=== PATIENT | female | born 1955 | race Caucasian/White ===

== ENCOUNTER → 2016-08-15 | Outpatient (CLI) | payer OTHER ==
[~2016-08-15] MED LIST: ACET-1138 PO; CALC1CHW PO; CYAN500T13 PO; CYCL10TA6 PO; DIPH1TAB PO; EPP3/2 IM; FLUC150T PO; FLUT0.15 NAE; FOLI800T PO; HYDR4TAB2 PO; HYQVIA INJ; IMT100 PO; LEVO125T72 PO; MAGN400T6 PO; METO1TAB54 PO; NXM/40 PO; OXYSR/20 PO; POLY335019 PO; PRED-301 PO; RANI1TAB75 PO; SENN-61 PO; TRAM-10 PO; TYL325X PO; ZFRODT/8 PO; potassium supplement PO
--- NOTE | 2016-08-15 12:14 | DIAGNOSTIC IMAGING REPORT ---
CHEST 2 VIEWS ROUTINE CLINICAL HISTORY: Preoperative evaluation. COMPARISON STUDY: Chest radiograph September 18, 2015 per FINDINGS: A left subclavian Ubayyv-[id number]-Ejiy, anterior cervical spine fusion and metallic densities within the right upper arm are incidentally noted. Lung volumes are normal. There is no pneumothorax or pleural effusion. Pulmonary vascularity is normal. No consolidation is present. Cardiomediastinal silhouette is normal. Mild biapical opacities are unchanged and likely reflect scarring. IMPRESSION: No acute cardiopulmonary findings. Electronically signed by: Padilla Wilder M.D. 08/15/2016 12:13 PM Dictated Date/Time: 08/15/2016 12:12 PM
[2016-08-15 12:25] LABS: BASO % 0.4 %; BASO ABS # 0.03 K/uL (0-0.2); COMPLETE YES; EOS % 1.5 %; HEMATOCRIT 33.6 % (37-47); IG% 0.1 %; LYMPH % 29.2 %; LYMPH ABS # 1.97 K/uL (1.2-3.4); MEAN CELL VOLUME 71.6 fL (80-100); MEAN CORPUSCULAR HEMOGLOBIN 22.4 pg (25-34); MEAN CORPUSCULAR HGB CONC 31.3 g/dl (32-36); MEAN PLATELET VOLUME 10.5 fL (7.4-10.4); MONO % 4.7 %; NEUT % 64.1 %; PLATELET COUNT 320 K/uL (130-400); RED BLOOD COUNT 4.69 M/uL (4.2-5.4); WHITE BLOOD COUNT 6.74 K/uL (4.8-10.8)
[2016-08-15 12:30] LABS: URINE APPEARANCE CLEAR (CLEAR); URINE BILIRUBIN NEG (NEG); URINE COLOR DK YELLOW; URINE NITRITE NEG (NEG); URINE PH 5.5 (4.5-7.5); URINE SPECIFIC GRAVITY 1.027 (1.000-1.030); UROBILINOGEN NEG (NEG); ZZUR CULT IF INDIC CLEAN CATCH NO
[2016-08-15 12:34] LABS: MANUAL MICROSCOPIC REQUIRED? NO; REVIEW REQ? NO
[2016-08-15 12:35] LABS: PROTHROMBIN TIME (PATIENT) 10.8 SECONDS (9.0-12.0)
== END | disposition home or self-care (01) ==
LOC: C.RAD 11:18
PROVIDERS: ATTEND Orthopaedic Surgery Sports Medicine
DX: Z01.818 Encounter for other preprocedural examination (principal)

== ENCOUNTER 2016-08-23 09:38 | Observation (INO) | payer OTHER ==
[2016-08-10 13:15] VITALS: BMI 27.0
--- NOTE | 2016-08-22 15:54 | HISTORY & PHYSICAL EXAMINATION ---
DATE OF ADMISSION: 08/23/2016 ADMISSION HISTORY AND PHYSICAL CHIEF COMPLAINT: Chronic left shoulder pain. HISTORY OF PRESENT ILLNESS: A 61-year-old female patient of Dr. Reyes'randy complaining of chronic left shoulder pain. The patient is status post multiple arthroscopic left rotator cuff repair, the last one being a partial repair. The patient continued to have chronic pain despite her improved use of overhead motions. She wishes to proceed now with a left shoulder arthroscopic superior capsular reconstruction with human dermal skin graft. PAST MEDICAL HISTORY: Hypercholesterolemia, pulmonary embolisms or blood clots, carpal tunnel syndrome, hypothyroidism, MRSA, osteoarthritis, spine problems, neck problems, sciatica, and acid reflux. SOCIAL HISTORY: Nonsmoker, nondrinker. PAST SURGICAL HISTORY: Will be provided on admission. FAMILY HISTORY: Noncontributory. REVIEW OF SYSTEMS: Chronic left shoulder pain and decreased motion and strength. Otherwise, denies any shortness of breath, chest pain, nausea, vomiting or any other joint complaints. MEDICATIONS: EpiPen 0.3 mg IM as needed for anaphylaxis, Synthroid 125 mcg daily, Nexium 40 mg daily, ranitidine 150 mg b.i.d., Amrix 15 mg daily, Reglan 10 mg q.i.d. daily, Celebrex 200 mg daily, OxyIR 20 mg 1 tablet q. 8 hours p.r.n., Dilaudid 4 mg 1 p.o. daily as needed. ALLERGIES AND SENSITIVITIES TO MEDICINE: INCLUDE PNEUMOVAX AND INFLUENZA VIRUS, nevanac NICKEL FORMALDEHYDE ADHESIVES, BETADINE, NEOMYCIN, DAYPRO, serzone SULFITES, PRIMAXIN, TROVAN, ZITHROMAX, DESYREL, FLOXIN, PAXIL, COMPAZINE, AMOXICILLIN, VOLTAREN, LODINE, SOMA, CLEOCIN, BELLERGAL-S, TERRAMYCIN, SEPTRA AND IVP DYE. PHYSICAL EXAMINATION: GENERAL: Well-developed, well-nourished 61-year-old female in no acute distress. She is alert and oriented x3 and pleasant. HEENT: Normocephalic, atraumatic. Extraocular motions are intact. Pupils are equal and reactive to light. HEART: Regular rate and rhythm with a 2/6 murmur appreciated. LUNGS: Clear. ABDOMEN: Soft, nontender, bowel sounds present. EXTREMITIES: Left shoulder reveals active range of motion of 120 degrees, passively to 140 degrees. She really only has 2/5 strength globally. NEUROLOGIC: Neurovascularly, she is intact in her left upper extremity. DIAGNOSES: Left shoulder chronic pain with chronic rotator cuff tear status post multiple arthroscopic repairs. She also has a history of hypercholesterolemia, pulmonary embolisms, carpal tunnel, hypothyroidism, methicillin-resistant staphylococcus aureus, osteoarthritis, spine problems, neck problems, sciatica, and acid reflux. PLAN: The patient was advised of her diagnosis. Indications, risks, benefits, and postop course have all been reviewed. The patient wishes to proceed with a left shoulder arthroscopic superior capsular reconstruction with a human dermal skin graft. Necessary consent forms, preoperative testing and clearances will be obtained. FRANCOIS
[~2016-08-23] VITALS: Ht 162.6 cm; Wt 72.3 kg
[~2016-08-23 09:38] MED LIST changes: -ACET-1138 PO; +BUPIVACAINE/EPINEPHRINE 0.25% 1:200,000 30 ML VIAL ONE; +CEFAZOLIN 1000MG/55 ML D5W IV SCH; +DEXAMETHASONE SOD INJ 4 MG/ML VIAL ONE; +LACTATED RINGER'S 1000ML 1,000 ML IV SCH; -POLY335019 PO
[2016-08-23] MEDS ORDERED: ONDANSETRON INJ 2 MG/ML 2 ML VIAL ONE ×3 (10:22→18:57)
[2016-08-23] MEDS ORDERED: DEXAMETHASONE SOD INJ 4 MG/ML VIAL ONE ×2 (10:22→17:07)
[2016-08-23] MEDS ORDERED: SUCCINYLCHOLINE CHLORIDE 20 MG/ML 10 ML VIAL IV ONE (10:22)
[2016-08-23] MEDS ORDERED: NEOSTIGMINE METHYLSULFATE 5 MG/5 ML SYR ONE (10:22)
[2016-08-23] MEDS ORDERED: PHENYLEPHRINE HCL INJ 10 MG/ML VIAL ONE ×2 (10:22→14:01)
[2016-08-23] MEDS ORDERED: EpHEDrine SULFATE INJ 50 MG/ML AMP ONE ×2 (10:22→15:29)
[2016-08-23] MEDS ORDERED: LIDOCAINE HCL 2% 2 ML VIAL (20MG/ML) ONE (10:22)
[2016-08-23] MEDS ORDERED: GLYCOPYRROLATE INJ 0.2 MG/ML VIAL ONE (10:22)
[2016-08-23] MEDS ORDERED: PROPOFOL IV EMULSION 10 MG/ML 20 ML VIAL IV ONE ×2 (10:22→13:34)
[2016-08-23] MEDS ORDERED: ROCURONIUM BROMIDE 10 MG/ML 5 ML VIAL ONE (10:22)
[2016-08-23] MEDS ORDERED: MIDAZOLAM HCL 1 MG/ML 2ML VIAL ONE ×2 (10:23→12:30)
[2016-08-23] MEDS ORDERED: FENTANYL CITRATE INJ 50 MCG/1 ML 2 ML VIAL ONE ×3 (10:23→12:53)
[2016-08-23 10:34] LABS: PARTIAL THROMBOPLASTIN RATIO 1.1
[2016-08-23] MEDS ORDERED: POLY335019 PO (10:38)
[2016-08-23 10:42] VITALS: BP 130/95; PULSE 98; TEMP 36.9; O2SAT 96; Ht 162.6 cm; Wt 72.3 kg
--- NOTE | 2016-08-23 12:34 | History & Physical Bridge Note ---
H&P Re-Evaluation Bridge Note: I have examined the patient, reviewed the History & Physical and in the interval since the performance of the History & Physical I have noted the following changes of clinical significance: No changes noted
[2016-08-23] MEDS ORDERED: HYDROmorphone INJ 1 MG/ML SYR IV PRN (13:00)
[2016-08-23] MEDS ORDERED: PROMETHAZINE HCL INJ 6.25 MG in SODIUM CHLORIDE 0.9% 50ML 50 ML IV PRN (13:00)
[2016-08-23] MEDS ORDERED: EpHEDrine SULFATE INJ 50 MG/ML AMP IV PRN (13:00)
[2016-08-23] MEDS ORDERED: ONDANSETRON INJ 2 MG/ML 2 ML VIAL IV PRN (13:00)
[2016-08-23] MEDS ORDERED: ATROPINE SULFATE 0.1 MG/ML 5ML SYR IV PRN (13:00)
[2016-08-23] MEDS ORDERED: FENTANYL CITRATE INJ 50 MCG/1 ML 2 ML VIAL IV PRN (13:00)
[2016-08-23] MEDS ORDERED: SODIUM CHLORIDE 0.9% INJ 10 ML VIAL ONE (15:29)
[2016-08-23] MEDS ORDERED: HYDROmorphone INJ 2 MG/ML SYR/VIAL ONE (16:06)
[2016-08-23] MEDS ORDERED: ZOLPIDEM TARTRATE 5 MG TAB PO PRN (18:30)
[2016-08-23] MEDS ORDERED: SENNA 8.6 MG TAB PO PRN (18:30)
[2016-08-23] MEDS ORDERED: EpINEphrine INJ 1MG/ML AMP 1 MG/ML AMP IM PRN (18:30)
[2016-08-23] MEDS ORDERED: MAGNESIUM HYDROXIDE SUSP 30 ML UDC PO PRN (18:30)
[2016-08-23] MEDS ORDERED: SOD PHOSPHATE/SOD BIPHOSPHATE ENEMA 132 ML BTL PR PRN (18:30)
[2016-08-23] MEDS ORDERED: HYALURONIDASE INJ SCH (18:30)
[2016-08-23] MEDS ORDERED: BISACODYL 10 MG SUPP PR PRN (18:30)
[2016-08-23] MEDS ORDERED: ONDANSETRON 4MG OD TAB PO PRN (18:30)
[2016-08-23] MEDS ORDERED: TRAMADOL HCL 50 MG TAB PO PRN (18:30)
[2016-08-23] MEDS ORDERED: HYDROmorphone HCL 2 MG TAB PO PRN (18:30)
[2016-08-23] MEDS ORDERED: SUMATRIPTAN SUCC TAB 100 MG TAB PO PRN (18:30)
[2016-08-23] MEDS ORDERED: IMMUNE GLOBULIN INJ SCH (18:30)
--- NOTE | 2016-08-23 18:39 | [facility] Operative Report ---
Operative Report Operative Date Aug 23, 2016. Pre-Operative Diagnosis Left shoulder chronic pain with chronic rotator cuff tear status post multiple arthroscopic repairs Post-Operative Diagnosis same ,mild to moderate oa GHJ, chronic bursal and capsular adhesions . Procedure(s) Performed left shoulder revision arthroscopic rotator cuff repair with human dermal skin graft allograft augmentation extensive debridement and biceps tenodesis. Surgeon Dr Jose Reyes Pedicurist Surgeon(s) Eris Mazariegos PA-C Estimated Blood Loss 10cc Findings chronic retracted recurrent tear supra and infraspinatus chronic scar and moderate djd oa Anesthesia general and regional Complication(s) None Disposition Recovery Room / PACU Indications failure all conservative care chronic pain I attest to the content of the Intraoperative Record and any orders documented therein. Any exceptions are noted below.
--- NOTE | 2016-08-23 19:12 | Anesthesiology Progress Note ---
Anesthesia Post Op Note Date & Time Aug 23, 2016 at 19:12 Vital Signs Pain Intensity: 0 Vital Signs Past 12 Hours Date Time Temp Pulse Resp B/P Pulse Ox O2 Delivery O2 Flow Rate FiO2 08/23/16 19:05 36.3 82 14 161/74 100 Nasal Cannula 2 08/23/16 18:55 83 13 157/76 100 Nasal Cannula 2 08/23/16 18:45 82 15 138/70 100 Mask 10 08/23/16 18:35 82 17 142/78 100 Mask 10 08/23/16 18:29 36.6 87 12 157/86 100 Mask 10 08/23/16 10:42 36.9 98 20 130/95 96 Room Air Notes Mental Status: alert / awake / arousable, participated in evaluation Pt Amnestic to Procedure: Yes Nausea / Vomiting: adequately controlled Pain: adequately controlled Airway Patency, RR, SpO2: stable & adequate BP & HR: stable & adequate Hydration State: stable & adequate Anesthetic Complications: no major complications apparent
[2016-08-23] MEDS ORDERED: IV FLUIDS COMPLETED PRN (20:15)
[2016-08-23 20:21] VITALS: BP 146/86; PULSE 85; TEMP 36.4; O2SAT 98
[2016-08-23] MEDS: FLUTICASONE PROPIONATE NA SPR 16 GM BTL NAE SCH (20:33)
[2016-08-23] MEDS: CALCIUM 600MG + VIT D 400 IU TAB PO SCH (20:33)
[2016-08-23] MEDS: MAGNESIUM OXIDE 400 MG TAB PO SCH (20:33)
[2016-08-23 20:56] VITALS: BP 150/94; PULSE 87; TEMP 36.8; O2SAT 97
[2016-08-23] MEDS ORDERED: PANTOprazole SOD 40 MG TAB PO SCH (21:00)
[2016-08-23] MEDS ORDERED: RANITIDINE HCL 150 MG TAB PO SCH (21:00)
[2016-08-23] MEDS ORDERED: METOCLOPRAMIDE HCL 5 MG TAB PO SCH (21:00)
[2016-08-23] MEDS: D5W AND 1/2NSS + 20MEQ KCL 1,000 ML IV SCH (21:04)
[2016-08-23] MEDS: CYCLOBENZAPRINE HCL 10 MG TAB PO SCH (21:52)
[2016-08-23] MEDS: ACETAMINOPHEN 500 MG TAB PO SCH (21:53)
[2016-08-23] MEDS: CEFAZOLIN IV 1,000 MG in DEXTROSE 5% 50ML 50 ML IV SCH (21:53)
[2016-08-23] MEDS: OXYCODONE HCL 20 MG TABCR (OXYCONTIN) PO SCH (21:55)
[2016-08-23 22:03] VITALS: BP 144/89; PULSE 85; TEMP 36.4; O2SAT 97
[2016-08-23 22:37] VITALS: BP 150/82; PULSE 86; TEMP 36.7; O2SAT 96
[2016-08-23] MEDS: METOCLOPRAMIDE HCL 5 MG TAB PO SCH (22:40)
[2016-08-23] MEDS: HYDROmorphone INJ 0.5 MG/0.5 ML SYR IV PRN (23:22)
--- NOTE | 2016-08-24 00:51 | OPERATIVE REPORT ---
DATE OF OPERATION: 08/23/2016 INDICATION FOR PROCEDURE: The patient is a 61-year-old female who presents with chronic left shoulder pain. She had several arthroscopic rotator cuff repairs prior to my revising her rotator cuff repair which improved her function but still had chronic pain and MRI followup exam demonstrated incomplete healing of the rotator cuff repair. She still had some healing of the supraspinatus, recurrent infraspinatus tear, atrophy of the infraspinatus and supraspinatus noted, but no proximal migration of the humerus. She had has previous decompression, distal clavicle excision surgery. She has had extensive conservative management, injections, chronic pain management. Continues to have pain. SHE HAS A METAL ALLERGY. She is a bit young for reverse replacement, and after extensive discussion, plan was to do superior capsular reconstruction, possibly revision repair if indicated. PREOPERATIVE DIAGNOSIS: Left shoulder chronic recurrent rotator cuff tear status post prior revision rotator cuff repair with incomplete healing and chronic pain. POSTOPERATIVE DIAGNOSIS: Same including subacromial bursitis, bursal scar tissue, capsular adhesions, partial failure rotator cuff revision repair, and moderate osteoarthritis. PROCEDURE: Left shoulder arthroscopic revision rotator cuff repair with human dermal skin allograft augmentation with biceps tenodesis and extensive debridement including debridement rotator cuff, subacromial bursal adhesions, release capsular adhesions, debridement of glenohumeral joint. SURGEON: Dr. Reyes. BOOKING MANAGER: Eris Mazariegos PA-C. ANESTHESIA: Regional block, general. OPERATIVE PROCEDURE: The patient was taken to the operating room, anesthetized with regional block and general anesthetic. She was positioned on a [facility] shoulder table in a 70-degree beachchair position. The patient did have an A-port with a catheter in place and did not have IV access in her right upper extremity, so anesthesia had to do jugular vein IV access on the right side of her neck, then removed the port catheter. This all took more than typical time for induction of anesthesia and positioning. After she was positioned in a 70-degree beachchair position on the [facility], did examine her shoulder which demonstrates she had good passive range of motion. She had multiple scars, all arthroscopic from previous multiple surgeries. Her left shoulder was then sterilely prepped and draped using ChloraPrep. She did have preop Ancef. She did have MULTIPLE ALLERGIES TO MULTIPLE MEDICATIONS INCLUDING OTHER ANTIBIOTICS. Her left shoulder after it was sterilely prepped was arthroscoped, starting with a posterior arthroscopy portal through one of the previous scars in the soft spot. We did a lateral portal through one of the previous scars in subacromial space and anterior portal through one of the previous scars in the rotator interval. We did a superolateral portal for suture anchor placement. We made a widened lateral portal for passport cannula. Did a small stab incision for docking a suture posterolateral area of the shoulder. In the glenohumeral joint, she had some moderate articular thinning on the glenoid and humeral head. There was some global grade 2 and 3 wear on humeral head and the glenoid. She did not have any exposed bone, but it was definitely thinning articular surface there. She had some generalized fraying of the labrum and had an intact subscapularis tendon. Supraspinatus tendon on the anterior aspect and rotator interval tissue was also attached with suture material still intact to the anterior supraspinatus, but some of the main portion supraspinatus had torn off the tuberosity and retracted. Infraspinatus was retracted posteriorly. The tissue came almost to a V-shape where the infraspinatus tissue met the supraspinatus tissue at the greater tuberosity and there was more of a gap as you went more medial toward the glenoid in the gap between the cuff tissue. I felt she did have enough tissue and thick enough tissue to go ahead and do a revision repair instead of going ahead to do a superior capsular reconstruction at this time. She did have a satisfactory decompression and there was no impingement from the AC joints at all. She did have chronic bursitis and subacromial and subdeltoid adhesions. She also had capsular adhesions of the cuff around the superior glenoid. Attention was first taken to the glenohumeral joint at which time I did debridement of glenoid and humeral articular surfaces, the labrum, and then I chose to do a biceps tenodesis to get better exposure with capsular releases anticipating possible SCR and also the biceps was partially uncovered from the tear and possible pain generator. So I put a #1 PDS suture through the biceps via a spinal needle and then did a tenotomy of the biceps off the superior labrum using a radiofrequency ablator. Then, we used radiofrequency ablator to release the superior capsule under the supraspinatus and infraspinatus posteriorly, releasing all the adhesions. We released medially about a centimeter until we saw the fat tissue and then stopped to protect any injury to the suprascapular nerve. The base of the coracoid was exposed, so all the rotator interval tissue was released at the base of the coracoid, and the tissue was released down to the upper subscapularis tendon, gaining full release of the supraspinatus and infraspinatus tissue. Then, the biceps was tenodesed using a NORIS technique, placing #1 PDS suture through the anterior rotator interval and supraspinatus tissue and passing a #2 Ultrabraid suture shuttling it through the rotator cuff and suturing the biceps to the rotator cuff in subacromial space. Then, attention was taken to the subacromial exposure, at which time the footprint of the supraspinatus which was more of a V-shaped area of wear was debrided down to bone. There were old anchors identified. We had to carefully place our anchor to avoid previous anchor placement. I medialized the articular surface slightly to get medial row fixation of the supraspinatus. Then, the edges of the rotator cuff were debrided and then the bursal adhesions were carefully debrided and released under the acromion, AC joint area, at the spine of the scapula posteriorly, and posteriorly in the posterior gutter and lateral subdeltoid region and subscapularis region anteriorly. After we did a systematic release of all these adhesions to mobilize the cuff, we took a soft tissue manipulator to see if we could cover the humeral head and we were able to fully cover the humeral head with a [id number] closure. So I felt we were not going to do an SCR at this time and then proceed with revision cuff repair including a graft augmentation. So at this point, just off the articular margin, I placed a Composite SwiveLock suture anchor from [employer] with a TigerTape and added a #2 FiberWire to it. It was a 4.75 x 19.[address] We did place this medial and slightly posterior to the other anchor that was placed on previous surgery. Then, I used a Scorpion suture passer to pass the TigerTape and #2 FiberWire sutures and the other suture from the anchor which was another #2 FiberWire through the supraspinatus tissue. The second limb of the FiberWire was placed through the infraspinatus tissue from each of the FiberWires so we could get both xixk-kw-zjuk closure and medial row fixation in the infraspinatus and supraspinatus to the SwiveLock. These were not tied at this point in time. Then, 2 more aqhj-xj-bhfk sutures were docked for later tying in the infraspinatus and anterior supraspinatus. Then, finally medially, I placed 2 more #2 FiberWire sutures in a horizontal mattress fashion through the most medial aspect of the infraspinatus and most medial aspect of the supraspinatus to repair the graft with a double italia technique. At this point, all our sutures were placed and then I proceeded with the repair, so first we tied down the FiberWire sutures from the SwiveLock anchor x2. One tail of each of those sutures was cut and 4 tails, 2 of the FiberWire and 2 tails of the tape were put into another SwiveLock anchor laterally for the dual row fixation. Then, the pdbh-vr-[id number] sutures were tied, leaving 1 knot far anterior for tying into the graft and 1 knot far posterior in the mid tear region to tie into the posterior graft. Then, we made graft measurements with the Arthrex measuring device. After making the measurements, we chose to make a 35 mm trapezoidal graft width medially, 30 mm laterally, and 30 mm length anteriorly and posteriorly. This graft was then cut. Then, we exchanged our working cannula for a passport cannula and then passed appropriate sutures out through the passport cannula. We used the BioMaxion suture passer to pass the sutures from the medial side in a horizontal mattress fashion to the medial aspect of the graft. Then, we did a double italia technique drawing the graft in through the passport using a rotator cuff grasper and pulling on the sutures of the double italia to pull the graft down onto the superior cuff. There was a complete previous nbdq-lr-hcdl closure with the previous ekjk-nn-dwjz sutures that we had closed, so the cuff was already completely repaired underneath the graft. Then, we completed the double italia technique with a surgeon's knot, fixating the medial side of the graft across the rotator cuff. Then, the lateral aspect of the graft was repaired with a 4.5 corkscrew double loaded suture anchor anteriorly, a 5.5 composite corkscrew double loaded suture anchor posteriorly, and we had the FiberWire suture that was in the SwiveLock anchor centrally for placement through the lateral graft. These were all tied down with Max sliding locking knots and surgeon's knots as needed. Then, the anterior and posterior sutures were passed with the BioMaxion suture passer through the anterior and posterior cuff and then distally down the anterior and posterior graft and then slay down the edges of the graft over the cuff, completing the graft fixation which was performed all arthroscopically. The repair was secured with rotation with the arm at the side. There was complete coverage of humeral head, complete stability of the repair. The portal sites were closed with nylon sutures. Sterile dressings were applied and the patient was placed into an abduction pillow sling immobilizer. Eris Mazariegos PA-C, was my rn first assistant. He functioned as rn first assistant for the entire procedure. He assisted in patient positioning, prepping, draping, arm positioning, instrument management and suture management during the procedure, and he performed the skin closure, dressings, abduction pillow sling application, and will participate in postoperative care of the patient. I attest to the content of the Intraoperative Record and any orders documented therein. Any exceptio ns are noted below.
[2016-08-24] MEDS: HYDROmorphone INJ 0.5 MG/0.5 ML SYR IV PRN ×3 (01:25→06:29)
[2016-08-24] MEDS ORDERED: NURSING VERBAL MED ORDER ONE (01:45)
[2016-08-24] MEDS ORDERED: PROMETHAZINE HCL INJ 12.5 MG in SODIUM CHLORIDE 0.9% 50ML 50 ML IV PRN (02:00)
[2016-08-24] MEDS ORDERED: ONDANSETRON INJ 2 MG/ML 2 ML VIAL IV PRN (02:00)
[2016-08-24 03:32] VITALS: BP 150/84; PULSE 96; TEMP 36.9; O2SAT 95
[2016-08-24] MEDS ORDERED: LEVOTHYROXINE 125 MCG TAB PO SCH ×2 (06:00)
[2016-08-24] MEDS: CEFAZOLIN IV 1,000 MG in DEXTROSE 5% 50ML 50 ML IV SCH (06:22)
[2016-08-24] MEDS: D5W AND 1/2NSS + 20MEQ KCL 1,000 ML IV SCH (06:22)
[2016-08-24] MEDS: ACETAMINOPHEN 500 MG TAB PO SCH (06:23)
[2016-08-24 07:20] VITALS: BP 158/106; PULSE 106; TEMP 36.9; O2SAT 97
[2016-08-24] MEDS: OXYCODONE HCL 20 MG TABCR (OXYCONTIN) PO SCH (08:10)
[2016-08-24] MEDS: METOCLOPRAMIDE HCL 5 MG TAB PO SCH (08:13)
[2016-08-24] MEDS: CYCLOBENZAPRINE HCL 10 MG TAB PO SCH (08:13)
[2016-08-24] MEDS: FLUTICASONE PROPIONATE NA SPR 16 GM BTL NAE SCH (08:14)
[2016-08-24] MEDS: CALCIUM 600MG + VIT D 400 IU TAB PO SCH (08:14)
[2016-08-24] MEDS: MAGNESIUM OXIDE 400 MG TAB PO SCH (08:15)
--- NOTE | 2016-08-24 08:15 | Orthopedic Progress Note ---
Orthopedic Progress Note Date of Service Aug 24, 2016. Subjective Post OP Day: 1 Reports: feeling well, pain controlled w PO medications, Denies: SOB, calf pain , chest pain, complaints, light headedness, nausea / vomiting Objective N/V intact, capillary refill less than 2 sec., dressing C/D/I, A&O x3 Sling in tact, fingers mobile. Date Time Temp Pulse Resp B/P Pulse Ox O2 Delivery O2 Flow Rate FiO2 08/24/16 03:32 36.9 96 16 150/84 95 Room Air 08/23/16 23:20 Room Air 08/23/16 22:37 36.7 86 18 150/82 96 Room Air 08/23/16 22:03 36.4 85 18 144/89 97 Nasal Cannula 2.0 08/23/16 20:56 36.8 87 18 150/94 97 Room Air 08/23/16 20:21 36.4 85 18 146/86 98 Nasal Cannula 2.0 08/23/16 19:53 Nasal Cannula 2.0 08/23/16 19:30 85 15 147/89 100 Nasal Cannula 2 08/23/16 19:15 80 12 161/80 98 Nasal Cannula 2 08/23/16 19:05 36.3 82 14 161/74 100 Nasal Cannula 2 08/23/16 18:55 83 13 157/76 100 Nasal Cannula 2 08/23/16 18:45 82 15 138/70 100 Mask 10 08/23/16 18:35 82 17 142/78 100 Mask 10 08/23/16 18:29 36.6 87 12 157/86 100 Mask 10 08/23/16 10:42 36.9 98 20 130/95 96 Room Air Laboratory Results 24 Hours: Test 08/24/16 04:44 Assessment & Plan Assessment: POD #1, Left shoulder revision RCR with graft augmentation, biceps tenodesis Plan: NO PT May loosen sling to move elbow only. D/C home today. Inhouse Planning Pain Management: Oxycontin, Dilaudid DVT Prophylaxis: SCDs Discharge Planning Discharge Planning: home Pain Management: Dilaudid
[2016-08-24] MEDS ORDERED: ACET-1138 PO (08:20)
[2016-08-24] MEDS ORDERED: HYDR4TAB2 PO (08:20)
--- NOTE | 2016-08-24 08:24 | Discharge Instructions ---
Discharge Instructions Admission Reason for Admission: Left Shoulder Recurrent Rotator Cuff Tear Discharge Discharge Diagnosis / Problem: LEft shoulder revision RCR w graft, biceps tenodesis. Discharge Goals Goal(s): Improve function Activity Recommendations Activity Limitations: as noted below . Instructions / Follow-Up Instructions / Follow-Up NO PT May loosen sling to move elbow only, no shoulder motion. NO driving. May change dressings and shower post op day #2, do not submerge incisions underwater. Follow up w Dr. Reyes 12-14 days post op, call [phone] to confirm appt. Current Hospital Diet Patient's current hospital diet: Regular Diet Discharge Diet Recommended Diet: Regular Diet Procedures Procedures Performed: left shoulder arthroscopic superior capsular reconstruction with a human dermal skin graft. Pending Studies Studies pending at discharge: no Medical Emergencies . Who to Call and When: Medical Emergencies: If at any time you feel your situation is an emergency, please call 911 immediately. . Non-Emergent Contact Non-Emergency issues call your: Primary Care Provider . "Provider Documentation" section prepared by Eris Mazariegos. VTE Core Measure Inpt VTE Proph given/why not?: SCD's [place] Drug Monitoring Program Search Results: patient reviewed within database, no issues identified
[2016-08-24] MEDS ORDERED: FoLIC ACID TAB 400 MCG TAB PO SCH (09:00)
[2016-08-24] MEDS ORDERED: ESOMEPRAZOLE MAGNESIUM 40 MG CAP PO SCH (09:00)
[2016-08-24] MEDS ORDERED: POLYETHYLENE (MIRALAX) 17 GM PACK PO SCH (09:00)
[2016-08-24] MEDS ORDERED: POTASSIUM SUPPLEMENT PO SCH (09:00)
[2016-08-24] MEDS ORDERED: PANTOprazole SOD 40 MG TAB PO SCH (09:00)
[2016-08-24] MEDS ORDERED: MULTIVITAMIN TAB PO SCH (09:00)
[2016-08-24] MEDS ORDERED: CYANOCOBALAMIN 500 MCG TAB (VIT B-12) PO SCH (09:00)
[2016-08-24 09:16] VITALS: BP 158/106; PULSE 106; TEMP 36.9; O2SAT 97
[2016-08-24] MEDS ORDERED: RANITIDINE HCL 150 MG TAB PO SCH (21:00)
--- NOTE | 2016-09-07 09:22 | DISCHARGE SUMMARY ---
HISTORY OF PRESENT ILLNESS: This is a 61-year-old female patient of Dr. Reyes'randy complaining of chronic left shoulder pain. The patient is status post multiple arthroscopic left rotator cuff repairs, last one being a partial repair. The patient continues to have chronic pain despite her improvement and use of overhead motion. She wishes to proceed now with left shoulder arthroscopic rotator cuff repair with a human dermal skin graft. PAST MEDICAL HISTORY: Hypercholesterolemia, pulmonary embolism or blood clots, carpal tunnel syndrome, hypothyroidism, MRSA, osteoarthritis, spine problems, neck problems, sciatica and acid reflux. POSTOPERATIVE COURSE: The patient underwent a left shoulder arthroscopic revision rotator cuff repair with reconstruction with human dermal skin graft, biceps tenodesis and extensive debridement. Postoperative course, she did well postoperatively. She was followed closely with pain control. No physical therapy at this point in time and did well. PHYSICAL EXAMINATION ON DISCHARGE: Left shoulder dressings are clean, dry and intact. There was no redness or drainage. Neurologically and neurovascularly she was intact in her left upper extremity. DIAGNOSIS: Status post left arthroscopic revision rotator cuff repair with human dermal skin graft, biceps tenodesis and extensive debridement. She also has a history of hypercholesterolemia, pulmonary embolism, carpal tunnel syndrome, hypothyroidism, MRSA, osteoarthritis, spine problems, neck problems, sciatica and acid reflux. PLAN: The patient was discharged home. She will do no formal physical therapy at this point in time. She can loosen her sling to do elbow range of motion only. She will continue pain medications as prescribed by her family physician and follow up in the office as scheduled.
== END 2016-08-24 10:10 | disposition home or self-care (01) ==
LOC: ENRESERVDT → ENRESERVTM → C.ACU 09:38 → C.3E 18:32 → UNDOADMOB 18:32 → EDBEDREQ 19:36
PROVIDERS: ADMIT Orthopaedic Surgery Sports Medicine; ATTEND Orthopaedic Surgery Sports Medicine
DX: M75.101 Unspecified rotator cuff tear or rupture of right shoulder, not specified as traumatic (principal); M75.52 Bursitis of left shoulder; M75.02 Adhesive capsulitis of left shoulder; M19.012 Primary osteoarthritis, left shoulder; E78.00 Pure hypercholesterolemia, unspecified; E03.9 Hypothyroidism, unspecified; K21.9 Gastro-esophageal reflux disease without esophagitis

== ENCOUNTER → 2016-08-29 | Outpatient (CLI) | payer OTHER ==
[~2016-08-29] MED LIST changes: +ACET-1138 PO; +ACET-1311 PO; +BCTCR/30 TOP; +BIOT10TA2 PO; -BUPIVACAINE/EPINEPHRINE 0.25% 1:200,000 30 ML VIAL ONE; +CALC-354 PO; -CEFAZOLIN 1000MG/55 ML D5W IV SCH; +CLB/200 PO; +CLOT1CRE80 TOP; -DEXAMETHASONE SOD INJ 4 MG/ML VIAL ONE; +HYDR4TAB78 PO; +IMMU1INJ INJ; +IPRA1AER2 INH; +IRON20IN IV; -LACTATED RINGER'S 1000ML 1,000 ML IV SCH; +LEVO100T PO; +MONT1TAB5 PO; +ONDA4TAB46 SL; +POLY335019 PO; +ZNTT/150 PO
[2016-08-29 15:48] LABS: URINE APPEARANCE CLEAR (CLEAR); URINE BILIRUBIN NEG (NEG); URINE COLOR YELLOW; URINE NITRITE NEG (NEG); URINE SPECIFIC GRAVITY 1.005 (1.000-1.030); UROBILINOGEN NEG (NEG)
[2016-08-29 16:00] LABS: MANUAL MICROSCOPIC REQUIRED? NO; REVIEW REQ? NO
== END | disposition home or self-care (01) ==
LOC: C.LABSPEC 10:08
PROVIDERS: ATTEND Family Medicine
DX: N39.0 Urinary tract infection, site not specified (principal)

== ENCOUNTER → 2017-03-16 | Outpatient (CLI) | payer OTHER ==
[~2017-03-16] MED LIST changes: +LXP10 PO
[2017-03-16 09:59] LABS: HEMATOCRIT 34.8 % (37-47); MEAN CELL VOLUME 70.9 fL (80-100); MEAN CORPUSCULAR HEMOGLOBIN 21.2 pg (25-34); MEAN CORPUSCULAR HGB CONC 29.9 g/dl (32-36); MEAN PLATELET VOLUME 10.9 fL (7.4-10.4); PLATELET COUNT 315 K/uL (130-400); RED BLOOD COUNT 4.91 M/uL (4.2-5.4); WHITE BLOOD COUNT 8.47 K/uL (4.8-10.8)
== END | disposition home or self-care (01) ==
LOC: C.LAB 07:35
PROVIDERS: ATTEND Family Medicine
DX: R53.83 Other fatigue (principal); E03.9 Hypothyroidism, unspecified

== ENCOUNTER 2017-03-29 18:39 | Inpatient (IN) | payer OTHER ==
[~2017-03-29] VITALS: Ht 165.1 cm; Wt 67.5 kg
[~2017-03-29 18:39] MED LIST changes: -ACET-1311 PO; -BCTCR/30 TOP; -BIOT10TA2 PO; -CALC-354 PO; -CLB/200 PO; -CLOT1CRE80 TOP; -HYDR4TAB78 PO; -IMMU1INJ INJ; -IPRA1AER2 INH; -IRON20IN IV; -LEVO100T PO; -LXP10 PO; -MONT1TAB5 PO; -ONDA4TAB46 SL; -ZNTT/150 PO
[2017-03-29] MEDS ORDERED: SODIUM CHLORIDE 0.9% 1000ML 1,000 ML IV STA ×2 (19:21→23:35)
[2017-03-29] MEDS ORDERED: ONDANSETRON 8 MG/54 ML D5W IV STA ×2 (19:21→23:40)
[2017-03-29] MEDS ORDERED: HYDROmorphone INJ 1 MG/ML SYR IV STA ×2 (19:21→23:40)
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
[2017-03-29] MEDS ORDERED: BIOT10TA2 PO (20:13)
[2017-03-29] MEDS ORDERED: HYDR4TAB78 PO (20:13)
[2017-03-29] MEDS ORDERED: CALC-354 PO (20:13)
[2017-03-29] MEDS ORDERED: BCTCR/30 TOP (20:13)
[2017-03-29] MEDS ORDERED: MONT1TAB5 PO (20:13)
[2017-03-29] MEDS ORDERED: ONDA4TAB46 SL (20:13)
[2017-03-29] MEDS ORDERED: ZNTT/150 PO (20:13)
[2017-03-29] MEDS ORDERED: IRON20IN IV (20:13)
[2017-03-29] MEDS ORDERED: LEVO100T PO (20:13)
[2017-03-29] MEDS ORDERED: CLOT1CRE80 TOP (20:13)
[2017-03-29] MEDS ORDERED: IPRA1AER2 INH (20:13)
[2017-03-29] MEDS ORDERED: CLB/200 PO (20:13)
[2017-03-29] MEDS ORDERED: IMMU1INJ INJ (20:13)
[2017-03-29] MEDS ORDERED: ACET-1311 PO (20:14)
[2017-03-29 21:14] LABS: BASO % 0.2 %; BASO ABS # 0.02 K/uL (0-0.2); HEMATOCRIT 38.2 % (37-47); IG% 0.3 %; LYMPH ABS # 1.17 K/uL (1.2-3.4); MEAN CELL VOLUME 68.1 fL (80-100); MEAN CORPUSCULAR HEMOGLOBIN 20.5 pg (25-34); MEAN CORPUSCULAR HGB CONC 30.1 g/dl (32-36); MEAN PLATELET VOLUME 9.7 fL (7.4-10.4); MONO % 8.2 %; NEUT % 82.3 %; PLATELET COUNT 426 K/uL (130-400); RED BLOOD COUNT 5.61 M/uL (4.2-5.4); WHITE BLOOD COUNT 12.97 K/uL (4.8-10.8)
[2017-03-29 21:25] LABS: PROTHROMBIN TIME (PATIENT) 10.8 SECONDS (9.0-12.0)
[2017-03-29 21:33] LABS: ALT/SGPT 22 U/L (12-78); BLOOD UREA NITROGEN 27 mg/dl (7-18); BUN/CREATININE RATIO 24.6 (10-20); CALCIUM 10.2 mg/dl (8.5-10.1); CARBON DIOXIDE 25 mmol/L (21-32); CHLORIDE 107 mmol/L (98-107); GLUCOSE 127 mg/dl (70-99); SODIUM 140 mmol/L (136-145)
[2017-03-29] MEDS ORDERED: METOCLOPRAMIDE HCL INJ 5 MG/ML 2 ML VIAL IV STA (21:34)
[2017-03-29 21:38] LABS: ALKALINE PHOSPHATASE 133 U/L (45-117); AST/SGOT 23 U/L (15-37)
[2017-03-29 22:48] LABS: COMPLETE YES; MICROCYTOSIS PRESENT
[2017-03-29 22:53] LABS: URINE APPEARANCE CLOUDY (CLEAR); URINE COLOR DK YELLOW; URINE NITRITE NEG (NEG); URINE PH 5.5 (4.5-7.5); URINE SPECIFIC GRAVITY 1.035 (1.000-1.030); UROBILINOGEN NEG (NEG); ZZUR CULT IF INDIC CLEAN CATCH YES
[2017-03-29 23:01] LABS: MANUAL MICROSCOPIC REQUIRED? NO; REVIEW REQ? NO
[2017-03-29 23:02] LABS: URINE BILIRUBIN NEG (NEG)
[2017-03-30] MEDS ORDERED: ONDANSETRON INJ 2 MG/ML 2 ML VIAL IV STA (01:00)
[2017-03-30] MEDS: METOCLOPRAMIDE HCL INJ 5 MG/ML 2 ML VIAL IV STA ×2 (01:00→01:21)
[2017-03-30] MEDS ORDERED: HYDROmorphone INJ 1 MG/ML SYR IV STA (01:00)
[2017-03-30] MEDS ORDERED: ALTEPLASE, RECOMBINANT 1 MG/ML 2 ML VIAL IV STA (01:47)
[2017-03-30] MEDS ORDERED: DiphenhydrAMINE HCL 50 MG/ML VIAL IV PRN (02:00)
[2017-03-30] MEDS ORDERED: KETOROLAC TROMETHAMINE 30 MG/ML VIAL IV PRN (02:00)
[2017-03-30] MEDS ORDERED: LORAZEPAM 2 MG/ML 1 ML VIAL IV PRN ×2 (02:00)
[2017-03-30] MEDS ORDERED: ONDANSETRON INJ 2 MG/ML 2 ML VIAL IV PRN (02:00)
[2017-03-30 02:55] VITALS: BP 175/80; PULSE 94; TEMP 37.2; O2SAT 95; Ht 165.1 cm; Wt 67.5 kg
[2017-03-30] MEDS ORDERED: PIPERACILL/TAZOBAC IV 3.375 GM in DEXTROSE 5% 100ML 100 ML IV SCH (03:30)
[2017-03-30] MEDS: NSS + 20MEQ KCL 1000ML 1,000 ML IV SCH ×4 (03:48→23:54)
[2017-03-30] MEDS: MoRPHine SULFATE 4 MG/ML 1 ML CARP\\VIAL IV PRN ×2 (03:54→09:16)
[2017-03-30] MEDS: FAMOTIDINE IV INJ 20 MG in DEXTROSE 5% 100ML 100 ML IV SCH ×2 (04:34→17:08)
[2017-03-30] MEDS: ACETAMINOPHEN IV 100 ML IV PRN ×2 (04:52→17:02)
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
[2017-03-30] MEDS: METRONIDAZOLE / NSS 500 MG in PREMIXED NSS 100 ML IV SCH ×3 (06:13→22:43)
[2017-03-30 07:10] VITALS: BP 136/66; PULSE 77; TEMP 37.2; O2SAT 97
--- NOTE | 2017-03-30 07:14 | DIAGNOSTIC IMAGING REPORT ---
CT OF THE ABDOMEN AND PELVIS WITH ORAL CONTRAST CLINICAL HISTORY: Abdominal pain, nausea and vomiting. COMPARISON STUDY: CT of the abdomen and pelvis July 13, 2014 and right upper quadrant ultrasound May 11, 2015. FINDINGS: No pneumatosis, free air or portal venous gas is present. A 3.1 cm hypodense anterior splenic lesion is similar to prior exam. This lesion is benign. Unenhanced images of the adrenal glands, kidneys and pancreas are unremarkable. There is no biliary or pancreatic ductal dilatation. There is no hydronephrosis. A small amount of ascites is noted within the left lower quadrant. The proximal to mid small bowel is moderately dilated and fluid-filled. Contrast reaches the distal jejunum. There is relative decompression of the distal small bowel. A clear transition point is not identified but the findings suggest a partial small bowel obstruction. Postoperative findings within the spine are noted. There are several old compression fractures within the thoracic and lumbar spines. There are no suspicious osseous lesions. No lymphadenopathy is identified. IMPRESSION: Findings consistent with a moderate grade partial small bowel obstruction with moderately dilated proximal to mid small bowel and relatively decompressed distal small bowel. Transition point not definitively identified. Small amount of associated ascites. No pneumatosis, free air or portal venous gas. Electronically signed by: Padilla Wilder M.D. 03/30/2017 7:13 AM Dictated Date/Time: 03/30/2017 7:03 AM
[2017-03-30 07:30] VITALS: O2SAT 97
[2017-03-30] MEDS: CLOTRIMAZOLE 1% CR 15 GM TUBE EXT SCH ×4 (08:58→22:39)
[2017-03-30] MEDS: FLUTICASONE PROPIONATE NA SPR 16 GM BTL NAE SCH ×2 (08:59→22:39)
[2017-03-30] MEDS ORDERED: LEVOTHYROXINE SODIUM INJ 50 MCG in SYRINGE 0 ML IV SCH (09:00)
[2017-03-30] MEDS: FLUCONAZOLE / NSS 200 MG in PREMIXED NSS 100 ML IV SCH (09:02)
[2017-03-30] MEDS: IPRATROPIUM BROMIDE/ALBUTEROL respimat INH INH SCH ×4 (09:02→22:39)
[2017-03-30] MEDS ORDERED: HYDROmorphone INJ 0.5 MG/0.5 ML SYR IV PRN (11:30)
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
[2017-03-30] MEDS ORDERED: WATER, STERILE FOR INJ 10 ML VIAL IV ONE (12:15)
[2017-03-30] MEDS ORDERED: ALTEPLASE, RECOMBINANT 1 MG/ML 2 ML VIAL IV ONE (12:15)
[2017-03-30] MEDS ORDERED: PROMETHAZINE HCL INJ 25 MG in SODIUM CHLORIDE 0.9% 50ML 50 ML IV ONE (12:30)
[2017-03-30] MEDS: HYDROmorphone INJ 1 MG/ML SYR IV PRN ×3 (12:47→22:43)
--- NOTE | 2017-03-30 12:50 | Progress Note ---
Subjective Date of Service: Mar 30, 2017. Subjective Pt evaluation today including: conversation w/ patient, physical exam, lab review, review of studies, conversation w/ admissions consultant, review of inpatient medication list Pain: moderate pain PO Intake: NPO, NGT in place Voiding: no voiding problems patient still with pain, Morphine made her nauseated will try Dilaudid IV PRN requesting more than just Zofran for nausea as it is severe NGT with little output today ambulating in halls + flatus, no BM reviewed labs appreciate recommendations from Dr. Mtz Problem List Medical Problems: (1) Abdominal pain Status: Acute (2) Elevated liver enzymes Status: Acute (3) Epigastric abdominal pain Status: Acute (4) H. pylori infection Status: Acute (5) Small bowel obstruction Status: Acute (6) Vomiting Status: Acute Review of Systems Abdomen: + pain, + nausea, + constipation All Other Systems: Reviewed and Negative Medications Current Inpatient Medications Medications (Trade) Dose Ordered Sig/Adolph Route Start Time Stop Time Status Last Admin Dose Admin Clotrimazole (Lotrimin 1% Crm) 1 appln QID EXT 03/30/17 09:00 04/29/17 08:59 03/30/17 08:58 1 APPLN Fluticasone Propionate (Flonase Nasal [place]) 2 sprays BID ROSANA 03/30/17 09:00 04/29/17 08:59 03/30/17 08:59 2 SPRAYS Albuterol/ Ipratropium (Combivent Respimat Inh) 1 puffs QID INH 03/30/17 09:00 04/29/17 08:59 03/30/17 09:02 1 PUFFS Lorazepam (Ativan Inj) 0.5 mg Q4H PRN IV 03/30/17 02:00 04/29/17 01:59 Lorazepam (Ativan Inj) 1 mg Q4H PRN IV 03/30/17 02:00 04/29/17 01:59 Famotidine 20 mg/ Dextrose 102 ml @ 200 mls/hr Q12H IV 03/30/17 04:00 04/29/17 03:59 03/30/17 04:34 200 MLS/HR Diphenhydramine HCl (Benadryl Inj) 50 mg Q4H PRN IV 03/30/17 02:00 04/29/17 01:59 Acetaminophen 100 ml @ 400 mls/hr Q8H PRN IV 03/30/17 02:00 04/29/17 01:59 03/30/17 04:52 400 MLS/HR Potassium Chloride/Sodium Chloride 1,000 ml @ 150 mls/hr Q6H40M IV 03/30/17 03:15 04/29/17 03:14 03/30/17 09:03 150 MLS/HR Fluconazole/ Sodium Chloride 200 mg/Prmx 100 ml @ 100 mls/hr DAILY IV 03/30/17 09:00 04/09/17 08:59 03/30/17 09:02 100 MLS/HR Metronidazole 500 mg/Prmx 100 ml @ 100 mls/hr Q8H IV 03/30/17 06:00 04/09/17 05:59 03/30/17 06:13 100 MLS/HR Hydromorphone HCl (Dilaudid Inj) 1 mg Q3H PRN IV 03/30/17 12:00 04/13/17 11:29 UNV Objective Vital Signs Date Time Temp Pulse Resp B/P (MAP) Pulse Ox O2 Delivery O2 Flow Rate FiO2 03/30/17 07:30 97 Room Air 03/30/17 07:10 37.2 77 16 136/66 (89) 97 Room Air 03/30/17 02:55 37.2 94 16 175/80 95 Room Air 03/30/17 02:52 37.3 85 20 183/83 96 03/30/17 02:27 85 20 183/83 96 Room Air 03/30/17 00:31 87 20 137/113 96 Room Air 03/29/17 21:24 37.3 100 18 147/98 96 Room Air 03/29/17 18:45 36.8 104 20 126/67 98 Room Air Physical Exam General Appearance: WD/WN, no apparent distress Eyes: normal inspection, EOMI, sclerae normal ENT: normal ENT inspection, hearing grossly normal, pharynx normal Neck: supple, no adenopathy, no JVD, trachea midline Respiratory/Chest: chest non-tender, lungs clear, normal breath sounds, no respiratory distress, no accessory muscle use Cardiovascular: regular rate, rhythm, no edema, no gallop, no JVD, no murmur Abdomen: + abnormal bowel sounds (hypoactive), + distended, + tenderness Extremities: normal range of motion, non-tender, normal inspection, no pedal edema, no calf tenderness, pelvis stable Neurologic/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: 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 tested, no motor/sensory deficits, alert, normal mood/affect, oriented x 3 Skin: normal color, warm/dry, no rash Lymphatic: no adenopathy Laboratory Results Last 24 Hours Test 03/29/17 21:00 03/29/17 22:30 03/30/17 02:20 03/30/17 11:20 White Blood Count 12.97 K/uL Red Blood Count 5.61 M/uL Hemoglobin 11.5 g/dL Hematocrit 38.2 % Mean Corpuscular Volume 68.1 fL Mean Corpuscular Hemoglobin 20.5 pg Mean Corpuscular Hemoglobin Concent 30.1 g/dl Platelet Count 426 K/uL Mean Platelet Volume 9.7 fL Neutrophils (%) (Auto) 82.3 % Lymphocytes (%) (Auto) 9.0 % Monocytes (%) (Auto) 8.2 % Eosinophils (%) (Auto) 0.0 % Basophils (%) (Auto) 0.2 % Neutrophils # (Auto) 10.68 K/uL Lymphocytes # (Auto) 1.17 K/uL Monocytes # (Auto) 1.06 K/uL Eosinophils # (Auto) 0.00 K/uL Basophils # (Auto) 0.02 K/uL RDW Standard Deviation 43.8 fL RDW Coefficient of Variation 17.8 % Immature Granulocyte % (Auto) 0.3 % Immature Granulocyte # (Auto) 0.04 K/uL Microcytosis PRESENT Prothrombin Time 10.8 SECONDS Prothromb Time International Ratio 1.0 Sodium Level 140 mmol/L Potassium Level 4.0 mmol/L Chloride Level 107 mmol/L Carbon Dioxide Level 25 mmol/L Anion Gap 8.0 mmol/L Blood Urea Nitrogen 27 mg/dl Creatinine 1.10 mg/dl Est Creatinine Clear Calc Drug Dose 48.3 ml/min Estimated GFR () 62.8 Estimated GFR (Non- 54.1 BUN/Creatinine Ratio 24.6 Random Glucose 127 mg/dl Calcium Level 10.2 mg/dl Total Bilirubin 0.4 mg/dl Aspartate Amino Transf (AST/SGOT) 23 U/L Alanine Aminotransferase (ALT/SGPT) 22 U/L Alkaline Phosphatase 133 U/L Troponin I < 0.015 ng/ml Total Protein 8.1 gm/dl Albumin 4.0 gm/dl Globulin 4.1 gm/dl Albumin/Globulin Ratio 1.0 Lipase 168 U/L Urine Color DK YELLOW Urine Appearance CLOUDY Urine pH 5.5 Urine Specific [place] 1.035 Urine Protein TRACE Urine Glucose (UA) NEG Urine Ketones TRACE Urine Occult Blood NEG Urine Nitrite NEG Urine Bilirubin NEG Urine Urobilinogen NEG Urine Leukocyte Esterase TRACE Urine WBC (Auto) 1-5 /hpf Urine RBC (Auto) 0-4 /hpf Urine Hyaline Casts (Auto) 5-10 /lpf Urine Epithelial Cells (Auto) 10-20 /lpf Urine Bacteria (Auto) 4+ Lactic Acid Level 1.8 mmol/L Assessment and Plan 62 yo female with h/o SBO and colon perforation, h/o ileostomy with subsequent reversal, presented with constipation, distension, pain CT showed evidence of SBO - SBO: continue with NGT, bowel rest, IV fluids, pain and nausea control surgery following, plan for conservative care Tinea corporis-- better today, continue care below Fluconazole 200 mg IV daily. Benadryl 50 mg IV every 4 hours when necessary Clotrimazole topically 4 times a day. COPD-- continue Combivent breathing stable, no wheezing Hypothyroidism-- can hold PO Synthroid, no need for IV unless NPO for 7 days
--- NOTE | 2017-03-30 13:17 | Medical Student: [facility] ---
Med Student Progress Note Date of Service Mar 30, 2017. Subjective Pt evaluation today including: conversation w/ patient, physical exam, chart review, lab review, review of studies Pt is a 62 yo F with a PMH significant for multiple prior abdominal surgeries and a previous SBO that was medically managed. She reported to the ED yesterday (03/29/2017) following two days of worsening abdominal pain, bloating, nausea and vomitting. She was admitted for pain control, NPO bowel rest and NG tube insertion. She was HTNsive overnight but all other vitals were stable. She currently has IV NSS + KCl 20 meq running at 125 mls per hour. She notes that the abdominal pain and nausea, while improved, is still present. SHe had an episode of wrteching following the administration of morphine this morning and requested another pain medication . She notes that she has also been having BMs since admission. She, however, just started passing gas today. The NG tube canister has billious fluid. Her WBC count is elevated at 12.97 with majority neutrophils. H&H 11.5 and 38.2 Calcium is high at 10.2 which could be contributing to abdominal pain Alk phos is also elevated at 133. Urine Cx is pending. Abdominal CT shows bowel obstruction, however a transition point was not identified. Minimal ascites was present. No abdominal free air or pneumatosis was present. Review of Systems Constitutional: + fever (subjective), + chills (subjective), + sweats Respiratory: No cough, No sputum, No wheezing, No shortness of breath Cardiac: No chest pain, No palpitations Abdomen: + pain, + nausea, + vomiting (wretchig after morphine), No diarrhea Female : No dysuria, No urinary frequency Skin: + rash, No itch Objective Vital Signs Date Time Temp Pulse Resp B/P (MAP) Pulse Ox O2 Delivery O2 Flow Rate FiO2 03/30/17 07:30 97 Room Air 03/30/17 07:10 37.2 77 16 136/66 (89) 97 Room Air 03/30/17 02:55 37.2 94 16 175/80 95 Room Air 03/30/17 02:52 37.3 85 20 183/83 96 03/30/17 02:27 85 20 183/83 96 Room Air 03/30/17 00:31 87 20 137/113 96 Room Air 03/29/17 21:24 37.3 100 18 147/98 96 Room Air 03/29/17 18:45 36.8 104 20 126/67 98 Room Air Physical Exam General Appearance: WD/WN, no apparent distress (resting on the edge of the bed. ) Neck: supple, no adenopathy, thyroid normal Respiratory/Chest: lungs clear, normal breath sounds, no respiratory distress Cardiovascular: regular rate, rhythm, no murmur Abdomen: + abnormal bowel sounds (hypoactive), + tenderness (to palpation and percussion diffusely) Extremities: normal range of motion, no pedal edema Neurologic/Psychiatric: alert, normal mood/affect, oriented x 3 Skin: normal color, warm/dry, + rash (present over abdomen. Small macules, no scale. ) Laboratory Results Last 24 Hours Test 03/29/17 21:00 03/29/17 22:30 03/30/17 02:20 03/30/17 11:20 White Blood Count 12.97 K/uL Red Blood Count 5.61 M/uL Hemoglobin 11.5 g/dL Hematocrit 38.2 % Mean Corpuscular Volume 68.1 fL Mean Corpuscular Hemoglobin 20.5 pg Mean Corpuscular Hemoglobin Concent 30.1 g/dl Platelet Count 426 K/uL Mean Platelet Volume 9.7 fL Neutrophils (%) (Auto) 82.3 % Lymphocytes (%) (Auto) 9.0 % Monocytes (%) (Auto) 8.2 % Eosinophils (%) (Auto) 0.0 % Basophils (%) (Auto) 0.2 % Neutrophils # (Auto) 10.68 K/uL Lymphocytes # (Auto) 1.17 K/uL Monocytes # (Auto) 1.06 K/uL Eosinophils # (Auto) 0.00 K/uL Basophils # (Auto) 0.02 K/uL RDW Standard Deviation 43.8 fL RDW Coefficient of Variation 17.8 % Immature Granulocyte % (Auto) 0.3 % Immature Granulocyte # (Auto) 0.04 K/uL Microcytosis PRESENT Prothrombin Time 10.8 SECONDS Prothromb Time International Ratio 1.0 Sodium Level 140 mmol/L Potassium Level 4.0 mmol/L Chloride Level 107 mmol/L Carbon Dioxide Level 25 mmol/L Anion Gap 8.0 mmol/L Blood Urea Nitrogen 27 mg/dl Creatinine 1.10 mg/dl Est Creatinine Clear Calc Drug Dose 48.3 ml/min Estimated GFR () 62.8 Estimated GFR (Non- 54.1 BUN/Creatinine Ratio 24.6 Random Glucose 127 mg/dl Calcium Level 10.2 mg/dl Total Bilirubin 0.4 mg/dl Aspartate Amino Transf (AST/SGOT) 23 U/L Alanine Aminotransferase (ALT/SGPT) 22 U/L Alkaline Phosphatase 133 U/L Troponin I < 0.015 ng/ml Total Protein 8.1 gm/dl Albumin 4.0 gm/dl Globulin 4.1 gm/dl Albumin/Globulin Ratio 1.0 Lipase 168 U/L Urine Color DK YELLOW Urine Appearance CLOUDY Urine pH 5.5 Urine Specific [place] 1.035 Urine Protein TRACE Urine Glucose (UA) NEG Urine Ketones TRACE Urine Occult Blood NEG Urine Nitrite NEG Urine Bilirubin NEG Urine Urobilinogen NEG Urine Leukocyte Esterase TRACE Urine WBC (Auto) 1-5 /hpf Urine RBC (Auto) 0-4 /hpf Urine Hyaline Casts (Auto) 5-10 /lpf Urine Epithelial Cells (Auto) 10-20 /lpf Urine Bacteria (Auto) 4+ Lactic Acid Level 1.8 mmol/L Assessment and Plan Assessment and Plan: Pt is a 62 yo female with suspected SBO based on s/s and CT scan. Small Bowel Obstruction -Continue Bowel rest - NPO, IVF at 125 mls/min -NG decompression - continue to observe bilious output. -Continue to walk the hallways -Pain Control - Morphine switched to Dilaudid 1.5 gm q 3hrs prn. -Phenergan and Zofran available PRN for nausea -Surgery Consult Leukocytosis -CBC -Continue to monitor for s/s infection Hypercalcemia -10.2 will repeat today. -Continue IVF. -will consider PTH testing. Tinea Corporis -Fluconazole IV and Topical Clotrimazole COPD -continue Combivent DVT ppx: Dispo:Remain Med Surg Resuscitation Status: Full Resuscitation Continued [facility] stay due to: multiple IV medications needed Discharge planning: home
[2017-03-30 15:09] VITALS: BP 133/70; PULSE 88; TEMP 37; O2SAT 99
[2017-03-30 17:23] LABS: BASO % 0.4 %; BASO ABS # 0.03 K/uL (0-0.2); EOS % 0.4 %; IG% 0.5 %; LYMPH % 26.8 %; LYMPH ABS # 2.25 K/uL (1.2-3.4); MEAN CELL VOLUME 69.1 fL (80-100); MEAN CORPUSCULAR HEMOGLOBIN 21.4 pg (25-34); MEAN CORPUSCULAR HGB CONC 30.9 g/dl (32-36); MONO % 8.8 %; NEUT % 63.1 %; PLATELET COUNT 312 K/uL (130-400); RED BLOOD COUNT 4.63 M/uL (4.2-5.4)
[2017-03-30 17:38] LABS: ALB/GLOB RATIO 1.1 (0.9-2); BUN/CREATININE RATIO 17.5 (10-20); CREATININE 0.75 mg/dl (0.60-1.20); POTASSIUM 3.8 mmol/L (3.5-5.1)
[2017-03-30 17:52] LABS: COMPLETE YES; MICROCYTOSIS PRESENT; OVALOCYTES 1+
[2017-03-30 18:02] LABS: CALCIUM 8.5 mg/dl (8.5-10.1)
[2017-03-30 22:54] VITALS: BP 148/72; PULSE 89; TEMP 37; O2SAT 95
[2017-03-31] MEDS: ACETAMINOPHEN IV 100 ML IV PRN ×2 (01:35→23:12)
[2017-03-31] MEDS: HYDROmorphone INJ 1 MG/ML SYR IV PRN ×3 (01:54→10:38)
[2017-03-31] MEDS: ONDANSETRON INJ 2 MG/ML 2 ML VIAL IV PRN (02:01)
[2017-03-31] MEDS: FAMOTIDINE IV INJ 20 MG in DEXTROSE 5% 100ML 100 ML IV SCH ×2 (04:37→16:08)
[2017-03-31] MEDS: METRONIDAZOLE / NSS 500 MG in PREMIXED NSS 100 ML IV SCH ×3 (05:57→21:25)
[2017-03-31] MEDS: NSS + 20MEQ KCL 1000ML 1,000 ML IV SCH ×3 (05:57→22:19)
[2017-03-31 07:16] VITALS: BP 152/78; PULSE 81; TEMP 37.1; O2SAT 97
[2017-03-31] MEDS: CLOTRIMAZOLE 1% CR 15 GM TUBE EXT SCH ×4 (08:11→21:17)
[2017-03-31] MEDS: IPRATROPIUM BROMIDE/ALBUTEROL respimat INH INH SCH ×4 (08:11→21:16)
[2017-03-31] MEDS: FLUTICASONE PROPIONATE NA SPR 16 GM BTL NAE SCH ×2 (08:12→21:16)
[2017-03-31] MEDS: FLUCONAZOLE / NSS 200 MG in PREMIXED NSS 100 ML IV SCH (08:34)
[2017-03-31 08:40] LABS: BASO % 0.4 %; BASO ABS # 0.03 K/uL (0-0.2); EOS % 0.9 %; HEMATOCRIT 34.5 % (37-47); IG% 0.4 %; LYMPH % 26.2 %; MEAN CELL VOLUME 69.7 fL (80-100); MEAN CORPUSCULAR HEMOGLOBIN 21.2 pg (25-34); MEAN CORPUSCULAR HGB CONC 30.4 g/dl (32-36); MEAN PLATELET VOLUME 9.8 fL (7.4-10.4); MONO % 6.5 %; NEUT % 65.6 %; PLATELET COUNT 352 K/uL (130-400); RED BLOOD COUNT 4.95 M/uL (4.2-5.4); WHITE BLOOD COUNT 6.88 K/uL (4.8-10.8)
[2017-03-31 08:51] LABS: PARTIAL THROMBOPLASTIN RATIO 1.2; PROTHROMBIN TIME (PATIENT) 11.2 SECONDS (9.0-12.0)
[2017-03-31 09:02] LABS: COMPLETE YES; MICROCYTOSIS PRESENT
[2017-03-31 09:21] LABS: ALKALINE PHOSPHATASE 106 U/L (45-117); ALT/SGPT 20 U/L (12-78); AST/SGOT 22 U/L (15-37); BLOOD UREA NITROGEN 7 mg/dl (7-18); BUN/CREATININE RATIO 10.4 (10-20); CALCIUM 9.2 mg/dl (8.5-10.1); CARBON DIOXIDE 23 mmol/L (21-32); CHLORIDE 110 mmol/L (98-107); CREATININE 0.69 mg/dl (0.60-1.20); GLUCOSE 91 mg/dl (70-99); MAGNESIUM 2.3 mg/dl (1.8-2.4); POTASSIUM 4.2 mmol/L (3.5-5.1); SODIUM 141 mmol/L (136-145)
--- NOTE | 2017-03-31 09:40 | Surgery Progress Note ---
Surgery Progress Note Date of Service Mar 31, 2017. Subjective Patient examined at bedside this morning. Afebrile, vitals stable on room air overnight, no acute events. Abdomen is slightly less distended today, patient states pain is improved. NGT remains in place with approx 100ml bilious fluid out since yesterday; denies N/V. Continues to pass flatus. Ambulating in hallways and voiding without difficulty. Objective Vital Signs: Date Time Temp Pulse Resp B/P (MAP) Pulse Ox O2 Delivery O2 Flow Rate FiO2 03/31/17 07:16 37.1 81 19 152/78 (102) 97 Room Air 03/30/17 23:45 Room Air 03/30/17 22:54 37.0 89 16 148/72 (97) 95 Room Air 03/30/17 16:30 Room Air 03/30/17 15:09 37.0 88 16 133/70 (91) 99 Room Air General Appearance: WD/WN, no apparent distress Head: normocephalic Neck: supple Respiratory/Chest: lungs clear, normal breath sounds Cardiovascular: regular rate, rhythm Abdomen: normal bowel sounds, non tender, soft (no rebound / guarding), + distended, + tenderness (mild diffuse tenderness to palpation) Laboratory Results: Results Past 24 Hours Test 03/30/17 16:53 03/31/17 08:22 Range/Units White Blood Count 8.40 6.88 4.8-10.8 K/uL Red Blood Count 4.63 4.95 4.2-5.4 M/uL Hemoglobin 9.9 10.5 12.0-16.0 g/dL Hematocrit 32.0 34.5 37-47 % Mean Corpuscular Volume 69.1 69.7 80-100 fL Mean Corpuscular Hemoglobin 21.4 21.2 25-34 pg Mean Corpuscular Hemoglobin Concent 30.9 30.4 32-36 g/dl Platelet Count 312 352 130-400 K/uL Mean Platelet Volume 10.0 9.8 7.4-10.4 fL Neutrophils (%) (Auto) 63.1 65.6 % Lymphocytes (%) (Auto) 26.8 26.2 % Monocytes (%) (Auto) 8.8 6.5 % Eosinophils (%) (Auto) 0.4 0.9 % Basophils (%) (Auto) 0.4 0.4 % Neutrophils # (Auto) 5.31 4.51 1.4-6.5 K/uL Lymphocytes # (Auto) 2.25 1.80 1.2-3.4 K/uL Monocytes # (Auto) 0.74 0.45 0.11-0.59 K/uL Eosinophils # (Auto) 0.03 0.06 0-0.5 K/uL Basophils # (Auto) 0.03 0.03 0-0.2 K/uL RDW Standard Deviation 45.2 45.8 36.4-46.3 fL RDW Coefficient of Variation 17.8 18.0 11.5-14.5 % Immature Granulocyte % (Auto) 0.5 0.4 % Immature Granulocyte # (Auto) 0.04 0.03 0.00-0.02 K/uL Microcytosis PRESENT PRESENT Ovalocytes 1+ Sodium Level 143 141 136-145 mmol/L Potassium Level 3.8 4.2 3.5-5.1 mmol/L Chloride Level 112 110 98-107 mmol/L Carbon Dioxide Level 23 23 21-32 mmol/L Anion Gap 8.0 8.0 3-11 mmol/L Blood Urea Nitrogen 13 7 7-18 mg/dl Creatinine 0.75 0.69 0.60-1.20 mg/dl Est Creatinine Clear Calc Drug Dose 70.9 77.0 ml/min Estimated GFR () 99.7 108.9 Estimated GFR (Non- 86.0 94.0 BUN/Creatinine Ratio 17.5 10.4 10-20 Random Glucose 94 91 70-99 mg/dl Calcium Level 8.5 9.2 8.5-10.1 mg/dl Total Bilirubin 0.3 0.4 0.2-1 mg/dl Aspartate Amino Transf (AST/SGOT) 22 22 15-37 U/L Alanine Aminotransferase (ALT/SGPT) 17 20 12-78 U/L Alkaline Phosphatase 96 106 45-117 U/L Total Protein 6.0 6.9 6.4-8.2 gm/dl Albumin 3.2 3.5 3.4-5.0 gm/dl Globulin 2.8 2.5-4.0 gm/dl Albumin/Globulin Ratio 1.1 0.9-2 Prothrombin Time 11.2 9.0-12.0 SECONDS Prothromb Time International Ratio 1.0 0.9-1.1 Activated Partial Thromboplast Time 31.8 21.0-31.0 SECONDS Partial Thromboplastin Ratio 1.2 Magnesium Level 2.3 1.8-2.4 mg/dl Direct Bilirubin < 0.1 0-0.2 mg/dl Assessment & Plan Nighta Quezada is a 62 year old woman with history of multiple abdominal operations including Nathaly's procedure for perforated diverticulitis (with subsequent washout, wound healing by secondary intention and later colostomy reversal) and previous bowel obstructions (managed non operatively) who presents with symptoms and CT scan findings concerning for a partial bowel obstruction. Vitals remain stable and normal, labs within normal limits. Pain and distention mildly improved compared to yesterday, denies nausea. Minimal output from NGT. -No acute surgical intervention indicated at this time -NPO, NGT decompression - try taking off suction for a few hours today, monitor for increased distention or nausea; if does well, could possibly remove NGT maybe tomorrow morning. -IVF hydration, replete electrolytes as needed -Pain and nausea control as needed -Encourage out of bed / ambulation -Rest of care per primary team -Will continue to follow. Radha Mtz MD 03/31/17
--- NOTE | 2017-03-31 10:19 | DIAGNOSTIC IMAGING REPORT ---
KUB HISTORY: Status post enteric tube placement NG tube placement COMPARISON: CT 03/30/2017. FINDINGS: Oral contrast is seen throughout the large bowel. Dilated loops of small bowel are again seen throughout the mid abdomen. Enteric tube is present with proximal side port within the region of the gastric cardia. Distal tip projects superiorly within the region of the gastric fundus. There is no organomegaly. No renal calculi. No ureteral calculi. No pneumoperitoneum or pneumatosis. No fracture. Posterior fusion changes of the lower lumbar spine. IMPRESSION: 1. Enteric tube projects superiorly within the region of the gastric fundus. 2. Oral contrast has reached the large bowel. Persistent dilated loops of small bowel suggest low-grade small bowel junction. Electronically signed by: Shlomo Valera M.D. 03/31/2017 10:18 AM Dictated Date/Time: 03/31/2017 10:16 AM
[2017-03-31] MEDS ORDERED: NURSING VERBAL MED ORDER ONE (13:45)
[2017-03-31] MEDS: HYDROmorphone INJ 2 MG/ML SYR/VIAL IV PRN ×3 (13:50→21:25)
[2017-03-31] MEDS ORDERED: COUGH DROP (SUGAR FREE) LOZ 24 LOZ/1 BOX PO PRN (14:00)
--- NOTE | 2017-03-31 15:03 | Progress Note ---
Subjective Date of Service: Mar 31, 2017. Subjective Pt evaluation today including: conversation w/ patient, physical exam, lab review, review of studies, conversation w/ neuropsychology medical consultant, review of inpatient medication list Pain: still with pain PO Intake: NPO Voiding: no voiding problems patient with less distension today but still with pain KUB shows oral contrast in the colon, less small bowel distension moving bowels ambulating in the halls appreciate note from surgery, continue conservative care, clamp NGT, likely pull NGT tomorrow AM Problem List Medical Problems: (1) Abdominal pain Status: Acute (2) Elevated liver enzymes Status: Acute (3) Epigastric abdominal pain Status: Acute (4) H. pylori infection Status: Acute (5) Small bowel obstruction Status: Acute (6) Vomiting Status: Acute Review of Systems Respiratory: + cough Abdomen: + pain (and distension) Skin: + rash All Other Systems: Reviewed and Negative Medications Current Inpatient Medications Medications (Trade) Dose Ordered Sig/Adolph Route Start Time Stop Time Status Last Admin Dose Admin Clotrimazole (Lotrimin 1% Crm) 1 appln QID EXT 03/30/17 09:00 04/29/17 08:59 03/31/17 13:19 1 APPLN Fluticasone Propionate (Flonase Nasal [place]) 2 sprays BID ROSANA 03/30/17 09:00 04/29/17 08:59 03/31/17 08:12 2 SPRAYS Albuterol/ Ipratropium (Combivent Respimat Inh) 1 puffs QID INH 03/30/17 09:00 04/29/17 08:59 03/31/17 13:20 1 PUFFS Lorazepam (Ativan Inj) 0.5 mg Q4H PRN IV 03/30/17 02:00 04/29/17 01:59 Lorazepam (Ativan Inj) 1 mg Q4H PRN IV 03/30/17 02:00 04/29/17 01:59 Famotidine 20 mg/ Dextrose 102 ml @ 200 mls/hr Q12H IV 03/30/17 04:00 04/29/17 03:59 03/31/17 04:37 200 MLS/HR Diphenhydramine HCl (Benadryl Inj) 50 mg Q4H PRN IV 03/30/17 02:00 04/29/17 01:59 Acetaminophen 100 ml @ 400 mls/hr Q8H PRN IV 03/30/17 02:00 04/29/17 01:59 03/31/17 01:35 400 MLS/HR Potassium Chloride/Sodium Chloride 1,000 ml @ 100 mls/hr Q10H IV 03/30/17 03:15 04/29/17 03:14 03/31/17 13:19 100 MLS/HR Fluconazole/ Sodium Chloride 200 mg/Prmx 100 ml @ 100 mls/hr DAILY IV 03/30/17 09:00 04/09/17 08:59 03/31/17 08:34 100 MLS/HR Metronidazole 500 mg/Prmx 100 ml @ 100 mls/hr Q8H IV 03/30/17 06:00 04/09/17 05:59 03/31/17 13:20 100 MLS/HR Ondansetron HCl (Zofran Inj) 4 mg Q4H PRN IV 03/30/17 12:15 04/29/17 01:59 03/31/17 02:01 4 MG Promethazine HCl 25 mg/Sodium Chloride 51 ml @ 204 mls/hr Q6H PRN IV 03/30/17 18:00 04/29/17 17:59 Heparin Sodium (Porcine) (Heparin 100 Unit/ml 5ml Flush) 5 ml PRN PRN IV 03/31/17 02:15 04/30/17 02:14 Hydromorphone HCl (Dilaudid Inj) 1.5 mg Q3H PRN IV 03/31/17 12:15 04/13/17 11:29 03/31/17 13:50 1.5 MG Menthol (Nice Kavin) 1 kavin PRN PRN PO 03/31/17 14:00 04/30/17 13:59 Objective Vital Signs Date Time Temp Pulse Resp B/P (MAP) Pulse Ox O2 Delivery O2 Flow Rate FiO2 03/31/17 08:00 Room Air 03/31/17 07:16 37.1 81 19 152/78 (102) 97 Room Air 03/30/17 23:45 Room Air 03/30/17 22:54 37.0 89 16 148/72 (97) 95 Room Air 03/30/17 16:30 Room Air 03/30/17 15:09 37.0 88 16 133/70 (91) 99 Room Air Physical Exam General Appearance: WD/WN, no apparent distress Eyes: normal inspection, EOMI, sclerae normal ENT: normal ENT inspection, hearing grossly normal, pharynx normal Neck: supple, no adenopathy, no JVD, trachea midline Respiratory/Chest: chest non-tender, lungs clear, normal breath sounds, no respiratory distress, no accessory muscle use Cardiovascular: regular rate, rhythm, no edema, no gallop, no JVD, no murmur Abdomen: normal bowel sounds, no organomegaly, + abnormal bowel sounds (more active today), + distended (less distended), + tenderness Extremities: normal range of motion, non-tender, normal inspection, no pedal edema, no calf tenderness, pelvis stable Neurologic/Psychiatric: rampman II-XII nml as tested, no motor/sensory deficits, alert, normal mood/affect, oriented x 3 Skin: normal color, warm/dry, no rash Lymphatic: no adenopathy Laboratory Results Last 24 Hours Test 03/30/17 16:53 03/31/17 08:22 White Blood Count 8.40 K/uL 6.88 K/uL Red Blood Count 4.63 M/uL 4.95 M/uL Hemoglobin 9.9 g/dL 10.5 g/dL Hematocrit 32.0 % 34.5 % Mean Corpuscular Volume 69.1 fL 69.7 fL Mean Corpuscular Hemoglobin 21.4 pg 21.2 pg Mean Corpuscular Hemoglobin Concent 30.9 g/dl 30.4 g/dl Platelet Count 312 K/uL 352 K/uL Mean Platelet Volume 10.0 fL 9.8 fL Neutrophils (%) (Auto) 63.1 % 65.6 % Lymphocytes (%) (Auto) 26.8 % 26.2 % Monocytes (%) (Auto) 8.8 % 6.5 % Eosinophils (%) (Auto) 0.4 % 0.9 % Basophils (%) (Auto) 0.4 % 0.4 % Neutrophils # (Auto) 5.31 K/uL 4.51 K/uL Lymphocytes # (Auto) 2.25 K/uL 1.80 K/uL Monocytes # (Auto) 0.74 K/uL 0.45 K/uL Eosinophils # (Auto) 0.03 K/uL 0.06 K/uL Basophils # (Auto) 0.03 K/uL 0.03 K/uL RDW Standard Deviation 45.2 fL 45.8 fL RDW Coefficient of Variation 17.8 % 18.0 % Immature Granulocyte % (Auto) 0.5 % 0.4 % Immature Granulocyte # (Auto) 0.04 K/uL 0.03 K/uL Microcytosis PRESENT PRESENT Ovalocytes 1+ Sodium Level 143 mmol/L 141 mmol/L Potassium Level 3.8 mmol/L 4.2 mmol/L Chloride Level 112 mmol/L 110 mmol/L Carbon Dioxide Level 23 mmol/L 23 mmol/L Anion Gap 8.0 mmol/L 8.0 mmol/L Blood Urea Nitrogen 13 mg/dl 7 mg/dl Creatinine 0.75 mg/dl 0.69 mg/dl Est Creatinine Clear Calc Drug Dose 70.9 ml/min 77.0 ml/min Estimated GFR () 99.7 108.9 Estimated GFR (Non- 86.0 94.0 BUN/Creatinine Ratio 17.5 10.4 Random Glucose 94 mg/dl 91 mg/dl Calcium Level 8.5 mg/dl 9.2 mg/dl Total Bilirubin 0.3 mg/dl 0.4 mg/dl Aspartate Amino Transf (AST/SGOT) 22 U/L 22 U/L Alanine Aminotransferase (ALT/SGPT) 17 U/L 20 U/L Alkaline Phosphatase 96 U/L 106 U/L Total Protein 6.0 gm/dl 6.9 gm/dl Albumin 3.2 gm/dl 3.5 gm/dl Globulin 2.8 gm/dl Albumin/Globulin Ratio 1.1 Prothrombin Time 11.2 SECONDS Prothromb Time International Ratio 1.0 Activated Partial Thromboplast Time 31.8 SECONDS Partial Thromboplastin Ratio 1.2 Magnesium Level 2.3 mg/dl Direct Bilirubin < 0.1 mg/dl Assessment and Plan 62 yo female with h/o SBO and colon perforation, h/o ileostomy with subsequent reversal, presented with constipation, distension, pain CT showed evidence of SBO - SBO: improving, less distension, moving bowels, less pain clamp NGT, bowel rest, IV fluids diet orders per surgery try to d/c NGT tomorrow Tinea corporis-- much improved Fluconazole 200 mg IV daily. Benadryl 50 mg IV every 4 hours when necessary Clotrimazole topically 4 times a day. Fullness in throat and cough: due to NGT, cough drops COPD-- continue Combivent breathing stable, no wheezing Hypothyroidism-- can hold PO Synthroid, no need for IV unless NPO for 7 days Continued [facility] stay due to: multiple IV medications needed Discharge planning: home
[2017-03-31 15:37] VITALS: BP 158/80; PULSE 86; TEMP 37.1; O2SAT 97
[2017-03-31 19:30] VITALS: BP 162/88; PULSE 101; TEMP 37.1; O2SAT 93
[2017-03-31 22:54] VITALS: BP 173/76; PULSE 82; TEMP 37; O2SAT 94
[2017-03-31 23:47] VITALS: BP 173/82
[2017-04-01] MEDS: ONDANSETRON INJ 2 MG/ML 2 ML VIAL IV PRN ×4 (02:14→22:17)
[2017-04-01] MEDS: PROMETHAZINE HCL INJ 25 MG in SODIUM CHLORIDE 0.9% 50ML 50 ML IV PRN ×2 (03:58→17:11)
[2017-04-01] MEDS: HYDROmorphone INJ 2 MG/ML SYR/VIAL IV PRN ×6 (03:58→23:10)
[2017-04-01] MEDS: FAMOTIDINE IV INJ 20 MG in DEXTROSE 5% 100ML 100 ML IV SCH ×2 (04:37→16:04)
[2017-04-01 04:39] VITALS: BP 179/81
[2017-04-01] MEDS: METRONIDAZOLE / NSS 500 MG in PREMIXED NSS 100 ML IV SCH ×3 (05:47→20:50)
[2017-04-01 07:05] LABS: BASO % 0.4 %; BASO ABS # 0.03 K/uL (0-0.2); EOS % 1.1 %; HEMATOCRIT 33.7 % (37-47); IG% 0.4 %; LYMPH % 21.8 %; LYMPH ABS # 1.62 K/uL (1.2-3.4); MEAN CELL VOLUME 69.5 fL (80-100); MEAN CORPUSCULAR HGB CONC 30.3 g/dl (32-36); MEAN PLATELET VOLUME 9.7 fL (7.4-10.4); MONO % 5.9 %; NEUT % 70.4 %; PLATELET COUNT 327 K/uL (130-400); RED BLOOD COUNT 4.85 M/uL (4.2-5.4); WHITE BLOOD COUNT 7.43 K/uL (4.8-10.8)
[2017-04-01 07:09] LABS: INR 1.1 (0.9-1.1); PARTIAL THROMBOPLASTIN RATIO 1.3; PROTHROMBIN TIME (PATIENT) 11.5 SECONDS (9.0-12.0)
[2017-04-01 07:13] VITALS: BP 159/78; PULSE 81; TEMP 36.6; O2SAT 97
--- NOTE | 2017-04-01 07:27 | Progress Note ---
Progress Note Date of Service Apr 01, 2017. Progress Note Patient had increasing nausea on clamped NG tube overnight therefore low intermittent suctioning was restarted.
[2017-04-01 07:30] LABS: BUN/CREATININE RATIO 15.5 (10-20); CALCIUM 9.2 mg/dl (8.5-10.1); CREATININE 0.6 mg/dl (0.60-1.20); MAGNESIUM 2.3 mg/dl (1.8-2.4); POTASSIUM 4.1 mmol/L (3.5-5.1)
[2017-04-01 07:39] LABS: COMPLETE YES; HYPOCHROMIA PRESENT; MICROCYTOSIS PRESENT
[2017-04-01] MEDS: CLOTRIMAZOLE 1% CR 15 GM TUBE EXT SCH ×4 (07:39→20:50)
[2017-04-01] MEDS: IPRATROPIUM BROMIDE/ALBUTEROL respimat INH INH SCH ×4 (07:41→20:50)
[2017-04-01] MEDS: FLUTICASONE PROPIONATE NA SPR 16 GM BTL NAE SCH ×2 (07:41→20:50)
[2017-04-01] MEDS: NSS + 20MEQ KCL 1000ML 1,000 ML IV SCH ×2 (07:43→17:52)
[2017-04-01] MEDS: FLUCONAZOLE / NSS 200 MG in PREMIXED NSS 100 ML IV SCH (08:58)
[2017-04-01] MEDS ORDERED: CHLORASEPTIC 1.4% SOLN 180 ML BTL MT PRN (09:30)
--- NOTE | 2017-04-01 09:32 | Surgery Progress Note ---
Surgery Progress Note Date of Service Apr 01, 2017. Subjective Patient examined at bedside this morning. Afebrile, vitals stable overnight on room air, no acute events. NGT was clamped yesterday evening and overnight, was placed back to suction this morning at 4am because patient felt like there was "a lot of drainage" from her throat. States she had a sore throat before admission, and it is more irritated now with the NGT. Denies abdominal pain, nausea or vomiting. Minimal output from the NGT when placed on suction. Abdomen still slightly distended, but soft and only very mildly tender to palpation on left side, no rebound / guarding. Had a BM this morning. Objective Vital Signs: Date Time Temp Pulse Resp B/P (MAP) Pulse Ox O2 Delivery O2 Flow Rate FiO2 04/01/17 07:52 Room Air 04/01/17 07:13 36.6 81 19 159/78 (105) 97 Room Air 04/01/17 04:39 179/81 (113) 04/01/17 00:00 Room Air 03/31/17 23:47 173/82 (112) 03/31/17 22:54 37.0 82 16 173/76 (108) 94 Room Air 03/31/17 19:30 37.1 101 16 162/88 (112) 93 Room Air 03/31/17 16:00 Room Air 03/31/17 15:37 37.1 86 17 158/80 (106) 97 Room Air Physical Exam: nasogastric drainage (minimal, bilious) General Appearance: WD/WN, no apparent distress Head: normocephalic Neck: supple Respiratory/Chest: lungs clear, normal breath sounds, no respiratory distress Cardiovascular: regular rate, rhythm, no edema Abdomen: normal bowel sounds, soft (no rebound / guarding), + distended, + tenderness (mild tenderness to palpation of left abdomen) Laboratory Results: Results Past 24 Hours Test 04/01/17 06:33 Range/Units White Blood Count 7.43 4.8-10.8 K/uL Red Blood Count 4.85 4.2-5.4 M/uL Hemoglobin 10.2 12.0-16.0 g/dL Hematocrit 33.7 37-47 % Mean Corpuscular Volume 69.5 80-100 fL Mean Corpuscular Hemoglobin 21.0 25-34 pg Mean Corpuscular Hemoglobin Concent 30.3 32-36 g/dl Platelet Count 327 130-400 K/uL Mean Platelet Volume 9.7 7.4-10.4 fL Neutrophils (%) (Auto) 70.4 % Lymphocytes (%) (Auto) 21.8 % Monocytes (%) (Auto) 5.9 % Eosinophils (%) (Auto) 1.1 % Basophils (%) (Auto) 0.4 % Neutrophils # (Auto) 5.23 1.4-6.5 K/uL Lymphocytes # (Auto) 1.62 1.2-3.4 K/uL Monocytes # (Auto) 0.44 0.11-0.59 K/uL Eosinophils # (Auto) 0.08 0-0.5 K/uL Basophils # (Auto) 0.03 0-0.2 K/uL RDW Standard Deviation 44.4 36.4-46.3 fL RDW Coefficient of Variation 17.6 11.5-14.5 % Immature Granulocyte % (Auto) 0.4 % Immature Granulocyte # (Auto) 0.03 0.00-0.02 K/uL Hypochromasia PRESENT Microcytosis PRESENT Prothrombin Time 11.5 9.0-12.0 SECONDS Prothromb Time International Ratio 1.1 0.9-1.1 Activated Partial Thromboplast Time 33.4 21.0-31.0 SECONDS Partial Thromboplastin Ratio 1.3 Sodium Level 138 136-145 mmol/L Potassium Level 4.1 3.5-5.1 mmol/L Chloride Level 106 98-107 mmol/L Carbon Dioxide Level 22 21-32 mmol/L Anion Gap 10.0 3-11 mmol/L Blood Urea Nitrogen 9 7-18 mg/dl Creatinine 0.60 0.60-1.20 mg/dl Est Creatinine Clear Calc Drug Dose 88.6 ml/min Estimated GFR () 114.0 Estimated GFR (Non- 98.4 BUN/Creatinine Ratio 15.5 10-20 Random Glucose 82 70-99 mg/dl Calcium Level 9.2 8.5-10.1 mg/dl Magnesium Level 2.3 1.8-2.4 mg/dl Total Bilirubin 0.3 0.2-1 mg/dl Direct Bilirubin 0.1 0-0.2 mg/dl Aspartate Amino Transf (AST/SGOT) 24 15-37 U/L Alanine Aminotransferase (ALT/SGPT) 20 12-78 U/L Alkaline Phosphatase 108 45-117 U/L Total Protein 7.0 6.4-8.2 gm/dl Albumin 3.6 3.4-5.0 gm/dl Assessment & Plan Nighat Quezada is a 62 year old woman with history of multiple abdominal operations including Nathaly's procedure for perforated diverticulitis (with subsequent washout, wound healing by secondary intention and later colostomy reversal) and previous bowel obstructions (managed non operatively) who presents with symptoms and CT scan findings concerning for a partial bowel obstruction. Vitals remain stable and normal, labs within normal limits. Pain and distention mildly improved compared to yesterday, denies nausea. Minimal output from NGT, tolerated clamping overnight. -No acute surgical intervention indicated at this time -NPO, NGT currently clamped - if patient does well over next few hours, will remove. -Chloraseptic spray ordered for throat irritation -IVF hydration, replete electrolytes as needed -Pain and nausea control as needed -Encourage out of bed / ambulation -Rest of care per primary team -Will continue to follow. Radha Mtz MD 04/01/17 Addendum 2:30pm Patient examined at bedside this afternoon. NGT has been clamped since this morning. Feeling a bit nauseated right now, just received dose of zofran. Abdomen remains distended (same as exam this morning), but soft, only mildly tender to palpation in left side. Continues passing flatus. Ambulating without difficulty. -Will leave NGT in place for now - place back to suction if nausea worsens -Re-evaluate tomorrow for possible removal -Encouraged ambulation Radha Mtz MD 04/01/17
[2017-04-01 15:09] VITALS: BP 178/81; PULSE 82; TEMP 37.1; O2SAT 99
[2017-04-01] MEDS ORDERED: LORAZEPAM INJ 0.5 MG in SYRINGE 0.75 ML IV PRN (17:15)
[2017-04-01 23:00] VITALS: BP 168/74; PULSE 91; TEMP 37.1; O2SAT 94
[2017-04-02] MEDS: PROMETHAZINE HCL INJ 25 MG in SODIUM CHLORIDE 0.9% 50ML 50 ML IV PRN ×4 (00:30→23:59)
[2017-04-02] MEDS: FAMOTIDINE IV INJ 20 MG in DEXTROSE 5% 100ML 100 ML IV SCH ×2 (03:51→17:31)
[2017-04-02] MEDS: NSS + 20MEQ KCL 1000ML 1,000 ML IV SCH ×2 (03:52→14:13)
[2017-04-02] MEDS: HYDROmorphone INJ 2 MG/ML SYR/VIAL IV PRN ×6 (05:05→21:52)
[2017-04-02] MEDS: METRONIDAZOLE / NSS 500 MG in PREMIXED NSS 100 ML IV SCH ×3 (05:45→21:58)
--- NOTE | 2017-04-02 06:22 | Progress Note ---
Subjective Date of Service: Apr 01, 2017. Subjective Pt evaluation today including: conversation w/ patient, conversation w/ family , physical exam Patient reports that her NGT overnight was clamped, but she then had more distention and was placed again on intermittent suction. They was a trial agin during the day which she states that failed. Patient though continues to report passing gas and liquid stools. Continues to complain of sore throat. Problem List Medical Problems: (1) Abdominal pain Status: Acute (2) Elevated liver enzymes Status: Acute (3) Epigastric abdominal pain Status: Acute (4) H. pylori infection Status: Acute (5) Small bowel obstruction Status: Acute (6) Vomiting Status: Acute Review of Systems Constitutional: No fever, No chills Respiratory: No cough, No sputum Cardiac: No chest pain, No orthopnea Abdomen: No pain, No nausea Musculoskeletal: No joint pain Psychiatric: No depression symptoms, No anhedonism Heme: No abnormal bleeding/bruising All Other Systems: Reviewed and Negative Medications Current Inpatient Medications Medications (Trade) Dose Ordered Sig/Adolph Route Start Time Stop Time Status Last Admin Dose Admin Clotrimazole (Lotrimin 1% Crm) 1 appln QID EXT 03/30/17 09:00 04/29/17 08:59 04/01/17 20:50 1 APPLN Fluticasone Propionate (Flonase Nasal [place]) 2 sprays BID ROSANA 03/30/17 09:00 04/29/17 08:59 04/01/17 20:50 2 SPRAYS Albuterol/ Ipratropium (Combivent Respimat Inh) 1 puffs QID INH 03/30/17 09:00 04/29/17 08:59 04/01/17 20:50 1 PUFFS Lorazepam (Ativan Inj) 0.5 mg Q4H PRN IV 03/30/17 02:00 04/29/17 01:59 Lorazepam (Ativan Inj) 1 mg Q4H PRN IV 03/30/17 02:00 04/29/17 01:59 Famotidine 20 mg/ Dextrose 102 ml @ 200 mls/hr Q12H IV 03/30/17 04:00 04/29/17 03:59 04/02/17 03:51 200 MLS/HR Diphenhydramine HCl (Benadryl Inj) 50 mg Q4H PRN IV 03/30/17 02:00 04/29/17 01:59 03/31/17 19:30 50 MG Acetaminophen 100 ml @ 400 mls/hr Q8H PRN IV 03/30/17 02:00 04/29/17 01:59 03/31/17 23:12 400 MLS/HR Potassium Chloride/Sodium Chloride 1,000 ml @ 100 mls/hr Q10H IV 03/30/17 03:15 04/29/17 03:14 04/02/17 03:52 100 MLS/HR Fluconazole/ Sodium Chloride 200 mg/Prmx 100 ml @ 100 mls/hr DAILY IV 03/30/17 09:00 04/09/17 08:59 04/01/17 08:58 100 MLS/HR Metronidazole 500 mg/Prmx 100 ml @ 100 mls/hr Q8H IV 03/30/17 06:00 04/09/17 05:59 04/02/17 05:45 100 MLS/HR Ondansetron HCl (Zofran Inj) 4 mg Q4H PRN IV 03/30/17 12:15 04/29/17 01:59 04/01/17 22:17 4 MG Promethazine HCl 25 mg/Sodium Chloride 51 ml @ 204 mls/hr Q6H PRN IV 03/30/17 18:00 04/29/17 17:59 04/02/17 00:30 204 MLS/HR Heparin Sodium (Porcine) (Heparin 100 Unit/ml 5ml Flush) 5 ml PRN PRN IV 03/31/17 02:15 04/30/17 02:14 Hydromorphone HCl (Dilaudid Inj) 1.5 mg Q3H PRN IV 03/31/17 12:15 04/13/17 11:29 04/02/17 05:05 1.5 MG Menthol (Nice Freddie) 1 freddie PRN PRN PO 03/31/17 14:00 04/30/17 13:59 03/31/17 15:06 1 FREDDIE Phenol (Chloraseptic 1.4% [place]) 1 sprays Q1HWA PRN MT 04/01/17 09:30 05/01/17 09:29 Lorazepam 1 mg/ Syringe 1 ml @ 1 mls/min Q4H PRN IV 04/01/17 17:30 05/01/17 17:29 Objective Vital Signs Date Time Temp Pulse Resp B/P (MAP) Pulse Ox O2 Delivery O2 Flow Rate FiO2 04/02/17 00:10 Room Air 04/01/17 23:00 37.1 91 16 168/74 (105) 94 Room Air 04/01/17 16:00 Room Air 04/01/17 15:09 37.1 82 17 178/81 (113) 99 Room Air 04/01/17 07:52 Room Air 04/01/17 07:13 36.6 81 19 159/78 (105) 97 Room Air Physical Exam Comments: General Appearance: WD/WN, no apparent distress Eyes: normal inspection, EOMI, sclerae normal ENT: NG tube placed on intermittent suction Neck: supple, no adenopathy, no JVD, trachea midline Respiratory/Chest: chest non-tender, lungs clear, normal breath sounds, no respiratory distress, no accessory muscle use Cardiovascular: regular rate, rhythm, no edema, no gallop, no JVD, no murmur Abdomen: large midline surgical scars, no organomegaly, + abnormal bowel sounds (more active today), + distended (less distended), + tenderness Extremities: normal range of motion, non-tender, normal inspection, no pedal edema, no calf tenderness, pelvis stable 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, no motor/sensory deficits, alert, normal mood/affect, oriented x 3 Skin: normal color, warm/dry, no rash Lymphatic: no adenopathy Laboratory Results Last 24 Hours Test 04/01/17 06:33 White Blood Count 7.43 K/uL Red Blood Count 4.85 M/uL Hemoglobin 10.2 g/dL Hematocrit 33.7 % Mean Corpuscular Volume 69.5 fL Mean Corpuscular Hemoglobin 21.0 pg Mean Corpuscular Hemoglobin Concent 30.3 g/dl Platelet Count 327 K/uL Mean Platelet Volume 9.7 fL Neutrophils (%) (Auto) 70.4 % Lymphocytes (%) (Auto) 21.8 % Monocytes (%) (Auto) 5.9 % Eosinophils (%) (Auto) 1.1 % Basophils (%) (Auto) 0.4 % Neutrophils # (Auto) 5.23 K/uL Lymphocytes # (Auto) 1.62 K/uL Monocytes # (Auto) 0.44 K/uL Eosinophils # (Auto) 0.08 K/uL Basophils # (Auto) 0.03 K/uL RDW Standard Deviation 44.4 fL RDW Coefficient of Variation 17.6 % Immature Granulocyte % (Auto) 0.4 % Immature Granulocyte # (Auto) 0.03 K/uL Hypochromasia PRESENT Microcytosis PRESENT Prothrombin Time 11.5 SECONDS Prothromb Time International Ratio 1.1 Activated Partial Thromboplast Time 33.4 SECONDS Partial Thromboplastin Ratio 1.3 Sodium Level 138 mmol/L Potassium Level 4.1 mmol/L Chloride Level 106 mmol/L Carbon Dioxide Level 22 mmol/L Anion Gap 10.0 mmol/L Blood Urea Nitrogen 9 mg/dl Creatinine 0.60 mg/dl Est Creatinine Clear Calc Drug Dose 88.6 ml/min Estimated GFR () 114.0 Estimated GFR (Non- 98.4 BUN/Creatinine Ratio 15.5 Random Glucose 82 mg/dl Calcium Level 9.2 mg/dl Magnesium Level 2.3 mg/dl Total Bilirubin 0.3 mg/dl Direct Bilirubin 0.1 mg/dl Aspartate Amino Transf (AST/SGOT) 24 U/L Alanine Aminotransferase (ALT/SGPT) 20 U/L Alkaline Phosphatase 108 U/L Total Protein 7.0 gm/dl Albumin 3.6 gm/dl Assessment and Plan 62 yo female with h/o SBO and colon perforation, h/o ileostomy with subsequent reversal, presented with constipation, distension, pain CT showed evidence of SBO - SBO: improving, less distension, moving bowels, less pain back on intermittent suction, bowel rest, IV fluids will continue management as per gen surgery. Tinea corporis-- much improved Fluconazole 200 mg IV daily. Benadryl 50 mg IV every 4 hours when necessary Clotrimazole topically 4 times a day. Fullness in throat and cough: due to NGT, cough drops COPD-- continue Combivent breathing stable, no wheezing Hypothyroidism-- will start IV synthroid tomorrow Continued [facility] stay due to: multiple IV medications needed Discharge planning: home
[2017-04-02 07:24] VITALS: BP 160/84; PULSE 96; TEMP 36.9; O2SAT 95
[2017-04-02] MEDS: ONDANSETRON INJ 2 MG/ML 2 ML VIAL IV PRN ×2 (08:06→20:24)
[2017-04-02] MEDS: IPRATROPIUM BROMIDE/ALBUTEROL respimat INH INH SCH ×4 (08:18→21:35)
[2017-04-02] MEDS: CLOTRIMAZOLE 1% CR 15 GM TUBE EXT SCH ×4 (08:19→21:35)
[2017-04-02] MEDS: FLUTICASONE PROPIONATE NA SPR 16 GM BTL NAE SCH ×2 (08:19→21:35)
[2017-04-02] MEDS: LEVOTHYROXINE SODIUM INJ 50 MCG in SYRINGE 0 ML IV SCH (09:09)
[2017-04-02] MEDS: FLUCONAZOLE / NSS 200 MG in PREMIXED NSS 100 ML IV SCH (09:10)
--- NOTE | 2017-04-02 10:18 | Clinical Documentation Query ---
CLINICAL DOCUMENTATION QUERY Dr. BENNETT, In your clinical opinion is this patient being managed for: ( ) Acute kidney failure ( ) Not Agree ( ) Other explanation of clinical findings (Please Explain) ( ) Unable to determine (Please Define) ( ) Need to Discuss The medical record reflects the following clinical findings, treatment, and risk factors. Clinical Indicators: 62 yo female presenting with vomiting, fevers, diagnosed with SBO. Initial BUN 27, Cr 1.10 which had trended down to 9/0.60. Treatment:2L NSS bolus then continuous, monitor PRP's Risk Factors:dehydration, vomiting, SBO, NGT drainage Please clarify and document your clinical opinion in the progress notes and discharge summary. Terms such as "probable", "suspected", "likely", "questionable", "possible", or "still to be ruled out" are acceptable. IF IN AGREEMENT, YOU MUST DOCUMENT ABOVE DIAGNOSTIC STATEMENT IN DAILY PROGRESS NOTES AND DISCHARGE SUMMARY. This document is not part of the patient's record. Thank You, Natalia Patiño RN [phone]
[2017-04-02 15:05] VITALS: BP 164/63; PULSE 94; TEMP 36.9; O2SAT 100
[2017-04-02] MEDS: PANTOprazole INJ 40 MG in SYRINGE 0 ML IV SCH ×2 (16:24→21:35)
[2017-04-02 16:30] VITALS: O2SAT 100
--- NOTE | 2017-04-02 16:41 | Surgery Progress Note ---
Surgery Progress Note Date of Service Apr 02, 2017. Subjective Post OP Day: HD # 4 not feeling well today midline upper abdominal pain, burning in nature, chronic + nausea no vomiting + flatus and diarrhea Objective Vital Signs: Date Time Temp Pulse Resp B/P (MAP) Pulse Ox O2 Delivery O2 Flow Rate FiO2 04/02/17 15:05 36.9 94 18 164/63 (96) 100 Room Air 04/02/17 08:00 Room Air 04/02/17 07:24 36.9 96 17 160/84 (109) 95 Room Air 04/02/17 00:10 Room Air 04/01/17 23:00 37.1 91 16 168/74 (105) 94 Room Air General Appearance: WD/WN, no apparent distress Head: normocephalic, atraumatic Neck: trachea midline Respiratory/Chest: no respiratory distress, no accessory muscle use Abdomen: soft, no organomegaly, + distended (moderate distention), + tenderness (tenderness to palpation in the right lower quadrant on deep palpation, no rigidity, rebound, or peritonitis), + pertinent finding (midline laparotomy scar present) Assessment & Plan 62 year-old female with partial small bowel obstruction, seems to be resolving however patient having persistent nausea and now upper midline abdominal burning pain. History of GERD takes Nexium and Zantac at home. NGT clamped last evening until 2 pm this afternoon. Patient developed nausea therefore resumed NGT to LIS. Dark Brown output but minimal. Pain controlled only for an hour with IV Dilaudid. Plan: No acute surgical intervention Will keep NGT clamped, resume if nausea Will switch to IV Protonix BID Gastric Occult NGT output Increase Dilaudid to q2h instead of q3h as needed for pain encourage ambulation Discussed patient with Dr. Velazquez who agrees with above. I interviewed and examined this patient and I agree with the above note. She is now having bowel movements and passing flatus. Her nausea seems to occur after receiving the Dilaudid. Would consider clamping the NG tube overnight and possibly removing it in the morning and beginning by mouth. She tolerates that consider upper GI small bowel follow-through to evaluate for the presence of an obstruction and if that is absent and other etiologies for the nausea will need to be sought.
[2017-04-02 16:59] LABS: GASTRIC OCCULT BLOOD POS (NEG); GASTRIC OCCULT BLOOD PH 3
[2017-04-02] MEDS: LORAZEPAM INJ 1 MG in SYRINGE 0.5 ML IV PRN (17:49)
[2017-04-02] MEDS ORDERED: LORAZEPAM INJ 1 MG in SYRINGE 0.5 ML IV ONE (19:40)
[2017-04-02 22:52] VITALS: BP 167/79; PULSE 103; TEMP 36.6; O2SAT 97
[2017-04-03] MEDS: HYDROmorphone INJ 2 MG/ML SYR/VIAL IV PRN ×6 (00:08→21:13)
[2017-04-03] MEDS: ONDANSETRON INJ 2 MG/ML 2 ML VIAL IV PRN ×3 (03:50→20:46)
[2017-04-03] MEDS: FAMOTIDINE IV INJ 20 MG in DEXTROSE 5% 100ML 100 ML IV SCH ×2 (03:52→17:45)
[2017-04-03] MEDS: METRONIDAZOLE / NSS 500 MG in PREMIXED NSS 100 ML IV SCH ×3 (05:45→21:35)
--- NOTE | 2017-04-03 06:02 | Progress Note ---
Subjective Date of Service: Apr 02, 2017. Subjective Pt evaluation today including: conversation w/ patient, physical exam, chart review, lab review, review of studies 62 yo female states that her nausea has returned, each time her NG tube is clamped. Again, she is on intermittent suction. Patient is concerned that her fluid may have blood on it, as it is dark in color. Patient states now having back pain on her left side. Patient reports that she needs stronger anti anxiety medication. Patient reports that at home she takes about 4 mg PO of dilaudid daily due to her musculoskeletal complaints. Problem List Medical Problems: (1) Abdominal pain Status: Acute (2) Elevated liver enzymes Status: Acute (3) Epigastric abdominal pain Status: Acute (4) H. pylori infection Status: Acute (5) Small bowel obstruction Status: Acute (6) Vomiting Status: Acute Review of Systems Constitutional: No fever Respiratory: No cough, No sputum Cardiac: No chest pain Abdomen: + pain, + nausea Neurologic: No memory loss, No paralysis Psychiatric: No depression symptoms, No anhedonism Heme: No abnormal bleeding/bruising Endo: No fatigue Skin: No rash, No itch All Other Systems: Reviewed and Negative Medications Current Inpatient Medications Medications (Trade) Dose Ordered Sig/Adolph Route Start Time Stop Time Status Last Admin Dose Admin Clotrimazole (Lotrimin 1% Crm) 1 appln QID EXT 03/30/17 09:00 04/29/17 08:59 04/02/17 21:35 1 APPLN Fluticasone Propionate (Flonase Nasal [place]) 2 sprays BID ROSANA 03/30/17 09:00 04/29/17 08:59 04/02/17 21:35 2 SPRAYS Albuterol/ Ipratropium (Combivent Respimat Inh) 1 puffs QID INH 03/30/17 09:00 04/29/17 08:59 04/02/17 21:35 1 PUFFS Lorazepam (Ativan Inj) 0.5 mg Q4H PRN IV 03/30/17 02:00 04/29/17 01:59 Lorazepam (Ativan Inj) 1 mg Q4H PRN IV 03/30/17 02:00 04/29/17 01:59 Famotidine 20 mg/ Dextrose 102 ml @ 200 mls/hr Q12H IV 03/30/17 04:00 04/29/17 03:59 04/03/17 03:52 200 MLS/HR Diphenhydramine HCl (Benadryl Inj) 50 mg Q4H PRN IV 03/30/17 02:00 04/29/17 01:59 03/31/17 19:30 50 MG Acetaminophen 100 ml @ 400 mls/hr Q8H PRN IV 03/30/17 02:00 04/29/17 01:59 03/31/17 23:12 400 MLS/HR Potassium Chloride/Sodium Chloride 1,000 ml @ 100 mls/hr Q10H IV 03/30/17 03:15 04/29/17 03:14 04/03/17 00:00 100 MLS/HR Fluconazole/ Sodium Chloride 200 mg/Prmx 100 ml @ 100 mls/hr DAILY IV 03/30/17 09:00 04/09/17 08:59 04/02/17 09:10 100 MLS/HR Metronidazole 500 mg/Prmx 100 ml @ 100 mls/hr Q8H IV 03/30/17 06:00 04/09/17 05:59 04/03/17 05:45 100 MLS/HR Ondansetron HCl (Zofran Inj) 4 mg Q4H PRN IV 03/30/17 12:15 04/29/17 01:59 04/03/17 03:50 4 MG Promethazine HCl 25 mg/Sodium Chloride 51 ml @ 204 mls/hr Q6H PRN IV 03/30/17 18:00 04/29/17 17:59 04/02/17 23:59 204 MLS/HR Heparin Sodium (Porcine) (Heparin 100 Unit/ml 5ml Flush) 5 ml PRN PRN IV 03/31/17 02:15 04/30/17 02:14 04/02/17 08:11 5 ML Menthol (Nice Freddie) 1 freddie PRN PRN PO 03/31/17 14:00 04/30/17 13:59 03/31/17 15:06 1 FREDDIE Phenol (Chloraseptic 1.4% [place]) 1 sprays Q1HWA PRN MT 04/01/17 09:30 05/01/17 09:29 Lorazepam 1 mg/ Syringe 1 ml @ 1 mls/min Q4H PRN IV 04/01/17 17:30 05/01/17 17:29 04/02/17 17:49 1 MLS/MIN Levothyroxine Sodium 50 mcg/ Syringe 2.5 ml @ 2 mls/min DAILY@09 IV 04/02/17 09:00 05/02/17 08:59 04/02/17 09:09 2 MLS/MIN Pantoprazole Sodium 40 mg/ Syringe 10 ml @ 5 mls/min DAILY@,21 IV 04/02/17 15:45 05/02/17 15:44 04/02/17 21:35 5 MLS/MIN Hydromorphone HCl (Dilaudid Inj) 1.5 mg Q2H PRN IV 04/02/17 15:45 04/13/17 11:29 04/03/17 03:52 1.5 MG Objective Vital Signs Date Time Temp Pulse Resp B/P (MAP) Pulse Ox O2 Delivery O2 Flow Rate FiO2 04/03/17 00:00 Room Air 04/02/17 22:52 36.6 103 18 167/79 (108) 97 Room Air 04/02/17 16:30 100 Room Air 04/02/17 15:05 36.9 94 18 164/63 (96) 100 Room Air 04/02/17 08:00 Room Air 04/02/17 07:24 36.9 96 17 160/84 (109) 95 Room Air Physical Exam Comments: General Appearance: WD/WN, no apparent distress Eyes: normal inspection, EOMI, sclerae normal ENT: NG tube placed on intermittent suction Neck: supple, no adenopathy, no JVD, trachea midline Respiratory/Chest: chest non-tender, lungs clear, normal breath sounds, no respiratory distress, no accessory muscle use Cardiovascular: regular rate, rhythm, no edema, no gallop, no JVD, no murmur Abdomen: large midline surgical scars, no organomegaly, + abnormal bowel sounds (more active today), + distended (less distended), + tenderness Extremities: normal range of motion, non-tender, normal inspection, no pedal edema, no calf tenderness, pelvis stable 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 Lymphatic: no adenopathy Laboratory Results Last 24 Hours Test 04/02/17 16:40 Gastric Fluid pH 3 Gastric Fluid Occult Blood POS Assessment and Plan 62 yo female with h/o SBO and colon perforation, h/o ileostomy with subsequent reversal, presented with constipation, distension, pain CT showed evidence of SBO - SBO: improving, less distension, moving bowels, less pain back on intermittent suction, bowel rest, IV fluids will continue management as per gen surgery. Patient is requiring more narcotics, concerned that this is playing a role in her nausea, distention. Patient chronically takes narcotics however. I explained to patient this, but she states that she stills wants her narcotics increased. I will check her PDMP. Tinea corporis-- much improved Fluconazole 200 mg IV daily. Benadryl 50 mg IV every 4 hours when necessary Clotrimazole topically 4 times a day. Fullness in throat and cough: due to NGT, cough drops COPD-- continue Combivent breathing stable, no wheezing Hypothyroidism--Iv synthroid started Continued [facility] stay due to: multiple IV medications needed Discharge planning: home
[2017-04-03 07:06] VITALS: BP 163/77; PULSE 99; TEMP 36.5; O2SAT 98
[2017-04-03] MEDS: FLUTICASONE PROPIONATE NA SPR 16 GM BTL NAE SCH ×2 (09:17→20:45)
[2017-04-03] MEDS: FLUCONAZOLE / NSS 200 MG in PREMIXED NSS 100 ML IV SCH (09:17)
[2017-04-03] MEDS: IPRATROPIUM BROMIDE/ALBUTEROL respimat INH INH SCH ×4 (09:18→20:45)
[2017-04-03] MEDS: CLOTRIMAZOLE 1% CR 15 GM TUBE EXT SCH ×4 (09:18→21:13)
[2017-04-03] MEDS: LEVOTHYROXINE SODIUM INJ 50 MCG in SYRINGE 0 ML IV SCH (09:19)
[2017-04-03] MEDS: PANTOprazole INJ 40 MG in SYRINGE 0 ML IV SCH ×2 (09:19→20:46)
--- NOTE | 2017-04-03 10:19 | Surgery Progress Note ---
Surgery Progress Note Date of Service Apr 03, 2017. Subjective Post OP Day: HD # 4 + feeling well, + complaints (slight upper abdominal pain but better than yesterday, no further burning pain in epigastrium), + bowel movement, + flatus, + pain controlled, No chest pain, No SOB, No nausea, No vomiting No nausea or vomiting since NGT has been clamped at 5 pm yesterday Continues to have loose bowel movements every time urinating and passing flatus Belly feels less bloated today Objective Vital Signs: Date Time Temp Pulse Resp B/P (MAP) Pulse Ox O2 Delivery O2 Flow Rate FiO2 04/03/17 07:06 36.5 99 17 163/77 (105) 98 Room Air 04/03/17 00:00 Room Air 04/02/17 22:52 36.6 103 18 167/79 (108) 97 Room Air 04/02/17 16:30 100 Room Air 04/02/17 15:05 36.9 94 18 164/63 (96) 100 Room Air Physical Exam: nasogastric drainage (NGT clamped) General Appearance: WD/WN, no apparent distress Head: normocephalic, atraumatic Neck: trachea midline Respiratory/Chest: no respiratory distress, no accessory muscle use Abdomen: normal bowel sounds, non distended, soft, no organomegaly, no pulsatile mass, + tenderness (In the LUQ and the epigastrium on deep palpation, no peritonitis), + pertinent finding (midline abdominal scar present) Laboratory Results: Results Past 24 Hours Test 04/02/17 16:40 Range/Units Gastric Fluid pH 3 Gastric Fluid Occult Blood POS NEG Assessment & Plan 62 year-old female with partial small bowel obstruction, seems to be resolving. Feeling better today, abdominal burning pain in epigastrium has resolved. NGT clamped since 5 pm last evening without any nausea or vomiting. Gastric occult was positive and started on IV Protonix. Still having loose bowel movements with flatus. Abdominal examination soft today, less distention, and less tender to palpation. Plan: No acute surgical intervention Advance diet to clear liquids. Keep NGT clamped while attempting clears. Patient is very reluctant to remove NGT as she WILL REFUSE it being replaced if she starts having nausea again if it is removed. If tolerates clears then may remove NGT and advance diet as tolerated. Her nausea may be secondary to narcotics, some gastritis, or the NGT itself. Continue IV Protonix BID Continue pain management as needed Continue current medical management encourage ambulation Re-evaluated at 2:[address] Velazquez Tolerated clears fine so far no nausea or vomiting still having some pain and anxiety, was just given Pain medication and Ativan Plan: Keep NGT until tomorrow, if does well with clears throughout today may remove continue current medical management Dr. Velazquez has seen and examined patient, agrees with above.
[2017-04-03] MEDS: LORAZEPAM INJ 1 MG in SYRINGE 0.5 ML IV PRN ×3 (10:52→21:35)
[2017-04-03] MEDS: NSS + 20MEQ KCL 1000ML 1,000 ML IV SCH ×3 (10:59→20:45)
[2017-04-03] MEDS ORDERED: METHYLNALTREXONE BROMIDE INJ 12 MG/0.6 ML SYR SQ ONE (13:00)
[2017-04-03 15:45] VITALS: O2SAT 98
[2017-04-03 15:46] VITALS: BP 145/82; PULSE 92; TEMP 37.4; O2SAT 95
[2017-04-03] MEDS: PROMETHAZINE HCL INJ 25 MG in SODIUM CHLORIDE 0.9% 50ML 50 ML IV PRN (16:56)
--- NOTE | 2017-04-03 23:01 | Progress Note ---
Subjective Date of Service: Apr 03, 2017. Subjective Pt evaluation today including: conversation w/ patient, physical exam, chart review, review of studies 62 year old female with history of opiate use and abd. surgeries in the past is in the hospital for an Small Bowel Obstruction. Patitn reports that her pain has improved and she states that her distention has decreased. Patient also states that though she is taking dilaudid, she is trying to space it out. I also explained to patient that I checked her PDMP which showed oxycodone po bid 20 mg and dilaudid 4mg po daily for severe pain. She states that she does not take these medications daily. Patient reports that she was on anxiety meds in the past and tried effexor but did not like side effects Problem List Medical Problems: (1) Abdominal pain Status: Acute (2) Elevated liver enzymes Status: Acute (3) Epigastric abdominal pain Status: Acute (4) H. pylori infection Status: Acute (5) Small bowel obstruction Status: Acute (6) Vomiting Status: Acute Review of Systems Constitutional: No fever, No chills Eyes: No worsening of vision, No eye pain ENT: + sore throat, No hearing loss, No unusual epistaxis Respiratory: No cough, No sputum Cardiac: No chest pain, No orthopnea Abdomen: + pain, + nausea, No diarrhea, No constipation Musculoskeletal: + muscle pain Psychiatric: No depression symptoms, No anhedonism Heme: No abnormal bleeding/bruising Endo: No fatigue Skin: No rash, No itch All Other Systems: Reviewed and Negative Medications Current Inpatient Medications Medications (Trade) Dose Ordered Sig/Adolph Route Start Time Stop Time Status Last Admin Dose Admin Clotrimazole (Lotrimin 1% Crm) 1 appln QID EXT 03/30/17 09:00 04/29/17 08:59 04/03/17 21:13 1 APPLN Fluticasone Propionate (Flonase Nasal [place]) 2 sprays BID ROSANA 03/30/17 09:00 04/29/17 08:59 04/03/17 20:45 2 SPRAYS Albuterol/ Ipratropium (Combivent Respimat Inh) 1 puffs QID INH 03/30/17 09:00 04/29/17 08:59 04/03/17 20:45 1 PUFFS Lorazepam (Ativan Inj) 0.5 mg Q4H PRN IV 10/6/17 02:00 04/29/17 01:59 Lorazepam (Ativan Inj) 1 mg Q4H PRN IV 03/30/17 02:00 04/29/17 01:59 Famotidine 20 mg/ Dextrose 102 ml @ 200 mls/hr Q12H IV 03/30/17 04:00 04/29/17 03:59 04/04/17 04:13 200 MLS/HR Diphenhydramine HCl (Benadryl Inj) 50 mg Q4H PRN IV 03/30/17 02:00 04/29/17 01:59 03/31/17 19:30 50 MG Acetaminophen 100 ml @ 400 mls/hr Q8H PRN IV 03/30/17 02:00 04/29/17 01:59 03/31/17 23:12 400 MLS/HR Potassium Chloride/Sodium Chloride 1,000 ml @ 100 mls/hr Q10H IV 03/30/17 03:15 04/29/17 03:14 04/03/17 20:45 100 MLS/HR Fluconazole/ Sodium Chloride 200 mg/Prmx 100 ml @ 100 mls/hr DAILY IV 03/30/17 09:00 04/09/17 08:59 04/03/17 09:17 100 MLS/HR Metronidazole 500 mg/Prmx 100 ml @ 100 mls/hr Q8H IV 03/30/17 06:00 04/09/17 05:59 04/04/17 05:43 100 MLS/HR Ondansetron HCl (Zofran Inj) 4 mg Q4H PRN IV 03/30/17 12:15 04/29/17 01:59 04/03/17 20:46 4 MG Promethazine HCl 25 mg/Sodium Chloride 51 ml @ 204 mls/hr Q6H PRN IV 03/30/17 18:00 04/29/17 17:59 04/04/17 00:05 204 MLS/HR Heparin Sodium (Porcine) (Heparin 100 Unit/ml 5ml Flush) 5 ml PRN PRN IV 03/31/17 02:15 04/30/17 02:14 04/02/17 08:11 5 ML Menthol (Nice Freddie) 1 freddie PRN PRN PO 03/31/17 14:00 04/30/17 13:59 03/31/17 15:06 1 FREDDIE Phenol (Chloraseptic 1.4% [place]) 1 sprays Q1HWA PRN MT 04/01/17 09:30 05/01/17 09:29 Lorazepam 1 mg/ Syringe 1 ml @ 1 mls/min Q4H PRN IV 04/01/17 17:30 05/01/17 17:29 04/03/17 21:35 1 MLS/MIN Levothyroxine Sodium 50 mcg/ Syringe 2.5 ml @ 2 mls/min DAILY@09 IV 04/02/17 09:00 05/02/17 08:59 04/03/17 09:19 2 MLS/MIN Pantoprazole Sodium 40 mg/ Syringe 10 ml @ 5 mls/min DAILY@, IV 04/02/17 15:45 05/02/17 15:44 04/03/17 20:46 5 MLS/MIN Hydromorphone HCl (Dilaudid Inj) 1.5 mg Q2H PRN IV 04/02/17 15:45 04/13/17 11:29 04/03/17 21:13 1.5 MG Iron Sucrose 200 mg/Sodium Chloride 110 ml @ 150 mls/hr We@1030 ONCE IV 04/04/17 10:30 04/04/17 11:13 Objective Vital Signs Date Time Temp Pulse Resp B/P (MAP) Pulse Ox O2 Delivery O2 Flow Rate FiO2 04/03/17 15:46 37.4 92 17 145/82 (103) 95 Room Air 04/03/17 15:45 98 Room Air 04/03/17 07:55 Room Air 04/03/17 07:06 36.5 99 17 163/77 (105) 98 Room Air 04/03/17 00:00 Room Air Physical Exam Comments: General Appearance: WD/WN, no apparent distress Eyes: normal inspection, EOMI, sclerae normal ENT: NG tube placed on intermittent suction Neck: supple, no adenopathy, no JVD, trachea midline Respiratory/Chest: chest non-tender, lungs clear, normal breath sounds, no respiratory distress, no accessory muscle use Cardiovascular: regular rate, rhythm, no edema, no gallop, no JVD, no murmur Abdomen: large midline surgical scars, no organomegaly, + abnormal bowel sounds (more active today), + distended (less distended), + tenderness Extremities: normal range of motion, non-tender, normal inspection, no pedal edema, no calf tenderness, pelvis stable 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 Lymphatic: no adenopathy Assessment and Plan 62 yo female with h/o SBO and colon perforation, h/o ileostomy with subsequent reversal, presented with constipation, distension, pain CT showed evidence of SBO - SBO: improving, less distension, moving bowels, less pain NGT clamped today, patient is tolerated diet will continue management as per gen surgery. Patient was requiring more narcotics, concerned that this is playing a role in her nausea, distention. Patient though is cutting back Patient chronically takes narcotics however. I explained to patient this, but she states that she stills wants her narcotics increased. I will check her PDMP. Tinea corporis-- much improved Fluconazole 200 mg IV daily. Benadryl 50 mg IV every 4 hours when necessary Clotrimazole topically 4 times a day. Fullness in throat and cough: due to NGT, cough drops Iron def. Aneia: Gets iron transfusion weekly. Order for tomorrow Anxiety will start SSRI with goal of titrating off benzo. Patient does not want to see psychiatrist. COPD-- continue Combivent breathing stable, no wheezing Hypothyroidism--Iv synthroid started Continued [facility] stay due to: multiple IV medications needed Discharge planning: home
[2017-04-03 23:05] VITALS: BP 109/55; PULSE 93; TEMP 37; O2SAT 98
[2017-04-04] MEDS: PROMETHAZINE HCL INJ 25 MG in SODIUM CHLORIDE 0.9% 50ML 50 ML IV PRN ×2 (00:05→12:55)
[2017-04-04] MEDS: FAMOTIDINE IV INJ 20 MG in DEXTROSE 5% 100ML 100 ML IV SCH ×2 (04:13→16:10)
[2017-04-04] MEDS: METRONIDAZOLE / NSS 500 MG in PREMIXED NSS 100 ML IV SCH ×3 (05:43→21:28)
[2017-04-04 07:02] VITALS: BP 134/79; PULSE 80; TEMP 37; O2SAT 98
[2017-04-04] MEDS: NSS + 20MEQ KCL 1000ML 1,000 ML IV SCH ×2 (08:00→17:09)
[2017-04-04 08:37] LABS: HEMATOCRIT 33.5 % (37-47); MEAN CELL VOLUME 69.6 fL (80-100); MEAN CORPUSCULAR HEMOGLOBIN 22.5 pg (25-34); MEAN CORPUSCULAR HGB CONC 32.2 g/dl (32-36); MEAN PLATELET VOLUME 9.8 fL (7.4-10.4); PLATELET COUNT 319 K/uL (130-400); RED BLOOD COUNT 4.81 M/uL (4.2-5.4); WHITE BLOOD COUNT 7.26 K/uL (4.8-10.8)
[2017-04-04] MEDS: FLUCONAZOLE / NSS 200 MG in PREMIXED NSS 100 ML IV SCH (08:45)
[2017-04-04] MEDS: ONDANSETRON INJ 2 MG/ML 2 ML VIAL IV PRN ×3 (08:46→20:19)
[2017-04-04] MEDS: HYDROmorphone INJ 2 MG/ML SYR/VIAL IV PRN ×3 (08:48→20:19)
[2017-04-04] MEDS: ESCITALOPRAM OXALATE 10 MG TAB PO SCH (08:48)
[2017-04-04] MEDS: FLUTICASONE PROPIONATE NA SPR 16 GM BTL NAE SCH ×2 (08:49→20:28)
[2017-04-04] MEDS: PANTOprazole INJ 40 MG in SYRINGE 0 ML IV SCH ×2 (08:49→20:36)
[2017-04-04] MEDS: LEVOTHYROXINE SODIUM INJ 50 MCG in SYRINGE 0 ML IV SCH (08:49)
[2017-04-04] MEDS: IPRATROPIUM BROMIDE/ALBUTEROL respimat INH INH SCH ×4 (08:50→20:28)
[2017-04-04] MEDS: CLOTRIMAZOLE 1% CR 15 GM TUBE EXT SCH ×4 (08:50→20:28)
[2017-04-04 08:55] LABS: BUN/CREATININE RATIO 5.1 (10-20); CALCIUM 8.9 mg/dl (8.5-10.1); CREATININE 0.69 mg/dl (0.60-1.20); POTASSIUM 4.2 mmol/L (3.5-5.1)
[2017-04-04] MEDS ORDERED: IRON SUCROSE INJ 200 MG in SODIUM CHLORIDE 0.9% 100ML IV ONE (10:30)
[2017-04-04 11:10] VITALS: BP 164/75; PULSE 88; TEMP 37.2; O2SAT 99
[2017-04-04 11:30] VITALS: BP 149/81; PULSE 81; TEMP 36.8; O2SAT 97
[2017-04-04] MEDS ORDERED: NURSING VERBAL MED ORDER ONE (11:30)
[2017-04-04] MEDS ORDERED: SUMATRIPTAN SUCC TAB 100 MG TAB PO ONE (11:45)
[2017-04-04 12:25] VITALS: BP 153/89; PULSE 82; TEMP 37.1; O2SAT 94
[2017-04-04 14:57] VITALS: BP 155/77; PULSE 81; TEMP 36.9; O2SAT 96
--- NOTE | 2017-04-04 16:25 | Surgery Progress Note ---
Surgery Progress Note Date of Service Apr 04, 2017. Subjective Post OP Day: HD # 5 + feeling well, + bowel movement, + flatus, + pain controlled, + diet ( tolerated clear liquids yesterday and this am), No complaints, No nausea, No vomiting NGT fell out after sneezing last night Objective Vital Signs: Date Time Temp Pulse Resp B/P (MAP) Pulse Ox O2 Delivery O2 Flow Rate FiO2 04/04/17 14:57 36.9 81 17 155/77 (103) 96 Room Air 04/04/17 12:25 37.1 82 153/89 (110) 94 Room Air 04/04/17 11:30 36.8 81 149/81 (103) 97 Room Air 04/04/17 11:10 37.2 88 164/75 (104) 99 Room Air 04/04/17 07:50 Room Air 04/04/17 07:02 37.0 80 18 134/79 (97) 98 Room Air 04/04/17 00:15 Room Air 04/03/17 23:05 37.0 93 19 109/55 (73) 98 Room Air General Appearance: WD/WN, no apparent distress Head: normocephalic, atraumatic Neck: trachea midline Respiratory/Chest: no respiratory distress, no accessory muscle use Abdomen: soft, no organomegaly, no pulsatile mass, + distended (mild distention ), + tenderness (tenderness in LLQ and epigastric, no rigidity, guarding, rebound, or peritonitis) Laboratory Results: Results Past 24 Hours Test 04/04/17 08:15 Range/Units White Blood Count 7.26 4.8-10.8 K/uL Red Blood Count 4.81 4.2-5.4 M/uL Hemoglobin 10.8 12.0-16.0 g/dL Hematocrit 33.5 37-47 % Mean Corpuscular Volume 69.6 80-100 fL Mean Corpuscular Hemoglobin 22.5 25-34 pg Mean Corpuscular Hemoglobin Concent 32.2 32-36 g/dl RDW Standard Deviation 44.2 36.4-46.3 fL RDW Coefficient of Variation 18.8 11.5-14.5 % Platelet Count 319 130-400 K/uL Mean Platelet Volume 9.8 7.4-10.4 fL Sodium Level 140 136-145 mmol/L Potassium Level 4.2 3.5-5.1 mmol/L Chloride Level 109 98-107 mmol/L Carbon Dioxide Level 23 21-32 mmol/L Anion Gap 7.0 3-11 mmol/L Blood Urea Nitrogen 4 7-18 mg/dl Creatinine 0.69 0.60-1.20 mg/dl Est Creatinine Clear Calc Drug Dose 77.0 ml/min Estimated GFR () 108.9 Estimated GFR (Non- 94.0 BUN/Creatinine Ratio 5.1 10-20 Random Glucose 110 70-99 mg/dl Calcium Level 8.9 8.5-10.1 mg/dl Assessment & Plan 62 year-old female with partial small bowel obstruction, seems to be resolving. Feeling better today, abdominal burning pain in epigastrium has resolved. Gastric occult was positive and started on IV Protonix. Still having loose bowel movements with flatus. Abdominal examination soft today, less distention , and less tender to palpation. Tolerated clear liquids Plan: No acute surgical intervention. Bowel obstruction has resolved. She continues to pass flatus and have liquid bowel movements. Her chronic nausea and abdominal pain are probably secondary to her delayed gastric emptying and adhesions (from multiple abdominal surgeries) respectively. Advance diet to Full liquids for lunch and then as tolerated. Continue IV Protonix BID, may switch back to home medications once tolerating diet well Continue pain management as needed Continue current medical management encourage ambulation Discussed with Dr. Velazquez who agrees with above
[2017-04-04 22:58] VITALS: BP 144/78; PULSE 84; TEMP 36.9; O2SAT 97
[2017-04-05] MEDS: FAMOTIDINE IV INJ 20 MG in DEXTROSE 5% 100ML 100 ML IV SCH (03:52)
[2017-04-05] MEDS: NSS + 20MEQ KCL 1000ML 1,000 ML IV SCH ×2 (03:52→16:25)
[2017-04-05] MEDS: METRONIDAZOLE / NSS 500 MG in PREMIXED NSS 100 ML IV SCH (06:10)
--- NOTE | 2017-04-05 06:20 | Progress Note ---
Subjective Date of Service: Apr 04, 2017. Subjective Patient seens and examined on 04/04/17 at 18:00 Patient reports that her NG tube fell out. Patient states that she feels mildly distended despite being able to go to the bathroom. She continues to have bowel movements. She reports that her sore throat has improved as well. Patient reports that she received her iron IV transfusion today. Problem List Medical Problems: (1) Abdominal pain Status: Acute (2) Elevated liver enzymes Status: Acute (3) Epigastric abdominal pain Status: Acute (4) H. pylori infection Status: Acute (5) Small bowel obstruction Status: Acute (6) Vomiting Status: Acute Review of Systems Constitutional: No fever, No chills Respiratory: No cough, No sputum Cardiac: No chest pain, No orthopnea Abdomen: + pain, + nausea, No vomiting, No diarrhea, No constipation Musculoskeletal: No joint pain Psychiatric: No depression symptoms, No anhedonism Skin: No rash, No itch All Other Systems: Reviewed and Negative Medications Current Inpatient Medications Medications (Trade) Dose Ordered Sig/Adolph Route Start Time Stop Time Status Last Admin Dose Admin Clotrimazole (Lotrimin 1% Crm) 1 appln QID EXT 03/30/17 09:00 04/29/17 08:59 04/04/17 20:28 1 APPLN Fluticasone Propionate (Flonase Nasal [place]) 2 sprays BID ROSANA 03/30/17 09:00 04/29/17 08:59 04/04/17 20:28 2 SPRAYS Albuterol/ Ipratropium (Combivent Respimat Inh) 1 puffs QID INH 03/30/17 09:00 04/29/17 08:59 04/04/17 20:28 1 PUFFS Lorazepam (Ativan Inj) 0.5 mg Q4H PRN IV 03/30/17 02:00 04/29/17 01:59 Lorazepam (Ativan Inj) 1 mg Q4H PRN IV 03/30/17 02:00 04/29/17 01:59 Famotidine 20 mg/ Dextrose 102 ml @ 200 mls/hr Q12H IV 03/30/17 04:00 04/29/17 03:59 04/05/17 03:52 200 MLS/HR Diphenhydramine HCl (Benadryl Inj) 50 mg Q4H PRN IV 03/30/17 02:00 04/29/17 01:59 03/31/17 19:30 50 MG Acetaminophen 100 ml @ 400 mls/hr Q8H PRN IV 03/30/17 02:00 04/29/17 01:59 03/31/17 23:12 400 MLS/HR Potassium Chloride/Sodium Chloride 1,000 ml @ 100 mls/hr Q10H IV 03/30/17 03:15 04/29/17 03:14 04/05/17 03:52 100 MLS/HR Fluconazole/ Sodium Chloride 200 mg/Prmx 100 ml @ 100 mls/hr DAILY IV 03/30/17 09:00 04/09/17 08:59 04/04/17 08:45 100 MLS/HR Metronidazole 500 mg/Prmx 100 ml @ 100 mls/hr Q8H IV 03/30/17 06:00 04/09/17 05:59 04/05/17 06:10 100 MLS/HR Ondansetron HCl (Zofran Inj) 4 mg Q4H PRN IV 03/30/17 12:15 04/29/17 01:59 04/04/17 20:19 4 MG Promethazine HCl 25 mg/Sodium Chloride 51 ml @ 204 mls/hr Q6H PRN IV 03/30/17 18:00 04/29/17 17:59 04/04/17 12:55 204 MLS/HR Heparin Sodium (Porcine) (Heparin 100 Unit/ml 5ml Flush) 5 ml PRN PRN IV 03/31/17 02:15 04/30/17 02:14 04/02/17 08:11 5 ML Menthol (Nice Freddie) 1 freddie PRN PRN PO 03/31/17 14:00 04/30/17 13:59 03/31/17 15:06 1 FREDDIE Phenol (Chloraseptic 1.4% [place]) 1 sprays Q1HWA PRN MT 04/01/17 09:30 05/01/17 09:29 Lorazepam 1 mg/ Syringe 1 ml @ 1 mls/min Q4H PRN IV 04/01/17 17:30 05/01/17 17:29 04/03/17 21:35 1 MLS/MIN Levothyroxine Sodium 50 mcg/ Syringe 2.5 ml @ 2 mls/min DAILY@09 IV 04/02/17 09:00 05/02/17 08:59 04/04/17 08:49 2 MLS/MIN Pantoprazole Sodium 40 mg/ Syringe 10 ml @ 5 mls/min DAILY@, IV 04/02/17 15:45 05/02/17 15:44 04/04/17 20:36 5 MLS/MIN Escitalopram Oxalate (Lexapro Tab) 10 mg QAM PO 04/04/17 09:00 05/04/17 08:59 04/04/17 08:48 10 MG Hydromorphone HCl (Dilaudid Inj) 1 mg Q2H PRN IV 04/05/17 06:30 04/13/17 11:29 Objective Vital Signs Date Time Temp Pulse Resp B/P (MAP) Pulse Ox O2 Delivery O2 Flow Rate FiO2 04/04/17 23:55 Room Air 04/04/17 22:58 36.9 84 17 144/78 (100) 97 Room Air 04/04/17 17:00 Room Air 04/04/17 14:57 36.9 81 17 155/77 (103) 96 Room Air 04/04/17 12:25 37.1 82 153/89 (110) 94 Room Air 04/04/17 11:30 36.8 81 149/81 (103) 97 Room Air 04/04/17 11:10 37.2 88 164/75 (104) 99 Room Air 04/04/17 07:50 Room Air 04/04/17 07:02 37.0 80 18 134/79 (97) 98 Room Air Physical Exam Comments: General Appearance: WD/WN, no apparent distress Eyes: normal inspection, EOMI, sclerae normal ENT: NG tube placed on intermittent suction Neck: supple, no adenopathy, no JVD, trachea midline Respiratory/Chest: chest non-tender, lungs clear, normal breath sounds, no respiratory distress, no accessory muscle use Cardiovascular: regular rate, rhythm, no edema, no gallop, no JVD, no murmur Abdomen: large midline surgical scars, no organomegaly, + abnormal bowel sounds (more active today), + distended (less distended), + tenderness Extremities: normal range of motion, non-tender, normal inspection, no pedal edema, no calf tenderness, pelvis stable 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 Lymphatic: no adenopathy Laboratory Results Last 24 Hours Test 04/04/17 08:15 White Blood Count 7.26 K/uL Red Blood Count 4.81 M/uL Hemoglobin 10.8 g/dL Hematocrit 33.5 % Mean Corpuscular Volume 69.6 fL Mean Corpuscular Hemoglobin 22.5 pg Mean Corpuscular Hemoglobin Concent 32.2 g/dl RDW Standard Deviation 44.2 fL RDW Coefficient of Variation 18.8 % Platelet Count 319 K/uL Mean Platelet Volume 9.8 fL Sodium Level 140 mmol/L Potassium Level 4.2 mmol/L Chloride Level 109 mmol/L Carbon Dioxide Level 23 mmol/L Anion Gap 7.0 mmol/L Blood Urea Nitrogen 4 mg/dl Creatinine 0.69 mg/dl Est Creatinine Clear Calc Drug Dose 77.0 ml/min Estimated GFR () 108.9 Estimated GFR (Non- 94.0 BUN/Creatinine Ratio 5.1 Random Glucose 110 mg/dl Calcium Level 8.9 mg/dl Assessment and Plan 62 yo female with h/o SBO and colon perforation, h/o ileostomy with subsequent reversal, presented with constipation, distension, pain CT showed evidence of SBO - SBO: improving, less distension, moving bowels, less pain NGT was removed today after patient sneeezed and it fell out, patient is tolerated diet will continue management as per gen surgery. Patient was requiring more narcotics, concerned that this is playing a role in her nausea, distention. Patient though is cutting back on her own. Patient chronically takes narcotics however. I will decrease her dilaudid to 1mg from 1.5mg Tinea corporis-- much improved Fluconazole 200 mg IV daily. Benadryl 50 mg IV every 4 hours when necessary Clotrimazole topically 4 times a day. Fullness in throat and cough: due to NGT, cough drops Iron def. Aneia: Had iron transfusion today Anxiety will start SSRI with goal of titrating off benzo. Patient does not want to see psychiatrist. COPD-- continue Combivent breathing stable, no wheezing Hypothyroidism--Iv synthroid started Continued [facility] stay due to: multiple IV medications needed Discharge planning: home
[2017-04-05 07:38] VITALS: BP 150/86; PULSE 96; TEMP 36.5; O2SAT 95
[2017-04-05 08:20] VITALS: O2SAT 95
--- NOTE | 2017-04-05 08:47 | Surgery Progress Note ---
Surgery Progress Note Date of Service Apr 05, 2017. Subjective Post OP Day: HD # 6 + feeling well, + bowel movement, + flatus, + diet (tolerated full liquids), No complaints, No nausea, No vomiting Objective Vital Signs: Date Time Temp Pulse Resp B/P (MAP) Pulse Ox O2 Delivery O2 Flow Rate FiO2 04/05/17 07:38 36.5 96 18 150/86 (107) 95 Room Air 04/04/17 23:55 Room Air 04/04/17 22:58 36.9 84 17 144/78 (100) 97 Room Air 04/04/17 17:00 Room Air 04/04/17 14:57 36.9 81 17 155/77 (103) 96 Room Air 04/04/17 12:25 37.1 82 153/89 (110) 94 Room Air 04/04/17 11:30 36.8 81 149/81 (103) 97 Room Air 04/04/17 11:10 37.2 88 164/75 (104) 99 Room Air General Appearance: WD/WN, no apparent distress Head: normocephalic, atraumatic Neck: trachea midline Respiratory/Chest: no respiratory distress, no accessory muscle use Abdomen: non tender, non distended, soft, no organomegaly, no pulsatile mass Assessment & Plan SBO- resolved -vitals stable, slightly tachy in the 90's - tolerated Full liquids, hungry - +bowel function, multiple loose stools - abdomen soft, nondistended , nontender Plan: No acute surgical intervention. Bowel obstruction has resolved. She continues to pass flatus and have liquid bowel movements. Her chronic nausea and abdominal pain are probably secondary to her delayed gastric emptying and adhesions (from multiple abdominal surgeries) respectively. Advance diet to regular diet for breakfast Recommend transitioning to oral pain medications as well as home po medications Decrease IV fluids as tolerating oral intake well to 50 mls/hr D/C IV antibiotics Start Oral Cipro for UTI Continue current medical management Our services signing off, please call with questions or concerns Dr. Velazquez has seen and examined patient, agrees with above
[2017-04-05] MEDS: CLOTRIMAZOLE 1% CR 15 GM TUBE EXT SCH ×4 (08:52→20:56)
[2017-04-05] MEDS: IPRATROPIUM BROMIDE/ALBUTEROL respimat INH INH SCH ×4 (08:53→20:55)
[2017-04-05] MEDS: FLUCONAZOLE / NSS 200 MG in PREMIXED NSS 100 ML IV SCH (08:53)
[2017-04-05] MEDS: ESCITALOPRAM OXALATE 10 MG TAB PO SCH (08:55)
[2017-04-05] MEDS: FLUTICASONE PROPIONATE NA SPR 16 GM BTL NAE SCH ×2 (08:55→20:56)
[2017-04-05] MEDS: ONDANSETRON INJ 2 MG/ML 2 ML VIAL IV PRN ×3 (09:02→20:16)
[2017-04-05] MEDS: LEVOTHYROXINE SODIUM INJ 50 MCG in SYRINGE 0 ML IV SCH (09:03)
[2017-04-05] MEDS: HYDROmorphone INJ 1 MG/ML SYR IV PRN ×5 (09:26→23:35)
[2017-04-05 15:00] VITALS: BP 161/84; PULSE 80; TEMP 37.2; O2SAT 95
[2017-04-05] MEDS: PROMETHAZINE HCL INJ 25 MG in SODIUM CHLORIDE 0.9% 50ML 50 ML IV PRN ×2 (16:13→23:39)
[2017-04-05] MEDS: CIPROFLOXACIN 500 MG TAB PO SCH (20:56)
[2017-04-05] MEDS ORDERED: MONTELUKAST SOD 10 MG TAB PO SCH (21:00)
--- NOTE | 2017-04-05 22:40 | Progress Note ---
Subjective Date of Service: Apr 05, 2017. Subjective Pt evaluation today including: conversation w/ patient, physical exam Patient is a 62 year old female who has h/o IGA and IGG deficiency. Has been in the hospital with history of SBO. Patient reports feeling better now that the NG tube is out. Patient states that her " rash" in her body does not appear to be improving. Patient denies any fever, chills, nausea, vomiting. Problem List Medical Problems: (1) Abdominal pain Status: Acute (2) Elevated liver enzymes Status: Acute (3) Epigastric abdominal pain Status: Acute (4) H. pylori infection Status: Acute (5) Small bowel obstruction Status: Acute (6) Vomiting Status: Acute Review of Systems Constitutional: No fever Respiratory: No cough, No sputum Cardiac: No chest pain Abdomen: + nausea, No pain, No vomiting, No diarrhea, No constipation Musculoskeletal: No joint pain Neurologic: No memory loss, No paralysis Psychiatric: No depression symptoms, No anhedonism Heme: No abnormal bleeding/bruising Endo: No fatigue All Other Systems: Reviewed and Negative Medications Meds Administered (Past 24Hrs) Medications (Trade) Dose Ordered Sig/Adolph Route Start Time Stop Time Status Last Admin Dose Admin Pantoprazole Sodium (Protonix Tab) 40 mg QAM PO 04/06/17 09:00 04/06/17 13:16 DC 04/06/17 09:39 40 MG Ciprofloxacin (Cipro Tab) 500 mg BID PO 04/05/17 21:00 04/06/17 13:16 DC 04/06/17 09:40 500 MG Objective Vital Signs Date Time Temp Pulse Resp B/P (MAP) Pulse Ox O2 Delivery O2 Flow Rate FiO2 04/05/17 17:57 Room Air 04/05/17 15:00 37.2 80 20 161/84 (109) 95 Room Air 04/05/17 08:20 95 Room Air 04/05/17 07:38 36.5 96 18 150/86 (107) 95 Room Air 04/04/17 23:55 Room Air 04/04/17 22:58 36.9 84 17 144/78 (100) 97 Room Air Physical Exam General Appearance: WD/WN, no apparent distress Neck: supple, no adenopathy Respiratory/Chest: chest non-tender, lungs clear Cardiovascular: regular rate, rhythm, no edema, no gallop Abdomen: normal bowel sounds, non tender, soft Extremities: normal range of motion, non-tender Skin: + pertinent finding (dylon tree rash on thorax, no warmth or pain on palpation.) Assessment and Plan 62 yo female with h/o SBO and colon perforation, h/o ileostomy with subsequent reversal, presented with constipation, distension, pain CT showed evidence of SBO - SBO: improving, less distension, moving bowels, less pain NGT was yesterday. Patient tolerating diet. will continue management as per gen surgery. Patient continue to decrease narcotics Patient though is cutting back on her own. Patient chronically takes narcotics however. Tinea corporis-- no improvement will discontinue in AM. 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 Anemia: Had iron transfusion yesterday Anxiety will continue with lexapro. COPD-- continue Combivent breathing stable, no wheezing Hypothyroidism--will switch to po tomorrow. Continued [facility] stay due to: multiple IV medications needed Discharge planning: home
[2017-04-05 23:06] VITALS: BP 171/91; PULSE 78; TEMP 36.9; O2SAT 97
[2017-04-06 00:11] VITALS: BP 169/79
[2017-04-06] MEDS: HYDROmorphone INJ 1 MG/ML SYR IV PRN (05:58)
[2017-04-06] MEDS: ONDANSETRON INJ 2 MG/ML 2 ML VIAL IV PRN (05:58)
[2017-04-06] MEDS ORDERED: LEVOTHYROXINE 100 MCG TAB PO SCH (06:00)
[2017-04-06 07:43] VITALS: BP 117/85; PULSE 100; TEMP 36.8; O2SAT 96
[2017-04-06 08:45] VITALS: O2SAT 96
[2017-04-06] MEDS ORDERED: PANTOprazole SOD 40 MG TAB PO SCH (09:00)
[2017-04-06] MEDS: CLOTRIMAZOLE 1% CR 15 GM TUBE EXT SCH (09:37)
[2017-04-06] MEDS: IPRATROPIUM BROMIDE/ALBUTEROL respimat INH INH SCH (09:37)
[2017-04-06] MEDS: FLUCONAZOLE / NSS 200 MG in PREMIXED NSS 100 ML IV SCH (09:39)
[2017-04-06] MEDS: CIPROFLOXACIN 500 MG TAB PO SCH (09:40)
[2017-04-06] MEDS: ESCITALOPRAM OXALATE 10 MG TAB PO SCH (09:41)
[2017-04-06] MEDS: FLUTICASONE PROPIONATE NA SPR 16 GM BTL NAE SCH (09:42)
--- NOTE | 2017-04-06 10:59 | Discharge Instructions ---
Discharge Instructions Date of Service Apr 06, 2017. Admission Reason for Admission: Small Bowel Obstruction Discharge Discharge Diagnosis / Problem: Small Bowel Obstruction/ Discharge Goals Goal(s): Decrease discomfort, Improve function Activity Recommendations Activity Limitations: resume your previous activity . Instructions / Follow-Up Instructions / Follow-Up F/U with Dr. Soto within 1 week. F/U with dermatology in 1 week. Current Hospital Diet Patient's current hospital diet: Regular Diet Discharge Diet Recommended Diet: Regular Diet Pending Studies Studies pending at discharge: no Medical Emergencies . Who to Call and When: Medical Emergencies: If at any time you feel your situation is an emergency, please call 911 immediately. . Non-Emergent Contact Non-Emergency issues call your: Primary Care Provider Call Non-Emergent contact if: your pain is worsening . . "Provider Documentation" section prepared by Simone Graves. . Computer Engineer Recommendations Computer Engineer Recommendations: Decrease over time narcotics as this may be a culprit of her Small bowel obstruction VTE Core Measure Inpt VTE Proph given/why not?: SCD's
[2017-04-06] MEDS ORDERED: LXP10 PO (11:00)
[2017-04-06 11:07] VITALS: BP 117/85; PULSE 100; TEMP 36.8; O2SAT 96
--- NOTE | 2017-04-07 08:23 | Discharge Summary ---
Discharge Summary Date of Service Apr 06, 2017. seen at 11:00 Discharge Summary Admission Date: Mar 30, 2017 at 01:54 Discharge Date: Apr 06, 2017 Immunizations: Have You Had Influenza Vaccine: No Influenza Vaccine Date: Dec 22, 2005 History of Tetanus Vaccine?: UTD Tetanus Immunization Date: Dec 22, 1998 History of Pneumococcal: No Pneumococcal Date: Dec 23, 1999 History of Hepatitis B Vaccine: No Hospital Course 62 yo female with h/o SBO and colon perforation, h/o ileostomy with subsequent reversal, presented with constipation, distension, pain CT showed evidence of SBO - SBO: improving, less distension, moving bowels, less pain NGT was yesterday. Patient tolerating diet. will continue management as per gen surgery. Patient continue to decrease narcotics Patient though is cutting back on her own. Patient chronically takes narcotics however. Tinea corporis-- no improvement will discontinue in AM. 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 Anemia: Had iron transfusion yesterday Anxiety will continue with lexapro. COPD-- continue Combivent breathing stable, no wheezing Hypothyroidism--will switch to po tomorrow. This includes examination of the patient, discharge planning, medication reconciliation, and communication with other providers. Discharge Instructions Please refer to the electronic Patient Visit Report (Discharge Instructions) for additional information.
== END 2017-04-06 13:00 | disposition home or self-care (01) | DRG 389 ==
LOC: C.EDB 18:40 → C.MSN 03-30 01:54 → ENRESERV 03-30 02:03
PROVIDERS: ADMIT Hospitalist; ATTEND Hospitalist
DX: K56.51 Intestinal adhesions [bands], with partial obstruction (principal); D80.2 Selective deficiency of immunoglobulin A [IgA]; K21.9 Gastro-esophageal reflux disease without esophagitis; M79.7 Fibromyalgia; E78.5 Hyperlipidemia, unspecified; E03.9 Hypothyroidism, unspecified; D50.9 Iron deficiency anemia, unspecified; J44.9 Chronic obstructive pulmonary disease, unspecified; B35.4 Tinea corporis; I73.00 Raynaud's syndrome without gangrene; L71.8 Other rosacea; Z86.14 Personal history of Methicillin resistant Staphylococcus aureus infection

== ENCOUNTER 2017-09-05 08:04 | Inpatient (IN) | payer OTHER ==
[2017-08-14 11:08] VITALS: BMI 24.0
--- NOTE | 2017-08-14 11:54 | PAT Medication Instructions ---
Service Date Aug 14, 2017. Current Home Medication List Acetaminophen (Tylenol), 650 MG PO UD Acetaminophen (Tylenol), 2 TAB PO Q6 PRN for Pain or Fever Biotin (Biotin), 40 MG PO QAM Celecoxib (CeleBREX), 200 MG PO DAILY PRN for Pain Cyclobenzaprine Hcl (Flexeril), 10 MG PO TID PRN for SPASMS Diphenhydramine Hcl (Benadryl Allergy), 50 MG PO UD PRN for RN Epinephrine (Epipen), 0.3 MG IM UD PRN for ALLERGIC REACTION Escitalopram Oxalate (Lexapro), 20 MG PO QAM Esomeprazole Magnesium (Nexium), 40 MG PO QAM Fluticasone Propionate (Nasal) (Flonase Allergy Relief), 2 SPRAYS ROSANA BID Hydromorphone Hcl (Dilaudid), 4 MG PO Q4H PRN for Pain Immune Globulin (Human)-Hyalur (Hyqvia 30 gm/300Ml), 30 GM INJ Q4WK Levothyroxine Sodium (Synthroid), 1 TAB PO QAM Metoclopramide Hcl (Reglan), 5 MG PO ACHS Montelukast Sodium (Montelukast Sodium), 1 TAB PO QAM Ondansetron Hcl (Zofran), 4 MG SL TID PRN for Nausea Oxycodone HCl (Oxycontin), 20 MG PO Q6H PRN for Breakthrough Pain Polyethylene Glycol 3350 (Miralax), 17 GM PO QAM Senna (Senokot), 1 TAB PO QPM Sumatriptan Succinate (Imitrex), 100 MG PO UD PRN for Migraine Medication Instructions For Your Scheduled Surgery -Contact your surgeon for insructions for: Celecoxib (CeleBREX), 200 MG PO DAILY PRN for Pain -Continue as directed: Epinephrine (Epipen), 0.3 MG IM UD PRN for ALLERGIC REACTION -Follow your prescriber's instructions for: Immune Globulin (Human)-Hyalur (Hyqvia 30 gm/300Ml), 30 GM INJ Q4WK - Hold the following medications the morning of surgery: Biotin (Biotin), 40 MG PO QAM Cyclobenzaprine Hcl (Flexeril), 10 MG PO TID PRN for SPASMS Diphenhydramine Hcl (Benadryl Allergy), 50 MG PO UD PRN for RN Polyethylene Glycol 3350 (Miralax), 17 GM PO QAM - Take the following medications the morning of surgery with a sip of water: Acetaminophen (Tylenol), 650 MG PO UD (if needed, can be taken up to four hours before surgery) Acetaminophen (Tylenol), 2 TAB PO Q6 PRN for Pain or Fever (if needed, can be taken up to four hours before surgery) Escitalopram Oxalate (Lexapro), 20 MG PO QAM Esomeprazole Magnesium (Nexium), 40 MG PO QAM Fluticasone Propionate (Nasal) (Flonase Allergy Relief), 2 SPRAYS ROSANA BID Hydromorphone Hcl (Dilaudid), 4 MG PO Q4H PRN for Pain (if needed, can be taken up to four hours before surgery) Levothyroxine Sodium (Synthroid), 1 TAB PO QAM Metoclopramide Hcl (Reglan), 5 MG PO ACHS Montelukast Sodium (Montelukast Sodium), 1 TAB PO QAM Ondansetron Hcl (Zofran), 4 MG SL TID PRN for Nausea (if needed) Oxycodone HCl (Oxycontin), 20 MG PO Q6H PRN for Breakthrough Pain (if needed, can be taken up to four hours before surgery) Sumatriptan Succinate (Imitrex), 100 MG PO UD PRN for Migraine (if needed) - Take the following medications as scheduled the night before surgery: Acetaminophen (Tylenol), 650 MG PO UD (if needed) Acetaminophen (Tylenol), 2 TAB PO Q6 PRN for Pain or Fever (if needed) Cyclobenzaprine Hcl (Flexeril), 10 MG PO TID PRN for SPASMS (if needed) Diphenhydramine Hcl (Benadryl Allergy), 50 MG PO UD PRN for RN (if needed) Fluticasone Propionate (Nasal) (Flonase Allergy Relief), 2 SPRAYS ROSANA BID Hydromorphone Hcl (Dilaudid), 4 MG PO Q4H PRN for Pain (if needed) Metoclopramide Hcl (Reglan), 5 MG PO ACHS Ondansetron Hcl (Zofran), 4 MG SL TID PRN for Nausea (if needed) Oxycodone HCl (Oxycontin), 20 MG PO Q6H PRN for Breakthrough Pain (if needed) Senna (Senokot), 1 TAB PO QPM Sumatriptan Succinate (Imitrex), 100 MG PO UD PRN for Migraine (if needed) If you have any questions please call us at [phone] or [phone] or [phone]
--- NOTE | 2017-08-14 12:57 | DIAGNOSTIC IMAGING REPORT ---
CHEST 2 VIEWS ROUTINE CLINICAL HISTORY: Preoperative evaluation. COMPARISON STUDY: Chest radiograph August 15, 2016. FINDINGS: Metallic densities projecting over the right upper extremity are unchanged. Anterior cervical spine fusion and left subclavian [id number] are incidentally noted. Surgical clips projecting over the gastroesophageal junction are noted. There is no pneumothorax or pleural effusion. There is no consolidation or evidence for pulmonary edema. IMPRESSION: No acute cardiopulmonary findings. Electronically signed by: Padilla Wilder M.D. 08/14/2017 12:56 PM Dictated Date/Time: 08/14/2017 12:55 PM
[2017-08-15 12:40] LABS: ALBUMIN 3.9 gm/dl (3.4-5.0); CALCIUM 9.2 mg/dl (8.5-10.1); CREATININE 0.84 mg/dl (0.60-1.20); POTASSIUM 4.4 mmol/L (3.5-5.1)
[2017-08-15 13:20] LABS: BASO % 0.6 %; BASO ABS # 0.04 K/uL (0-0.2); EOS % 1.7 %; EOS ABS # 0.12 K/uL (0-0.5); HEMATOCRIT 39.5 % (37-47); HEMOGLOBIN 13.5 g/dL (12.0-16.0); IG# 0.02 K/uL (0.00-0.02); LYMPH % 21.9 %; LYMPH ABS # 1.57 K/uL (1.2-3.4); MEAN CELL VOLUME 87.6 fL (80-100); MEAN CORPUSCULAR HEMOGLOBIN 29.9 pg (25-34); MEAN CORPUSCULAR HGB CONC 34.2 g/dl (32-36); MEAN PLATELET VOLUME 10.1 fL (7.4-10.4); MONO % 7.7 %; MONO ABS # 0.55 K/uL (0.11-0.59); NEUT % 67.8 %; NEUT ABS # 4.87 K/uL (1.4-6.5); PLATELET COUNT 225 K/uL (130-400); RED CELL DISTRIBUTION WIDTH CV 13.6 % (11.5-14.5); RED CELL DISTRIBUTION WIDTH SD 43.7 fL (36.4-46.3); WHITE BLOOD COUNT 7.17 K/uL (4.8-10.8)
[2017-08-16 06:41] LABS: HEMOGLOBIN A1C 5.4 % (4.5-5.6)
--- NOTE | 2017-09-04 22:09 | HISTORY & PHYSICAL EXAMINATION ---
DATE OF ADMISSION: 09/05/2017 CHIEF COMPLAINT: Chronic left shoulder pain and weakness. HISTORY OF PRESENT ILLNESS: This is a 62-year-old female patient of Dr. Reyes'randy complaining of chronic left shoulder weakness and pain with a history of rotator cuff arthropathy. She has been diagnosed with a torn rotator cuff which is chronic per MRI. PAST MEDICAL HISTORY: Anxiety, carpal tunnel syndrome, hypothyroidism, anemia, osteoarthritis, TMJ, spine problems, neck problems, sciatica, acid reflux, dental issues. SOCIAL HISTORY: Nonsmoker, nondrinker. REVIEW OF SYSTEMS: The patient complains of chronic left shoulder pain and weakness. Otherwise, denies any shortness of breath, chest pain, nausea, vomiting or joint complaints. FAMILY HISTORY: Noncontributory. MEDICATIONS: 1. Dilaudid 4 mg q. 4 hours p.r.n. 2. Sumatriptan 100 mg daily as needed. 3. Cyclobenzaprine 10 mg as needed up to 3 times daily, 4. HYQVIA 10%/160 30 grams every 4 weeks. 5. Levothyroxine 100 mcg daily. 6. Reglan 5 mg 4 times daily as needed. 7. Montelukast 10 mg q.a.m. 8. Zofran 4 mg as needed. 9. Oxycodone 20 mg every 6 hours p.r.n. 10. Lexapro 20 mg every morning. ALLERGIES: HIZENTRA, BETADINE, PNEUMOCOCCAL VACCINE, DAYPRO, COMPAZINE, PAXIL, CLEOCIN, NICKEL, TERRAMYCIN. ZITHROMAX, LODINE, FOLACIN, PREPULSID, DESYREL, TROVAN, SOMA, POLYSPORIN AND AGAIN BACTRIM. PHYSICAL EXAMINATION: GENERAL: Well-developed, well-nourished 62-year-old female in no acute distress. She is alert and oriented x3 and pleasant. HEENT: Normocephalic, atraumatic. Extraocular motions are intact. Pupils are equal and reactive to light. HEART: Regular rate and rhythm, no murmurs. LUNGS: Clear. ABDOMEN: Soft, nontender, bowel sounds present. EXTREMITIES: Left shoulder reveals a forward elevation to 170 actively, passively to 180. She has crepitation and pain with passive range of motion. She has 3/5 strength globally. NEUROLOGIC: Neurovascularly, she is intact in the left upper extremity. DIAGNOSES: Left shoulder rotator cuff arthropathy with a history of anxiety, carpal tunnel syndrome, hypothyroidism, anemia, osteoarthritis, TMJ, spine problems, neck problems, sciatica, acid reflux, dental issues. PLAN: The patient was advised of her diagnosis. Indications, risks, benefits, postop course have all been reviewed. The patient wished to proceed with a left reversed total shoulder arthroplasty. Necessary consent forms, preoperative testing and clearances will be obtained.
[2017-09-05] VITALS (11 sets, daily range): BP systolic 126–167; BP diastolic 66–91; PULSE 82–105; TEMP 36.4–37.6; O2SAT 90–98; Ht 167.6 cm; Wt 69.3 kg
[~2017-09-05] VITALS: Ht 167.6 cm; Wt 69.3 kg
[~2017-09-05 08:04] MED LIST changes: -ACET-1138 PO; +ACET-1256 PO; +ACET-1311 PO; +ACETAMINOPHEN 500 MG TAB PO SCH; +BIOT10TA2 PO; -CALC1CHW PO; +CEFAZOLIN 1000MG IV PUSH 7.5 ML IV SCH; +CLB/200 PO; -CYAN500T13 PO; +CeleBREX 200 MG CAP PO SCH; +DEXAMETHASONE 4 MG TAB PO SCH; +DEXAMETHASONE SOD INJ 4 MG/ML VIAL ONE; -DIPH1TAB PO; +DIPH1TAB87 PO; +ESCI1TAB10 PO; +FAMOTIDINE 20 MG TAB PO SCH; +FENTANYL CITRATE INJ 50 MCG/1 ML 2 ML VIAL ONE; -FLUC150T PO; -FOLI800T PO; +GABAPENTIN 600 MG PO SCH; +GLYCOPYRROLATE INJ 0.2 MG/ML VIAL ONE; -HYDR4TAB2 PO; +HYDR4TAB78 PO; -HYQVIA INJ; +IMMU1INJ INJ; +LACTATED RINGER'S 1000ML 1,000 ML IV SCH; -LEVO125T72 PO; -MAGN400T6 PO; +METOCLOPRAMIDE HCL 10 MG TAB PO SCH; +MIDAZOLAM HCL 1 MG/ML 2ML VIAL ONE; +MONT1TAB5 PO; +NEOSTIGMINE METHYLSULFATE 5 MG/5 ML SYR ONE; +ONDA4TAB46 SL; +ONDANSETRON INJ 2 MG/ML 2 ML VIAL ONE; -PRED-301 PO; +PROPOFOL IV EMULSION 10 MG/ML 20 ML VIAL IV ONE; -RANI1TAB75 PO; +ROCURONIUM BROMIDE 10 MG/ML 5 ML VIAL IV ONE; +ROPIVACAINE 0.5% 5 MG/ML 30 ML VIAL ONE; +SYN100 PO; -TRAM-10 PO; -TYL325X PO; -ZFRODT/8 PO; -potassium supplement PO
[2017-09-05] MEDS ORDERED: oxybutynin PO (09:18)
[2017-09-05] MEDS ORDERED: EpINEphrine HCL INJ 1 MG/ML 1ML SYRINGE ONE (09:45)
[2017-09-05] MEDS ORDERED: MIDAZOLAM HCL 1 MG/ML 2ML VIAL ONE (10:42)
[2017-09-05] MEDS ORDERED: EpHEDrine SULFATE INJ 50 MG/ML AMP IV PRN (11:00)
[2017-09-05] MEDS ORDERED: ATROPINE SULFATE 0.1 MG/ML 5ML SYR IV PRN (11:00)
[2017-09-05] MEDS ORDERED: ONDANSETRON INJ 2 MG/ML 2 ML VIAL IV PRN ×2 (11:00→14:30)
[2017-09-05] MEDS ORDERED: PHENYLEPHRINE 100MCG/ML 5ML SYR ONE (12:43)
--- NOTE | 2017-09-05 14:04 | [facility] Post Operative Brief Note ---
Immediate Operative Summary Operative Date Sep 05, 2017. Pre-Operative Diagnosis Left Shoulder Rotator Cuff Arthropathy,failed revision rotator cuff repair Post-Operative Diagnosis glenohumeral djd ,rotator cuff tendinopathy,incomplete healing human dermal skin graft,retained hardware s/p multiple rotator cuff repairs,biceps tendinopathy Procedure(s) Performed Left Reverse Total Shoulder Arthroplasty,hardware removal , revision biceps tenodesis. Surgeon Dr. Reyes [employer] Administrator Surgeon(s) Eris Mazariegos PA-C Estimated Blood Loss 150 ML Findings Consistent with Post-Op Diagnosis Specimens A. Left Humeral Head B. Explanted Hardware Left Shoulder Drains 2 hemovac Anesthesia Type General Regional Complication(s) none Disposition Disposition: Recovery Room / PACU
[2017-09-05] MEDS ORDERED: BISACODYL 10 MG SUPP PR PRN (14:30)
[2017-09-05] MEDS ORDERED: CYCLOBENZAPRINE HCL 10 MG TAB PO PRN (14:30)
[2017-09-05] MEDS ORDERED: CEFAZOLIN IV 1,000 MG in DEXTROSE 5% 50ML 50 ML IV SCH (14:30)
[2017-09-05] MEDS ORDERED: SOD PHOSPHATE/SOD BIPHOSPHATE ENEMA 132 ML BTL PR PRN (14:30)
[2017-09-05] MEDS ORDERED: HYDROmorphone HCL 2 MG TAB PO PRN (14:30)
[2017-09-05] MEDS ORDERED: METOCLOPRAMIDE HCL INJ 5 MG/ML 2 ML VIAL IV PRN (14:30)
[2017-09-05] MEDS ORDERED: MAGNESIUM HYDROXIDE SUSP 30 ML UDC PO PRN (14:30)
[2017-09-05] MEDS ORDERED: ZOLPIDEM TARTRATE 5 MG TAB PO PRN (14:30)
[2017-09-05] MEDS ORDERED: EPINEPHRINE ADULT AUTO-INJECT 0.3 MG SYR IM PRN (14:30)
[2017-09-05] MEDS ORDERED: SUMATRIPTAN SUCC TAB 100 MG TAB PO PRN (14:30)
[2017-09-05] MEDS ORDERED: NALOXONE HCL 0.4 MG/1 ML VIAL/CARP IV PRN (14:30)
--- NOTE | 2017-09-05 15:01 | DIAGNOSTIC IMAGING REPORT ---
L SHOULDER MIN 2 VIEWS ROUTINE CLINICAL HISTORY: Post shoulder surgery COMPARISON: Left shoulder radiographs October 06, 2014. FINDINGS: Left subclavian [id number] is noted. Alignment of the reverse total left shoulder arthroplasty is anatomic. Surgical drain is in place. There are no unexpected radiopaque foreign bodies. There is no periprosthetic fracture. IMPRESSION: Expected findings following left shoulder arthroplasty. Electronically signed by: Padilla Wilder M.D. 09/05/2017 3:00 PM Dictated Date/Time: 09/05/2017 2:59 PM
[2017-09-05] MEDS: FENTANYL CITRATE INJ 50 MCG/1 ML 2 ML VIAL IV PRN ×2 (15:06→15:11)
--- NOTE | 2017-09-05 16:20 | Anesthesiology Progress Note ---
Anesthesia Post Op Note Date & Time Sep 05, 2017 at 16:19 Vital Signs Pain Intensity: 6.0 Vital Signs Past 12 Hours Date Time Temp Pulse Resp B/P (MAP) Pulse Ox O2 Delivery O2 Flow Rate FiO2 09/05/17 16:13 36.5 97 16 130/75 (93) 09/05/17 15:46 98 Nasal Cannula 3.0 09/05/17 15:45 96 Nasal Cannula 3.0 09/05/17 15:42 37.6 105 18 148/81 (103) 95 Nasal Cannula 3.0 09/05/17 15:33 91 23 09/05/17 15:33 91 23 96 09/05/17 15:31 154/80 09/05/17 15:28 103 19 09/05/17 15:28 104 19 96 09/05/17 15:26 113/86 09/05/17 15:23 105 23 97 09/05/17 15:23 107 23 09/05/17 15:21 143/82 09/05/17 15:18 104 22 09/05/17 15:18 101 22 97 09/05/17 15:16 147/83 09/05/17 15:13 102 21 96 09/05/17 15:13 102 21 09/05/17 15:11 157/80 09/05/17 15:08 96 12 09/05/17 15:08 96 12 97 09/05/17 15:07 36.4 94 15 09/05/17 15:07 Nasal Cannula 3 09/05/17 15:07 94 15 97 09/05/17 15:06 144/72 09/05/17 15:02 97 16 09/05/17 15:02 97 16 91 09/05/17 15:01 133/70 09/05/17 14:57 94 17 09/05/17 14:57 94 17 93 09/05/17 14:56 140/70 09/05/17 14:52 96 26 93 09/05/17 14:52 96 26 09/05/17 14:51 123/66 09/05/17 14:47 98 15 91 09/05/17 14:47 97 15 09/05/17 14:46 117/75 09/05/17 14:43 Room Air 09/05/17 14:42 98 25 09/05/17 14:42 96 25 93 09/05/17 14:41 129/65 09/05/17 14:37 99 19 09/05/17 14:37 98 19 95 09/05/17 14:36 111/59 09/05/17 14:32 99 21 09/05/17 14:32 98 21 143/100 98 09/05/17 14:27 87 16 97 09/05/17 14:27 87 16 09/05/17 14:26 146/74 09/05/17 14:17 36.5 84 12 147/65 96 Oxymask 7 09/05/17 09:20 36.7 82 20 167/91 96 Room Air Notes Mental Status: alert / awake / arousable, participated in evaluation Pt Amnestic to Procedure: Yes Nausea / Vomiting: adequately controlled Pain: adequately controlled Airway Patency, RR, SpO2: stable & adequate BP & HR: stable & adequate Hydration State: stable & adequate Anesthetic Complications: no major complications apparent
[2017-09-05] MEDS: D5W AND 1/2NSS + 20MEQ KCL 1,000 ML IV SCH (16:36)
[2017-09-05] MEDS: OXYCODONE HCL IR 5 MG TAB (IMMEDIATE RELEASE) PO PRN ×2 (16:37→23:48)
[2017-09-05] MEDS: METOCLOPRAMIDE HCL 5 MG TAB PO SCH ×2 (17:38→20:41)
[2017-09-05] MEDS: CEFAZOLIN IV 1,000 MG in SYRINGE 0 ML IV SCH (17:44)
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
[2017-09-05] MEDS ORDERED: VANCOMYCIN CONSULT ACTIVE PRN (18:45)
[2017-09-05] MEDS ORDERED: VANCOMYCIN IV 1,750 MG in SODIUM CHLORIDE 0.9% 500ML 500 ML IV SCH (19:30)
[2017-09-05] MEDS: SENNA 8.6 MG TAB PO SCH (20:39)
[2017-09-05] MEDS: DOCUSATE SODIUM 100 MG CAP PO SCH (20:39)
[2017-09-05] MEDS: ACETAMINOPHEN 500 MG TAB PO SCH (20:42)
[2017-09-05] MEDS ORDERED: FLUTICASONE PROPIONATE NA SPR 16 GM BTL NAE SCH (21:00)
[2017-09-05] MEDS ORDERED: VANCOMYCIN IV 1,000 MG in SODIUM CHLORIDE 0.9% 250ML 250 ML IV SCH (21:00)
--- NOTE | 2017-09-05 21:43 | OPERATIVE REPORT ---
DATE OF OPERATION: 09/05/2017 INDICATION FOR PROCEDURE: The patient is a 62-year-old female who has had multiple operations on her left shoulder. She has had multiple rotator cuff repair attempts followed by failure, last being a rotator cuff repair arthroscopically including placement of a human dermal skin graft augmentation of the repair. The patient initially did quite well and then over time developed more pain and thus she has had chronic pain requiring injections and chronic pain medication. Radiographs demonstrate proximal migration of the humerus. MRI suggest failure of the repair. I went over treatment options for at this time which would be living with her condition or performing a reverse shoulder replacement and she wanted to proceed with the reverse shoulder replacement at this time. PREOPERATIVE DIAGNOSES: Failed rotator cuff repair including placement of a human dermal skin graft augmentation, status post previous subacromial decompression, distal clavicle excision, biceps tenodesis and multiple rotator cuff repair attempts with chronic pain and failed conservative management. POSTOPERATIVE DIAGNOSES: Degenerative arthritis glenohumeral joint, synovitis glenohumeral joint, rotator cuff tendinopathy with intact human dermal skin graft, but thin tendinopathic tissue with subacromial impingement due to rotator cuff weakness and biceps tendinopathy, bicipital groove, retained suture and suture anchors from prior repairs. PROCEDURE: Left reverse total shoulder arthroplasty, removal of deep hardware multiple suture anchors and suture material and revision biceps tenodesis. SURGEON: Jose Reyes MD. PORK CUTLET MAKER: Eris Mazariegos PA-C. ANESTHESIA: Regional block and general. OPERATIVE PROCEDURE: The patient was taken to the operative room, anesthetized with regional block and general anesthetic. She was positioned on the operating room table on about a 30 degree beach chair position. THE PATIENT HAD MULTIPLE ALLERGIES and refused to wear TEDs and SCDs on her lower extremities. The patient's left upper extremity was sterilely prepped and draped in sterile fashion using ChloraPrep. We did not use any iodine-based coverings and used the Clear 3M skin covering. Shoulder exam demonstrated that she had passive forward elevation to about 150 degrees, abduction to 90 degrees. She had proximal migration of the humerus with multiple arthroscopic healed scars from previous surgery. She also has nearby A-port which had to be accessed to sedate her to allow placement of a foot IV. Her left shoulder was approached through an anterior longitudinal incision in the deltopectoral interval. Skin was incised sharply. The subcutaneous tissues were divided down to the fascia. Subcutaneous bleeders were cauterized. The deltopectoral interval was identified. The patient had a sclerosed small cephalic vein. This vein remnant was retracted laterally with the deltoid. The upper centimeter of the pectoralis was released for inferior exposure. The subscapularis bursa, rotator cuff, subacromial bursa was all resected and the repair site inspected. The patient had some chronic tendinopathy of the biceps tendon with tendinopathic thicker appearing biceps tendon proximal to the pectoralis tendon. Biceps was tenodesed in the upper biceps groove. The subscapularis was intact. The area of the supraspinatus was thin tissue, appearance of thin scar tissue where the graft had actually incorporated and there was no opening of the rotator cuff between the glenohumeral joint and subacromial space. It appeared that the graft did incorporate but there was very thin tissue and appeared that some of the underlying cuff tissue retracted posteriorly with the infraspinatus. There appeared to be a fluid collection underlying the skin graft at the greater tuberosity which would imply that there was some incomplete healing of the lateral graft to the greater tuberosity with joint fluid coming up underneath the graft. The edge of the graft was sealed however. The rotator interval was opened up and there was a significant joint effusion evacuated consistent with some chronic synovitis. At this time, the normal appearing biceps tendon tissue was tenodesed to the pectoralis tendon and then the proximal section above the tenodesis was resected. I used [id number] #2 Fiberwire sutures to perform the tenodesis to the pectoralis. The circumflex vessels were identified, tied off with silk ties and divided laterally. The subscapularis muscle fibers were split at the level of the circumflex vessels down to the capsule. The fibers reflected off the inferior capsule palpating the axillary nerve below that level and then a Kitner elevator was used to release these fibers off the inferior capsule and then a blunt Hohmann retractor was placed. Another blunt Hohmann retractor was placed superiorly and then the incision at the rotator interval was brought along the upper subscapularis tendon into the bicipital groove and down to the lateral humeral shaft and the subscapularis was taken down off the lesser tuberosity with a subperiosteal dissection and a #1 Vicryl suture was placed into the free end of the subscapularis to control the tendon. The capsule was gradual released of the inferior neck of the humerus, exposing the humeral head which had some grade 3 arthritic wear. The thin tissue near the supraspinatus was released for about 1 cm to gain exposure. The dissection was performed along the inferior neck of the humerus subperiosteally to release the capsule off the neck of the humerus for exposure. Then we retracted the humerus posterior to the glenoid with a Fukuda retractor. We released the anterior capsule down to the glenoid at the 5 o'clock position and then released the capsule off the anterior glenoid and rotator interval tissue was released down to the glenoid achieving a 360 degree release of the subscapularis. Bankart retractor was placed anteriorly and then the capsule was released anteriorly inferiorly, posterior inferiorly using electrocautery on bone and a Marquez elevator to expose the glenoid, which had a large posterior glenoid osteophyte extended posterior inferiorly. She also had superior osteophyte on the glenoid. 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 After releases were completed, the humeral head was re-exposed with extension, external rotation and the alignment guide for the humeral head cut was placed in position, set at 20 degrees of retroversion and the humeral head cut was made with the oscillating saw. Then, the humeral shaft was prepared for the implant. The starting awl was used followed by sequential broaches. A size 3 B long stem trial which had the best fit and fill. Then we placed cup protector in place and then went ahead and retracted the humerus posterior to the glenoid. The glenoid osteophyte was then removed with a curved osteotome. Then the humerus was retracted posterior to the glenoid with blunt Hohmann retractors and the Bankart retractor was placed anteriorly and then the glenoid preparation was performed by first using a curette to remove the remaining articular cartilage off of the glenoid to get the appropriate version for the implant. I used the 20A Aequalis Reversed II glenoid baseplate size 25 mm. The drill hole was made through the guide centrally in the glenoid by seeing the glenoid to the lower third to help prevent notching. The reamer was then used and the patient had a hard bone. The central drill hole was widened and then after irrigation with saline solution, the glenoid baseplate, 25 mm was impacted into position and anterior and posterior compression screws and superior and inferior locking screws were placed with excellent fixation. The fan reamer was used for the 36 mm glenosphere. All debris was irrigated out. We used the 36 mm glenosphere made out of titanium due to the patient's nickel allergy. This was screwed in position tightly. Then attention was taken back to the humerus. The cut protector was taken off and then we used the +0 high offset reversed tray to get the best coverage. Then we did a trial reduction with a +6 mm trial insert and the patient had excellent stability, no shock, satisfactory soft tissue tension, 150 degrees of forward elevation and 90 degrees of abduction and stability through full range of motion. The trials were removed and the canal was irrigated again with saline solution. Three drill holes were made transosseously around the lesser tuberosity. #5 FiberWire sutures were placed. The final implant was then assembled. The long PTC Ascend Flex humeral stem assembled to the +0 mm 3.5 mm high offset tray, which was assembled to the 36 mm, +6 reversed insert. Then the implant was impacted into the humerus with tight pressfit. This was reduced to the glenosphere and there was good stability. The subscapularis was repaired with the #5 FiberWire sutures previously placed using Sherif-Massimo suture technique. Lateral row soft tissue fixation performed with [id number] #2 FiberWire sutures. There was some undersurface delamination of the infraspinatus that I grafted some of these undersurface torn tendon tissue that was also retracted medially and placed #2 FiberWire sutures to it and sutured it to the thin intact uppers infraspinatus tendon tissue and to some of the still intact skin graft in the area of the infraspinatus so we had a pretty solid infraspinatus tendon tissue repair. After further irrigation, the pectoralis was then repaired with the [id number]-gj-mrrch #2 FiberWire sutures passing sutures back to the biceps tendon to reinforce the tenodesis. Two drains were brought out laterally and placed deep to deltopectoral interval. Deltopectoral interval was then repaired with [id number]-[id number] #1 Vicryl sutures and subcutaneous tissue closed inverted 2-0 Vicryl sutures. Skin was closed with 4-0 Monocryl subcuticular suture and glue on the skin due to multiple allergies including metal and nylon. The patient was placed into a sling immobilizer and the patient tolerated the procedure well. AMARJIT Feliz was my first front ventilator who functioned as first front ventilator for the entire procedure. He assisted in arm positioning, soft tissue retraction, assisted in prepping, draping, assisted in instrument management and performed the subcutaneous and skin closure and will participate in postoperative care of the patient. I attest to the content of the Intraoperative Record and any orders documented therein. Any exception s are noted below.
[2017-09-05] MEDS: HYDROmorphone INJ 0.5 MG/0.5 ML SYR IV PRN (22:11)
[2017-09-05] MEDS: FLUTICASONE PROPIONATE NA SPR 16 GM BTL NAE SCH (23:46)
[2017-09-06] MEDS: HYDROmorphone INJ 0.5 MG/0.5 ML SYR IV PRN ×3 (01:23→08:04)
[2017-09-06] MEDS: CEFAZOLIN IV 1,000 MG in SYRINGE 0 ML IV SCH ×2 (01:23→09:41)
[2017-09-06] MEDS: D5W AND 1/2NSS + 20MEQ KCL 1,000 ML IV SCH ×2 (01:23→11:19)
[2017-09-06 04:06] VITALS: BP 132/72; PULSE 93; TEMP 37.1; O2SAT 96
[2017-09-06] MEDS: LEVOTHYROXINE 100 MCG TAB PO SCH (05:24)
[2017-09-06] MEDS: ACETAMINOPHEN 500 MG TAB PO SCH ×3 (05:25→21:54)
[2017-09-06] MEDS: OXYCODONE HCL IR 5 MG TAB (IMMEDIATE RELEASE) PO PRN ×3 (05:29→18:24)
[2017-09-06] MEDS ORDERED: LEVOTHYROXINE 100 MCG TAB PO SCH (06:00)
[2017-09-06 07:03] VITALS: BP 152/82; PULSE 84; TEMP 37.1; O2SAT 95
[2017-09-06 08:01] LABS: BASO % 0.1 %; BASO ABS # 0.01 K/uL (0-0.2); HEMATOCRIT 32.8 % (37-47); HEMOGLOBIN 11.2 g/dL (12.0-16.0); IG# 0.03 K/uL (0.00-0.02); LYMPH % 13.2 %; LYMPH ABS # 1.55 K/uL (1.2-3.4); MEAN CELL VOLUME 88.4 fL (80-100); MEAN CORPUSCULAR HEMOGLOBIN 30.2 pg (25-34); MEAN CORPUSCULAR HGB CONC 34.1 g/dl (32-36); MEAN PLATELET VOLUME 9.5 fL (7.4-10.4); MONO % 6.7 %; MONO ABS # 0.78 K/uL (0.11-0.59); NEUT % 79.7 %; NEUT ABS # 9.33 K/uL (1.4-6.5); PLATELET COUNT 194 K/uL (130-400); RED CELL DISTRIBUTION WIDTH CV 13.6 % (11.5-14.5); RED CELL DISTRIBUTION WIDTH SD 43.9 fL (36.4-46.3)
[2017-09-06] MEDS: VANCOMYCIN IV 1,000 MG in SODIUM CHLORIDE 0.9% 250ML 250 ML IV SCH ×2 (08:04→19:34)
[2017-09-06] MEDS: METOCLOPRAMIDE HCL 5 MG TAB PO SCH ×4 (08:05→20:14)
--- NOTE | 2017-09-06 08:14 | Orthopedic Progress Note ---
Orthopedic Progress Note Date of Service Sep 06, 2017. Subjective Post OP Day: 1 Reports: feeling well, pain controlled w PO medications, Denies: complaints, chest pain, SOB, nausea / vomiting, light headedness, calf pain Objective N/V intact, capillary refill less than 2 sec., dressing C/D/I, A&O x3 Sling in tact, fingers mobile. Date Time Temp Pulse Resp B/P (MAP) Pulse Ox O2 Delivery O2 Flow Rate FiO2 09/06/17 07:03 37.1 84 16 152/82 (105) 95 Room Air 09/06/17 04:06 37.1 93 16 132/72 (92) 96 Room Air 09/06/17 00:00 Room Air 09/05/17 23:40 128/66 (86) 09/05/17 23:30 36.8 93 17 159/82 (107) 97 Room Air 09/05/17 19:59 37.1 100 16 126/71 (89) 90 Room Air 09/05/17 17:42 36.6 100 16 137/79 (98) 93 Room Air 09/05/17 16:45 36.4 96 18 134/75 (94) 94 Nasal Cannula 2.0 09/05/17 16:15 98 Nasal Cannula 2.0 09/05/17 16:13 36.5 97 16 130/75 (93) 98 Nasal Cannula 2.0 09/05/17 15:46 98 Nasal Cannula 3.0 09/05/17 15:45 96 Nasal Cannula 3.0 09/05/17 15:42 37.6 105 18 148/81 (103) 95 Nasal Cannula 3.0 09/05/17 15:33 91 23 09/05/17 15:33 91 23 96 09/05/17 15:31 154/80 09/05/17 15:28 103 19 09/05/17 15:28 104 19 96 09/05/17 15:26 113/86 09/05/17 15:23 105 23 97 09/05/17 15:23 107 23 09/05/17 15:21 143/82 09/05/17 15:18 104 22 09/05/17 15:18 101 22 97 09/05/17 15:16 147/83 09/05/17 15:13 102 21 96 09/05/17 15:13 102 21 09/05/17 15:11 157/80 09/05/17 15:08 96 12 09/05/17 15:08 96 12 97 09/05/17 15:07 36.4 94 15 09/05/17 15:07 Nasal Cannula 3 09/05/17 15:07 94 15 97 09/05/17 15:06 144/72 09/05/17 15:02 97 16 09/05/17 15:02 97 16 91 09/05/17 15:01 133/70 09/05/17 14:57 94 17 09/05/17 14:57 94 17 93 09/05/17 14:56 140/70 09/05/17 14:52 96 26 93 09/05/17 14:52 96 26 09/05/17 14:51 123/66 09/05/17 14:47 98 15 91 09/05/17 14:47 97 15 09/05/17 14:46 117/75 09/05/17 14:43 Room Air 09/05/17 14:42 98 25 09/05/17 14:42 96 25 93 09/05/17 14:41 129/65 09/05/17 14:37 99 19 09/05/17 14:37 98 19 95 09/05/17 14:36 111/59 09/05/17 14:32 99 21 09/05/17 14:32 98 21 143/100 98 09/05/17 14:27 87 16 97 09/05/17 14:27 87 16 09/05/17 14:26 146/74 09/05/17 14:17 36.5 84 12 147/65 96 Oxymask 7 09/05/17 09:20 36.7 82 20 167/91 96 Room Air Laboratory Results 24 Hours: Test 09/06/17 07:41 White Blood Count 11.70 K/uL Red Blood Count 3.71 M/uL Hemoglobin 11.2 g/dL Hematocrit 32.8 % Mean Corpuscular Volume 88.4 fL Mean Corpuscular Hemoglobin 30.2 pg Mean Corpuscular Hemoglobin Concent 34.1 g/dl Platelet Count 194 K/uL Mean Platelet Volume 9.5 fL Neutrophils (%) (Auto) 79.7 % Lymphocytes (%) (Auto) 13.2 % Monocytes (%) (Auto) 6.7 % Eosinophils (%) (Auto) 0.0 % Basophils (%) (Auto) 0.1 % Neutrophils # (Auto) 9.33 K/uL Lymphocytes # (Auto) 1.55 K/uL Monocytes # (Auto) 0.78 K/uL Eosinophils # (Auto) 0.00 K/uL Basophils # (Auto) 0.01 K/uL Assessment & Plan Assessment: POD #1, Left Reversed TSA, biceps tenodesis Plan: Limited PT/ OT D/C planning- Home As per medicine. Inhouse Planning Pain Management: Dilaudid, PO Tylenol, Oxy IR DVT Prophylaxis: SCDs Discharge Planning Discharge Planning: home Pain Management: Dilaudid, PO Tylenol, Oxy IR
[2017-09-06 08:35] LABS: ALBUMIN 3.4 gm/dl (3.4-5.0); CREATININE 0.76 mg/dl (0.60-1.20); POTASSIUM 4.3 mmol/L (3.5-5.1)
[2017-09-06 08:38] LABS: TOTAL PROTEIN 7.3 gm/dl (6.4-8.2)
[2017-09-06] MEDS: DOCUSATE SODIUM 100 MG CAP PO SCH ×2 (09:00→20:16)
[2017-09-06] MEDS: MULTIVITAMIN TAB PO SCH (09:00)
[2017-09-06] MEDS: ESCITALOPRAM OXALATE 20 MG TAB PO SCH (09:38)
[2017-09-06] MEDS: FLUTICASONE PROPIONATE NA SPR 16 GM BTL NAE SCH ×2 (09:38→20:12)
[2017-09-06] MEDS: OXYBUTYNIN CHLORIDE 5 MG TAB PO SCH (09:39)
[2017-09-06] MEDS: PANTOprazole SOD 40 MG TAB PO SCH (09:39)
[2017-09-06] MEDS: MONTELUKAST SOD 10 MG TAB PO SCH (09:40)
[2017-09-06] MEDS: POLYETHYLENE (MIRALAX) 17 GM PACK PO SCH (09:40)
--- NOTE | 2017-09-06 09:55 | Anesthesiology Progress Note ---
Anesthesia Post Op Note Date & Time Sep 06, 2017 at 09:54 Vital Signs Vital Signs Past 12 Hours Date Time Temp Pulse Resp B/P (MAP) Pulse Ox O2 Delivery O2 Flow Rate FiO2 09/06/17 07:50 Room Air 09/06/17 07:03 37.1 84 16 152/82 (105) 95 Room Air 09/06/17 04:06 37.1 93 16 132/72 (92) 96 Room Air 09/06/17 00:00 Room Air 09/05/17 23:40 128/66 (86) 09/05/17 23:30 36.8 93 17 159/82 (107) 97 Room Air Notes Mental Status: alert / awake / arousable, participated in evaluation Pt Amnestic to Procedure: Yes Nausea / Vomiting: adequately controlled Pain: adequately controlled Airway Patency, RR, SpO2: stable & adequate BP & HR: stable & adequate Hydration State: stable & adequate Anesthetic Complications: no major complications apparent
[2017-09-06] MEDS ORDERED: NURSING VERBAL MED ORDER ONE (11:15)
[2017-09-06] MEDS: HYDROmorphone HCL 2 MG TAB PO SCH ×3 (11:19→20:12)
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
[2017-09-06 12:16] VITALS: BP 160/76; PULSE 92; TEMP 36.9; O2SAT 96
[2017-09-06] MEDS ORDERED: NYSTATIN SUSP 500,000 U/5 ML UDC PO ONE (14:45)
[2017-09-06 15:17] VITALS: BP 158/78; PULSE 94; TEMP 37.2; O2SAT 97
[2017-09-06] MEDS: NYSTATIN SUSP 500,000 U/5 ML UDC PO SCH ×2 (16:03→20:13)
--- NOTE | 2017-09-06 16:33 | Progress Note ---
Progress Note Date of Service Sep 06, 2017. Progress Note Patient requested to speak with the medical team related to difficulty swallowing. States she intermittently has difficulty at home due to poor dentition/recent dental work/partials. She states today she was trying to eat eggs, green beans, potatoes and felt like she was choking on them. States she was still able to eat her food. Has been taking pills without difficulty. Reporting no issues with liquids. Also stating hot and cold drinks seem to soothe her throat. Not having direct throat pain, SOB, wheezing, or stridor. Appears in no distress. Reporting some pain in the gums. Has a partial plate for upper teeth and some missing teeth. Mild erythema of upper gums on the R possible small white lesions. No significant erythema or edema. Posterior pharynx without edema or erythema; Mild (2-3) petechial spots in the back of the throat. Tongue is dry. Reporting hoarse voice. No lymphadenopathy. Likely this is mild irritation from recent intubation vs post-nasal drip as she is reporting nasal congestion and sinus pressure. Will use Nystatin QID for possible thrush. No indication for antibiotics. Can utilize nasal saline for the nasal congestion. Recommend just standard aspiration precautions such as eating with HOB elevated (preferably when up in the chair). Stay seated upright at least 30 minutes after eating. Recommend easy to chew and soft foods. More wet foods or frequent sips between bites. No appearance of an allergic reaction or airway compromise.
[2017-09-06] MEDS ORDERED: NYSS5 PO (21:53)
[2017-09-06] MEDS: SENNA 8.6 MG TAB PO SCH (21:54)
[2017-09-06 23:32] VITALS: BP 155/90; PULSE 92; TEMP 37.2; O2SAT 95
[2017-09-07] MEDS: HYDROmorphone HCL 2 MG TAB PO SCH ×3 (00:29→08:35)
[2017-09-07] MEDS: OXYCODONE HCL IR 5 MG TAB (IMMEDIATE RELEASE) PO PRN ×2 (02:59→10:23)
[2017-09-07 06:03] VITALS: BP 176/96; PULSE 97; TEMP 37.5; O2SAT 95
[2017-09-07] MEDS: LEVOTHYROXINE 100 MCG TAB PO SCH (06:19)
[2017-09-07] MEDS: ACETAMINOPHEN 500 MG TAB PO SCH (06:19)
[2017-09-07 06:38] VITALS: BP 157/85; PULSE 97
[2017-09-07] MEDS: MULTIVITAMIN TAB PO SCH (07:29)
[2017-09-07] MEDS: DOCUSATE SODIUM 100 MG CAP PO SCH (07:29)
[2017-09-07] MEDS: PANTOprazole SOD 40 MG TAB PO SCH (07:30)
[2017-09-07] MEDS: MONTELUKAST SOD 10 MG TAB PO SCH (07:30)
[2017-09-07] MEDS: NYSTATIN SUSP 500,000 U/5 ML UDC PO SCH (07:30)
[2017-09-07] MEDS: POLYETHYLENE (MIRALAX) 17 GM PACK PO SCH (07:31)
[2017-09-07] MEDS: ESCITALOPRAM OXALATE 20 MG TAB PO SCH (07:31)
[2017-09-07] MEDS: OXYBUTYNIN CHLORIDE 5 MG TAB PO SCH (07:31)
[2017-09-07] MEDS: FLUTICASONE PROPIONATE NA SPR 16 GM BTL NAE SCH (07:31)
[2017-09-07 07:57] LABS: HEMATOCRIT 36.7 % (37-47); HEMOGLOBIN 12.5 g/dL (12.0-16.0); MEAN CELL VOLUME 89.1 fL (80-100); MEAN CORPUSCULAR HEMOGLOBIN 30.3 pg (25-34); MEAN CORPUSCULAR HGB CONC 34.1 g/dl (32-36); MEAN PLATELET VOLUME 9.4 fL (7.4-10.4); PLATELET COUNT 211 K/uL (130-400); RED CELL DISTRIBUTION WIDTH CV 13.5 % (11.5-14.5); RED CELL DISTRIBUTION WIDTH SD 44.4 fL (36.4-46.3); WHITE BLOOD COUNT 10.42 K/uL (4.8-10.8)
--- NOTE | 2017-09-07 07:58 | Orthopedic Progress Note ---
Orthopedic Progress Note Date of Service Sep 07, 2017. Subjective Post OP Day: 2 Reports: feeling well, pain controlled w PO medications, Denies: complaints, chest pain, SOB, nausea / vomiting, light headedness, calf pain Objective N/V intact, capillary refill less than 2 sec., dressing C/D/I, A&O x3 SLING IN TACT, FINGERS MOBILE Date Time Temp Pulse Resp B/P (MAP) Pulse Ox O2 Delivery O2 Flow Rate FiO2 09/07/17 06:38 97 157/85 (109) 09/07/17 06:03 37.5 97 16 176/96 (122) 95 Room Air 09/07/17 00:30 Room Air 09/06/17 23:32 37.2 92 16 155/90 (111) 95 Room Air 09/06/17 16:05 Room Air 09/06/17 15:17 37.2 94 18 158/78 (104) 97 Room Air 09/06/17 12:16 36.9 92 16 160/76 (104) 96 Room Air Laboratory Results 24 Hours: Test 09/07/17 07:46 Assessment & Plan Assessment: POD #2, Left Reversed TSA, biceps tenodesis Plan: Limited PT/ OT D/C planning- Home TODAY As per medicine PATIENT SWALLOW EVAL NOTED, NO AIRWAY COMPROMISE OR ALLERGIC REACTIONS, LIKELY DUE TO INTUBATION- RECOMMENDED NYSTATIN HOWEVER PATIENT STATES SHE DIDNT AGREE WITH NYSTATIN AND WOULD LIKE TO USE HER OWN ANTI FUNGAL MEDS, SHE WILL CONTACT HER PCP TODAY AFTER D/C REGARDING THIS. Inhouse Planning Pain Management: Dilaudid, PO Tylenol, Oxy IR DVT Prophylaxis: SCDs Discharge Planning Discharge Planning: home Pain Management: Dilaudid, PO Tylenol, Oxy IR
--- NOTE | 2017-09-07 08:02 | Discharge Instructions ---
Discharge Instructions Date of Service Sep 07, 2017. Admission Reason for Admission: Left Shoulder Rotator Cuff Arthropathy Discharge Discharge Diagnosis / Problem: lEFT REVERSSED tsa, BICEPS TENODESIS Discharge Goals Goal(s): Improve function Activity Recommendations Activity Limitations: as noted below . Instructions / Follow-Up Instructions / Follow-Up ACTIVITY RECOMMENDATIONS: SELF CARE INSTRUCTIONS AFTER TOTAL SHOULDER ARTHROPLASTY REVERSE A. You may do daily exercises as taught in physical therapy while in hospital. No lifting with the operative arm. B. You are to wear your sling/immobilizer at all times EXCEPT when performing your daily exercises and for hygiene purposes. C. You may perform dry, daily dressing changes. Please keep your incision covered. You may shower 48 hours after surgery. Do not apply soap or any ointment/ lotions directly over incision. Do not soak incision in bath tub/swimming pool. D. You may use ice as needed to operative shoulder. SPECIAL CARE INSTRUCTIONS: VERY IMPORTANT TO READ AND REVIEW A. There are a few signs you need to watch for after you are home. Call [facility] at [phone] if you experience any of the followin. Increased severe shoulder pain. Some pain is expected especially when you exercise. 2. Increased swelling in you shoulder or arm; pain or swelling in either upper extremity. 3. Any fluid drainage from the incision. 4. Shortness of breath or chest pain. B. Please call [facility] at [phone] if you have any questions or concerns about your operation or recovery. C. Call your physician if: 1. Temperature is greater than 101 degrees (F). 2. Pain is not relieved by prescribed pain medications. 3. Increase drainage or redness from incision. 4. Unanswered questions or concerns. FOLLOW UP VISIT: Please call [facility] at [phone] to schedule a follow up appointment with Dr. Reyes or his PA in 12-14 days from your surgery date. Current Hospital Diet Patient's current hospital diet: Regular Diet Discharge Diet Recommended Diet: Regular Diet Procedures Procedures Performed: Left Reverse Total Shoulder Arthroplasty,hardware removal , revision biceps tenodesis. Pending Studies Studies pending at discharge: no Laboratory Results Hemoglobin A1c Test 08/15/17 11:05 Range/Units Estimated Average Glucose 108 mg/dl Hemoglobin A1c 5.4 4.5-5.6 % Medical Emergencies . Who to Call and When: Medical Emergencies: If at any time you feel your situation is an emergency, please call 911 immediately. . Non-Emergent Contact Non-Emergency issues call your: Primary Care Provider . "Provider Documentation" section prepared by Eris Mazariegos. . [place] Drug Monitoring Program Search Results: patient reviewed within database, no issues identified
[2017-09-07] MEDS ORDERED: HYDR4TAB78 PO (08:04)
[2017-09-07] MEDS ORDERED: OXYSR/20 PO (08:04)
[2017-09-07 08:18] VITALS: BP 139/73; PULSE 95; TEMP 37.1; O2SAT 98
[2017-09-07 08:29] LABS: CALCIUM 9.1 mg/dl (8.5-10.1); CREATININE 0.72 mg/dl (0.60-1.20); POTASSIUM 4.2 mmol/L (3.5-5.1)
[2017-09-07] MEDS: METOCLOPRAMIDE HCL 5 MG TAB PO SCH (08:35)
[2017-09-07 08:44] VITALS: O2SAT 98
[2017-09-07 10:03] VITALS: BP 139/73; PULSE 95; TEMP 37.1; O2SAT 98
--- NOTE | 2017-09-18 18:12 | DISCHARGE SUMMARY ---
HISTORY OF PRESENT ILLNESS: This is a 62-year-old female patient of Dr. Reyes, complaining of chronic left shoulder pain and weakness with a history of rotator cuff arthropathy. She has been diagnosed with a chronically torn rotator cuff per MRI and wishes to proceed with a left reversed total shoulder arthroplasty. PAST MEDICAL HISTORY: Anxiety, carpal tunnel syndrome, hypothyroidism, anemia, osteoarthritis, TMJ, spine problems, neck problems, sciatica, acid reflux and dental issues. POSTOPERATIVE COURSE: The patient underwent a left reversed total shoulder arthroplasty and biceps tenodesis on 09/05/2017. She was followed closely with pain control, physical therapy and medical consultation. She did well postoperatively and was discharged on postoperative day #2. PHYSICAL EXAMINATION: On discharge, left shoulder incision was clean, dry and intact. Skin edges were approximated well. Erick were intact. There was no redness or drainage. Neurologically and neurovascularly, she was intact in her left upper extremity. DIAGNOSES: Status post left reversed total shoulder arthroplasty, biceps tenodesis, anxiety, carpal tunnel syndrome, hypothyroidism, anemia, osteoarthritis, temporomandibular joint disorder, spine problems, neck problems, sciatica, acid reflux and dental issues. PLAN: The patient was discharged home with home health services. She will need no formal physical therapy for the first week. She will do home exercises as taught. She will continue her preadmission medications with the addition of pain medications. She will follow with her family physician with her pain medications as she had done preoperatively. She will follow up with Dr. Reyes as scheduled as an outpatient.
== END 2017-09-07 10:42 | disposition home health service (06) | DRG 483 ==
LOC: C.ACU 08:04 → C.3E 08:44 → ENRESERV 15:20
PROVIDERS: ADMIT Orthopaedic Surgery Sports Medicine; ATTEND Orthopaedic Surgery Sports Medicine
PROC: 0PP Upper Bones, Removal (ICD-10-PCS; principal; 2017-09-05 10:30)
PROC: 0RRK00Z Replacement of Left Shoulder Joint with Reverse Ball and Socket Synthetic Substitute, Open Approach (ICD-10-PCS; principal; 2017-09-05 10:30)
DX: M19.012 Primary osteoarthritis, left shoulder (principal); D83.9 Common variable immunodeficiency, unspecified; M75.102 Unspecified rotator cuff tear or rupture of left shoulder, not specified as traumatic; S41.002D Unspecified open wound of left shoulder, subsequent encounter; F41.9 Anxiety disorder, unspecified; G56.00 Carpal tunnel syndrome, unspecified upper limb; E03.9 Hypothyroidism, unspecified; D64.9 Anemia, unspecified; M26.629 Arthralgia of temporomandibular joint, unspecified side; K21.9 Gastro-esophageal reflux disease without esophagitis; Z88.7 Allergy status to serum and vaccine; Z88.8 Allergy status to other drugs, medicaments and biological substances; Z86.14 Personal history of Methicillin resistant Staphylococcus aureus infection; Z88.1 Allergy status to other antibiotic agents; X58.XXXD Exposure to other specified factors, subsequent encounter

== ENCOUNTER 2020-11-05 09:39 | Inpatient (IN) ==
[2020-11-05] MEDS ORDERED: ASPIRIN CHEW 324 MG ONE (09:41)
[2020-11-05] MEDS ORDERED: NITROGLYCERIN SL 0.4 MG/TAB TAB ONE (09:41)
[2020-11-05] MEDS ORDERED: LORazepam 1 MG TAB SL STA (09:42)
[2020-11-05] MEDS ORDERED: LORazepam 1 MG TAB ONE (09:43)
[2020-11-05] MEDS ORDERED: fentaNYL citrate 100 MCG/2 ML VIAL ONE (09:46)
[2020-11-05] MEDS ORDERED: MIDAZOLAM HCL 1 MG/ML 2ML VIAL ONE ×2 (09:46→10:31)
[2020-11-05] MEDS ORDERED: niCARdipine HCL INJ 2.5 MG/ML 10 ML AMP ONE (09:46)
[2020-11-05] MEDS ORDERED: HEPARIN (PORCINE) 1000 UNIT/ML 10 ML (CATH LAB USE ONLY) ONE (09:46)
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
[2020-11-05] MEDS ORDERED: NITROGLYCERIN/D5W 100MCG/ML 20ML SYR ONE (09:47)
[2020-11-05] MEDS ORDERED: FAMOTIDINE 20MG/5ML IV PUSH IV ONE (09:54)
[2020-11-05] MEDS ORDERED: methylPREDNISolone 125 MG/2 ML VIAL ONE (09:54)
[2020-11-05] MEDS ORDERED: diphenhydrAMINE 50 MG/ML VIAL ONE (09:54)
[2020-11-05 10:07] LABS: Hematocrit (blood only) 46.8 % (37-47); Lymphocytes % (auto) 9.3 %; Mean Corpuscular Hemoglobin 23.6 pg (25-34); Mean Corpuscular Hgb Conc 32.1 g/dL (32-36); Mean Corpuscular Volume 73.6 fL (80-100); Mean Platelet Volume 10.8 fL (7.4-10.4); Monocytes % (auto) 3.9 %; Neutrophils % (auto) 86.3 %; Platelet Count 355 K/uL (130-400); RDW Coefficient of Variation 18.1 % (11.5-14.5); RDW Standard Deviation 48.3 fL (36.4-46.3); Red Blood Count 6.36 M/uL (4.2-5.4)
[2020-11-05 10:08] LABS: Basophils # (auto) 0.02 K/uL (0-0.2); Basophils % (auto) 0.2 %; Immature Granulocytes # (auto) 0.04 K/uL (0.00-0.02); Immature Granulocytes % (auto) 0.3 %; Lymphocytes # (auto) 1.13 K/uL (1.2-3.4); Monocytes # (auto) 0.47 K/uL (0.11-0.59); Neutrophils # (auto) 10.44 K/uL (1.4-6.5)
--- NOTE | 2020-11-05 10:08 | Pre Anesthesia Assessment ---
Date of Service November 05, 2020 Pre Sedation Assessment Vital Signs Temp Pulse Pulse Resp BP BP Pulse Ox 11/05/20 10:04 108 H 18 130/94 97 11/05/20 09:58 108 H 16 130/94 97 11/05/20 09:53 98 11/05/20 09:46 97.7 F 108 H 20 187/135 H 97 Cardiovascular RRR, no murmur, no edema Respiratory normal respiratory effort, lungs clear to auscultation Pre-Sedation Airway Assessment Smoking Status: Never smoker Hx Sleep Apnea: No Hx Difficult Intubation: No Short, Thick Neck: No Thyromental Distance: > or= 3.5 Finger Breadths Procedure Planning Contraindications for Sedation: none Current Medications Reviewed: Yes Notes The planned sedation has been discussed with the patient. Informed Consent was obtained. I have identified the patient, determined the appropriateness of sedation and have assessed the patient immediately prior to the procedure. All medicine(s) and interventions are by my order.
[2020-11-05 10:23] LABS: Partial Thromboplastin Time 26.5 Seconds (21.0-31.0); Prothrombin Time 10.3 Seconds (9.0-12.0)
[2020-11-05 10:27] LABS: Albumin Level 4.6 gm/dl (3.4-5.0); BUN Creatinine Ratio 19.5 (10-20); Calcium 10.2 mg/dl (8.5-10.1); Creatinine Clr Calc Pharmacy 52.4 ml/min; Est GFR (African American) 60.8 ml/min; Est GFR (Non-African American) 52.4 ml/min; Magnesium 2.7 mg/dl (1.8-2.4); Potassium 3.7 mmol/L (3.5-5.1)
[2020-11-05 10:36] LABS: Albumin Globulin Ratio 0.8 (0.9-2); Bilirubin,Total 0.4 mg/dl (0.2-1); Creatine Kinase MB 104.8 ng/ml (0.5-3.6); Globulin 5.7 gm/dl (2.5-4.0); Thyroid Stimulating Hormone 0.394 uIu/ml (0.300-4.500); Total Protein 10.3 gm/dl (6.4-8.2); Troponin I 12.8 ng/ml (0-0.045)
[2020-11-05] MEDS ORDERED: TICAGRELOR 90 MG TAB PO ONE (11:01)
[2020-11-05] MEDS ORDERED: ONDANSETRON INJ 2 MG/ML 2 ML VIAL ONE (11:07)
[2020-11-05] MEDS ORDERED: ONDANSETRON INJ 2 MG/ML 2 ML VIAL IV PRN (11:22)
[2020-11-05] MEDS ORDERED: ICU PROTOCOL FOR HYPERGLYCEMIA PRN ×2 (11:33→13:01)
[2020-11-05] MEDS ORDERED: ACETAMINOPHEN 325 MG TAB PO PRN ×2 (11:35→13:05)
--- NOTE | 2020-11-05 11:40 | Post Anesthesia Assessment ---
Date of Service November 05, 2020 Post Sedation Assessment Vital Signs Temp Pulse Pulse Resp BP BP Pulse Ox 11/05/20 10:04 108 H 18 130/94 97 11/05/20 09:58 108 H 16 130/94 97 11/05/20 09:53 98 11/05/20 09:46 97.7 F 108 H 20 187/135 H 97 Recovery Score Activity: Moves 4 extremities Respiration: Deep Breath/Cough Circulation: +/-20% PreAnes Value Consciousness: Fully Awake Oxygen Saturation: O2 needed for >90% Discharge Sedation Level of Care: Fast Track Phase II Post Sedation Plan On clinical assessment, the patient appears to have tolerated the sedation without complications. Patient is recovering as anticipated. Patient will continue to be monitored by nursing and may be discharged when sedation discharge criteria are met per below protocol. Upon Completions of procedure up to 15 minutes continue every 5 minute vital signs and the P.A.R. score; then discharge to a Phase I or Fast Track to Phase II per the following guidelines: * Discharge Patient to appropriate Phase II area if PAR is 8 or greater or return to pre- procedure baseline. The post - procedure orders will be as directed. * If PAR score is less than 8 or not return to pre-procedure baseline then patient will follow Phase I monitoring till PAR is reached for Phase II. The Phase I may be done in procedure room or may call to secure a Phase I area. * If naloxone or flumazenil are used for reversal, hold in Phase I for continued monitoring from when last reversal dose was given for a minimum of 60 minutes or longer pending the nurse and/or physician discretion of patient condition before discharge to Phase II. Please call the Sedation Physician to re-evaluate and complete post-note for discharge to Phase II area. Do NOT discharge from procedure sedation or Phase 1 until post- sedation teja luation note is complete by procedure /sedation MD Sedation Discharge Instructions to be given to the patient at discharge to home.
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
--- NOTE | 2020-11-05 11:54 | Cardiac Catheterization ---
[facility] Data: Civil Engineering Intern Cardiac Status Clinical evaluation leading to the procedure CAD Presenation: STEMI Anginal Classification: CCS IV Cardiogenic Shock within 24 Hours: No Cardiac Arrest within 24 Hours: No Imaging Studies Past 6 Months: No Stress Studies Past 6 Months: No Diagnostic Physicians Name: Jurgen Patiño MD Status: Emergency Closure Device Percutaneous Entry Location: Radial Closure Device: Radial Band Recommendations: PCI without planned CABG PCI Indication: Immediate PCI for STEMI First Noted: First EKG Lesion Segment Name: Mid LAD Culprit Artery: Yes Stenosis Prior to Rx (%): 100 Chronic Total Occlusion: No IVUS: Yes FFR: No Pre-Procedure ORTIZ Flow: 0 Previously Treated Lesion: No Lesion Complexity: Non-High/Non-C Lesion Length (mm): 30 Thrombus Present: Yes Bifurcation Lesion: Yes Guidewire Across Lesion: Stenosis Post-Procedure (%): 0 Post-Procedure ORTIZ Flow: 3 Devices(s) Deployed: Yes Yes Intraprocedure Events Significant Disection: No Perforation: No Cardiac Cath Procedure Full Procedure Date November 05, 2020 Pre-Procedure Diagnosis Pre-Procedure Diagnosis: STEMI AUC Score AUC Score: 9 Post-Procedure Diagnosis Post-Procedure Diagnosis: Severe CAD, Successful PCI and Normal Intracardiac Pressures Procedure(s) Performed Procedure(s) Performed: Coronary Angiography, Left Heart Cath, LV Angiography, Drug Eluting Stent and IVUS Mail Room Jurgen Patiño MD Facility Security Officer(s) Wili Estimated Blood Loss Estimated Blood Loss: 15 Medication(s) Medication(s): Fentanyl, Heparin, Lidocaine 1%, Nicardipine, Nitroglycerin and Versed Medication(s): Ticagrelor Summary of Findings Indication: STEMI/Heart Alert Access: 6 Fr right radial artery Catheters: [place], EBU 3.5 guide, pigtail Findings: LM -normal caliber, short, no significant disease LAD -medium caliber, 100% acute on chronic earlymid LAD occlusion. After reestablished flow 70% latemid disease. Circumflex -medium caliber, 30% diffuse disease in bifurcating OM1. OM2 medium caliber with no disease. RCA -medium caliber, dominant, mid segment luminal regularities. Faint right to left collaterals to LAD. LVEDP -14 LVEF 40 to 45% with severe anterior hypokinesis -- PCI -- Antithrombotic therapy: Heparin, ticagrelor Procedure: Left main cannulated with EBU 3.5 guide Community Association Manager 50 wire passed across lesion into distal vessel Mid LAD lesion predilated with 2.5 compliant balloon Latemid LAD disease dilated with 2.5 balloon [place] IVUS catheter placed into distal LAD. Pullback revealed moderate latemid disease and severe diffuse mildly calcified disease extending from mid segment back to proximal LAD. Dilated latemid lesion stented with 2.25 x 28 mm Xience drug-eluting stent Stent postdilated with stent balloon Dilated earlymid LAD lesion stented with 2.75 x 33 mm Xience DIA from proximal LAD across takeoff of first diagonal Stent post-dilated with 3.5 noncompliant balloon IC vasodilators administered for spasm Repeat IVUS revealed well-expanded well apposed stents with no apparent edge complications. Post procedure ORTIZ 3 flow, stents well expanded with minimal residual stenosis. Jailed first diagonal with ostial stenosis and ORTIZ II flow Arterial Closure: TR band Summary: 1. Anterior STEMI 2. 100% acute on chronic earlymid LAD occlusion. 70% latemid LAD downstream disease. 3. Minimal non-culprit coronary artery disease -OM1 with 30% disease 4. Normal intracardiac filling pressure 5. Successful PCI of proximal to mid LAD and latemid LAD with 2 nonoverlapping Xience drug-eluting stents (2.75 x 33mm[postdilated with 3.5 NC], 2.25 x 28 mm). Recommendations: Admit to ICU for continued monitoring Loaded with ticagrelor 180 mg in Civil Engineering Intern Continue dual-antiplatelet therapy for at least 1 year. No interruption of DAPT for elective surgery for at least 6 months. Trend troponins until peak, Check Echo Uptitrate beta-austyn/ALEXIS as BP allows High-dose statin Consult cardiac Rehab Hemodynamics Rest Ao:: 151/95/120 Final Ao: 163/84/116 LV: 168/14 Recommendations Recommendations: PCI without planned CABG Specimens Specimens: None Radiation Exposure (mGy) 1397 Contrast (mls) 120 Fluids (cc crystalloids) Fluids (cc crystalloids): 157 Drains Drains: None Anesthesia Moderate Procedural Complication(s) None Disposition ICU I attest to the content of the Intraoperative Record and any orders documented therein. Any exceptions are noted below. [employer] Card Cath Procedure Codes Cardiac Catheterization Procedure 1: Cardiovascular Cath Procedures: 15177 Coronaries and LHC (+/-LV) Therapeutic Services & Ancillary Proc Procedure 1: Cardiovascular Tx and Anc Procedures: 96688 IV Ultrasound (Coronary or Graft) Moderate Sedation Procedure 1: Sedation/Anesthesia: 07559 Mod Sedation by the same physician;Init15 Min Child Age 5 & Up Procedure 2: Sedation/Anesthesia: 95920 Mod Sedation by the same physician; Ea [id number] Minutes Stenting Procedure 1: Cardiovascular Stent Procedures: 97751 Perc transluminal revascularization of acute sub/total occl, aMI PG Care Time/CCT Total # of Minutes Spent Total Time Spent with Patient: Total time spent is greater than 50% in coordination of care (as documented) at patient's floor/unit and/or counseling patient:
[2020-11-05] MEDS: METOPROLOL TARTRATE 25 MG TAB PO SCH ×2 (12:34→20:22)
[2020-11-05] MEDS: lisinopril 5 MG TAB PO SCH (12:34)
[2020-11-05] MEDS ORDERED: MAGNESIUM HYDROXIDE SUSP 30 ML UDC PO PRN (13:05)
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
[2020-11-05] MEDS: fentaNYL citrate 100 MCG/2 ML VIAL IV PRN ×2 (14:00→21:09)
[2020-11-05] MEDS ORDERED: oxyCODONE HCL 20 MG TABCR (OxyCONTIN) PO PRN (14:00)
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
[2020-11-05] MEDS: [UNRECOGNIZED DRUG - REMARK] SCH ×2 (16:10→23:24)
[2020-11-05] MEDS: METOCLOPRAMIDE HCL 5 MG TABLET PO SCH ×2 (16:31→20:21)
[2020-11-05] MEDS: ONDANSETRON INJ 2 MG/ML 2 ML VIAL IV PRN (16:32)
--- NOTE | 2020-11-05 16:38 | XCELERA ---
[id number]
--- NOTE | 2020-11-05 19:11 | Billing Data ---
Date of Service November 05, 2020 Coding Level of Care Code 99524 Inpt Consult Level 3
[2020-11-05] MEDS: NITROGLYCERIN SL 0.4 MG/TAB TAB SL PRN (20:12)
[2020-11-05] MEDS: MIRTAZAPINE TAB 15 MG TAB PO SCH (20:21)
[2020-11-05] MEDS: METAXALONE 800 MG TABLET PO SCH (20:21)
[2020-11-05] MEDS: ESCITALOPRAM OXALATE 20 MG TAB PO SCH (20:21)
[2020-11-05] MEDS: MONTELUKAST SODIUM 10 MG TABLET PO SCH (20:22)
[2020-11-05] MEDS: TICAGRELOR 90 MG TAB PO SCH (20:22)
[2020-11-05] MEDS ORDERED: CALCIUM CARBONATE 500 MG CHEWABLE TAB PO PRN (20:43)
[2020-11-05] MEDS ORDERED: FAMOTIDINE 20MG IV PUSH 20 MG/5 ML SYR IV STA (20:49)
[2020-11-06] MEDS ORDERED: HEPARIN 100 UNIT/ML 5ML FLUSH FLUSH PRN (01:15)
[2020-11-06] MEDS: fentaNYL citrate 100 MCG/2 ML VIAL IV PRN ×2 (01:55→04:28)
[2020-11-06] MEDS: NITROGLYCERIN SL 0.4 MG/TAB TAB SL PRN ×4 (02:20→19:39)
[2020-11-06 02:44] LABS: Appearance Urine Clear (Clear); Bacteria Urine Automated Negative (Negative); Bilirubin Urine Negative (Negative); Blood Urine Negative (Negative); Color Urine Yellow; Epithelial Cell Urine Auto >30 /lpf (0-5); Glucose Urine UA Negative (Negative); Ketones Urine Trace (Negative); Leukocyte Esterase Urine Negative (Negative); Nitrite Urine Negative (Negative); Protein Urine 1+ (Negative); Urobilinogen Urine Negative (Negative); pH Urine 5.5 (4.5-7.5)
[2020-11-06 05:00] LABS: Basophils # (auto) 0.02 K/uL (0-0.2); Basophils % (auto) 0.2 %; Hematocrit (blood only) 37.3 % (37-47); Hemoglobin 11.9 g/dL (12.0-16.0); Immature Granulocytes # (auto) 0.01 K/uL (0.00-0.02); Immature Granulocytes % (auto) 0.1 %; Lymphocytes # (auto) 2.04 K/uL (1.2-3.4); Lymphocytes % (auto) 16.1 %; Mean Corpuscular Hemoglobin 23.3 pg (25-34); Mean Corpuscular Hgb Conc 31.9 g/dL (32-36); Mean Corpuscular Volume 73.1 fL (80-100); Mean Platelet Volume 10.6 fL (7.4-10.4); Monocytes # (auto) 1.35 K/uL (0.11-0.59); Monocytes % (auto) 10.6 %; Neutrophils # (auto) 9.27 K/uL (1.4-6.5); Platelet Count 306 K/uL (130-400); RDW Coefficient of Variation 17.9 % (11.5-14.5); RDW Standard Deviation 48.3 fL (36.4-46.3); White Blood Count 12.69 K/uL (4.8-10.8)
[2020-11-06 05:19] LABS: Chol HDL Ratio 6; Cholesterol 273 mg/dl (0-200); HDL Cholesterol 49 mg/dl; LDL Cholesterol Direct 192 mg/dl; Triglycerides 175 mg/dl (0-150); VLDL Cholesterol 35 mg/dl
--- NOTE | 2020-11-06 06:08 | Electrocardiogram Report ---
Test Reason : Blood Pressure : / mmHG Vent. Rate : 094 BPM Atrial Rate : 094 BPM P-R Int : 200 ms QRS Dur : 086 ms QT Int : 406 ms P-R-T Axes : 078 071 120 degrees QTc Int : 507 ms Normal sinus rhythm Right atrial enlargement Anteroseptal infarct (cited on or before 02-JAN-2020) ST elevation consider anterior injury or acute infarct Marked T wave abnormality, consider lateral ischemia Abnormal ECG When compared with ECG of 05-NOV-2020 09:29, No significant change was found Confirmed by Meño Michaels ([id number]) on 11/06/2020 6:08:06 AM Referred By: REFERRED SELF Confirmed By:Meño Michaels
--- NOTE | 2020-11-06 06:29 | Electrocardiogram Report ---
Test Reason : Blood Pressure : / mmHG Vent. Rate : 098 BPM Atrial Rate : 098 BPM P-R Int : 196 ms QRS Dur : 088 ms QT Int : 406 ms P-R-T Axes : 072 082 122 degrees QTc Int : 518 ms Normal sinus rhythm Biatrial enlargement Anteroseptal infarct (cited on or before 02-JAN-2020) ST elevation consider anterior injury or acute infarct T wave abnormality, consider lateral ischemia Prolonged QT Abnormal ECG When compared with ECG of 05-NOV-2020 09:38, No significant change was found Confirmed by Meño Michaels ([id number]) on 11/06/2020 6:28:50 AM Referred By: REFERRED SELF Confirmed By:Meño Michaels
[2020-11-06 07:02] LABS: Estimated Average Glucose 117 mg/dl; Hemoglobin A1C 5.7 % (4.5-5.6)
[2020-11-06] MEDS: ASPIRIN 81 MG ECTAB PO SCH (08:29)
[2020-11-06] MEDS: lisinopril 5 MG TAB PO SCH (08:29)
[2020-11-06] MEDS: TICAGRELOR 90 MG TAB PO SCH ×2 (08:29→19:42)
[2020-11-06] MEDS: METOPROLOL TARTRATE 25 MG TAB PO SCH ×2 (08:29→19:40)
[2020-11-06] MEDS: ATORVASTATIN 40 MG TAB PO SCH ×2 (08:29→19:41)
[2020-11-06] MEDS: METOCLOPRAMIDE HCL 5 MG TABLET PO SCH ×4 (08:29→19:40)
[2020-11-06] MEDS: METAXALONE 800 MG TABLET PO SCH ×3 (08:29→19:38)
[2020-11-06] MEDS: PANTOprazole 40 MG TAB PO SCH (08:29)
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
[2020-11-06 08:44] LABS: Albumin Level 3.5 gm/dl (3.4-5.0); Calcium 9.5 mg/dl (8.5-10.1); Creatinine Clr Calc Pharmacy 46.2 ml/min; Est GFR (African American) 54.8 ml/min; Est GFR (Non-African American) 47.2 ml/min; Potassium 3.9 mmol/L (3.5-5.1)
[2020-11-06 08:50] LABS: Albumin Globulin Ratio 0.8 (0.9-2); Bilirubin,Total 0.4 mg/dl (0.2-1); Globulin 4.3 gm/dl (2.5-4.0); Total Protein 7.8 gm/dl (6.4-8.2)
[2020-11-06] MEDS ORDERED: POTASSIUM CHLORIDE CRTAB 20 MEQ TABCR PO STA (09:21)
[2020-11-06] MEDS ORDERED: MAGNESIUM SULFATE / D5W 1 GM/100 ML BAG IV ONE (09:21)
[2020-11-06] MEDS: HYDROmorphone HCL 2 MG TAB PO PRN ×2 (09:24→16:42)
[2020-11-06] MEDS: ALUMINUM/MAGNESIUM/SIMETH (MAALOX MAX) 30 ML UDC PO PRN ×2 (09:26→19:45)
[2020-11-06] MEDS ORDERED: SODIUM CHLORIDE 0.9% 500 ML IV SCH (09:30)
[2020-11-06] MEDS: [UNRECOGNIZED DRUG - REMARK] SCH (09:42)
--- NOTE | 2020-11-06 10:12 | Critical Care Progress Note ---
Date of Service November 06, 2020 Assessment & Plan (1) STEMI (ST elevation myocardial infarction): -- STEMI Was stent placement in LAD x2 11/05/2020 Continue with ticagrelor, aspirin Continue with statin, continue with lisinopril and metoprolol Troponins have peaked and is trending down. EKG 11/06/2020 does not show any new changes 2D echo 11/05/2020: EF 45-50% -- POLO Follow-up urine lites Monitor BUN/creatinine Avoid nephrotoxic medications Strict ins and outs --Fibromyalgia with generalized pain It is reproducible Continue with muscle relaxants and home pain medication --Dyslipidemia Continue with statin --Prolonged QTC Avoid QTC prolonging medication Patient does complain of nausea All antiemetics will prolong the QTC Patient is allergic to also a lot of medications --Prophylaxis VTE: IPC's GI: Protonix Lines: Peripheral Diet: Cardiac Plan: Patient's creatinine is little bit elevated. Could be prerenal as well as contrast administration I will give her normal saline total of 500 mL, repeat BMP tomorrow Patient has chronic pain with fibromyalgia. I doubt the pain that she is complaining of is anything to do with cardiac etiology Continue with home medications. Try to avoid opioids if possible. Patient is hemodynamically stable to be downgraded to medical floor Please note the above document was generated using voice recognition software. It may contain grammatical, syntax or spelling errors.Any formal questions or concerns about the content, text or information contained within the body of this dictation should be directly addressed to the provider for clarification. (2) Generalized pain: (3) Fibromyalgia: (4) Hypertension: (5) Elevated BP without diagnosis of hypertension: Admission and Anticipated Discharge Date Admission Date: November 05, 2020 Review of Systems Review of Systems: All systems reviewed & are unremarkable except as noted in Subjective Physical Exam Physical Exam: Constitutional: No acute distress HEENT: EOMI, PERRLA Respiratory system: Good air entry bilaterally, no wheeze, no cough, no crackles CVS: S1-S2 positive, no murmurs or gallops Abdomen: Soft, nontender, nondistended, positive bowel sounds x4 Extremities: +2 pulses bilaterally radialis/ dorsalis pedis, no cyanosis, no edema Neuro: Awake alert oriented x3 Psych: Normal mood and affect G/U: No Sun Musculoskeletal: Reproducible pain retrosternal as well as on the left back Skin: no rashes, warm and dry Lymphatic: no cervical or axillary lymphadenopathy Results & Data Results & Data ([facility]) Vital Signs (Past 12 Hours) Vital Signs Temp Pulse Resp BP Pulse Ox 11/06/20 04:40 68 12 114/65 96 11/06/20 04:25 71 13 112/62 96 11/06/20 04:10 68 17 125/79 96 11/06/20 04:00 37.8 C H 69 14 100 11/06/20 03:55 68 23 114/55 L 98 11/06/20 03:40 66 16 129/64 95 11/06/20 03:25 63 14 120/66 95 11/06/20 03:10 67 15 127/65 94 11/06/20 03:00 63 17 96 11/06/20 02:55 62 15 124/66 97 11/06/20 02:40 69 14 109/67 95 11/06/20 02:33 82 17 111/59 L 91 11/06/20 02:25 74 17 101/69 94 11/06/20 02:22 72 20 114/64 95 11/06/20 02:00 73 18 97 11/06/20 01:55 67 15 146/73 H 99 11/06/20 01:39 73 14 127/62 98 11/06/20 01:24 75 13 122/57 L 96 11/06/20 01:10 75 18 108/58 L 96 11/06/20 01:00 72 16 94 11/06/20 00:55 71 13 136/68 95 11/06/20 00:39 69 13 125/67 94 11/06/20 00:24 66 14 120/70 95 11/06/20 00:09 66 15 129/69 93 11/06/20 00:00 70 10 L 95 11/05/20 23:59 71 11/05/20 23:55 37 C 68 19 139/64 96 11/05/20 23:40 67 13 108/66 96 11/05/20 23:25 77 13 94 11/05/20 23:24 70 17 120/61 96 11/05/20 23:10 72 18 114/57 L 95 11/05/20 23:00 72 17 95 11/05/20 22:54 77 21 108/63 94 11/05/20 22:40 76 15 95 11/05/20 22:39 84 14 124/73 96 11/05/20 22:24 71 14 111/66 95 11/05/20 22:09 72 15 118/63 93 11/06/20 04:34 11/06/20 08:19 Coding Level of Care Code 58512 Subseq Hosp Care Lvl 3 Diagnoses STEMI (ST elevation myocardial infarction) I21.3 Involved coronary artery: unspecified coronary artery Generalized pain R52 Fibromyalgia M79.7 Hypertension I10 Elevated BP without diagnosis of hypertension R03.0 (1) STEMI (ST elevation myocardial infarction) Involved coronary artery: unspecified coronary artery Qualified Code(s): I21.3 - ST elevation (STEMI) myocardial infarction of unspecified site
--- NOTE | 2020-11-06 11:02 | Cardiology Progress Note ---
Date of Service November 06, 2020 Assessment & Plan (1) STEMI (ST elevation myocardial infarction): Semi acute presentation of LAD occlusion. Successful PCI yesterday. Regional wall motion abnormalities noted on her echocardiogram with mildly reduced LV systolic function. She continues to have chest pain. However, this is in the setting of diffuse pain and other complaints. Her EKG is essentially unchanged and cardiac biomarkers are trending down words suggesting her current symptoms are not related to ongoing ischemia. No evidence of decompensated heart failure, mechanical or electrical complication. Will continue dual anti-platelet therapy, beta blockade and Moises inhibition. High-dose atorvastatin initiated. She appears stable for transfer to the PCU today. Will attempt to improve her activity, up in a chair and ambulation later in the afternoon. (2) Cardiomyopathy, ischemic: Mildly reduced LV systolic function. Unclear if this represents stunned myocardium. No evidence of decompensated heart failure. Will monitor her volume closely. Continue metoprolol tartrate currently. Will switch to succinate prior to discharge. Continue lisinopril. No current indication for spironolactone (3) Dyslipidemia: Started on high-dose atorvastatin (4) Generalized pain: She has a long history of generalized discomfort and pain as well as other diffuse symptoms. Multiple medication intolerance is as well. She is on chronic narcotics as an outpatient. Think this will certainly complicate her care. However, no current signs of ongoing ischemia or complication from her myocardial infarction. Will continue with symptomatic treatment of her generalized pain with narcotics, non narcotic analgesics and antiemetics. Admission and Anticipated Discharge Date Admission Date: November 05, 2020 Subjective This morning the patient complained of persistent chest discomfort and epigastric discomfort. Apparently she had relief with narcotics and ondansetron. She was ambulatory to the commode earlier reported some dizziness and lightheadedness. She also reports significant fatigue. Review of Systems Review of Systems: Per HPI. Nauseated at times. Physical Exam Physical Exam: She is alert and oriented x3. Mood affect appear normal. She answered all questions appropriately. Uncomfortable. HEENT: Sclerae are anicteric. Pupils are equal and reactive to light and accommodation. Extraocular movements were intact. Neuro: Cranial nerves intact Lungs: Lungs are clear to auscultation bilaterally. There are no rales wheezes or rhonchi. She has normal respiratory effort without use of accessory muscles. There is normal pulmonary excursion. Cardiac: The rhythm was regular. S1 and S2 were normal. There are no murmurs on examination. The PMI was not markedly displaced on palpation. Chest: Tender to palpation throughout the precordium. Extremities: Patient has bilateral radial pulses that are equal in intensity. There is no evidence cyanosis or clubbing. Palpable right radial pulse with good perfusion of the right hand. Small ecchymosis at the access site but no significant hematoma. There was no evidence of significant peripheral edema bilaterally. Skin: There are no rashes noted on examination today. Results & Data ([facility]) Vital Signs (Past 12 Hours) Vital Signs Temp Pulse Resp BP Pulse Ox 11/06/20 10:10 62 15 119/64 95 11/06/20 08:56 69 10 L 103/52 L 96 11/06/20 08:10 79 19 108/68 96 11/06/20 08:00 37.3 C 11/06/20 07:25 70 17 110/64 92 11/06/20 07:00 60 15 97 11/06/20 04:40 68 12 114/65 96 11/06/20 04:25 71 13 112/62 96 11/06/20 04:10 68 17 125/79 96 11/06/20 04:00 37.8 C H 69 14 100 11/06/20 03:55 68 23 114/55 L 98 11/06/20 03:40 66 16 129/64 95 11/06/20 03:25 63 14 120/66 95 11/06/20 03:10 67 15 127/65 94 11/06/20 03:00 63 17 96 11/06/20 02:55 62 15 124/66 97 11/06/20 02:40 69 14 109/67 95 11/06/20 02:33 82 17 111/59 L 91 11/06/20 02:25 74 17 101/69 94 11/06/20 02:22 72 20 114/64 95 11/06/20 02:00 73 18 97 11/06/20 01:55 67 15 146/73 H 99 11/06/20 01:39 73 14 127/62 98 11/06/20 01:24 75 13 122/57 L 96 11/06/20 01:10 75 18 108/58 L 96 11/06/20 01:00 72 16 94 11/06/20 00:55 71 13 136/68 95 11/06/20 00:39 69 13 125/67 94 11/06/20 00:24 66 14 120/70 95 11/06/20 00:09 66 15 129/69 93 11/06/20 00:00 70 10 L 95 11/05/20 23:59 71 11/05/20 23:55 37 C 68 19 139/64 96 11/05/20 23:40 67 13 108/66 96 11/05/20 23:25 77 13 94 11/05/20 23:24 70 17 120/61 96 11/05/20 23:10 72 18 114/57 L 95 11/05/20 23:00 72 17 95 11/05/20 22:54 77 21 108/63 94 Laboratory Results Abnormal Lab Results 11/05/20 11/05/20 11/05/20 10:44 11:35 12:33 WBC RBC Hgb Hct MCV MCH MCHC RDW Std Deviation RDW Coeff of [place] Plt Count MPV Immature Gran % (Auto) Neut % (Auto) Lymph % (Auto) [place] % (Auto) Eos % (Auto) Baso % (Auto) Neut # (Auto) Lymph # (Auto) [place] # (Auto) Eos # (Auto) Baso # (Auto) Immature Gran # (Auto) Activ Coag Time Kaolin 252 H Sodium Potassium Chloride Carbon Dioxide Anion Gap BUN Creatinine Est Cr Clr Drug Dosing Est GFR ( Amer) Est GFR (Non-Af Amer) BUN/Creatinine Ratio Glucose POC Glucose 155 H Estimat Average Glucose Hemoglobin A1c Calcium Total Bilirubin AST ALT Alkaline Phosphatase Troponin I Total Protein Albumin Globulin Albumin/Globulin Ratio Triglycerides Cholesterol LDL Cholesterol Direct LDL Cholesterol, Calc VLDL Cholesterol, Calc HDL Cholesterol Cholesterol/HDL Ratio Urine Color Urine Appearance Urine pH Ur Specific [place] Urine Protein Urine Glucose (UA) Urine Ketones Urine Blood Urine Nitrite Urine Bilirubin Urine Urobilinogen Ur Leukocyte Esterase Urine WBC (Auto) Urine RBC (Auto) U Hyaline Cast (Auto) U Epithel Cells (Auto) Urine Bacteria (Auto) Nasal Screen MRSA (PCR) Negative 11/05/20 11/05/20 11/05/20 16:37 17:26 23:27 WBC RBC Hgb Hct MCV MCH MCHC RDW Std Deviation RDW Coeff of [place] Plt Count MPV Immature Gran % (Auto) Neut % (Auto) Lymph % (Auto) [place] % (Auto) Eos % (Auto) Baso % (Auto) Neut # (Auto) Lymph # (Auto) [place] # (Auto) Eos # (Auto) Baso # (Auto) Immature Gran # (Auto) Activ Coag Time Kaolin Sodium Potassium Chloride Carbon Dioxide Anion Gap BUN Creatinine Est Cr Clr Drug Dosing Est GFR ( Amer) Est GFR (Non-Af Amer) BUN/Creatinine Ratio Glucose POC Glucose 148 H Estimat Average Glucose Hemoglobin A1c Calcium Total Bilirubin AST ALT Alkaline Phosphatase Troponin I 153.000 H* 98.000 H* Total Protein Albumin Globulin Albumin/Globulin Ratio Triglycerides Cholesterol LDL Cholesterol Direct LDL Cholesterol, Calc VLDL Cholesterol, Calc HDL Cholesterol Cholesterol/HDL Ratio Urine Color Urine Appearance Urine pH Ur Specific [place] Urine Protein Urine Glucose (UA) Urine Ketones Urine Blood Urine Nitrite Urine Bilirubin Urine Urobilinogen Ur Leukocyte Esterase Urine WBC (Auto) Urine RBC (Auto) U Hyaline Cast (Auto) U Epithel Cells (Auto) Urine Bacteria (Auto) Nasal Screen MRSA (PCR) 11/05/20 11/06/20 11/06/20 23:51 02:18 04:34 WBC 12.69 H RBC 5.10 Hgb 11.9 L D Hct 37.3 MCV 73.1 L MCH 23.3 L MCHC 31.9 L RDW Std Deviation 48.3 H RDW Coeff of [place] 17.9 H Plt Count 306 MPV 10.6 H Immature Gran % (Auto) 0.1 Neut % (Auto) 73.0 Lymph % (Auto) 16.1 [place] % (Auto) 10.6 Eos % (Auto) 0.0 Baso % (Auto) 0.2 Neut # (Auto) 9.27 H Lymph # (Auto) 2.04 [place] # (Auto) 1.35 H Eos # (Auto) 0.00 Baso # (Auto) 0.02 Immature Gran # (Auto) 0.01 Activ Coag Time Kaolin Sodium Potassium Chloride Carbon Dioxide Anion Gap BUN Creatinine Est Cr Clr Drug Dosing Est GFR ( Amer) Est GFR (Non-Af Amer) BUN/Creatinine Ratio Glucose POC Glucose 109 H Estimat Average Glucose Hemoglobin A1c Calcium Total Bilirubin AST ALT Alkaline Phosphatase Troponin I Total Protein Albumin Globulin Albumin/Globulin Ratio Triglycerides Cholesterol LDL Cholesterol Direct LDL Cholesterol, Calc VLDL Cholesterol, Calc HDL Cholesterol Cholesterol/HDL Ratio Urine Color Yellow Urine Appearance Clear Urine pH 5.5 Ur Specific [place] 1.040 H Urine Protein 1+ H Urine Glucose (UA) Negative Urine Ketones Trace H Urine Blood Negative Urine Nitrite Negative Urine Bilirubin Negative Urine Urobilinogen Negative Ur Leukocyte Esterase Negative Urine WBC (Auto) 5-10 H Urine RBC (Auto) 5-10 H U Hyaline Cast (Auto) 1-5 U Epithel Cells (Auto) >30 H Urine Bacteria (Auto) Negative Nasal Screen MRSA (PCR) 11/06/20 11/06/20 11/06/20 04:34 04:34 08:19 WBC RBC Hgb Hct MCV MCH MCHC RDW Std Deviation RDW Coeff of [place] Plt Count MPV Immature Gran % (Auto) Neut % (Auto) Lymph % (Auto) [place] % (Auto) Eos % (Auto) Baso % (Auto) Neut # (Auto) Lymph # (Auto) [place] # (Auto) Eos # (Auto) Baso # (Auto) Immature Gran # (Auto) Activ Coag Time Kaolin Sodium 136 Potassium 3.9 Chloride 103 Carbon Dioxide 25 Anion Gap 8.0 BUN 30 H Creatinine 1.21 H Est Cr Clr Drug Dosing 46.2 Est GFR ( Amer) 54.8 Est GFR (Non-Af Amer) 47.2 BUN/Creatinine Ratio 25.0 H Glucose 154 H POC Glucose Estimat Average Glucose 117 Hemoglobin A1c 5.7 H Calcium 9.5 Total Bilirubin 0.4 AST 284 H ALT 50 Alkaline Phosphatase 99 Troponin I Total Protein 7.8 D Albumin 3.5 Globulin 4.3 H Albumin/Globulin Ratio 0.8 L Triglycerides 175 H Cholesterol 273 H LDL Cholesterol Direct 192 LDL Cholesterol, Calc Not Reportable VLDL Cholesterol, Calc 35 HDL Cholesterol 49 Cholesterol/HDL Ratio 6 Urine Color Urine Appearance Urine pH Ur Specific [place] Urine Protein Urine Glucose (UA) Urine Ketones Urine Blood Urine Nitrite Urine Bilirubin Urine Urobilinogen Ur Leukocyte Esterase Urine WBC (Auto) Urine RBC (Auto) U Hyaline Cast (Auto) U Epithel Cells (Auto) Urine Bacteria (Auto) Nasal Screen MRSA (PCR) Diagnostic Findings Chest x-ray obtained at the time of admission did not reveal any acute cardiopulmonary disease. On 11/05/2020: Ejection fraction 45-50% with apical and anteroseptal akinesis. Anterior wall is hypokinetic. Inferior wall is mildly hypokinetic. No significant valvular pathology. Cardiac catheterization revealed acute occlusion of the early to mid LAD. 30% diffuse disease in the circumflex. Luminal regularities in the right coronary artery with the suggestion of right to left collaterals. PG Care Time/CCT Total # of Minutes Spent Total Time Spent with Patient: Total time spent is greater than 50% in coordination of care (as documented) at patient's floor/unit and/or counseling patient: Coding Level of Care Code 44207 Subseq Hosp Care Lvl 3 Diagnoses STEMI (ST elevation myocardial infarction) I21.3 Involved coronary artery: unspecified coronary artery Cardiomyopathy, ischemic I25.5 Dyslipidemia E78.5 Generalized pain R52 (1) STEMI (ST elevation myocardial infarction) Involved coronary artery: unspecified coronary artery Qualified Code(s): I21.3 - ST elevation (STEMI) myocardial infarction of unspecified site
--- NOTE | 2020-11-06 13:48 | Hospitalist Progress Note ---
Date of Service November 06, 2020 Assessment & Plan (1) STEMI (ST elevation myocardial infarction): S/p 2 DIA to the mid and distal LAD. No other major coronary disease. - Continue DAPT - Continue beta-austyn, ACEi, statin - Cardiology following - Plan for cardiac rehab on discharge (2) Cardiomyopathy, ischemic: Echo after cath showed EF 40 - 45% with LAD-distribution hypokinesis. - Medication as above (3) Elevated BP without diagnosis of hypertension: BP today is 120/70. - BP controlled with [place] medications as above (4) CKD (chronic kidney disease) stage 3, GFR 30-59 ml/min: Baseline Cr ~1.0 - 1.1. - Cr up to 1.2 today, possibly some pre-renal vs. contrast-induced. - Monitor (5) Fibromyalgia: Long-standing issue. - Continue home SSRI, mirtazapine - Continue metaxalone - Continue Reglan for her gastroparesis (6) Hypothyroidism: TSH was 0.4 this admission. Patient desires to bring in her own Synthroid. - Can continue if/when patient brings it in. (7) Anemia: Hx of iron deficiency anemia. Now with hgb down to 12 on 11/06 with an MCV of 73. - Will get iron labs - Venofer IV x 2 doses while inpatient (8) DVT prophylaxis: Heparin 5,000 units SQ Q12h Admission and Anticipated Discharge Date Admission Date: November 05, 2020 Subjective Notes less chest pain today (some overnight with her cath), but is getting some shortness of breath with walking around the room. Reports no fevers/chills, abdominal pain, nausea, or vomiting. Physical Exam Constitutional: WD/WN, vitals as above Eyes: EOM intact bilaterally; no conjunctival abnormality ENMT: external ear and nose normal, oropharynx normal Neck: trachea midline, no thyromegaly normal visual inspection Respiratory: normal respiratory effort, lungs clear to auscultation no respiratory distress Cardiovascular: RRR, no murmur, no edema Gastrointestinal (Abdomen): Inspection/Auscultation: abdomen normal to inspection; abdomen not distended Musculoskeletal: no cyanosis or clubbing, extremities motor strength 5/5 Skin: no rashes, warm and dry Neurologic: moves all extremities and awake Psychiatric: Orientation: alert, oriented to person and cooperative Results & Data Results & Data ([facility]) Vital Signs (Past 12 Hours) Vital Signs Temp Pulse Resp BP Pulse Ox 11/06/20 11:10 59 L 14 122/67 95 11/06/20 10:10 62 15 119/64 95 11/06/20 08:56 69 10 L 103/52 L 96 11/06/20 08:10 79 19 108/68 96 11/06/20 08:00 37.3 C 11/06/20 07:25 70 17 110/64 92 11/06/20 07:00 60 15 97 11/06/20 04:40 68 12 114/65 96 11/06/20 04:25 71 13 112/62 96 11/06/20 04:10 68 17 125/79 96 11/06/20 04:00 37.8 C H 69 14 100 11/06/20 03:55 68 23 114/55 L 98 11/06/20 03:40 66 16 129/64 95 11/06/20 03:25 63 14 120/66 95 11/06/20 03:10 67 15 127/65 94 11/06/20 03:00 63 17 96 11/06/20 02:55 62 15 124/66 97 11/06/20 02:40 69 14 109/67 95 11/06/20 02:33 82 17 111/59 L 91 11/06/20 02:25 74 17 101/69 94 11/06/20 02:22 72 20 114/64 95 11/06/20 02:00 73 18 97 11/06/20 01:55 67 15 146/73 H 99 PG Care Time/CCT Total # of Minutes Spent Total Time Spent with Patient: Total time spent is greater than 50% in c oordination of care (as documented) at patient's floor/unit and/or counseling patient: Coding Level of Care Code 24283 Subseq Hosp Care Lvl 3 Diagnoses STEMI (ST elevation myocardial infarction) I21.3 Involved coronary artery: unspecified coronary artery Cardiomyopathy, ischemic I25.5 Elevated BP without diagnosis of hypertension R03.0 CKD (chronic kidney disease) stage 3, GFR 30-59 ml/min N18.30 Fibromyalgia M79.7 Hypothyroidism E03.9 Anemia D64.9 DVT prophylaxis Z29.9 (1) STEMI (ST elevation myocardial infarction) Involved coronary artery: unspecified coronary artery Qualified Code(s): I21.3 - ST elevation (STEMI) myocardial infarction of unspecified site
[2020-11-06] MEDS: IRON SUCROSE 300 MG in SODIUM CHLORIDE 0.9% 250 ML IV SCH (14:43)
[2020-11-06 14:45] LABS: Ferritin 28.5 ng/ml (8-388)
[2020-11-06] MEDS: ONDANSETRON INJ 2 MG/ML 2 ML VIAL IV PRN ×2 (15:14→16:02)
[2020-11-06] MEDS: diphenhydrAMINE Capsule 25 MG CAP PO PRN (15:30)
--- NOTE | 2020-11-06 16:29 | Electrocardiogram Report ---
Test Reason : Blood Pressure : / mmHG Vent. Rate : 081 BPM Atrial Rate : 081 BPM P-R Int : 198 ms QRS Dur : 086 ms QT Int : 438 ms P-R-T Axes : 071 078 119 degrees QTc Int : 508 ms Normal sinus rhythm Anteroseptal infarct (cited on or before 02-JAN-2020) T wave abnormality, consider lateral ischemia evolving anterior DC Abnormal ECG When compared with ECG of 05-NOV-2020 13:06, T wave inversion less evident in Anterior leads Confirmed by Jurgen Garcia ([id number]) on 11/06/2020 4:28:41 PM Referred By: REFERRED SELF Confirmed By:Vijay Garcia
--- NOTE | 2020-11-06 16:41 | Electrocardiogram Report ---
Test Reason : Blood Pressure : / mmHG Vent. Rate : 068 BPM Atrial Rate : 068 BPM P-R Int : 196 ms QRS Dur : 082 ms QT Int : 470 ms P-R-T Axes : 076 057 130 degrees QTc Int : 499 ms Normal sinus rhythm Anteroseptal infarct (cited on or before 02-JAN-2020) T wave abnormality, consider lateral ischemia Abnormal ECG When compared with ECG of 06-NOV-2020 02:15, (unconfirmed) ST no longer elevated in Anterior leads T wave inversion less evident in Lateral leads Confirmed by Jurgen Garcia ([id number] on 11/06/2020 4:41:28 PM Referred By: REFERRED SELF Confirmed By:Vijay Garcia
[2020-11-06] MEDS: MONTELUKAST SODIUM 10 MG TABLET PO SCH (19:40)
[2020-11-06] MEDS: MIRTAZAPINE TAB 15 MG TAB PO SCH (19:41)
[2020-11-06] MEDS: ESCITALOPRAM OXALATE 20 MG TAB PO SCH (19:41)
[2020-11-06] MEDS: HEPARIN SOD 5,000 UNIT/0.5 ML VIAL SQ SCH (21:16)
[2020-11-07 06:43] LABS: Hematocrit (blood only) 42.1 % (37-47); Mean Corpuscular Hemoglobin 22.8 pg (25-34); Mean Corpuscular Hgb Conc 30.9 g/dL (32-36); Mean Platelet Volume 10.9 fL (7.4-10.4); Platelet Count 219 K/uL (130-400); RDW Coefficient of Variation 18.2 % (11.5-14.5); RDW Standard Deviation 48.5 fL (36.4-46.3); Red Blood Count 5.69 M/uL (4.2-5.4); White Blood Count 6.41 K/uL (4.8-10.8)
[2020-11-07 07:20] LABS: Albumin Level 3.6 gm/dl (3.4-5.0); BUN Creatinine Ratio 22.9 (10-20); Calcium 9.5 mg/dl (8.5-10.1); Creatinine Clr Calc Pharmacy 66.3 ml/min; Est GFR (African American) 83.9 ml/min; Est GFR (Non-African American) 72.4 ml/min; Magnesium 2.9 mg/dl (1.8-2.4); Potassium 4.3 mmol/L (3.5-5.1)
[2020-11-07] MEDS: [UNRECOGNIZED DRUG - REMARK] SCH ×2 (07:23→07:24)
[2020-11-07] MEDS: METOCLOPRAMIDE HCL 5 MG TABLET PO SCH ×2 (07:32→11:19)
[2020-11-07] MEDS: TICAGRELOR 90 MG TAB PO SCH (07:35)
[2020-11-07] MEDS: METAXALONE 800 MG TABLET PO SCH ×2 (07:35→15:08)
[2020-11-07] MEDS: lisinopril 5 MG TAB PO SCH (07:35)
[2020-11-07] MEDS: METOPROLOL TARTRATE 25 MG TAB PO SCH (07:35)
[2020-11-07] MEDS: ATORVASTATIN 40 MG TAB PO SCH (07:35)
[2020-11-07] MEDS: PANTOprazole 40 MG TAB PO SCH (07:35)
[2020-11-07] MEDS: HEPARIN SOD 5,000 UNIT/0.5 ML VIAL SQ SCH (07:36)
[2020-11-07] MEDS: ASPIRIN 81 MG ECTAB PO SCH (07:36)
[2020-11-07 07:40] LABS: Albumin Globulin Ratio 0.8 (0.9-2); Bilirubin,Total 0.4 mg/dl (0.2-1); Globulin 4.6 gm/dl (2.5-4.0); Total Protein 8.2 gm/dl (6.4-8.2)
[2020-11-07] MEDS ORDERED: predniSONE 20 MG TAB PO STA (09:10)
[2020-11-07] MEDS ORDERED: diphenhydrAMINE Capsule 25 MG CAP PO ONE (09:10)
[2020-11-07] MEDS: diphenhydrAMINE Capsule 25 MG CAP PO PRN (10:31)
--- NOTE | 2020-11-07 10:35 | Cardiology Progress Note ---
Date of Service November 07, 2020 Assessment & Plan (1) STEMI (ST elevation myocardial infarction): She appears to be doing well. No evidence of recurrent ischemia. No electrical instability or significant arrhythmias. No heart failure symptoms. She appears safe for discharge. She will continue her dual anti-platelet therapy with aspirin and ticagrelor. She will continue lisinopril 5 mg daily and will transition her to metoprolol succinate 50 mg daily. She will continue high-dose atorvastatin. I will arrange for her to follow up with cardiac rehab and Dr. Patiño (at her request). (2) Cardiomyopathy, ischemic: Mildly reduced LV systolic function. Unclear if this represents stunned myocardium. No evidence of heart failure. No indication for spironolactone. Will continue Moises inhibition and Toprol XL (3) Dyslipidemia: Started on high-dose atorvastatin. Tolerating well. (4) Generalized pain: Possibly related to her iron infusion. Her symptoms appear to have resolved. There was no evidence recurrent ischemia. Admission and Anticipated Discharge Date Admission Date: November 05, 2020 Subjective This morning the patient claims to be feeling well. Her symptoms of chest discomfort, achiness and nausea appear to have resolved. She attributes it to the iron infusion yesterday. She denies breathing difficulty. No sense of palpitation. No recurrence of her index symptoms. Review of Systems Review of Systems: Per HPI Physical Exam Physical Exam: She is alert and oriented x3. Mood affect appear normal. She answered all questions appropriately. HEENT: Sclerae are anicteric. Pupils are equal and reactive to light and accommodation. Extraocular movements were intact. Neuro: Cranial nerves intact Lungs: Lungs are clear to auscultation bilaterally. There are no rales wheezes or rhonchi. She has normal respiratory effort without use of accessory muscles. There is normal pulmonary excursion. Cardiac: The rhythm was regular. S1 and S2 were normal. There are no murmurs on examination. The PMI was not markedly displaced on palpation. Extremities: Patient has bilateral radial pulses that are equal in intensity. There is no evidence cyanosis or clubbing. There was no evidence of significant peripheral edema bilaterally. Ecchymosis at the right radial access site. No hematoma. Skin: There are no rashes noted on examination today. Results & Data ([facility]) Vital Signs (Past 12 Hours) Vital Signs Temp Pulse Pulse Resp BP Pulse Ox 11/07/20 07:42 36.8 C 81 19 125/71 96 11/07/20 04:17 37.2 C 69 18 119/75 98 11/07/20 00:00 60 11/06/20 23:21 36.6 C 65 18 95/58 L 97 Laboratory Results Abnormal Lab Results 11/06/20 11/06/20 11/07/20 08:19 08:19 06:24 WBC 6.41 RBC 5.69 H Hgb 13.0 Hct 42.1 MCV 74.0 L MCH 22.8 L MCHC 30.9 L RDW Std Deviation 48.5 H RDW Coeff of Lula 18.2 H Plt Count 219 MPV 10.9 H Sodium Potassium Chloride Carbon Dioxide Anion Gap BUN Creatinine Est Cr Clr Drug Dosing Est GFR ( Amer) Est GFR (Non-Af Amer) BUN/Creatinine Ratio Glucose Calcium Magnesium Iron 57 Transferrin 378 H Transferrin % Sat 11 L Ferritin 28.5 Total Bilirubin AST ALT Alkaline Phosphatase Troponin I 51.900 H* Total Protein Albumin Globulin Albumin/Globulin Ratio 11/07/20 06:24 WBC RBC Hgb Hct MCV MCH MCHC RDW Std Deviation RDW Coeff of Lula Plt Count MPV Sodium 140 Potassium 4.3 Chloride 109 H Carbon Dioxide 27 Anion Gap 4.0 BUN 19 H Creatinine 0.85 D Est Cr Clr Drug Dosing 66.3 Est GFR ( Amer) 83.9 Est GFR (Non-Af Amer) 72.4 BUN/Creatinine Ratio 22.9 H Glucose 98 Calcium 9.5 Magnesium 2.9 H Iron Transferrin Transferrin % Sat Ferritin Total Bilirubin 0.4 AST 153 H ALT 42 Alkaline Phosphatase 114 Troponin I Total Protein 8.2 Albumin 3.6 Globulin 4.6 H Albumin/Globulin Ratio 0.8 L Diagnostic Findings Chest x-ray obtained at the time of admission did not reveal any acute cardiopulmonary disease. On 11/05/2020: Ejection fraction 45-50% with apical and anteroseptal akinesis. Anterior wall is hypokinetic. Inferior wall is mildly hypokinetic. No significant valvular pathology. Cardiac catheterization revealed acute occlusion of the early to mid LAD. 30% diffuse disease in the circumflex. Luminal regularities in the right coronary artery with the suggestion of right to left collaterals. PG Care Time/CCT Total # of Minutes Spent Total Time Spent with Patient: Total time spent is greater than 50% in coordination of care (as documented) at patient's floor/unit and/or counseling patient: Coding Level of Care Code 38649 Subseq Hosp Care Lvl 2 Diagnoses STEMI (ST elevation myocardial infarction) I21.3 Involved coronary artery: unspecified coronary artery Cardiomyopathy, ischemic I25.5 Dyslipidemia E78.5 Generalized pain R52 (1) STEMI (ST elevation myocardial infarction) Involved coronary artery: unspecified coronary artery Qualified Code(s): I21.3 - ST elevation (STEMI) myocardial infarction of unspecified site
[2020-11-07] MEDS: IRON SUCROSE 300 MG in SODIUM CHLORIDE 0.9% 250 ML IV SCH (11:19)
[2020-11-07] MEDS: ONDANSETRON INJ 2 MG/ML 2 ML VIAL IV PRN (12:43)
[2020-11-07] MEDS ORDERED: hydrOXYzine HCl 10 MG TAB PO STA (14:58)
--- NOTE | 2020-11-07 15:44 | Discharge Summary ---
Date of Service November 07, 2020 Admission HPI Per Admitting Provider Mrs. 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 While there, she mentioned intermittent chest pain over the past week. EKG was done which showed anterior ST segment elevations. A heart alert was called. She was taken emergently to the cardiac catheterization laboratory which revealed: -- LMCA -- Normal caliber, short, no significant disease -- LAD -- Medium caliber, 100% acute on chronic earlymid LAD occlusion. After reestablished flow 70% latemid disease. -- LCx -- Medium caliber, 30% diffuse disease in bifurcating OM1. OM2 medium caliber with no disease. -- RCA -- Medium caliber, dominant, mid segment luminal regularities. Faint right to left collaterals to LAD. -- LVEDP -14 -- LVEF 40% to 45% with severe anterior hypokinesis PCI -- Mid LAD lesion predilated with 2.5 compliant balloon Latemid LAD disease dilated with 2.5 balloon Garnett IVUS catheter placed into distal LAD. Pullback revealed moderate latemid disease and severe diffuse mildly calcified disease extending from mid segment back to proximal LAD. Dilated latemid lesion stented with a Xience 2.25 x 28 mm drug-eluting stent Stent postdilated with stent balloon Dilated earlymid LAD lesion stented with a Xience 2.75 x 33 mm DIA from proximal LAD across takeoff of D1. Stent post-dilated with 3.5 noncompliant balloon. Patient was subsequently admitted to ICU room 102. At the present time, she is still having some mild chest discomfort, but is significantly better than it was prior to her stent procedure. Patient denies any associated nausea, vomiting, diaphoresis, or dyspnea. She is not having any complications at this right radial arterial access site. TR band is still in place. She is in a normal sinus rhythm, and her vital signs are stable. Principal Diagnosis STEMI Discharge Exam Constitutional WD/WN, vitals as above Eyes EOM intact bilaterally; no conjunctival abnormality ENMT external ear and nose normal, oropharynx normal Neck trachea midline, no thyromegaly normal visual inspection Respiratory normal respiratory effort, lungs clear to auscultation no respiratory distress Cardiovascular RRR, no murmur, no edema Gastrointestinal (Abdomen) Inspection/Auscultation: abdomen normal to inspection; abdomen not distended Musculoskeletal no cyanosis or clubbing, extremities motor strength 5/5 Skin no rashes, warm and dry Neurologic moves all extremities and awake Psychiatric Orientation: alert, oriented to person and cooperative Discharge Data Allergies Allergy/AdvReac Type Severity Reaction Status Date / Time gabapentin Allergy Intermediate swollen Verified 11/02/20 09:06 tongue/face naproxen Allergy Intermediate swollen Verified 11/02/20 09:06 tongue/face latex Allergy Mild itchy Verified 11/02/20 09:06 adhesive Allergy Unknown acrylates/all Verified 11/02/20 09:06 tapes- skin peels off azithromycin Allergy Unknown Hives Verified 11/02/20 09:06 bacitracin Allergy Unknown Rash Verified 11/02/20 09:06 Bactrim Allergy Unknown Unknown Verified 09/05/17 09:10 belladonna alkaloids Allergy Unknown bilstering Verified 11/02/20 09:06 capsaicin Allergy Unknown Unknown Verified 11/02/20 09:06 carisoprodol Allergy Unknown Unknown Verified 11/02/20 09:06 cat pelt standardized Allergy Unknown catgut Verified 11/02/20 09:09 allergenic ex sutures- "got wound infection" chloramphenicol Allergy Unknown Unknown Verified 11/02/20 09:06 cisapride Allergy Unknown Unknown Verified 11/02/20 09:06 clindamycin Allergy Unknown Rash Verified 11/02/20 09:08 cobalt Allergy Unknown blistering Verified 11/02/20 09:06 diclofenac Allergy Unknown Unknown Verified 11/02/20 09:06 Diclopak Allergy Unknown Unknown Verified 09/05/17 09:10 ergotamine Allergy Unknown Unknown Verified 11/02/20 09:06 etodolac Allergy Unknown Unknown Verified 11/02/20 09:06 formaldehyde Allergy Unknown dyspnea Verified 11/02/20 09:06 Gold Salts Allergy Unknown skin Verified 11/02/20 09:06 peeling, itchy gold sodium thiomalate Allergy Unknown blistering Verified 11/02/20 09:08 imipenem Allergy Unknown Unknown Verified 11/02/20 09:06 immune globulin,gamma (IgG) Allergy Unknown IGA & IGG Verified 11/02/20 09:08 human infusion- severe back/head pain Influenza Virus Vaccines Allergy Unknown per PCP Verified 11/02/20 09:08 records Iodinated Contrast Media Allergy Unknown IV DYES- Verified 11/02/20 09:08 dyspnea, throat swelling iodine Allergy Unknown GI Verified 11/02/20 09:06 symptoms, SOB, throat swelling nefazodone Allergy Unknown Unknown Verified 11/02/20 09:06 neomycin Allergy Unknown itchy Verified 11/02/20 09:06 nepafenac Allergy Unknown Unknown Verified 11/02/20 09:06 nickel Allergy Unknown skin Verified 11/02/20 09:06 peeling nylon Allergy Unknown itchy, Verified 11/02/20 09:08 "hot" ofloxacin Allergy Unknown Unknown Verified 11/02/20 09:06 oxaprozin Allergy Unknown Unknown Verified 11/02/20 09:06 oxytetracycline Allergy Unknown Unknown Verified 11/02/20 09:08 paroxetine Allergy Unknown Unknown Verified 11/02/20 09:06 phenobarbital Allergy Unknown Unknown Verified 11/02/20 09:06 polymyxin B Allergy Unknown Unknown Verified 11/02/20 09:08 povidone-iodine Allergy Unknown dyspnea, Verified 11/02/20 09:06 throat swelling, itchy prochlorperazine Allergy Unknown transient Verified 11/02/20 09:06 paralysis sulfamethoxazole Allergy Unknown Difficulty Verified 11/02/20 09:06 Breathing sulfite Allergy Unknown per PCP Verified 11/02/20 09:08 records trazodone Allergy Unknown Unknown Verified 11/02/20 09:08 trimethoprim Allergy Unknown Unknown Verified 11/02/20 09:06 trovafloxacin Allergy Unknown Unknown Verified 11/02/20 09:06 venlafaxine Allergy Unknown tachycardia Verified 11/02/20 09:06 chlorhexidine Allergy hives Verified 11/02/20 09:06 vancomycin Allergy throat Verified 11/02/20 09:06 swelling, rash mirtazapine AdvReac Intermediate delirium Verified 11/02/20 09:06 doxycycline AdvReac Unknown severe Verified 11/02/20 09:06 diarrhea lavender (Lavandula AdvReac Unknown migraine Verified 11/02/20 09:08 angustifolia) pneumococcal vaccine AdvReac Unknown diarrhea Verified 11/02/20 09:06 Acrylamide-Sodium Acrylate Allergy Unknown _ Uncoded 11/02/20 09:06 Polymer CHLORHEXIDINE Allergy Unknown ITCHING Uncoded 11/02/20 09:11 Chloride Allergy Unknown dyspnea, Uncoded 11/02/20 09:06 itchy Edentate Disodium Allergy Unknown Unknown Uncoded 11/02/20 09:06 Benzalkonium Chlo Glutaral Allergy Unknown ?Glutaronitrile- Uncoded 11/02/20 09:06 Unknown reaction Methyldibromoglutaronitrile Allergy Unknown Unknown Uncoded 11/02/20 09:06 METHYLDIROMO Allergy Unknown Unknown Uncoded 11/02/20 09:06 Paraphenylenediamine Allergy Unknown blistering Uncoded 11/02/20 09:06 PERFUMES Allergy Unknown trouble Uncoded 11/02/20 09:06 breathing Phenoxyethanol Allergy Unknown Unknown Uncoded 11/02/20 09:06 PHENYLENE Allergy Unknown Unknown Uncoded 11/02/20 09:06 [place] Allergy Unknown colophony Uncoded 11/02/20 09:06 derived from pine tree- blistering PLAMITATE Allergy Unknown Unknown Uncoded 11/02/20 09:06 Sulfate Allergy Unknown Unknown Uncoded 11/02/20 09:06 Consultations 11/05/20 11:32 Consult Cardiac Rehabilitation Routine 11/05/20 11:33 Consult Information Systems Specialist Routine Procedures Performed Operation Date: 11/05/20 10:00 Actual Procedures s IVUS Coronary Single Vessel - Gilberto Patiño MD s Cineradiography w/Routine Exam - Gilberto Patiño MD p Aspiration/PCI w/DIA for Stemi - Gilberto Patiño MD Ordered Studies 11/05/20 09:44 CL Cath Imgs for PACS use only Stat 11/05/20 13:02 CL IVUS Coronary Single Vessel Routine Hospital Course (1) STEMI (ST elevation myocardial infarction): S/p 2 DIA to the mid and distal LAD. No other major coronary disease. - Continue DAPT - Ticagrelor only $25 at her pharmacy, so sent that script in. - Continue beta-austyn, ACEi, statin -> All prescribed via phone due to e- prescribing issues. - Plan for cardiac rehab on discharge (2) Cardiomyopathy, ischemic: Echo after cath showed EF 40 - 45% with LAD-distribution hypokinesis. - Medication as above (3) Elevated BP without diagnosis of hypertension: BP today is 120/70. - BP controlled with [place] medications as above (4) CKD (chronic kidney disease) stage 3, GFR 30-59 ml/min: Baseline Cr ~1.0 - 1.1. - Cr down to 0.85 on discharge. - Monitor (5) Fibromyalgia: Long-standing issue. - Continue home SSRI, mirtazapine - Continue metaxalone - Continue Reglan for her gastroparesis (6) Hypothyroidism: TSH was 0.4 this admission. Patient desires to bring in her own Synthroid. - Can continue if/when patient brings it in. (7) Anemia: Hx of iron deficiency anemia. Now with hgb down to 12 on 11/06 with an MCV of 73. - Venofer IV x 2 doses while inpatient (8) DVT prophylaxis: Heparin 5,000 units SQ Q12h Total Time Total Time Spent Total Time Spent (In Minutes): 35 Discharge Plan Discharge Items Patient Disposition: Home - Self-Care Reason For Visit: STEMI Discharge Diagnosis: ST-elevation [place] (heart attack) Activity: Resume your previous activity Non-emergency contact: Primary Care Provider and Cloth Weigher Call non-emergency contact if: your symptoms worsen Follow-up/Referrals: Gilberto Patiño MD [Physician] - (Please see Dr. Patiño in 1 week to check on how you're doing.) Ksenia Soto [Primary Care Provider] - Diet: Heart Healthy Addtl Attending Provider Instructions: You were admitted to the hospital with a heart attack. Please follow up with Dr. Patiño next week to be sure you are doing well. Please do not do any lifting with your right hand more than 5 lbs. until cleared by Dr. Patiño. Please stop your Celebrex for now as it can increase your bleeding risk while on the aspirin and Brilinta. Please do not skip any doses of your baby aspirin (81 mg) and Brilinta as this can cause your stents to close. Pending Studies at Discharge: No Stand-Alone Forms: My [employer], Smoking Cessation Medications and DC Order Prescriptions: New nitroglycerin [Nitrostat] 0.4 mg Tablet, Sublingual 0.4 mg sublingual Q5M PRN (Reason: chest pain) Qty: 30 RF: 0 lisinopril [Zestril] 5 mg Tablet 5 mg PO QAM Qty: 90 RF: 0 Brilinta 90 mg Tablet 90 mg PO BID Qty: 60 RF: 0 metoprolol succinate 50 mg tablet extended release 24 hr 50 mg PO DAILY Qty: 90 RF: 0 atorvastatin 80 mg tablet 80 mg PO HS Qty: 90 RF: 0 Continued oxybutynin chloride 15 mg tablet extended release 24hr 15 mg PO HS RF: 0 sumatriptan succinate 100 mg tablet 100 mg PO UD PRN (Reason: Migraine Headache) RF: 0 levothyroxine [Synthroid] 100 mcg tablet 100 mcg PO QAM RF: 0 metoclopramide HCl 5 mg tablet 5 mg PO ACHS RF: 0 mirtazapine 30 mg tablet 30 mg PO HS RF: 0 esomeprazole magnesium 40 mg capsule,delayed release(DR/EC) 40 mg PO QAM RF: 0 montelukast 10 mg tablet 10 mg PO HS RF: 0 epinephrine [EpiPen] 0.3 mg/0.3 mL Auto-Injector 0.3 mg IM Q3H PRN (Reason: Anaphylaxis) RF: 0 hydromorphone 4 mg tablet 4 mg PO BID PRN (Reason: Pain) RF: 0 fluticasone propionate 50 mcg/actuation spray,suspension 2 spray INTRANASAL BID RF: 0 escitalopram oxalate 20 mg tablet 20 mg PO HS RF: 0 metaxalone 800 mg tablet 800 mg PO TIDM RF: 0 oxycodone 20 mg tablet 20 mg PO BID PRN (Reason: Pain) RF: 0 Gammagard Liquid 10 % solution 30 g IV Q4WK RF: 0 Ket10/Bac2/Gab6/Cyc2/Lid3/Dic3 1 - 2 g topical QID PRN (Reason: Pain) RF: 0 polyethylene glycol 3350 [Miralax] 17 gram Powder In Packet 17 g PO QAM RF: 0 aspirin 81 mg tablet,delayed release (DR/EC) 81 mg PO DAILY Qty: 30 RF: 0 amoxicillin 500 mg Capsule 2,000 mg PO UD RF: 0 Combivent Respimat 20-100 mcg/actuation Mist 1 puff INHALATION Q6H PRN (Reason: Wheezing) RF: 0 ondansetron HCl [Zofran] 4 mg Tablet 4 mg PO Q6H PRN (Reason: Nausea) RF: 0 benzonatate [Tessalon Perles] 100 mg Capsule 100 mg PO Q8H PRN (Reason: Cough) RF: 0 vitamin E 400 unit Capsule 400 unit PO QAM RF: 0 acetaminophen [Tylenol] 325 mg Capsule 650 mg PO QID PRN (Reason: Pain) RF: 0 Probiotic 3 billion cell Capsule 3,000 mmu cells PO QAM RF: 0 biotin 5,000 mcg Tablet, Sublingual 5,000 mcg SUBLINGUAL QAM RF: 0 Cbd Cream Otc 1 dose topical UD PRN (Reason: Pain) RF: 0 Discontinued celecoxib [Celebrex] 200 mg Capsule 200 mg PO QAM RF: 0 Discharge Orders: Discharge Order (Routine); Ordered 11/07/20 Ordered By: Tanner Mccormick/Other Patient Handouts: Healthy Meals for Diabetes, A1C Admission Data Admit Date/Time: 11/05/20 11:33 Attending Provider: Tanner Monte Admit Provider: Gilberto Patiño Primary Care Provider: Ksenia Soto Other Providers: Susana Turcios Other Interventions: Discharge Summary Assessment (RN) Last Done: 11/07/20 12:58 Coding Level of Care Code D/C Day Management >30 mins Diagnoses STEMI (ST elevation myocardial infarction) I21.3 Involved coronary artery: unspecified coronary artery Cardiomyopathy, ischemic I25.5 Elevated BP without diagnosis of hypertension R03.0 CKD (chronic kidney disease) stage 3, GFR 30-59 ml/min N18.30 Fibromyalgia M79.7 Hypothyroidism E03.9 Anemia D64.9 DVT prophylaxis Z29.9
== END 2020-11-07 15:29 | disposition home or self-care (01) | DRG 247 ==
LOC: ED 09:39 → CC 10:04 → 1E 11:33 → SUATTDRO 11:33 → 2S 11-06 10:37

== ENCOUNTER 2020-11-11 09:06 | Observation (INO) ==
[2020-11-11] MEDS ORDERED: NITROGLYCERIN SL 0.4 MG/TAB TAB SL PRN ×2 (09:54→14:52)
[2020-11-11] MEDS ORDERED: SODIUM CHLORIDE 0.9% 1000ML 1,000 ML IV STA (09:54)
[2020-11-11] MEDS ORDERED: ONDANSETRON INJ 2 MG/ML 2 ML VIAL IV STA ×2 (09:54→11:35)
--- NOTE | 2020-11-11 10:27 | XRay Report ---
XR chest 1V portable CLINICAL HISTORY: Chest Pain COMPARISON STUDY: Chest radiograph 02/06/2021. FINDINGS: Incidental note is made of metallic densities projecting over the right upper arm, left katya ulder arthroplasty, left subclavian [id number] and anterior cervical spine fusion. There is no pne umothorax or pleural effusion. Cardiac size is normal. No consolidation is identified. There is no ev idence for pulmonary edema. IMPRESSION: No acute cardiopulmonary findings. ACT 112: Negative or not required by law. Electronically signed by: Padilla Wilder M.D. 11/11/2020 10:25 AM
[2020-11-11 10:40] LABS: Basophils # (auto) 0.02 K/uL (0-0.2); Basophils % (auto) 0.2 %; Eosinophils # (auto) 0.05 K/uL (0-0.5); Eosinophils % (auto) 0.5 %; Hematocrit (blood only) 36.9 % (37-47); Hemoglobin 11.6 g/dL (12.0-16.0); Immature Granulocytes # (auto) 0.03 K/uL (0.00-0.02); Immature Granulocytes % (auto) 0.3 %; Lymphocytes # (auto) 1.54 K/uL (1.2-3.4); Lymphocytes % (auto) 16.1 %; Mean Corpuscular Hemoglobin 23.1 pg (25-34); Mean Corpuscular Hgb Conc 31.4 g/dL (32-36); Mean Corpuscular Volume 73.4 fL (80-100); Mean Platelet Volume 10.7 fL (7.4-10.4); Monocytes # (auto) 0.73 K/uL (0.11-0.59); Monocytes % (auto) 7.6 %; Neutrophils # (auto) 7.18 K/uL (1.4-6.5); Neutrophils % (auto) 75.3 %; Platelet Count 298 K/uL (130-400); RDW Coefficient of Variation 18.2 % (11.5-14.5); RDW Standard Deviation 47.6 fL (36.4-46.3); Red Blood Count 5.03 M/uL (4.2-5.4); White Blood Count 9.55 K/uL (4.8-10.8)
[2020-11-11 10:46] LABS: Partial Thromboplastin Ratio 1.1; Partial Thromboplastin Time 29.1 Seconds (21.0-31.0); Prothrombin Time 10.4 Seconds (9.0-12.0)
[2020-11-11 10:50] LABS: Albumin Level 3.3 gm/dl (3.4-5.0); BUN Creatinine Ratio 19.3 (10-20); Calcium 9.3 mg/dl (8.5-10.1); Creatinine Clr Calc Pharmacy 64.8 ml/min; Est GFR (African American) 82.7 ml/min; Est GFR (Non-African American) 71.4 ml/min; Potassium 4.2 mmol/L (3.5-5.1)
[2020-11-11 11:00] LABS: Albumin Globulin Ratio 0.8 (0.9-2); Bilirubin,Total 0.4 mg/dl (0.2-1); Globulin 4.1 gm/dl (2.5-4.0); Total Protein 7.4 gm/dl (6.4-8.2); Troponin I 5.5 ng/ml (0-0.045)
[2020-11-11] MEDS ORDERED: ACETAMINOPHEN 1000 MG/100 ML IV IV ONE (11:35)
[2020-11-11] MEDS ORDERED: NITROGLYCERIN 2% OINTMENT 30GM TUBE EXT ONE (11:45)
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
[2020-11-11] MEDS ORDERED: ACETAMINOPHEN 325 MG TAB PO PRN (14:52)
[2020-11-11] MEDS ORDERED: DIPHENOXYLATE/ATROPINE 2.5/0.025MG TAB PO PRN (14:52)
[2020-11-11] MEDS ORDERED: METAXALONE 800 MG TABLET PO PRN (14:52)
[2020-11-11] MEDS ORDERED: ONDANSETRON 4 MG OD TAB PO PRN (14:52)
[2020-11-11] MEDS ORDERED: ALUMINUM/MAGNESIUM SUSP 30 ML UDC PO PRN (14:52)
[2020-11-11] MEDS ORDERED: IPRATROPIUM BROMIDE/ALBUTEROL respimat INH INH PRN (14:52)
[2020-11-11] MEDS ORDERED: Ipratropium HFA Inhaler (Combivent Respimat P&T Subs) INH PRN (15:16)
[2020-11-11] MEDS ORDERED: Albuterol HFA 8 GM Inhaler (Combivent Respimat P&T Subs) INH PRN (15:16)
[2020-11-11] MEDS: ONDANSETRON INJ 2 MG/ML 2 ML VIAL IV PRN (15:19)
[2020-11-11] MEDS: FIDAXOMICIN 200 MG TAB PO SCH ×2 (15:46→20:58)
[2020-11-11] MEDS: SODIUM CHLORIDE 0.9% 1000ML 1,000 ML IV SCH (16:01)
[2020-11-11] MEDS: HYDROmorphone HCL 2 MG TAB PO PRN (16:02)
--- NOTE | 2020-11-11 16:36 | Ultrasound Report ---
LEFT LOWER EXTREMITY VENOUS DOPPLER CLINICAL HISTORY: left calf pain COMPARISON STUDY: Left lower extremity venous Doppler ultrasound January 02, 2020. TECHNIQUE: Sonography of the deep venous system of the left lower extremity was performed. Compressi on and augmentation were evaluated. FINDINGS: The left common femoral, superficial femoral and popliteal veins were compressible. Augmen tation was normal. Flow was shown within the deep calf vessels. A 3.4 x 0.7 x 2.9 cm left popliteal c yst is noted. IMPRESSION: 1. No evidence of deep venous thrombus within the left lower extremity. 2. Small left popliteal cyst. ACT 112: Negative or not required by law. Electronically signed by: Padilla Wilder M.D. 11/11/2020 4:35 PM
[2020-11-11] MEDS: METOCLOPRAMIDE HCL 5 MG TABLET PO SCH ×2 (16:42→20:39)
--- NOTE | 2020-11-11 16:53 | Emergency Department Note ---
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 saline while in the emergency department. The case was further discussed with Dr. Garcia, architectural design professor who also agrees with hospital evaluation. At this point, I do not feel that intervention is warranted. Impression & Plan Chest pain due to CAD, History of placement of stent in LAD coronary artery, History of ST elevation myocardial infarction (STEMI) Discharge Plan Visit Data Chief Complaint: Chest Pain Stated Complaint: CHEST PAIN,SOB ED Provider: Blossom Huertas ED Midlevel Provider: Serjio Crawley Discharge Problem: Chest pain due to CAD, History of placement of stent in LAD coronary artery, History of ST elevation myocardial infarction (STEMI) Patient Disposition: Admitted As Inpatient Discharge Instructions Interventions: ED Discharge Assessment Last Done: 11/11/20 13:26
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
[2020-11-11] MEDS: NITROGLYCERIN 2% OINTMENT 30GM TUBE EXT SCH (18:37)
--- NOTE | 2020-11-11 18:40 | Electrocardiogram Report ---
Test Reason : Blood Pressure : / mmHG Vent. Rate : 070 BPM Atrial Rate : 070 BPM P-R Int : 192 ms QRS Dur : 080 ms QT Int : 408 ms P-R-T Axes : 077 083 098 degrees QTc Int : 440 ms Normal sinus rhythm Possible Left atrial enlargement Anteroseptal infarct (cited on or before 06-NOV-2020) Abnormal ECG When compared with ECG of 06-NOV-2020 15:34, Serial changes of Anteroseptal infarct Present Confirmed by Jurgen Garcia ([id number]) on 11/11/2020 6:39:39 PM Referred By: NO PCP Confirmed By:Vijay Garcia
[2020-11-11] MEDS: FLUTICASONE PROPIONATE NA SPR 16 GM BTL SCH (20:35)
[2020-11-11] MEDS: TICAGRELOR 90 MG TAB PO SCH (20:39)
[2020-11-11] MEDS: HEPARIN SOD 5,000 UNIT/0.5 ML VIAL SQ SCH (20:42)
[2020-11-11] MEDS ORDERED: ESCITALOPRAM OXALATE 20 MG TAB PO SCH (21:00)
[2020-11-11] MEDS ORDERED: MONTELUKAST SODIUM 10 MG TABLET PO SCH (21:00)
[2020-11-11] MEDS ORDERED: ATORVASTATIN 40 MG TAB PO SCH (21:00)
[2020-11-11] MEDS ORDERED: MIRTAZAPINE TAB 15 MG TAB PO SCH (21:00)
[2020-11-11] MEDS ORDERED: ASPIRIN 81 MG ECTAB PO SCH (21:00)
[2020-11-11] MEDS ORDERED: OXYBUTYNIN CHLORIDE XL 5 MG TABCR PO SCH (21:00)
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
[2020-11-11] MEDS: MoRPHine SULFATE 2 MG/ML CARP IV PRN (22:14)
[2020-11-12] MEDS: SODIUM CHLORIDE 0.9% 1000ML 1,000 ML IV SCH (00:04)
[2020-11-12] MEDS: NITROGLYCERIN 2% OINTMENT 30GM TUBE EXT SCH ×3 (00:04→11:17)
[2020-11-12] MEDS: MoRPHine SULFATE 2 MG/ML CARP IV PRN (05:57)
[2020-11-12] MEDS ORDERED: LEVOTHYROXINE SODIUM 100 MCG TABLET PO SCH (06:30)
[2020-11-12] MEDS: ONDANSETRON INJ 2 MG/ML 2 ML VIAL IV PRN (07:30)
[2020-11-12] MEDS: METOCLOPRAMIDE HCL 5 MG TABLET PO SCH (07:32)
[2020-11-12] MEDS: TICAGRELOR 90 MG TAB PO SCH (07:32)
[2020-11-12] MEDS: HEPARIN SOD 5,000 UNIT/0.5 ML VIAL SQ SCH (07:33)
[2020-11-12] MEDS: FLUTICASONE PROPIONATE NA SPR 16 GM BTL SCH (07:33)
[2020-11-12 07:47] LABS: BUN Creatinine Ratio 11.3 (10-20); Calcium 8.7 mg/dl (8.5-10.1); Creatinine Clr Calc Pharmacy 67.9 ml/min; Est GFR (African American) 86.4 ml/min; Est GFR (Non-African American) 74.5 ml/min; Potassium 3.9 mmol/L (3.5-5.1)
[2020-11-12 07:51] LABS: Troponin I 3.8 ng/ml (0-0.045)
[2020-11-12] MEDS: FIDAXOMICIN 200 MG TAB PO SCH (08:43)
[2020-11-12] MEDS ORDERED: ASPIRIN 325 MG ECTAB PO SCH (09:00)
[2020-11-12] MEDS ORDERED: ASPIRIN 81 MG ECTAB PO SCH (09:00)
[2020-11-12] MEDS ORDERED: ADVANCED PROBIOTIC 1250 MG CAPSULE PO SCH (09:00)
[2020-11-12] MEDS ORDERED: PANTOprazole 40 MG TAB PO SCH (09:00)
[2020-11-12] MEDS ORDERED: lisinopril 5 MG TAB PO SCH (09:00)
[2020-11-12] MEDS ORDERED: TOCOPHERYL, DL-ALPHA 400 UNITS 180 MG CAP PO SCH (09:00)
[2020-11-12] MEDS ORDERED: METOPROLOL SUCC 50MG EXT REL TAB PO SCH (09:00)
[2020-11-12] MEDS ORDERED: POLYETHYLENE (MIRALAX) 17 GM PACK PO SCH (09:00)
--- NOTE | 2020-11-12 10:49 | Cardiology Progress Note ---
Date of Service November 12, 2020 Assessment & Plan (1) Chest pain: 2. Coronary artery diseaseanterior DE 11/05/2020 post primary PCI with 2 DIA to LAD, peak troponin 153 3. Ischemic cardiomyopathyEF 45%, apical akinesis 4. Diarrhea 5. Chronic pain Still with intermittent chest pain but troponin downtrending. Do not feel current chest pain cardiac in nature. Well-perfused without signs of heart failure on exam. Electrically stable on telemetry. Continue DAPT with aspirin, ticagrelor Continue GDMT with Toprol-XL, lisinopril Continue current statin Discharge okay from a cardiac standpoint. Has scheduled follow-up with me on 11/23. Admission and Anticipated Discharge Date Admission Date: November 11, 2020 Subjective Patient reports intermittent chest pressure with getting up and moving to the bathroom. Denies significant shortness of breath. Diarrhea improved. Extremely hot, no significant fevers. Review of Systems Review of Systems: All systems reviewed & are unremarkable except as noted in HPI & below Physical Exam Physical Exam: General: no acute distress HEENT: Sclerae anicteric, mucous membranes moist Lungs: Clear to auscultation bilaterally Cardiac: Regular rate and rhythm, no murmurs. Abdomen: Soft, mild tenderness, positive bowel sounds Extremities: Warm, well perfused, no edema. Mild ecchymosis at right radial access site. 2+ pulse Neuro: Nonfocal Psych: Alert orient x3 Results & Data ([facility]) Vital Signs (Past 12 Hours) Vital Signs Temp Pulse Resp BP Pulse Ox 11/12/20 07:03 99.7 F H 77 16 140/71 95 11/12/20 03:41 99.0 F 73 16 154/66 H 98 PG Care Time/CCT Total # of Minutes Spent Total Time Spent with Patient: Total time spent is greater than 50% in coordination of care (as documented) at patient's floor/unit and/or counseling patient: Coding Level of Care Code 19796 Subseq Hosp Care Lvl 3 Diagnoses Chest pain R07.9
--- NOTE | 2020-11-12 11:36 | Electrocardiogram Report ---
Test Reason : Blood Pressure : / mmHG Vent. Rate : 067 BPM Atrial Rate : 067 BPM P-R Int : 210 ms QRS Dur : 082 ms QT Int : 412 ms P-R-T Axes : 071 073 110 degrees QTc Int : 435 ms Sinus rhythm with 1st degree A-V block Possible Left atrial enlargement Anteroseptal infarct (cited on or before 06-NOV-2020) Abnormal ECG When compared with ECG of 11-NOV-2020 09:21, Serial changes of Anteroseptal infarct Present Confirmed by Jurgen Garcia ([id number]) on 11/12/2020 11:36:33 AM Referred By: NO PCP Confirmed By:Vijay Garcia
--- NOTE | 2020-11-12 11:39 | Electrocardiogram Report ---
Test Reason : Blood Pressure : / mmHG Vent. Rate : 074 BPM Atrial Rate : 074 BPM P-R Int : 198 ms QRS Dur : 088 ms QT Int : 384 ms P-R-T Axes : 072 077 106 degrees QTc Int : 426 ms Normal sinus rhythm Anterior infarct Abnormal ECG When compared with ECG of 11-NOV-2020 22:23, (unconfirmed) No significant change was found Confirmed by Jurgen Garcia ([id number]) on 11/12/2020 11:38:48 AM Referred By: NO PCP Confirmed By:Vijay Garcia
[2020-11-12] MEDS ORDERED: hydrOXYzine HCl 25 MG TAB PO PRN (13:32)
[2020-11-12] MEDS: HYDROmorphone HCL 2 MG TAB PO PRN (14:14)
[2020-11-12] MEDS ORDERED: DICLOFENAC SOD 1% GEL 100 GM TUBE EXT PRN (15:28)
--- NOTE | 2020-11-12 15:47 | Discharge Summary ---
Date of Service November 12, 2020 Admission HPI Per Admitting Provider 65-year-old female with a history of Stemi with stent 11/05/20 presents wtih persistent CP and now also diarrhea. The intervention was mid lad, she has residual troponin of 5( pk was 153) and ECG with likely evolutionary changes. -- LVEF 40% to 45% with severe anterior hypokinesis. Patient really has had no good resolution of her symptoms since discharge with her substernal chest discomfort being about the same. Her biggest issue really revolves around persistent and increasing yellow diarrhea this created her to be weekend and she was unable to determine whether her weakness was now coming from the diarrhea or coming and was associate with her chest pain. 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 Principal Diagnosis Chest pain-noncardiac, diarrhea Discharge Exam Constitutional WD/WN, vitals as above Eyes PERRL, conjunctivae normal, anicteric sclerae ENMT external ear and nose normal, oropharynx normal Neck trachea midline, no thyromegaly Respiratory normal respiratory effort, lungs clear to auscultation Cardiovascular RRR, no murmur, no edema Chest (Breasts) Chest: normal inspection of chest Additional Comments: +TTP over left costochondral junction at exact site of pain and is reproducible Gastrointestinal (Abdomen) normal bowel sounds, soft, nontender, no hepatosplenomegaly Musculoskeletal Extremities: extremities normal to inspection; no cyanosis and no clubbing Skin no rashes, warm and dry Neurologic moves all extremities and awake; no focal motor deficits Psychiatric Orientation: alert and oriented x 3 Affect: + anxious affect Lymphatic no lymphedema Discharge Data Allergies Allergy/AdvReac Type Severity Reaction Status Date / Time gabapentin Allergy Intermediate swollen Verified 11/11/20 10:00 tongue/face naproxen Allergy Intermediate swollen Verified 11/11/20 10:00 tongue/face latex Allergy Mild itchy Verified 11/11/20 10:00 adhesive Allergy Unknown acrylates/all Verified 11/11/20 10:00 tapes- skin peels off azithromycin Allergy Unknown Hives Verified 11/11/20 10:00 bacitracin Allergy Unknown Rash Verified 11/11/20 10:00 Bactrim Allergy Unknown Unknown Verified 09/05/17 09:10 belladonna alkaloids Allergy Unknown bilstering Verified 11/11/20 10:00 capsaicin Allergy Unknown Unknown Verified 11/11/20 10:00 carisoprodol Allergy Unknown Unknown Verified 11/11/20 10:00 cat pelt standardized Allergy Unknown catgut Verified 11/11/20 10:00 allergenic ex sutures- "got wound infection" chloramphenicol Allergy Unknown Unknown Verified 11/11/20 10:00 cisapride Allergy Unknown Unknown Verified 11/11/20 10:00 clindamycin Allergy Unknown Rash Verified 11/11/20 10:00 cobalt Allergy Unknown blistering Verified 11/11/20 10:00 diclofenac Allergy Unknown Unknown Verified 11/11/20 10:00 Diclopak Allergy Unknown Unknown Verified 09/05/17 09:10 ergotamine Allergy Unknown Unknown Verified 11/11/20 10:00 etodolac Allergy Unknown Unknown Verified 11/11/20 10:00 formaldehyde Allergy Unknown dyspnea Verified 11/11/20 10:00 Gold Salts Allergy Unknown skin Verified 11/11/20 10:00 peeling, itchy gold sodium thiomalate Allergy Unknown blistering Verified 11/11/20 10:00 imipenem Allergy Unknown Unknown Verified 11/11/20 10:00 immune globulin,gamma (IgG) Allergy Unknown IGA & IGG Verified 11/11/20 10:00 human infusion- severe back/head pain Influenza Virus Vaccines Allergy Unknown per PCP Verified 11/11/20 10:00 records Iodinated Contrast Media Allergy Unknown IV DYES- Verified 11/11/20 10:00 dyspnea, throat swelling iodine Allergy Unknown GI Verified 11/11/20 10:00 symptoms, SOB, throat swelling nefazodone Allergy Unknown Unknown Verified 11/11/20 10:00 neomycin Allergy Unknown itchy Verified 11/11/20 10:00 nepafenac Allergy Unknown Unknown Verified 11/11/20 10:00 nickel Allergy Unknown skin Verified 11/11/20 10:00 peeling nylon Allergy Unknown itchy, Verified 11/11/20 10:00 "hot" ofloxacin Allergy Unknown Unknown Verified 11/11/20 10:00 oxaprozin Allergy Unknown Unknown Verified 11/11/20 10:00 oxytetracycline Allergy Unknown Unknown Verified 11/11/20 10:00 paroxetine Allergy Unknown Unknown Verified 11/11/20 10:00 phenobarbital Allergy Unknown Unknown Verified 11/11/20 10:00 polymyxin B Allergy Unknown Unknown Verified 11/11/20 10:00 povidone-iodine Allergy Unknown dyspnea, Verified 11/11/20 10:00 throat swelling, itchy prochlorperazine Allergy Unknown transient Verified 11/11/20 10:00 paralysis sulfamethoxazole Allergy Unknown Difficulty Verified 11/11/20 10:00 Breathing sulfite Allergy Unknown per PCP Verified 11/11/20 10:00 records trazodone Allergy Unknown Unknown Verified 11/11/20 10:00 trimethoprim Allergy Unknown Unknown Verified 11/11/20 10:00 trovafloxacin Allergy Unknown Unknown Verified 11/11/20 10:00 venlafaxine Allergy Unknown tachycardia Verified 11/11/20 10:00 chlorhexidine Allergy hives Verified 11/11/20 10:00 vancomycin Allergy throat Verified 11/11/20 10:00 swelling, rash mirtazapine AdvReac Intermediate delirium Verified 11/11/20 10:00 doxycycline AdvReac Unknown severe Verified 11/11/20 10:00 diarrhea lavender (Lavandula AdvReac Unknown migraine Verified 11/11/20 10:00 angustifolia) pneumococcal vaccine AdvReac Unknown diarrhea Verified 11/11/20 10:00 Acrylamide-Sodium Acrylate Allergy Unknown _ Uncoded 11/11/20 10:00 Polymer CHLORHEXIDINE Allergy Unknown ITCHING Uncoded 11/11/20 10:00 Chloride Allergy Unknown dyspnea, Uncoded 11/11/20 10:00 itchy Edentate Disodium Allergy Unknown Unknown Uncoded 11/11/20 10:00 Benzalkonium Chlo Glutaral Allergy Unknown ?Glutaronitrile- Uncoded 11/11/20 10:00 Unknown reaction Methyldibromoglutaronitrile Allergy Unknown Unknown Uncoded 11/11/20 10:00 METHYLDIROMO Allergy Unknown Unknown Uncoded 11/11/20 10:00 Paraphenylenediamine Allergy Unknown blistering Uncoded 11/11/20 10:00 PERFUMES Allergy Unknown trouble Uncoded 11/11/20 10:00 breathing Phenoxyethanol Allergy Unknown Unknown Uncoded 11/11/20 10:00 PHENYLENE Allergy Unknown Unknown Uncoded 11/11/20 10:00 [place] Allergy Unknown colophony Uncoded 11/11/20 10:00 derived from pine tree- blistering PLAMITATE Allergy Unknown Unknown Uncoded 11/11/20 10:00 Sulfate Allergy Unknown Unknown Uncoded 11/11/20 10:00 Consultations 11/11/20 12:11 ED Decision to Admit Stat 11/11/20 14:52 Consult Cardiology Routine Ordered Studies 11/11/20 14:52 US venous doppler LE LT Stat Chest X-Ray 11/11/20 09:54 XR chest 1V portable CLINICAL HISTORY: Chest Pain COMPARISON STUDY: Chest radiograph 02/06/2021. FINDINGS: Incidental note is made of metallic densities projecting over the right upper arm, left shoulder arthroplasty, left subclavian Ablctm-p-Ymon and anterior cervical spine fusion. There is no pneumothorax or pleural effusion. Cardiac size is normal. No consolidation is identified. There is no evidence for pulmonary edema. IMPRESSION: No acute cardiopulmonary findings. ACT 112: Negative or not required by law. Electronically signed by: Padilla Wilder M.D. 11/11/2020 10:25 AM Venous Doppler Study 11/11/20 14:52 LEFT LOWER EXTREMITY VENOUS DOPPLER CLINICAL HISTORY: left calf pain COMPARISON STUDY: Left lower extremity venous Doppler ultrasound January 02, 2020. TECHNIQUE: Sonography of the deep venous system of the left lower extremity was performed. Compression and augmentation were evaluated. FINDINGS: The left common femoral, superficial femoral and popliteal veins were compressible. Augmentation was normal. Flow was shown within the deep calf vessels. A 3.4 x 0.7 x 2.9 cm left popliteal cyst is noted. IMPRESSION: 1. No evidence of deep venous thrombus within the left lower extremity. 2. Small left popliteal cyst. ACT 112: Negative or not required by law. Electronically signed by: Padilla Wilder M.D. 11/11/2020 4:35 PM Hospital Course (1) Acute costochondritis: Pain likely secondary to costochondritis as it was reproducible on examination. Troponins trended downward from previous STEMI from 5 on admission down to 3 (initially was 153 on previous admission for STEMI). She had no significant events on telemetry Advised Voltaren gel topically applied and minimal exertion with evidence of pain is resolved. Appreciate cardiology consultation-consistent with noncardiac chest pain (2) Chest pain: As above (3) Diarrhea: low grade temps here resolved after admission after starting Dificid from previous admission, harsh po pt had persistent diarrhea that started prior to discharge that was yellow and foul smelling a stool sample was not able to be collected during the admission as her diarrhea quickly resolved after starting Dificid However, There is no other explanation and she did have low-grade fevers here- because Dificid is extremely expensive, will discharge to home on a p.o. course of metronidazole x10 days (patient is allergic to vancomycin) Follow-up with PCP Stool cultures also were not collected during admission Advised to not take Lomotil or Imodium at home (4) Hypertension: Continue disease modifying medications to treat her hypertension (5) CKD (chronic kidney disease) stage 3, GFR 30-59 ml/min: Creatinine at baseline, 0.83 -Avoid nephrotoxins -renally dose meds when appropriate -follow BMP as an outpatient (6) Dyslipidemia: High-dose atorvastatin at 80 (7) Depression: Patient remains on Lexapro and mirtazapine (8) COPD (chronic obstructive pulmonary disease): Patient is on Combivent No acute issues (9) Back pain: Patient is free previous compression fractures remains on pain control with Tylenol and opiates (typically uses dilaudid po) (10) Hypothyroidism: Continues on Synthroid TSH was normal during last admission (11) Coronary artery disease: As above, with recent STEMI, troponin trending downward This is noncardiac chest pain Continue home aspirin, Brilinta, atorvastatin, metoprolol, lisinopril Follow-up with cardiology as planned in the near future (12) Cardiomyopathy, ischemic: Secondary to recent STEMI Ejection fraction 40 to 45% on echocardiogram during this evaluation Continue guideline directed medical therapy with Toprol-XL, lisinopril She is Not volume overloaded at this time (13) DVT prophylaxis: Heparin for DVT prevention Disposition-medically stable for discharge home Case discussed with cardiology Total Time Total Time Spent Total Time Spent (In Minutes): 35 minutes Total Time Includes: Examination of the Patient, Discharge Planning, Medication Reconciliation and Communication With Other Providers Discharge Plan Discharge Items Patient Disposition: Home - Self-Care Reason For Visit: CHEST PAIN Discharge Diagnosis: Costochondritis, Diarrhea Condition on Discharge: Good Activity: As commented below Lifting: No more than 5 pounds Lifting Comment: until chest pain improved Bathing: No limitations Non-emergency contact: Primary Care Provider and Film Examiner Call non-emergency contact if: you have any medication questions, your symptoms worsen, your pain is not controlled, your pain is worsening, your pain is unusual for you, your pain is concerning for you and you have a fever Follow-up/Referrals: Gilberto Patiño MD [Physician] - (Follow up within 1 week) Ksenia Soto [Primary Care Provider] - (Follow up within 1-2 weeks) Diet: Heart Healthy Addtl Attending Provider Instructions: You were admitted with chest pain that is coming from inflammation in the cartilage between your ribs and your breast bone. This likely has come on since you had to stop taking your Celebrex which was previously suppressing your pain/inflammation. You can use topical diclofenac (which you have tolerated before in a compound for your knee pain) on the site of pain in the chest. You should avoid heavy lifting until the pain is resolved. As for your diarrhea, unfortunately no stool sample was collected during your stay as your diarrhea was completely resolved. You were started on an antibiotic in case of Clostridium difficile diarrhea. Please continue to take metronidazole three times a day for 9 more days. You should avoid taking Lomotil. You should follow up with Cardiology as planned and follow up with your PCP within 1-2 weeks. Pending Studies at Discharge: No Stand-Alone Forms: My [facility] [employer], Smoking Cessation Medications and DC Order Prescriptions: New diclofenac sodium [Voltaren] 1 % Gel 2 g EXT QID PRN (Reason: pain) Qty: 100 RF: 0 Continued oxybutynin chloride 15 mg tablet extended release 24hr 15 mg PO HS RF: 0 sumatriptan succinate 100 mg tablet 100 mg PO UD PRN (Reason: Migraine Headache) RF: 0 levothyroxine [Synthroid] 100 mcg tablet 100 mcg PO QAM RF: 0 metoclopramide HCl 5 mg tablet 5 mg PO ACHS RF: 0 mirtazapine 30 mg tablet 30 mg PO HS RF: 0 esomeprazole magnesium 40 mg capsule,delayed release(DR/EC) 40 mg PO QAM RF: 0 montelukast 10 mg tablet 10 mg PO HS RF: 0 epinephrine [EpiPen] 0.3 mg/0.3 mL Auto-Injector 0.3 mg IM Q3H PRN (Reason: Anaphylaxis) RF: 0 hydromorphone 4 mg tablet 4 mg PO BID PRN (Reason: Pain) RF: 0 fluticasone propionate 50 mcg/actuation spray,suspension 2 spray INTRANASAL BID RF: 0 escitalopram oxalate 20 mg tablet 20 mg PO HS RF: 0 metaxalone 800 mg tablet 800 mg PO TIDM RF: 0 oxycodone 20 mg tablet 20 mg PO BID PRN (Reason: Pain) RF: 0 Gammagard Liquid 10 % solution 30 g IV Q4WK RF: 0 aspirin 81 mg tablet,delayed release (DR/EC) 81 mg PO DAILY Qty: 30 RF: 0 nitroglycerin [Nitrostat] 0.4 mg Tablet, Sublingual 0.4 mg sublingual Q5M PRN (Reason: chest pain) Qty: 30 RF: 0 lisinopril [Zestril] 5 mg Tablet 5 mg PO QAM Qty: 90 RF: 0 Brilinta 90 mg Tablet 90 mg PO BID Qty: 60 RF: 0 metoprolol succinate 50 mg tablet extended release 24 hr 50 mg PO DAILY Qty: 90 RF: 0 atorvastatin 80 mg tablet 80 mg PO HS Qty: 90 RF: 0 amoxicillin 500 mg Capsule 2,000 mg PO UD PRN (Reason: dental pretreat) RF: 0 Combivent Respimat 20-100 mcg/actuation Mist 1 puff INHALATION Q6H PRN (Reason: Wheezing) RF: 0 ondansetron HCl [Zofran] 4 mg Tablet 4 mg PO Q6H PRN (Reason: Nausea) RF: 0 vitamin E 400 unit Capsule 400 unit PO QAM RF: 0 acetaminophen [Tylenol] 325 mg Capsule 650 mg PO QID PRN (Reason: Pain) RF: 0 Probiotic 3 billion cell Capsule 3,000 mmu cells PO QAM RF: 0 biotin 5,000 mcg Tablet, Sublingual 5,000 mcg SUBLINGUAL QAM RF: 0 Cbd Cream Otc 1 dose topical UD PRN (Reason: Pain) RF: 0 Discontinued polyethylene glycol 3350 [Miralax] 17 gram Powder In Packet 17 g PO QAM RF: 0 benzonatate [Tessalon Perles] 100 mg Capsule 100 mg PO Q8H PRN (Reason: Cough) RF: 0 diphenoxylate-atropine [Lomotil] 2.5-0.025 mg Tablet 4 tab PO DAILY PRN (Reason: Diarrhea) RF: 0 Discharge Orders: Discharge Order (Routine); Ordered 11/12/20 Ordered By: Prerna Mccormick/Other Patient Handouts: Warning Signs of a Heart Attack Admission Data Admit Date/Time: 11/11/20 12:37 Attending Provider: Prerna Johnson Admit Provider: Ti Aguilera Primary Care Provider: Ksenia Soto Other Providers: Gilberto Garcia Other Interventions: Discharge Summary Assessment (RN) Last Done: 11/12/20 15:58 Coding Level of Care Code 49510 OBS Care - Discharge Diagnoses Acute costochondritis M94.0 Chest pain R07.9 Diarrhea R19.7 Hypertension I10 CKD (chronic kidney disease) stage 3, GFR 30-59 ml/min N18.30 Dyslipidemia E78.5 Depression F32.9 COPD (chronic obstructive pulmonary disease) J44.9 Back pain M54.9 Hypothyroidism E03.9 Coronary artery disease I25.10 Cardiomyopathy, ischemic I25.5 DVT prophylaxis Z29.9
== END 2020-11-12 17:45 | disposition home or self-care (01) ==
LOC: ED 09:06 → 2S 09:06 → SUATTDRO 12:37 → 2S 13:26
DX: Z88.2 Allergy status to sulfonamides; M48.02 Spinal stenosis, cervical region; Z88.1 Allergy status to other antibiotic agents; I73.00 Raynaud's syndrome without gangrene; Z88.8 Allergy status to other drugs, medicaments and biological substances; Z91.041 Radiographic dye allergy status; E03.9 Hypothyroidism, unspecified; M79.7 Fibromyalgia; I12.9 Hypertensive chronic kidney disease with stage 1 through stage 4 chronic kidney disease, or unspecified chronic kidney disease; I25.10 Atherosclerotic heart disease of native coronary artery without angina pectoris; N18.30 Chronic kidney disease, stage 3 unspecified; I25.2 Old myocardial infarction; Z79.899 Other long term (current) drug therapy; Z79.82 Long term (current) use of aspirin; M94.0 Chondrocostal junction syndrome [Tietze]; I25.5 Ischemic cardiomyopathy; R19.7 Diarrhea, unspecified; Z91.040 Latex allergy status; Z88.7 Allergy status to serum and vaccine; Z79.890 Hormone replacement therapy; F03.90 Unspecified dementia, unspecified severity, without behavioral disturbance, psychotic disturbance, mood disturbance, and anxiety; E78.5 Hyperlipidemia, unspecified; Z91.048 Other nonmedicinal substance allergy status

== ENCOUNTER 2020-12-04 10:45 | Observation (INO) ==
[2020-12-04] MEDS ORDERED: FAMOTIDINE 20MG IV PUSH 20 MG/5 ML SYR IV STA (11:58)
[2020-12-04] MEDS ORDERED: METOCLOPRAMIDE HCL INJ 5 MG/ML 2 ML VIAL IV ONE (11:59)
[2020-12-04] MEDS ORDERED: ACETAMINOPHEN 1,000 MG/100 ML VIAL IV STA (11:59)
[2020-12-04 12:29] LABS: Basophils # (auto) 0.01 K/uL (0-0.2); Basophils % (auto) 0.2 %; Eosinophils # (auto) 0.09 K/uL (0-0.5); Eosinophils % (auto) 1.8 %; Hematocrit (blood only) 39.5 % (37-47); Hemoglobin 12.9 g/dL (12.0-16.0); Immature Granulocytes # (auto) 0.01 K/uL (0.00-0.02); Immature Granulocytes % (auto) 0.2 %; Lymphocytes # (auto) 0.83 K/uL (1.2-3.4); Lymphocytes % (auto) 16.2 %; Mean Corpuscular Hemoglobin 25.4 pg (25-34); Mean Corpuscular Hgb Conc 32.7 g/dL (32-36); Mean Corpuscular Volume 77.8 fL (80-100); Mean Platelet Volume 10.1 fL (7.4-10.4); Monocytes # (auto) 0.36 K/uL (0.11-0.59); Neutrophils # (auto) 3.82 K/uL (1.4-6.5); Neutrophils % (auto) 74.6 %; Platelet Count 169 K/uL (130-400); RDW Coefficient of Variation 21.6 % (11.5-14.5); RDW Standard Deviation 61.1 fL (36.4-46.3); Red Blood Count 5.08 M/uL (4.2-5.4); White Blood Count 5.12 K/uL (4.8-10.8)
[2020-12-04 12:47] LABS: Alanine Aminotransferase 22 U/L (12-78); Albumin Level 3.7 gm/dl (3.4-5.0); Aspartate Aminotransferase 24 U/L (15-37); BUN Creatinine Ratio 22.9 (10-20); Bilirubin Direct < 0.1 mg/dl (0-0.2); Blood Urea Nitrogen 18 mg/dl (7-18); Calcium 9.6 mg/dl (8.5-10.1); Carbon Dioxide 22 mmol/L (21-32); Chloride 108 mmol/L (98-107); Creatinine Clr Calc Pharmacy 70.8 ml/min; Est GFR (African American) 91.7 ml/min; Est GFR (Non-African American) 79.1 ml/min; Glucose 95 mg/dl (70-99); Lipase 137 U/L (73-393); Magnesium 2.4 mg/dl (1.8-2.4); Potassium 4.1 mmol/L (3.5-5.1); Sodium 138 mmol/L (136-145)
[2020-12-04 12:49] LABS: Anisocytosis Present
--- NOTE | 2020-12-04 12:50 | XRay Report ---
XR chest 1V portable CLINICAL HISTORY: Atypical chest pain COMPARISON STUDY: 11/11/2020 FINDINGS: The cardiac and mediastinal contours remain stable. There is a left-sided A-Port catheter. There is no failure. There is no focal pulmonary consolidation. There are no pleural effusions. There are postsurgical changes present within the cervical spine. There is a left shoulder reverse total a rthroplasty. Multiple metallic pellets project over the right humerus.[ IMPRESSION: No active disease in the chest. ACT 112: Negative or not required by law. Electronically signed by: Paulie Mueller M.D. 12/04/2020 12:48 PM
[2020-12-04 12:58] LABS: Albumin Globulin Ratio 0.9 (0.9-2); Alkaline Phosphatase 94 U/L (45-117); Bilirubin,Total 0.3 mg/dl (0.2-1); Globulin 4.3 gm/dl (2.5-4.0); NT Pro B Type Natriuretic Pept 1813 pg/ml (0-900); Phosphorus 3.8 mg/dl (2.5-4.9); Troponin I 0.077 ng/ml (0-0.045)
[2020-12-04] MEDS ORDERED: ASPIRIN CHEW 324 MG PO STA (14:07)
--- NOTE | 2020-12-04 14:59 | Electrocardiogram Report ---
Test Reason : Blood Pressure : / mmHG Vent. Rate : 061 BPM Atrial Rate : 061 BPM P-R Int : 200 ms QRS Dur : 076 ms QT Int : 410 ms P-R-T Axes : 069 068 109 degrees QTc Int : 412 ms Normal sinus rhythm Possible Left atrial enlargement Anterior infarct (cited on or before 04-DEC-2020) T wave abnormality, consider inferior ischemia Abnormal ECG When compared with ECG of 12-NOV-2020 06:04, Serial changes of evolving Anterior infarct Confirmed by Bandar Sullivan ([id number]) on 12/04/2020 2:59:02 PM Referred By: REFERRED SELF Confirmed By:Bandar Sullivan
[2020-12-04] MEDS ORDERED: oxyCODONE HCL IR 5 MG TAB (IMMEDIATE RELEASE) PO STA (16:17)
--- NOTE | 2020-12-04 16:30 | Emergency Department Note ---
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 Assessment Last Done: 12/04/20 18:00
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
[2020-12-04] MEDS ORDERED: IPRATROPIUM BROMIDE/ALBUTEROL respimat INH INH PRN (18:10)
[2020-12-04] MEDS ORDERED: NITROGLYCERIN SL 0.4 MG/TAB TAB SL PRN (18:10)
[2020-12-04] MEDS ORDERED: DICLOFENAC SOD 1% GEL 100 GM TUBE EXT PRN (18:10)
[2020-12-04] MEDS ORDERED: HYDROmorphone HCL 2 MG TAB PO PRN (18:10)
[2020-12-04] MEDS ORDERED: ACETAMINOPHEN 325 MG TAB PO PRN (18:10)
[2020-12-04] MEDS ORDERED: ONDANSETRON 4 MG OD TAB PO PRN (18:10)
[2020-12-04] MEDS ORDERED: SUMAtriptan succinate 100 MG TAB PO PRN (18:10)
[2020-12-04] MEDS ORDERED: Albuterol HFA 8 GM Inhaler (Combivent Respimat P&T Subs) INH PRN (18:47)
[2020-12-04] MEDS ORDERED: Ipratropium HFA Inhaler (Combivent Respimat P&T Subs) INH PRN (18:47)
[2020-12-04] MEDS ORDERED: Ipratropium HFA Inhaler (Combivent Respimat P&T Subs) INH SCH (19:00)
[2020-12-04] MEDS ORDERED: Albuterol HFA 8 GM Inhaler (Combivent Respimat P&T Subs) INH SCH (19:00)
[2020-12-04] MEDS: METOCLOPRAMIDE HCL 5 MG TABLET PO SCH (20:33)
[2020-12-04] MEDS: TICAGRELOR 90 MG TAB PO SCH (20:33)
[2020-12-04] MEDS: FLUTICASONE PROPIONATE NA SPR 16 GM BTL SCH (20:34)
[2020-12-04] MEDS ORDERED: MONTELUKAST SODIUM 10 MG TABLET PO SCH (21:00)
[2020-12-04] MEDS ORDERED: ATORVASTATIN 40 MG TAB PO SCH (21:00)
[2020-12-04] MEDS ORDERED: ESCITALOPRAM OXALATE 20 MG TAB PO SCH (21:00)
[2020-12-04] MEDS ORDERED: MIRTAZAPINE TAB 15 MG TAB PO SCH (21:00)
[2020-12-04] MEDS ORDERED: OXYBUTYNIN CHLORIDE XL 5 MG TABCR PO SCH (21:00)
[2020-12-04] MEDS: oxyCODONE HCL IR 5 MG TAB (IMMEDIATE RELEASE) PO PRN (22:52)
[2020-12-05] MEDS ORDERED: LEVOTHYROXINE SODIUM 100 MCG TABLET PO SCH (06:30)
[2020-12-05] MEDS: oxyCODONE HCL IR 5 MG TAB (IMMEDIATE RELEASE) PO PRN (08:28)
[2020-12-05] MEDS: TICAGRELOR 90 MG TAB PO SCH (08:31)
[2020-12-05] MEDS: FLUTICASONE PROPIONATE NA SPR 16 GM BTL SCH (08:32)
[2020-12-05] MEDS: METOCLOPRAMIDE HCL 5 MG TABLET PO SCH ×2 (08:32→12:22)
[2020-12-05] MEDS: METAXALONE 800 MG TABLET PO SCH ×2 (08:32→12:22)
[2020-12-05] MEDS ORDERED: METOPROLOL SUCC 50MG EXT REL TAB PO SCH (09:00)
[2020-12-05] MEDS ORDERED: ADVANCED PROBIOTIC 1250 MG CAPSULE PO SCH (09:00)
[2020-12-05] MEDS ORDERED: ASPIRIN 81 MG ECTAB PO SCH (09:00)
[2020-12-05] MEDS ORDERED: lisinopril 5 MG TAB PO SCH (09:00)
[2020-12-05] MEDS ORDERED: PANTOprazole 40 MG TAB PO SCH (09:00)
--- NOTE | 2020-12-05 09:18 | Electrocardiogram Report ---
Test Reason : Blood Pressure : / mmHG Vent. Rate : 055 BPM Atrial Rate : 055 BPM P-R Int : 224 ms QRS Dur : 082 ms QT Int : 458 ms P-R-T Axes : 052 033 119 degrees QTc Int : 438 ms Sinus bradycardia with 1st degree A-V block Anteroseptal infarct (cited on or before 04-DEC-2020) Diffuse ST elevation with CT depression -- consider post WI pericarditis Anterolateral T wave inversions are worse consider anterolateral ischemia Abnormal ECG When compared with ECG of 04-DEC-2020 10:59, Serial changes of evolving Anteroseptal infarct Present Consider pericardirtis in the right clinical situation T wave inversions have worsened in the anterolateral leads Confirmed by Valeriy Manrique ([id number]) on 12/05/2020 9:18:15 AM Referred By: REFERRED SELF Confirmed By:Valeriy Manrique
--- NOTE | 2020-12-05 09:22 | Electrocardiogram Report ---
Test Reason : Blood Pressure : / mmHG Vent. Rate : 054 BPM Atrial Rate : 054 BPM P-R Int : 226 ms QRS Dur : 084 ms QT Int : 462 ms P-R-T Axes : 069 044 121 degrees QTc Int : 438 ms Sinus bradycardia with 1st degree A-V block Possible Left atrial enlargement Anteroseptal infarct (cited on or before 04-DEC-2020) Inferior injury pattern Possible pericarditis Diffuse T wave inversions consider anterolateral ischemia Abnormal ECG When compared with ECG of 04-DEC-2020 12:25, (unconfirmed) No significant change was found Confirmed by Valeriy Manrique ([id number]) on 12/05/2020 9:21:53 AM Referred By: REFERRED SELF Confirmed By:Valeriy Manrique
[2020-12-05 11:35] LABS: BUN Creatinine Ratio 17.6 (10-20); Calcium 9.6 mg/dl (8.5-10.1); Creatinine Clr Calc Pharmacy 69.7 ml/min; Est GFR (African American) 90.3 ml/min; Est GFR (Non-African American) 77.9 ml/min; Potassium 4.2 mmol/L (3.5-5.1)
[2020-12-05 11:40] LABS: Troponin I 0.125 ng/ml (0-0.045)
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
[2020-12-05] MEDS ORDERED: FUROSEMIDE 20 MG TAB PO ONE (12:15)
--- NOTE | 2020-12-05 21:07 | Discharge Summary ---
Date of Service December 05, 2020 Admission HPI Per Admitting Provider This is a 65-year-old female with past medical history of CAD, status post recent [place] with placement of stents that presents today complaining of chest pain. She is dizzy historian. Patiently initially presented on 11/05 from preop testing with intermittent chest pain. She was found to have a STEMI and underwent emergent catheterization. She was found to have a significant LAD disease and 2 drug-eluting stents were placed. Patient was monitored in the ICU and then was subsequently discharged in stable condition on 11/07. She returned on 11/11 remained overnight to 11/12 with chest pain that was felt to be noncardiac. She did have some diarrhea at that time as well. Today she returns complaining of chest pain once again. It sounds that the patient has had somewhat ongoing intermittent pain. This is sternal pain which she describes as a pressure. She does have pain with palpation of the left side of her sternum. There is no pleuritic component or worsening pain with movement. She was previously told this may have been inflammatory he was using Voltaren gel with good relief from the area but has not used it recently. She denies any shortness of breath, palpitations, diaphoresis, fever, chills, or other issues. Of note, she previously diarrhea which apparently have resolved. The time my evaluation patient appeared to be comfortable in no apparent distress. Principal Diagnosis Costochondritis Discharge Exam Constitutional WD/WN, vitals as above Eyes EOM intact bilaterally; no conjunctival abnormality ENMT external ear and nose normal, oropharynx normal Neck trachea midline, no thyromegaly normal visual inspection Respiratory normal respiratory effort, lungs clear to auscultation no respiratory distress Cardiovascular RRR, no murmur, no edema Gastrointestinal (Abdomen) Inspection/Auscultation: abdomen normal to inspection; abdomen not distended Musculoskeletal no cyanosis or clubbing, extremities motor strength 5/5 Skin no rashes, warm and dry Neurologic moves all extremities and awake Psychiatric Orientation: alert, oriented to person and cooperative Discharge Data Allergies Allergy/AdvReac Type Severity Reaction Status Date / Time gabapentin Allergy Intermediate swollen Verified 12/04/20 13:25 tongue/face naproxen Allergy Intermediate swollen Verified 12/04/20 13:25 tongue/face latex Allergy Mild itchy Verified 12/04/20 13:25 adhesive Allergy Unknown acrylates/all Verified 12/04/20 13:25 tapes- skin peels off azithromycin Allergy Unknown Hives Verified 12/04/20 13:25 bacitracin Allergy Unknown Rash Verified 12/04/20 13:25 Bactrim Allergy Unknown Unknown Verified 09/05/17 09:10 belladonna alkaloids Allergy Unknown bilstering Verified 12/04/20 13:25 capsaicin Allergy Unknown Unknown Verified 12/04/20 13:25 carisoprodol Allergy Unknown Unknown Verified 12/04/20 13:25 cat pelt standardized Allergy Unknown catgut Verified 12/04/20 13:25 allergenic ex sutures- "got wound infection" chloramphenicol Allergy Unknown Unknown Verified 12/04/20 13:25 cisapride Allergy Unknown Unknown Verified 12/04/20 13:25 clindamycin Allergy Unknown Rash Verified 12/04/20 13:25 cobalt Allergy Unknown blistering Verified 12/04/20 13:25 diclofenac Allergy Unknown Unknown Verified 12/04/20 13:25 Diclopak Allergy Unknown Unknown Verified 09/05/17 09:10 ergotamine Allergy Unknown Unknown Verified 12/04/20 13:25 etodolac Allergy Unknown Unknown Verified 12/04/20 13:25 formaldehyde Allergy Unknown dyspnea Verified 12/04/20 13:25 Gold Salts Allergy Unknown skin Verified 12/04/20 13:25 peeling, itchy gold sodium thiomalate Allergy Unknown blistering Verified 12/04/20 13:25 imipenem Allergy Unknown Unknown Verified 12/04/20 13:25 immune globulin,gamma (IgG) Allergy Unknown IGA & IGG Verified 12/04/20 13:25 human infusion- severe back/head pain Influenza Virus Vaccines Allergy Unknown per PCP Verified 12/04/20 13:25 records Iodinated Contrast Media Allergy Unknown IV DYES- Verified 12/04/20 13:25 dyspnea, throat swelling iodine Allergy Unknown GI Verified 12/04/20 13:25 symptoms, SOB, throat swelling nefazodone Allergy Unknown Unknown Verified 12/04/20 13:25 neomycin Allergy Unknown itchy Verified 12/04/20 13:25 nepafenac Allergy Unknown Unknown Verified 12/04/20 13:25 nickel Allergy Unknown skin Verified 12/04/20 13:25 peeling nylon Allergy Unknown itchy, Verified 12/04/20 13:25 "hot" ofloxacin Allergy Unknown Unknown Verified 12/04/20 13:25 oxaprozin Allergy Unknown Unknown Verified 12/04/20 13:25 oxytetracycline Allergy Unknown Unknown Verified 12/04/20 13:25 paroxetine Allergy Unknown Unknown Verified 12/04/20 13:25 phenobarbital Allergy Unknown Unknown Verified 12/04/20 13:25 polymyxin B Allergy Unknown Unknown Verified 12/04/20 13:25 povidone-iodine Allergy Unknown dyspnea, Verified 12/04/20 13:25 throat swelling, itchy prochlorperazine Allergy Unknown transient Verified 12/04/20 13:25 paralysis sulfamethoxazole Allergy Unknown Difficulty Verified 12/04/20 13:25 Breathing sulfite Allergy Unknown per PCP Verified 12/04/20 13:25 records trazodone Allergy Unknown Unknown Verified 12/04/20 13:25 trimethoprim Allergy Unknown Unknown Verified 12/04/20 13:25 trovafloxacin Allergy Unknown Unknown Verified 12/04/20 13:25 venlafaxine Allergy Unknown tachycardia Verified 12/04/20 13:25 chlorhexidine Allergy hives Verified 12/04/20 13:25 vancomycin Allergy throat Verified 12/04/20 13:25 swelling, rash mirtazapine AdvReac Intermediate delirium Verified 12/04/20 13:25 doxycycline AdvReac Unknown severe Verified 12/04/20 13:25 diarrhea lavender (Lavandula AdvReac Unknown migraine Verified 12/04/20 13:25 angustifolia) pneumococcal vaccine AdvReac Unknown diarrhea Verified 12/04/20 13:25 Acrylamide-Sodium Acrylate Allergy Unknown _ Uncoded 12/04/20 13:25 Polymer CHLORHEXIDINE Allergy Unknown ITCHING Uncoded 12/04/20 13:25 Chloride Allergy Unknown dyspnea, Uncoded 12/04/20 13:25 itchy Edentate Disodium Allergy Unknown Unknown Uncoded 12/04/20 13:25 Benzalkonium Chlo Glutaral Allergy Unknown ?Glutaronitrile- Uncoded 12/04/20 13:25 Unknown reaction Methyldibromoglutaronitrile Allergy Unknown Unknown Uncoded 12/04/20 13:25 METHYLDIROMO Allergy Unknown Unknown Uncoded 12/04/20 13:25 Paraphenylenediamine Allergy Unknown blistering Uncoded 12/04/20 13:25 PERFUMES Allergy Unknown trouble Uncoded 12/04/20 13:25 breathing Phenoxyethanol Allergy Unknown Unknown Uncoded 12/04/20 13:25 PHENYLENE Allergy Unknown Unknown Uncoded 12/04/20 13:25 [place] Allergy Unknown colophony Uncoded 12/04/20 13:25 derived from pine tree- blistering PLAMITATE Allergy Unknown Unknown Uncoded 12/04/20 13:25 Sulfate Allergy Unknown Unknown Uncoded 12/04/20 13:25 Consultations 12/04/20 15:15 ED Decision to Admit Stat 12/04/20 18:10 Consult Cardiology Routine Hospital Course (1) Acute costochondritis: Suspect patient has acute costochondritis as well as her pain. Improved greatly with Voltaren gel. Troponins negative. Seen by cardiology. Cleared for discharge. (2) Coronary artery disease: Continue dual antiplatelet therapy with aspirin and Brilinta Continue atorvastatin 80 mg daily (3) Hypothyroidism: Continue levothyroxine 100 mcg daily (4) Hypertension: Continue multiple blood pressure medications including lisinopril, metoprolol Total Time Total Time Spent Total Time Spent (In Minutes): 35 Discharge Plan Discharge Items Patient Disposition: Home - Self-Care Reason For Visit: chest pain Discharge Diagnosis: Musculoskeletal chest pain Activity: Resume your previous activity Non-emergency contact: Primary Care Provider Call non-emergency contact if: your symptoms worsen Follow-up/Referrals: Ksenia Soto [Primary Care Provider] - Diet: Heart Healthy Addtl Attending Provider Instructions: You were admitted with chest pain. Luckily, your testing shows this was not heart damage. The angular js developer saw you and felt you were doing well. The Voltaren gel worked well to help with the pain, and I would encourage you to continue using that at home. Please see your PCP this coming week to be sure you are doing well. Pending Studies at Discharge: No Stand-Alone Forms: [facility] Plan[employer], Smoking Cessation Medications and DC Order Prescriptions: Continued atorvastatin 80 mg tablet 80 mg PO HS Qty: 90 RF: 3 lisinopril [Zestril] 5 mg tablet 5 mg PO QAM Qty: 90 RF: 3 Brilinta 90 mg tablet 90 mg PO BID Qty: 180 RF: 3 oxybutynin chloride 15 mg tablet extended release 24hr 15 mg PO HS RF: 0 sumatriptan succinate 100 mg tablet 100 mg PO UD PRN (Reason: Migraine Headache) RF: 0 levothyroxine [Synthroid] 100 mcg tablet 100 mcg PO QAM RF: 0 metoclopramide HCl 5 mg tablet 5 mg PO ACHS RF: 0 mirtazapine 30 mg tablet 30 mg PO HS RF: 0 esomeprazole magnesium 40 mg capsule,delayed release(DR/EC) 40 mg PO QAM RF: 0 montelukast 10 mg tablet 10 mg PO HS RF: 0 epinephrine [EpiPen] 0.3 mg/0.3 mL Auto-Injector 0.3 mg IM Q3H PRN (Reason: Anaphylaxis) RF: 0 hydromorphone 4 mg tablet 4 mg PO BID PRN (Reason: Pain) RF: 0 fluticasone propionate 50 mcg/actuation spray,suspension 2 spray INTRANASAL BID RF: 0 escitalopram oxalate 20 mg tablet 20 mg PO HS RF: 0 metaxalone 800 mg tablet 800 mg PO TIDM RF: 0 oxycodone 20 mg tablet 20 mg PO BID PRN (Reason: Pain) RF: 0 Gammagard Liquid 10 % solution 30 g IV Q4WK RF: 0 aspirin 81 mg tablet,delayed release (DR/EC) 81 mg PO DAILY Qty: 30 RF: 0 nitroglycerin [Nitrostat] 0.4 mg Tablet, Sublingual 0.4 mg sublingual Q5M PRN (Reason: chest pain) Qty: 30 RF: 0 metoprolol succinate 50 mg tablet extended release 24 hr 50 mg PO QAM RF: 0 amoxicillin 500 mg Capsule 2,000 mg PO UD PRN (Reason: dental pretreat) RF: 0 Combivent Respimat 20-100 mcg/actuation Mist 1 puff INHALATION Q6H PRN (Reason: Wheezing) RF: 0 ondansetron HCl [Zofran] 4 mg Tablet 4 mg PO Q6H PRN (Reason: Nausea) RF: 0 vitamin E 400 unit Capsule 400 unit PO QAM RF: 0 acetaminophen [Tylenol] 325 mg Capsule 650 mg PO QID PRN (Reason: Pain) RF: 0 Probiotic 3 billion cell Capsule 3,000 mmu cells PO QAM RF: 0 biotin 5,000 mcg Tablet, Sublingual 5,000 mcg SUBLINGUAL QAM RF: 0 Cbd Cream Otc 1 dose topical UD PRN (Reason: Pain) RF: 0 diclofenac sodium [Voltaren] 1 % Gel 2 g EXT QID PRN (Reason: pain) Qty: 100 RF: 0 Discharge Orders: Discharge Order (Routine); Ordered 06/13/21 Ordered By: Tanner Monte Admission Data Admit Date/Time: 12/04/20 17:28 Attending Provider: Tanner Monte Admit Provider: Jasper Todd Primary Care Provider: Ksenia Soto Other Providers: Bandar Sullivan ; Tanner Monte Other Interventions: Discharge Summary Assessment (RN) Last Done: 12/05/20 11:54 Coding Level of Care Code 91093 OBS Care - Discharge Diagnoses Acute costochondritis M94.0 Coronary artery disease I25.10 Hypothyroidism E03.9 Hypertension I10
== END 2020-12-05 12:48 | disposition home or self-care (01) ==
LOC: ED 10:45 → 2S 10:45 → SUATTDRO 17:28 → 2S 18:00

== ENCOUNTER 2020-12-13 11:20 | Observation (INO) ==
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
--- NOTE | 2020-12-13 12:27 | XRay Report ---
XR chest 1V portable CLINICAL HISTORY: Atypical chest pain COMPARISON STUDY: 12/04/2020 FINDINGS: The cardiac and mediastinal contours remain stable. There is no failure. There is no focal pulmonary consolidation. There are no pleural effusions. There is a left sided A-Port catheter unchan ged in position. There are postsurgical changes of a prior burst total left shoulder arthroplasty. Mu ltiple metallic projectile fragments project over the right proximal humerus and axilla. IMPRESSION: No active disease in the chest. ACT 112: Negative or not required by law. Electronically signed by: Paulie Mueller M.D. 12/13/2020 12:25 PM
[2020-12-13 13:04] LABS: Basophils # (auto) 0.02 K/uL (0-0.2); Basophils % (auto) 0.3 %; Eosinophils % (auto) 1.5 %; Hematocrit (blood only) 40.6 % (37-47); Hemoglobin 13.1 g/dL (12.0-16.0); Immature Granulocytes # (auto) 0.02 K/uL (0.00-0.02); Immature Granulocytes % (auto) 0.3 %; Lymphocytes # (auto) 1.52 K/uL (1.2-3.4); Lymphocytes % (auto) 23.1 %; Mean Corpuscular Hemoglobin 26.3 pg (25-34); Mean Corpuscular Hgb Conc 32.3 g/dL (32-36); Mean Corpuscular Volume 81.5 fL (80-100); Mean Platelet Volume 10.5 fL (7.4-10.4); Monocytes # (auto) 0.36 K/uL (0.11-0.59); Monocytes % (auto) 5.5 %; Neutrophils # (auto) 4.57 K/uL (1.4-6.5); Neutrophils % (auto) 69.3 %; Platelet Count 184 K/uL (130-400); RDW Coefficient of Variation 21.6 % (11.5-14.5); RDW Standard Deviation 64.8 fL (36.4-46.3); Red Blood Count 4.98 M/uL (4.2-5.4); White Blood Count 6.59 K/uL (4.8-10.8)
[2020-12-13 13:21] LABS: Albumin Level 3.7 gm/dl (3.4-5.0); Anisocytosis Present; Calcium 9.3 mg/dl (8.5-10.1); Creatinine Clr Calc Pharmacy 65.5 ml/min; Est GFR (African American) 82.7 ml/min; Est GFR (Non-African American) 71.4 ml/min; Potassium 4.2 mmol/L (3.5-5.1)
[2020-12-13 13:27] LABS: Bilirubin,Total 0.3 mg/dl (0.2-1); Globulin 3.8 gm/dl (2.5-4.0); Total Protein 7.5 gm/dl (6.4-8.2); Troponin I 0.114 ng/ml (0-0.045)
--- NOTE | 2020-12-13 15:11 | Electrocardiogram Report ---
Test Reason : Blood Pressure : / mmHG Vent. Rate : 058 BPM Atrial Rate : 058 BPM P-R Int : 192 ms QRS Dur : 092 ms QT Int : 426 ms P-R-T Axes : 076 068 112 degrees QTc Int : 418 ms Poor data quality, interpretation may be adversely affected Sinus bradycardia Septal infarct (cited on or before 04-DEC-2020) Inferior injury pattern Marked T wave abnormality consider anterolateral ischemia Abnormal ECG When compared with ECG of 04-DEC-2020 13:40, TN interval has decreased Questionable change in initial forces of Anterior leads Confirmed by Bandar Sullivan ([id number]) on 12/13/2020 3:10:40 PM Referred By: Confirmed By:Bandar Sullivan
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
[2020-12-13] MEDS ORDERED: SUMAtriptan succinate 100 MG TAB PO PRN (20:07)
[2020-12-13] MEDS ORDERED: ACETAMINOPHEN 325 MG TAB PO PRN (20:07)
[2020-12-13] MEDS ORDERED: NON-FORMULARY MEDICATION (Acetaminophen [Tylenol] 325 mg Capsule) PO PRN (20:07)
[2020-12-13] MEDS ORDERED: DICLOFENAC SOD 1% GEL 100 GM TUBE EXT PRN (20:07)
[2020-12-13] MEDS ORDERED: IPRATROPIUM BROMIDE/ALBUTEROL respimat INH INH PRN (20:07)
[2020-12-13] MEDS ORDERED: ONDANSETRON INJ 2 MG/ML 2 ML VIAL IV PRN (20:07)
[2020-12-13] MEDS ORDERED: oxyCODONE HCL IR 5 MG TAB (IMMEDIATE RELEASE) PO PRN (20:07)
[2020-12-13] MEDS ORDERED: HYDROmorphone HCL 2 MG TAB PO PRN (20:15)
[2020-12-13] MEDS ORDERED: ONDANSETRON 4 MG OD TAB PO PRN (20:19)
[2020-12-13] MEDS ORDERED: Albuterol HFA 8 GM Inhaler (Combivent Respimat P&T Subs) INH PRN (20:24)
[2020-12-13] MEDS ORDERED: Ipratropium HFA Inhaler (Combivent Respimat P&T Subs) INH PRN (20:24)
[2020-12-13] MEDS ORDERED: MIRTAZAPINE TAB 15 MG TAB PO SCH (21:00)
[2020-12-13] MEDS ORDERED: MONTELUKAST SODIUM 10 MG TABLET PO SCH (21:00)
[2020-12-13] MEDS ORDERED: ESCITALOPRAM OXALATE 20 MG TAB PO SCH (21:00)
[2020-12-13] MEDS ORDERED: ATORVASTATIN 40 MG TAB PO SCH (21:00)
[2020-12-13] MEDS ORDERED: OXYBUTYNIN CHLORIDE XL 5 MG TABCR PO SCH (21:00)
[2020-12-13] MEDS: FLUTICASONE PROPIONATE NA SPR 16 GM BTL SCH (21:08)
[2020-12-13] MEDS: TICAGRELOR 90 MG TAB PO SCH (21:10)
[2020-12-13] MEDS: METOCLOPRAMIDE HCL 5 MG TABLET PO SCH (21:11)
[2020-12-13 21:14] LABS: D Dimer 230 ug/L FEU (0-500)
[2020-12-13] MEDS ORDERED: HEPARIN 100 UNIT/ML 5ML FLUSH FLUSH PRN (23:59)
[2020-12-14] MEDS ORDERED: LEVOTHYROXINE SODIUM 100 MCG TABLET PO SCH (06:30)
[2020-12-14] MEDS ORDERED: METAXALONE 800 MG TABLET PO SCH (08:00)
[2020-12-14] MEDS: FLUTICASONE PROPIONATE NA SPR 16 GM BTL SCH (08:00)
[2020-12-14] MEDS: METOCLOPRAMIDE HCL 5 MG TABLET PO SCH (08:01)
[2020-12-14] MEDS: TICAGRELOR 90 MG TAB PO SCH (08:02)
[2020-12-14 08:13] LABS: Basophils # (auto) 0.02 K/uL (0-0.2); Basophils % (auto) 0.3 %; Eosinophils % (auto) 1.4 %; Hematocrit (blood only) 44.3 % (37-47); Hemoglobin 14.4 g/dL (12.0-16.0); Immature Granulocytes # (auto) 0.01 K/uL (0.00-0.02); Immature Granulocytes % (auto) 0.1 %; Lymphocytes # (auto) 1.49 K/uL (1.2-3.4); Lymphocytes % (auto) 20.9 %; Mean Corpuscular Hemoglobin 26.3 pg (25-34); Mean Corpuscular Hgb Conc 32.5 g/dL (32-36); Mean Corpuscular Volume 80.8 fL (80-100); Mean Platelet Volume 10.5 fL (7.4-10.4); Monocytes # (auto) 0.35 K/uL (0.11-0.59); Monocytes % (auto) 4.9 %; Neutrophils # (auto) 5.16 K/uL (1.4-6.5); Neutrophils % (auto) 72.4 %; Platelet Count 255 K/uL (130-400); RDW Coefficient of Variation 21.6 % (11.5-14.5); RDW Standard Deviation 63.3 fL (36.4-46.3); Red Blood Count 5.48 M/uL (4.2-5.4); White Blood Count 7.13 K/uL (4.8-10.8)
[2020-12-14 08:33] LABS: Anisocytosis Present
[2020-12-14 08:45] LABS: BUN Creatinine Ratio 19.2 (10-20); Bilirubin,Total 0.6 mg/dl (0.2-1); Calcium 9.6 mg/dl (8.5-10.1); Creatinine Clr Calc Pharmacy 72.1 ml/min; Est GFR (African American) 93.1 ml/min; Est GFR (Non-African American) 80.3 ml/min; Globulin 4.2 gm/dl (2.5-4.0); Potassium 3.9 mmol/L (3.5-5.1); Total Protein 8.2 gm/dl (6.4-8.2)
[2020-12-14] MEDS ORDERED: ADVANCED PROBIOTIC 1250 MG CAPSULE PO SCH (09:00)
[2020-12-14] MEDS ORDERED: ASPIRIN 81 MG ECTAB PO SCH (09:00)
[2020-12-14] MEDS ORDERED: METOPROLOL SUCC 50MG EXT REL TAB PO SCH (09:00)
[2020-12-14] MEDS ORDERED: NON-FORMULARY MEDICATION (Biotin 5,000 mcg Tablet, Sublingual) SL SCH (09:00)
[2020-12-14] MEDS ORDERED: TOCOPHERYL, DL-ALPHA 400 UNITS 180 MG CAP PO SCH (09:00)
[2020-12-14] MEDS ORDERED: lisinopril 5 MG TAB PO SCH (09:00)
[2020-12-14] MEDS ORDERED: PANTOprazole 40 MG TAB PO SCH (09:00)
--- NOTE | 2020-12-14 10:47 | Discharge Summary ---
Date of Service December 14, 2020 Admission HPI Per Admitting Provider This is a 65-year-old female with past medical history of coronary artery disease, status post stent placement x3 in October 2020 that presents today complaining of episodic shortness of breath and diaphoresis. Patient is a decent historian. Patient has been admitted several times since her cardiac catheterization at the end of October. At that time she had an acute ID. She had to stents placed to the mid LAD. She was sent home on appropriate medication including a dual antiplatelet therapy and statin. She does have a mild cardiomyopathy with an EF of 45-50%. Patient had recently been in the hospital again on with complaints of chest pain which were felt to be noncardiac. However, she was found to have a low level of troponin that remained positive without definitive peak. On this presentation, she is complaining of 2 episodes of shortness of breath accompanied by significant diaphoresis. The first episode was yesterday lasted approximately 1-2 hours. She felt some palpitations with this but no overt chest pain. The second episode was later that evening and lasted several hours as well. Both were self-limited. She is concerned it may have been anxiety but she does tell me that "this is similar to when I had my heart attack ". At the time my evaluation, patient appears to be comfortable with no complaints. Work- up did reveal a mildly elevated troponin which did climb from 0.114 to 0.121 during her observation in the emergency room. Principal Diagnosis Atypical chest pain Discharge Exam Constitutional WD/WN, vitals as above Neck trachea midline, no thyromegaly Respiratory normal respiratory effort, lungs clear to auscultation Cardiovascular RRR, no murmur, no edema Gastrointestinal (Abdomen) normal bowel sounds, soft, nontender, no hepatosplenomegaly Musculoskeletal no cyanosis or clubbing, extremities motor strength 5/5 Skin no rashes, warm and dry Neurologic patellar DTR's 2+ bilat, sensation intact and PERRL, EOMI, accommodation nl, no face palsy, no dysarthria Psychiatric A+Ox3, euthymic affect Lymphatic no cervical or axillary lymphadenopathy Discharge Data Allergies Allergy/AdvReac Type Severity Reaction Status Date / Time gabapentin Allergy Intermediate swollen Verified 12/13/20 13:36 tongue/face naproxen Allergy Intermediate swollen Verified 12/13/20 13:36 tongue/face latex Allergy Mild itchy Verified 12/13/20 13:36 adhesive Allergy Unknown acrylates/all Verified 12/13/20 13:36 tapes- skin peels off azithromycin Allergy Unknown Hives Verified 12/13/20 13:36 bacitracin Allergy Unknown Rash Verified 12/13/20 13:36 Bactrim Allergy Unknown Unknown Verified 09/05/17 09:10 belladonna alkaloids Allergy Unknown bilstering Verified 12/13/20 13:36 capsaicin Allergy Unknown Unknown Verified 12/13/20 13:36 carisoprodol Allergy Unknown Unknown Verified 12/13/20 13:36 cat pelt standardized Allergy Unknown catgut Verified 12/13/20 13:36 allergenic ex sutures- "got wound infection" chloramphenicol Allergy Unknown Unknown Verified 12/13/20 13:36 cisapride Allergy Unknown Unknown Verified 12/13/20 13:36 clindamycin Allergy Unknown Rash Verified 12/13/20 13:36 cobalt Allergy Unknown blistering Verified 12/13/20 13:36 diclofenac Allergy Unknown Unknown Verified 12/13/20 13:36 Diclopak Allergy Unknown Unknown Verified 09/05/17 09:10 ergotamine Allergy Unknown Unknown Verified 12/13/20 13:36 etodolac Allergy Unknown Unknown Verified 12/13/20 13:36 formaldehyde Allergy Unknown dyspnea Verified 12/13/20 13:36 Gold Salts Allergy Unknown skin Verified 12/13/20 13:36 peeling, itchy gold sodium thiomalate Allergy Unknown blistering Verified 12/13/20 13:36 imipenem Allergy Unknown Unknown Verified 12/13/20 13:36 immune globulin,gamma (IgG) Allergy Unknown IGA & IGG Verified 12/13/20 13:36 human infusion- severe back/head pain Influenza Virus Vaccines Allergy Unknown per PCP Verified 12/13/20 13:36 records Iodinated Contrast Media Allergy Unknown IV DYES- Verified 12/13/20 13:36 dyspnea, throat swelling iodine Allergy Unknown GI Verified 12/13/20 13:36 symptoms, SOB, throat swelling nefazodone Allergy Unknown Unknown Verified 12/13/20 13:36 neomycin Allergy Unknown itchy Verified 12/13/20 13:36 nepafenac Allergy Unknown Unknown Verified 12/13/20 13:36 nickel Allergy Unknown skin Verified 12/13/20 13:36 peeling nylon Allergy Unknown itchy, Verified 12/13/20 13:36 "hot" ofloxacin Allergy Unknown Unknown Verified 12/13/20 13:36 oxaprozin Allergy Unknown Unknown Verified 12/13/20 13:36 oxytetracycline Allergy Unknown Unknown Verified 12/13/20 13:36 paroxetine Allergy Unknown Unknown Verified 12/13/20 13:36 phenobarbital Allergy Unknown Unknown Verified 12/13/20 13:36 polymyxin B Allergy Unknown Unknown Verified 12/13/20 13:36 povidone-iodine Allergy Unknown dyspnea, Verified 12/13/20 13:36 throat swelling, itchy prochlorperazine Allergy Unknown transient Verified 12/13/20 13:36 paralysis sulfamethoxazole Allergy Unknown Difficulty Verified 12/13/20 13:36 Breathing sulfite Allergy Unknown per PCP Verified 12/13/20 13:36 records trazodone Allergy Unknown Unknown Verified 12/13/20 13:36 trimethoprim Allergy Unknown Unknown Verified 12/13/20 13:36 trovafloxacin Allergy Unknown Unknown Verified 12/13/20 13:36 venlafaxine Allergy Unknown tachycardia Verified 12/13/20 13:36 chlorhexidine Allergy hives Verified 12/13/20 13:36 vancomycin Allergy throat Verified 12/13/20 13:36 swelling, rash mirtazapine AdvReac Intermediate delirium Verified 12/13/20 13:36 doxycycline AdvReac Unknown severe Verified 12/13/20 13:36 diarrhea lavender (Lavandula AdvReac Unknown migraine Verified 12/13/20 13:36 angustifolia) pneumococcal vaccine AdvReac Unknown diarrhea Verified 12/13/20 13:36 Acrylamide-Sodium Acrylate Allergy Unknown _ Uncoded 12/13/20 13:36 Polymer CHLORHEXIDINE Allergy Unknown ITCHING Uncoded 12/13/20 13:36 Chloride Allergy Unknown dyspnea, Uncoded 12/13/20 13:36 itchy Edentate Disodium Allergy Unknown Unknown Uncoded 12/13/20 13:36 Benzalkonium Chlo Glutaral Allergy Unknown ?Glutaronitrile- Uncoded 12/13/20 13:36 Unknown reaction Methyldibromoglutaronitrile Allergy Unknown Unknown Uncoded 12/13/20 13:36 METHYLDIROMO Allergy Unknown Unknown Uncoded 12/13/20 13:36 Paraphenylenediamine Allergy Unknown blistering Uncoded 12/13/20 13:36 PERFUMES Allergy Unknown trouble Uncoded 12/13/20 13:36 breathing Phenoxyethanol Allergy Unknown Unknown Uncoded 12/13/20 13:36 PHENYLENE Allergy Unknown Unknown Uncoded 12/13/20 13:36 Hustler Allergy Unknown colophony Uncoded 12/13/20 13:36 derived from pine tree- blistering PLAMITATE Allergy Unknown Unknown Uncoded 12/13/20 13:36 Sulfate Allergy Unknown Unknown Uncoded 12/13/20 13:36 Consultations 12/13/20 15:07 ED Decision to Admit Stat 12/13/20 20:07 Consult Cardiology Routine Hospital Course (1) Atypical chest pain: Concerned that palpitations and diaphoresis may be anginal equivalent Placed in monitored observation Trend cardiac enzymes - troponin going down, could be from recent event in October Continue dual antiplatelet therapy, metoprolol appreciate cardiology consult, no signs of acute cardiac ischemia, will go home and can follow up as needed (2) Elevated troponin: this is not ACS, could be trending down from last event in October no further work up, feeling well, wants to go home (3) Hypothyroidism: Continue levothyroxine as ordered (4) Hypertension: Blood pressure is better today Total Time Total Time Spent Total Time Spent (In Minutes): 20 Total Time Includes: Examination of the Patient, Discharge Planning, Medication Reconciliation and Communication With Other Providers Discharge Plan Discharge Items Patient Disposition: Home - Self-Care Reason For Visit: SOB Discharge Diagnosis: Atypical chest pain Condition on Discharge: Good Activity: Resume your previous activity Non-emergency contact: Primary Care Provider Call non-emergency contact if: you have any medication questions Follow-up/Referrals: Ksenia Soto [Primary Care Provider] - 12/17/20 10:30 am (one week) Diet: Heart Healthy Addtl Attending Provider Instructions: Atypical chest pain: no significant rise in troponin, always slightly elevated, no EKG changes no medication changes cleared for discharge by cardiology, call office if you have further issues Pending Studies at Discharge: No Stand-Alone Forms: My [employer], Smoking Cessation Medications and DC Order Prescriptions: Continued atorvastatin 80 mg tablet 80 mg PO HS Qty: 90 RF: 3 lisinopril [Zestril] 5 mg tablet 5 mg PO QAM Qty: 90 RF: 3 Brilinta 90 mg tablet 90 mg PO BID Qty: 180 RF: 3 oxybutynin chloride 15 mg tablet extended release 24hr 15 mg PO HS RF: 0 sumatriptan succinate 100 mg tablet 100 mg PO UD PRN (Reason: Migraine Headache) RF: 0 levothyroxine [Synthroid] 100 mcg tablet 100 mcg PO QAM RF: 0 metoclopramide HCl 5 mg tablet 5 mg PO ACHS RF: 0 mirtazapine 30 mg tablet 30 mg PO HS RF: 0 esomeprazole magnesium 40 mg capsule,delayed release(DR/EC) 40 mg PO QAM RF: 0 montelukast 10 mg tablet 10 mg PO HS RF: 0 epinephrine [EpiPen] 0.3 mg/0.3 mL Auto-Injector 0.3 mg IM Q3H PRN (Reason: Anaphylaxis) RF: 0 hydromorphone 4 mg tablet 4 mg PO BID PRN (Reason: Pain) RF: 0 fluticasone propionate 50 mcg/actuation spray,suspension 2 spray INTRANASAL BID RF: 0 escitalopram oxalate 20 mg tablet 20 mg PO HS RF: 0 metaxalone 800 mg tablet 800 mg PO TIDM RF: 0 oxycodone 20 mg tablet 20 mg PO BID PRN (Reason: Pain) RF: 0 Gammagard Liquid 10 % solution 30 g IV Q4WK RF: 0 aspirin 81 mg tablet,delayed release (DR/EC) 81 mg PO DAILY Qty: 30 RF: 0 nitroglycerin [Nitrostat] 0.4 mg Tablet, Sublingual 0.4 mg sublingual Q5M PRN (Reason: chest pain) Qty: 30 RF: 0 metoprolol succinate 50 mg tablet extended release 24 hr 50 mg PO QAM RF: 0 diclofenac sodium 1 % Gel 2 g TOPICAL QID PRN (Reason: Pain) RF: 0 amoxicillin 500 mg Capsule 2,000 mg PO UD PRN (Reason: dental pretreat) RF: 0 Combivent Respimat 20-100 mcg/actuation Mist 1 puff INHALATION Q6H PRN (Reason: Wheezing) RF: 0 ondansetron HCl [Zofran] 4 mg Tablet 4 mg PO Q6H PRN (Reason: Nausea) RF: 0 vitamin E 400 unit Capsule 400 unit PO QAM RF: 0 acetaminophen [Tylenol] 325 mg Capsule 650 mg PO QID PRN (Reason: Pain) RF: 0 Probiotic 3 billion cell Capsule 3,000 mmu cells PO QAM RF: 0 biotin 5,000 mcg Tablet, Sublingual 5,000 mcg SUBLINGUAL QAM RF: 0 Cbd Cream Otc 1 dose topical UD PRN (Reason: Pain) RF: 0 Discharge Orders: Discharge Order (Routine); Ordered 12/14/20 Ordered By: Abisai Luke Admission Data Admit Date/Time: 12/13/20 17:06 Attending Provider: Abisai Luke Admit Provider: Jasper Todd Primary Care Provider: Ksenia Soto Other Providers: Jasper Todd ; Gilberto Patiño Other Interventions: Discharge Summary Assessment (RN) Last Done: 12/14/20 10:56 Coding Level of Care Code 55735 OBS Care - Discharge Diagnoses Atypical chest pain R07.89 Elevated troponin R77.8 Hypothyroidism E03.9 Hypertension I10
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
== END 2020-12-14 11:35 | disposition home or self-care (01) ==
LOC: 2E 11:20 → ED 11:20 → SUATTDRO 17:06 → 2E 19:01
DX: Z91.041 Radiographic dye allergy status; Z88.1 Allergy status to other antibiotic agents; I25.10 Atherosclerotic heart disease of native coronary artery without angina pectoris; Z91.040 Latex allergy status; R07.89 Other chest pain; Z79.02 Long term (current) use of antithrombotics/antiplatelets; Z95.5 Presence of coronary angioplasty implant and graft; I25.5 Ischemic cardiomyopathy; Z79.82 Long term (current) use of aspirin; Z79.899 Other long term (current) drug therapy; Z88.8 Allergy status to other drugs, medicaments and biological substances; R06.02 Shortness of breath; R77.8 Other specified abnormalities of plasma proteins; Z79.891 Long term (current) use of opiate analgesic; I10 Essential (primary) hypertension

== ENCOUNTER 2022-09-22 08:26 | Inpatient (IN) ==
--- NOTE | 2022-08-24 12:19 | PAT Medication Instructions ---
Medication Instructions Date of Service August 24, 2022 Home Medications Medication Instructions Recorded mupirocin 2 % topical ointment 1 applic topical BID #15 grams 11/15/21 nitroglycerin 0.4 mg sublingual 0.4 mg sublingual Q5M PRN chest 02/14/22 tablet (Nitrostat) pain #30 tabs lisinopril 5 mg tablet (Zestril) 5 mg PO QAM #90 tabs 06/28/22 metoprolol succinate 50 mg 50 mg PO QAM #90 tabs 06/28/22 tablet,extended release 24 hr spironolactone 25 mg tablet 25 mg PO QAM #90 tabs 06/28/22 clopidogrel 75 mg tablet 75 mg PO DAILY #90 tabs 06/29/22 oxycodone-acetaminophen 5 mg-325 1 tab PO Q6H PRN pain #30 tabs 07/25/22 mg tablet (Percocet) evolocumab 140 mg/mL subcutaneous 140 mg subcut ONCE #2 mL 08/01/22 pen injector (Iker Sheriff) atorvastatin 80 mg tablet 80 mg PO HS #90 tabs 08/21/22 epinephrine 0.3 mg/0.3 mL injection, auto-injector (EpiPen) 0.3 mg IM Q3H PRN Anaphylaxis esomeprazole magnesium 40 mg capsule,delayed release 40 mg PO QAM fluticasone propionate 50 mcg/actuation nasal spray,suspension 2 spray intranasal BID hydromorphone 4 mg tablet 4 mg PO BID PRN Pain metoclopramide HCl 5 mg tablet 5 mg PO QID montelukast 10 mg tablet 10 mg PO QAM amoxicillin 500 mg capsule 2,000 mg PO UD PRN dental pretreat ipratropium 20 mcg-albuterol 100 mcg/actuation mist for inhalation (Combivent Respimat) 1 puff inhalation Q6H PRN Wheezing lactobacillus combination no.4 3 billion cell capsule (Probiotic) 3,000 mmu cells PO QAM vitamin E 268 mg (400 unit) capsule 400 unit PO QAM aspirin 81 mg tablet,delayed release 81 mg PO HS calcium carbonate 600 mg-vitamin D3 20 mcg (800 unit) chewable tablet (Caltrate 600 plus D) 1 tab PO QDL levothyroxine 75 mcg tablet (Synthroid) 75 mcg PO QAM mirtazapine 15 mg tablet (Remeron) 30 mg PO QPM 0 mupirocin 2 % topical ointment 1 applic topical BID escitalopram oxalate 10 mg tablet 30 mg PO QPM immune globulin (human) (IgG) 10 gram intravenous solution 30 g IV UD ondansetron HCl 8 mg tablet 4 mg PO Q6H PRN Nausea nitroglycerin 0.4 mg sublingual tablet (Nitrostat) 0.4 mg sublingual Q5M PRN chest pain lisinopril 5 mg tablet (Zestril) 5 mg PO QAM metoprolol succinate 50 mg tablet,extended release 24 hr 50 mg PO QAM spironolactone 25 mg tablet 25 mg PO QAM clopidogrel 75 mg tablet 75 mg PO DAILY oxycodone-acetaminophen 5 mg-325 mg tablet (Percocet) 1 tab PO Q6H PRN pain evolocumab 140 mg/mL subcutaneous pen injector (Repatha SureClick) 140 mg subcut ONCE atorvastatin 80 mg tablet 80 mg PO HS Continue as directed epinephrine 0.3 mg/0.3 mL injection, auto-injector (EpiPen) 0.3 mg IM Q3H PRN Anaphylaxis (if needed) amoxicillin 500 mg capsule 2,000 mg PO UD PRN dental pretreat (if needed) metoclopramide HCl 5 mg tablet 5 mg PO QID nitroglycerin 0.4 mg sublingual tablet (Nitrostat) 0.4 mg sublingual Q5M PRN chest pain (if needed) ASK your prescriber and surgeon mirtazapine 15 mg tablet (Remeron) 30 mg PO QPM immune globulin (human) (IgG) 10 gram intravenous solution 30 g IV UD clopidogrel 75 mg tablet 75 mg PO DAILY evolocumab 140 mg/mL subcutaneous pen injector (Repatha SureClick) 140 mg subcut ONCE STOP taking 2 weeks before surgery vitamin E 268 mg (400 unit) capsule 400 unit PO QAM STOP taking 24 hours before surgery mupirocin 2 % topical ointment 1 applic topical BID DO NOT take the morning of surgery lactobacillus combination no.4 3 billion cell capsule (Probiotic) 3,000 mmu cells PO QAM calcium carbonate 600 mg-vitamin D3 20 mcg (800 unit) chewable tablet (Caltrate 600 plus D) 1 tab PO QDL lisinopril 5 mg tablet (Zestril) 5 mg PO QAM spironolactone 25 mg tablet 25 mg PO QAM Take morning of surgery With a small sip of water, OTHERWISE NOTHING TO EAT OR DRINK AFTER MIDNIGHT: esomeprazole magnesium 40 mg capsule,delayed release 40 mg PO QAM fluticasone propionate 50 mcg/actuation nasal spray,suspension 2 spray intranasal BID hydromorphone 4 mg tablet 4 mg PO BID PRN Pain (if needed) montelukast 10 mg tablet 10 mg PO QAM ipratropium 20 mcg-albuterol 100 mcg/actuation mist for inhalation (Combivent Respimat) 1 puff inhalation Q6H PRN Wheezing (if needed) levothyroxine 75 mcg tablet (Synthroid) 75 mcg PO QAM ondansetron HCl 8 mg tablet 4 mg PO Q6H PRN Nausea (if needed) metoprolol succinate 50 mg tablet,extended release 24 hr 50 mg PO QAM oxycodone-acetaminophen 5 mg-325 mg tablet (Percocet) 1 tab PO Q6H PRN pain (if needed) Take evening before surgery fluticasone propionate 50 mcg/actuation nasal spray,suspension 2 spray intranasal BID hydromorphone 4 mg tablet 4 mg PO BID PRN Pain (if needed) ipratropium 20 mcg-albuterol 100 mcg/actuation mist for inhalation (Combivent Respimat) 1 puff inhalation Q6H PRN Wheezing (if needed) aspirin 81 mg tablet,delayed release 81 mg PO HS (unless surgeon directed otherwise) escitalopram oxalate 10 mg tablet 30 mg PO QPM ondansetron HCl 8 mg tablet 4 mg PO Q6H PRN Nausea (if needed) oxycodone-acetaminophen 5 mg-325 mg tablet (Percocet) 1 tab PO Q6H PRN pain (if needed) atorvastatin 80 mg tablet 80 mg PO HS Other Notes If you have any questions please call us at [phone] or [phone] or [phone] or [phone]
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
[~2022-09-22 08:26] MED LIST changes: -ACET-1256 PO; -ACET-1311 PO; -BIOT10TA2 PO; -CEFAZOLIN 1000MG IV PUSH 7.5 ML IV SCH; -CLB/200 PO; -CYCL10TA6 PO; -CeleBREX 200 MG CAP PO SCH; -DEXAMETHASONE 4 MG TAB PO SCH; -DEXAMETHASONE SOD INJ 4 MG/ML VIAL ONE; -DIPH1TAB87 PO; -EPP3/2 IM; -ESCI1TAB10 PO; -FAMOTIDINE 20 MG TAB PO SCH; -FENTANYL CITRATE INJ 50 MCG/1 ML 2 ML VIAL ONE; -FLUT0.15 NAE; -GABAPENTIN 600 MG PO SCH; -GLYCOPYRROLATE INJ 0.2 MG/ML VIAL ONE; -HYDR4TAB78 PO; -IMMU1INJ INJ; -IMT100 PO; -LACTATED RINGER'S 1000ML 1,000 ML IV SCH; +LR 15ML/HR IV SCH; -METO1TAB54 PO; -METOCLOPRAMIDE HCL 10 MG TAB PO SCH; -MIDAZOLAM HCL 1 MG/ML 2ML VIAL ONE; -MONT1TAB5 PO; -NEOSTIGMINE METHYLSULFATE 5 MG/5 ML SYR ONE; -NXM/40 PO; -ONDA4TAB46 SL; -ONDANSETRON INJ 2 MG/ML 2 ML VIAL ONE; -OXYSR/20 PO; -POLY335019 PO; -PROPOFOL IV EMULSION 10 MG/ML 20 ML VIAL IV ONE; -ROCURONIUM BROMIDE 10 MG/ML 5 ML VIAL IV ONE; -ROPIVACAINE 0.5% 5 MG/ML 30 ML VIAL ONE; -SENN-61 PO; -SYN100 PO; +ceFAZolin 2000MG 2,000 MG/15 ML SYR IV SCH
[2022-09-22] MEDS ORDERED: fentaNYL citrate PF 100 MCG/2 ML VIAL ONE ×2 (08:41→09:39)
[2022-09-22] MEDS ORDERED: MIDAZOLAM HCL 1 MG/ML 2ML VIAL ONE (08:41)
[2022-09-22] MEDS ORDERED: ONDANSETRON INJ 2 MG/ML 2 ML VIAL IV PRN ×2 (09:30→14:23)
[2022-09-22] MEDS ORDERED: ATROPINE SULFATE 0.1 MG/ML 10ML SYR IV PRN (09:30)
[2022-09-22] MEDS ORDERED: fentaNYL citrate PF 100 MCG/2 ML VIAL IV PRN (09:30)
[2022-09-22] MEDS ORDERED: ePHEDrine sulfate 50 MG/ML AMP IV PRN (09:30)
--- NOTE | 2022-09-22 09:49 | History & Physical Bridge Note ---
Date of Service September 22, 2022 History & Physical Bridge Note I have examined the patient, reviewed the History & Physical and in the interval since the performance of the History & Physical I have noted the following changes of clinical significance: no changes noted
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
[2022-09-22] MEDS ORDERED: fentaNYL citrate PF 100 MCG/2 ML VIAL IV ONE (10:07)
[2022-09-22] MEDS ORDERED: BUPIVACAINE/EPINEPHRINE 0.25% 1:200,000 30 ML VIAL ONE (10:14)
[2022-09-22] MEDS ORDERED: ceFAZolin 330 MG/ML 1 GM VIAL ONE (10:14)
[2022-09-22] MEDS ORDERED: KETAMINE 50 MG/5 ML SYRINGE ONE (10:45)
[2022-09-22] MEDS ORDERED: HYDROmorphone INJ 2 MG/ML SYR/VIAL ONE (11:04)
[2022-09-22] MEDS ORDERED: GLYCOPYRROLATE 0.2 MG/ML VIAL ONE (11:10)
[2022-09-22] MEDS ORDERED: ROCURONIUM BROMIDE 10 MG/ML 5 ML VIAL IV ONE ×2 (11:10→11:30)
[2022-09-22] MEDS ORDERED: DEXAMETHASONE SOD INJ 4 MG/ML VIAL ONE (11:10)
[2022-09-22] MEDS ORDERED: ONDANSETRON INJ 2 MG/ML 2 ML VIAL ONE (11:10)
[2022-09-22] MEDS ORDERED: PROPOFOL IV EMULSION 10 MG/ML 20 ML VIAL IV ONE (11:10)
[2022-09-22] MEDS ORDERED: NEOSTIGMINE METHYLSULFATE 1 MG/ML 10ML VIAL ONE (11:10)
[2022-09-22] MEDS ORDERED: LIDOCAINE 2% MPF LOCAL 5 ML VIAL ONE (11:10)
[2022-09-22] MEDS ORDERED: LARYING-O-JET KIT (LTA) ONE (11:10)
[2022-09-22] MEDS ORDERED: FLOSEAL HEMOSTATIC MATRIX 10ML TOP ONE (11:43)
--- NOTE | 2022-09-22 12:35 | Operative Report ---
Post Operative Report Pre & Post Diagnosis Operation Date: 09/22/22 10:05 Pre-Op Diagnosis: Intervertebral Disc Disorders with Radiculopathy Post-Op Diagnosis: Intervertebral Disc Disorders with Radiculopathy I identified the patient and participated in the time-out.: Yes Procedure Operation Date: 09/22/22 10:05 Actual Procedures #1 Removal of posterior instrumentation L4-L5 L5-S1. #2 exploration of fusion L4-L5 L5-S1. #3 lumbar decompression bilateral medial facetectomies and foraminotomies L2-L3 L3-L4 per #4 posterior spinal fusion L3-L4. #5 placement posterior instrumentation L3-S1. #6 interbody fusion L3-L4 per #7 placement of Spira 12 x 26 mm cage at L3-L4. #8 placement locally harvested morselized autograft in the posterior gutters. #9 placement of I factor combined with V toss in the interbody space and posterior lateral gutters. Surgeon Willian Carrera, Chrome Worker Luc Thompson Estimated Blood Loss 150 Findings Consistent with Post-Op Diagnosis Specimens None Indications This is a 67-year-old female who presents above-mentioned diagnosis after failed course of nonoperative care is here for surgical intervention. Description of Procedure Patient was met with identified informed consent obtained. Patient was then taken to the operative suite underwent intubation placed in a prone position on the Bill table on top of the Luisito frame. All bony prominences well-padded eyes inspected to ensure no external pressure placed upon them. This point the lumbar spine was prepped and draped in normal sterile fashion. Sharp dissection with the assistance of Bovie cautery performed down to and exposing the lamina and transverse processes of L3 and instrumentation at L4-L5 and S1 levels bilaterally. Then proceeded to remove the hardware bilaterally explore the fusion mass noting it to be mature and intact. Then formed a complete laminectomy of L3 partial laminectomy of L2 including bilaterally facetectomies and foraminotomies addressing severe spinal stenosis. Pedicle screws then placed at L3-L4 and S1 levels bilaterally with assistance of fluoroscopy and appropriately sized augustine placed. By way of a trans foraminal approach on the right complete discectomy of L3-L4 was performed endplates corrected to subcortical bleeding bone and a 12 x 26 mm Spira cage with I factor tapped in position. The rods then locked into final position bilaterally. The transverse processes of L3 and L4 burred to subcortical bleeding bone and I factor mildly test and locally harvested morselized autograft was placed in the posterior gutters. 15 round IRVIN drain was then inserted. The incision was then closed with 1 Vicryl the fascia 2-0 Vicryl subcutaneously and 4 Monocryl for final skin closure. Steri-Strip sterile dressing placed. Patient awakened and taken to PACU in stable condition. Please note spinal cord monitoring was utilized at th e procedure no changes noted. Lastly Luc Thompson was present out the entire surgery and while the patient positioning complex portion of the surgery and final skin closure. I attest to the content of the Intraoperative Record and any orders documented therein. Any exceptions are noted below.
[2022-09-22] MEDS ORDERED: DROPERIDOL 5 MG/2 ML VIAL IV STA (13:09)
[2022-09-22] MEDS: HYDROmorphone INJ 2 MG/ML SYR/VIAL IV PRN ×6 (13:09→13:42)
--- NOTE | 2022-09-22 13:11 | Fluoroscopy Report ---
FL lumbar spine 2-3V CLINICAL HISTORY: L3-S1 DFI/L4-S1RH TECHNIQUE: 2 views were obtained with the C-arm in the OR with the above procedure. Total fluoroscopy time was 12.9 seconds. Radiation dose was 5.91 mGy. Comparison: Comparison is made to lumbar spine radiographs 05/12/2016 FINDINGS/IMPRESSION: Intraoperative images were obtained of L3-L4 discectomy and fusion and hardware replacement of L3-L5. Please correlate with intraoperative fluoroscopy and operative report. ACT 112: Negative or not required by law. Electronically signed by: Abisai Rush M.D. 09/22/2022 1:09 PM
[2022-09-22] MEDS: ALLERGY Noted to ORDERED Medication SCH ×3 (13:18→13:21)
--- NOTE | 2022-09-22 14:16 | Anesthesiology Progress Note ---
Date of Service September 22, 2022 Anesthesia Post Procedure Vital Signs Vital Signs: Temp Pulse Pulse Resp BP Pulse Ox O2 Del Method 09/22/22 14:00 64 15 151/74 H 97 Nasal Cannula 09/22/22 13:50 36.3 C L 64 14 125/92 98 Nasal Cannula 09/22/22 13:40 55 L 15 150/67 H 98 Oxymask 09/22/22 13:30 56 L 17 128/54 L 99 Oxymask 09/22/22 13:20 56 L 16 163/73 H 99 Oxymask 09/22/22 13:10 63 20 115/73 99 Oxymask 09/22/22 13:02 36.2 C L 68 16 122/71 97 Oxymask 09/22/22 09:22 37.2 C 62 20 161/94 H 95 Room Air O2 Flow Rate 09/22/22 14:00 2 09/22/22 13:50 2 09/22/22 13:40 3 09/22/22 13:30 4 09/22/22 13:20 6 09/22/22 13:10 6 09/22/22 13:02 6 09/22/22 09:22 Pain Intensity Lower Back: Pain Intensity: 8 Transfer of Care Handoff Completed per policy Notes Mental Status: alert / awake / arousable and participated in evaluation Patient Amnestic to Procedure: Yes Nausea / Vomiting: adequately controlled Pain: adequately controlled Airway Patency, RR, SpO2: stable & adequate BP & HR: stable & adequate Hydration State: stable & adequate Anesthetic Complications: no major complications apparent and Pt Satisfied with anesthetic care
[2022-09-22] MEDS ORDERED: DO NOT ADMINISTER PNEUMOCOCCAL VACCINE PRN (14:23)
[2022-09-22] MEDS ORDERED: FAMOTIDINE 20 MG TAB PO PRN (14:23)
[2022-09-22] MEDS ORDERED: PROMETHAZINE HCL 12.5 MG in SODIUM CHLORIDE 0.9% 50 ML IV PRN (14:23)
[2022-09-22] MEDS ORDERED: ONDANSETRON 4 MG OD TAB PO PRN (14:23)
[2022-09-22] MEDS ORDERED: ACETAMINOPHEN 1,000 MG/100 ML VIAL IV PRN (14:23)
[2022-09-22] MEDS ORDERED: SOD PHOSPHATE/SOD BIPHOSPHATE ENEMA 132 ML BTL PR PRN (14:23)
[2022-09-22] MEDS ORDERED: diphenhydrAMINE Capsule 25 MG CAP PO PRN (14:23)
[2022-09-22] MEDS ORDERED: hydrOXYzine HCl 25 MG TAB PO PRN (14:23)
[2022-09-22] MEDS ORDERED: LORazepam 2 MG/1 ML VIAL IV PRN (14:23)
[2022-09-22] MEDS ORDERED: ACETAMINOPHEN 500 MG TAB PO PRN (14:23)
[2022-09-22] MEDS ORDERED: MAGNESIUM HYDROXIDE SUSP 30 ML UDC PO PRN (14:23)
[2022-09-22] MEDS ORDERED: NALOXONE HCL 0.4 MG/1 ML VIAL/CARP IV PRN (14:23)
[2022-09-22] MEDS ORDERED: ALUMINUM/MAGNESIUM SUSP 30 ML UDC PO PRN (14:23)
[2022-09-22] MEDS ORDERED: bisacodyL 10 MG SUPP PR PRN (14:23)
[2022-09-22] MEDS ORDERED: DO NOT ADMINISTER FLU VACCINE PRN (14:23)
[2022-09-22] MEDS ORDERED: NITROGLYCERIN SL 0.4 MG/TAB TAB SL PRN (14:23)
[2022-09-22] MEDS ORDERED: LORazepam 0.5 MG TAB PO PRN (14:23)
[2022-09-22] MEDS ORDERED: METOCLOPRAMIDE HCL INJ 5 MG/ML 2 ML VIAL IV PRN (14:23)
[2022-09-22] MEDS ORDERED: HYDROmorphone INJ 0.5 MG/0.5 ML SYR IV PRN (14:23)
[2022-09-22] MEDS: LACTATED RINGER'S 1,000 ML IV SCH (14:52)
[2022-09-22] MEDS: HYDROmorphone INJ 1 MG/ML SYRINGE IV PRN ×3 (15:04→21:28)
[2022-09-22] MEDS ORDERED: Nursing to Pharmacy Communication SCH (16:00)
[2022-09-22] MEDS: METOCLOPRAMIDE HCL 5 MG TABLET PO SCH ×2 (16:24→20:37)
[2022-09-22] MEDS: HYDROmorphone HCL 2 MG TAB PO PRN ×2 (17:05→22:51)
[2022-09-22] MEDS: ceFAZolin 2000MG 2,000 MG/15 ML SYR IV SCH (18:13)
[2022-09-22] MEDS: ESCITALOPRAM OXALATE 10 MG TAB PO SCH (20:36)
[2022-09-22] MEDS: DOCUSATE SODIUM/SENNA 50/8.6MG TAB PO SCH (20:36)
[2022-09-22] MEDS: ATORVASTATIN 40 MG TAB PO SCH (20:36)
[2022-09-22] MEDS: FLUTICASONE PROPIONATE NA SPR 16 GM BTL SCH (20:37)
[2022-09-22] MEDS: MIRTAZAPINE TAB 15 MG TAB PO SCH (20:37)
[2022-09-22] MEDS ORDERED: ASPIRIN 81 MG ECTAB PO SCH (21:00)
[2022-09-23] MEDS: LACTATED RINGER'S 1,000 ML IV SCH (01:01)
[2022-09-23] MEDS: ceFAZolin 2000MG 2,000 MG/15 ML SYR IV SCH (02:33)
[2022-09-23] MEDS: HYDROmorphone INJ 1 MG/ML SYRINGE IV PRN ×3 (02:34→13:37)
[2022-09-23] MEDS: [UNRECOGNIZED DRUG - OTHER] PO SCH (05:59)
[2022-09-23] MEDS: POLYETHYLENE (MIRALAX) 17 GM PACK PO SCH ×4 (05:59→21:36)
[2022-09-23 06:29] LABS: Basophils # (auto) 0.01 K/uL (0-0.2); Basophils % (auto) 0.1 %; Hematocrit (blood only) 23.3 % (37.0-47.0); Hemoglobin 7.4 g/dl (12.0-16.0); Immature Granulocytes # (auto) 0.04 K/uL (0.01-0.20); Immature Granulocytes % (auto) 0.4 %; Lymphocytes # (auto) 1.44 K/uL (1.2-3.4); Lymphocytes % (auto) 15.4 %; Mean Corpuscular Hemoglobin 25.1 pg (25.0-34.0); Mean Corpuscular Hgb Conc 31.8 g/dL (32.0-36.0); Mean Platelet Volume 11.1 fL (9.4-12.4); Monocytes # (auto) 0.91 K/uL (0.11-0.59); Monocytes % (auto) 9.7 %; Neutrophils # (auto) 6.97 K/uL (1.40-6.50); Neutrophils % (auto) 74.4 %; Platelet Count 197 K/uL (130-400); RDW Coefficient of Variation 14.3 % (11.5-14.5); RDW Standard Deviation 40.9 fL (36.4-46.3); Red Blood Count 2.95 M/uL (4.20-5.40); White Blood Count 9.37 K/ul (4.8-10.8)
[2022-09-23 06:35] LABS: BUN Creatinine Ratio 16.3 (10-20); Calcium 8.7 mg/dl (8.6-10.3); Creatinine Clr Calc Pharmacy 57.7 ml/min; Est GFR (African American) 69.7 ml/min; Est GFR (Non-African American) 60.1 ml/min; Potassium 4.1 mmol/L (3.5-5.1)
[2022-09-23 06:53] LABS: RBC Morphology Unremarkable
[2022-09-23] MEDS: HYDROmorphone HCL 2 MG TAB PO PRN ×2 (07:49→20:02)
[2022-09-23] MEDS: dexAMETHasone 6 MG in SYRINGE 0 ML IV SCH (08:05)
[2022-09-23] MEDS: METOCLOPRAMIDE HCL 5 MG TABLET PO SCH ×4 (08:05→20:02)
[2022-09-23] MEDS: FLUTICASONE PROPIONATE NA SPR 16 GM BTL SCH ×2 (08:05→20:02)
[2022-09-23] MEDS: SPIRONOLACTONE 25 MG TAB PO SCH (08:06)
[2022-09-23] MEDS: MONTELUKAST SODIUM 10 MG TABLET PO SCH (08:06)
[2022-09-23] MEDS: lisinopril 5 MG TAB PO SCH (08:06)
[2022-09-23] MEDS: PANTOprazole 40 MG TAB PO SCH (08:06)
[2022-09-23] MEDS: METOPROLOL SUCC 50MG EXT REL TAB PO SCH (08:06)
[2022-09-23] MEDS ORDERED: HEPARIN 100 UNIT/ML 5ML FLUSH FLUSH PRN (08:18)
[2022-09-23] MEDS ORDERED: LEVOTHYROXINE SODIUM 75 MCG TABLET PO SCH (09:00)
[2022-09-23] MEDS ORDERED: SODIUM CHLORIDE 0.9% 250 ML IV PRN (09:54)
--- NOTE | 2022-09-23 09:56 | Orthopedic Progress Note ---
Date of Service September 23, 2022 Assessment & Plan (1) Neurogenic claudication due to lumbar spinal stenosis: Plan: This time we will have to transfuse in light of her hemoglobin. Would encourage activity as tolerated today but probably more physical therapy tomorrow. I will make several adjustments to her IV Dilaudid to see if we can control her pain. Admission and Anticipated Discharge Date Admission Date: September 22, 2022 Subjective Patient complaining of considerable back pain. She has no leg pain. She does acknowledge taking oral Dilaudid preoperatively. Physical Exam Physical Exam: On exam the patient is in bed. She has good strength testing. Results & Data Vital Signs (Past 12 Hours) Vital Signs Temp Pulse Pulse Resp BP Pulse Ox O2 Del Method 09/23/22 08:11 37.8 C H 74 16 150/70 H 94 Room Air 09/23/22 05:53 37.1 C 71 16 127/65 94 Room Air 09/23/22 02:07 37.6 C H 70 15 124/57 L 94 Room Air 09/22/22 22:48 36.4 C L 63 15 145/68 H 95 Room Air
[2022-09-23 10:23] LABS: Appearance Urine Clear (Clear); Bacteria Urine Automated Negative (Negative); Bilirubin Urine Negative (Negative); Blood Urine 3+ (Negative); Cast Urine Automated 0 /lpf (0-5); Color Urine Yellow; Epithelial Cell Urine Auto 0-5 /lpf (0-5); Glucose Urine UA Negative (Negative); Ketones Urine Negative (Negative); Leukocyte Esterase Urine Trace (Negative); Nitrite Urine Negative (Negative); Protein Urine Negative (Negative); Specific Gravity Urine 1.007 (1.000-1.030); Urobilinogen Urine Negative (Negative); pH Urine 6.5 (4.5-7.5)
[2022-09-23] MEDS: CALCIUM 600MG + VIT D 400 IU TAB PO SCH (12:22)
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
[2022-09-23] MEDS: ESCITALOPRAM OXALATE 10 MG TAB PO SCH (20:02)
[2022-09-23] MEDS: ATORVASTATIN 40 MG TAB PO SCH (20:02)
[2022-09-23] MEDS: DOCUSATE SODIUM/SENNA 50/8.6MG TAB PO SCH (20:02)
[2022-09-23] MEDS: MIRTAZAPINE TAB 15 MG TAB PO SCH (21:37)
[2022-09-24] MEDS: HYDROmorphone HCL 2 MG TAB PO PRN ×3 (02:55→17:11)
[2022-09-24] MEDS: [UNRECOGNIZED DRUG - OTHER] PO SCH (05:31)
[2022-09-24] MEDS: POLYETHYLENE (MIRALAX) 17 GM PACK PO SCH ×4 (05:32→23:29)
[2022-09-24 06:08] LABS: Basophils # (auto) 0.03 K/uL (0-0.2); Basophils % (auto) 0.3 %; Hematocrit (blood only) 30.7 % (37.0-47.0); Hemoglobin 10.1 g/dl (12.0-16.0); Immature Granulocytes # (auto) 0.04 K/uL (0.01-0.20); Immature Granulocytes % (auto) 0.4 %; Lymphocytes # (auto) 2.13 K/uL (1.2-3.4); Lymphocytes % (auto) 22.6 %; Mean Corpuscular Hemoglobin 26.7 pg (25.0-34.0); Mean Corpuscular Hgb Conc 32.9 g/dL (32.0-36.0); Mean Corpuscular Volume 81.2 fL (80.0-100.0); Mean Platelet Volume 11.2 fL (9.4-12.4); Monocytes # (auto) 0.97 K/uL (0.11-0.59); Monocytes % (auto) 10.3 %; Neutrophils # (auto) 6.27 K/uL (1.40-6.50); Neutrophils % (auto) 66.4 %; Platelet Count 182 K/uL (130-400); RDW Coefficient of Variation 14.6 % (11.5-14.5); RDW Standard Deviation 42.8 fL (36.4-46.3); Red Blood Count 3.78 M/uL (4.20-5.40); White Blood Count 9.44 K/ul (4.8-10.8)
[2022-09-24] MEDS: HYDROmorphone INJ 1 MG/ML SYRINGE IV PRN ×3 (07:15→20:24)
--- NOTE | 2022-09-24 07:52 | Orthopedic Progress Note ---
Date of Service September 24, 2022 Assessment & Plan (1) Neurogenic claudication due to lumbar spinal stenosis: Plan: We will continue with Dilaudid for pain control. We will continue with GI DVT prophylaxis and physical therapy for ambulation and gait training. We will leave her IRVIN drain in place. We will keep her today and see if she is ready for discharge to home tomorrow Admission and Anticipated Discharge Date Admission Date: September 22, 2022 Subjective Patient was seen bedside in room 302. She is doing okay this morning. She stil l has a lot of back pain. She is utilizing Dilaudid both p.o. and IV for pain control. She has been up and walking with physical therapy. She is not nauseous she has been tolerating p.o. without issues. She is not having jonh radicular complaints at this point. Her IRVIN drain is not placing out much drainage. She denies any other numbness, tingling, or paresthesias. Physical Exam Physical Exam: On exam she is alert and oriented. Her IRVIN drain is in place. Her dressing does have evidence of some seepage but not excessive. Her strength and sensation are both intact. Her abdomen soft and nontender. Her calves are supple and nontender. Results & Data Vital Signs (Past 12 Hours) Vital Signs Temp Pulse Resp BP Pulse Ox O2 Del Method 09/24/22 07:11 37.2 C 58 L 18 132/77 94 Room Air 09/23/22 21:30 37.0 C 58 L 15 105/65 97 Room Air
[2022-09-24] MEDS: FLUTICASONE PROPIONATE NA SPR 16 GM BTL SCH ×2 (08:04→20:22)
[2022-09-24] MEDS: METOCLOPRAMIDE HCL 5 MG TABLET PO SCH ×4 (08:05→20:23)
[2022-09-24] MEDS: MONTELUKAST SODIUM 10 MG TABLET PO SCH (08:05)
[2022-09-24] MEDS: SPIRONOLACTONE 25 MG TAB PO SCH (08:05)
[2022-09-24] MEDS: dexAMETHasone 6 MG in SYRINGE 0 ML IV SCH (08:05)
[2022-09-24] MEDS: PANTOprazole 40 MG TAB PO SCH (08:05)
[2022-09-24] MEDS: lisinopril 5 MG TAB PO SCH (08:06)
--- NOTE | 2022-09-24 09:57 | Hospitalist Progress Note ---
Date of Service September 24, 2022 Assessment & Plan (1) Neurogenic claudication due to lumbar spinal stenosis: Plan: 09/22/22 L3-L4 Decompression, L3-S1 Fusion, L4-S1 Hardware Removal, Spinal Cord Monitoring Surgeon: Willian Carrera acute unclear if stable, post op acute blood loss anemia, s/p transfusion 2 u prbc IRVIN drain in place. surgery planning another day in the hospital (2) Fever: Plan: Acute blood and urine cultures pending, follow clinically, moderate risk Lungs are clear chest x-ray not performed certainly fever could be from atelectasis incentive spirometry use was reinforced (3) Hypertension: Plan: chronic stable, lisinopril metoprolol sironolactone (4) CKD (chronic kidney disease) stage 3, GFR 30-59 ml/min: (5) COPD (chronic obstructive pulmonary disease): Admission and Anticipated Discharge Date Admission Date: September 22, 2022 Subjective pt is a bit angry after her workup from fever she has typical post operative pain no defined source of fever at this time maybe post operative atelectasis Physical Exam Physical Exam: pt is awake and alert, cardiac exam is regular, lungs are clear wound is clean and dry dressing in place Results & Data Results & Data Vital Signs (Past 12 Hours) Vital Signs Temp Pulse Resp BP Pulse Ox O2 Del Method 09/24/22 07:11 99.0 F 58 L 18 132/77 94 Room Air Laboratory Results Reviewed CBC Reviewed PRP PG Care Time/CCT Total # of Minutes Spent Total Time Spent with Patient: Total time spent is greater than 50% in coordination of care (as documented) at patient's floor/unit and/or counseling patient: Coding Level of Care Code 76383 SUB INP/OBS CARE 2/35MIN Diagnoses Neurogenic claudication due to lumbar spinal stenosis M48.062 Fever R50.9 Hypertension I10 CKD (chronic kidney disease) stage 3, GFR 30-59 ml/min N18.30 COPD (chronic obstructive pulmonary disease) J44.9
[2022-09-24] MEDS: METOPROLOL SUCC 50MG EXT REL TAB PO SCH (10:51)
[2022-09-24] MEDS: CALCIUM 600MG + VIT D 400 IU TAB PO SCH (12:06)
[2022-09-24] MEDS: MIRTAZAPINE TAB 15 MG TAB PO SCH (20:21)
[2022-09-24] MEDS: ESCITALOPRAM OXALATE 10 MG TAB PO SCH (20:21)
[2022-09-24] MEDS: ATORVASTATIN 40 MG TAB PO SCH (20:22)
[2022-09-24] MEDS: DOCUSATE SODIUM/SENNA 50/8.6MG TAB PO SCH (20:23)
[2022-09-25] MEDS: [UNRECOGNIZED DRUG - OTHER] PO SCH (05:57)
[2022-09-25] MEDS: HYDROmorphone HCL 2 MG TAB PO PRN ×2 (05:57→10:29)
[2022-09-25] MEDS: POLYETHYLENE (MIRALAX) 17 GM PACK PO SCH (05:58)
[2022-09-25] MEDS: FLUTICASONE PROPIONATE NA SPR 16 GM BTL SCH (08:04)
[2022-09-25] MEDS: dexAMETHasone 6 MG in SYRINGE 0 ML IV SCH (08:04)
[2022-09-25] MEDS: PANTOprazole 40 MG TAB PO SCH (08:04)
[2022-09-25] MEDS: METOCLOPRAMIDE HCL 5 MG TABLET PO SCH (08:04)
[2022-09-25] MEDS: METOPROLOL SUCC 50MG EXT REL TAB PO SCH (08:05)
[2022-09-25] MEDS: SPIRONOLACTONE 25 MG TAB PO SCH (08:05)
[2022-09-25] MEDS: lisinopril 5 MG TAB PO SCH (08:05)
[2022-09-25] MEDS: MONTELUKAST SODIUM 10 MG TABLET PO SCH (08:05)
--- NOTE | 2022-09-25 08:10 | Hospitalist Progress Note ---
Date of Service September 25, 2022 Assessment & Plan (1) Neurogenic claudication due to lumbar spinal stenosis: Plan: 09/22/22 L3-L4 Decompression, L3-S1 Fusion, L4-S1 Hardware Removal, Spinal Cord Monitoring Surgeon: Willian Carrera acute unclear if stable, post op acute blood loss anemia, s/p transfusion 2 u prbc IRVIN drain in place. surgery planning another day in the hospital (2) Fever: Plan: Acute blood and urine cultures negative at this time urine contaminated specimem fever maybe post op atelectasis will be able to go home as per orthopedics (3) Hypertension: Plan: chronic stable, lisinopril metoprolol sironolactone (4) CKD (chronic kidney disease) stage 3, GFR 30-59 ml/min: (5) COPD (chronic obstructive pulmonary disease): Admission and Anticipated Discharge Date Admission Date: September 22, 2022 Results & Data Results & Data Vital Signs (Past 12 Hours) Vital Signs Temp Pulse Pulse Resp BP Pulse Ox O2 Del Method 09/25/22 07:37 98.8 F 65 16 135/75 96 Room Air 09/24/22 21:00 98.8 F 69 15 99/60 L 96 Room Air PG Care Time/CCT Total # of Minutes Spent Total Time Spent with Patient: Total time spent is greater than 50% in coordination of care (as documented) at patient's floor/unit and/or counseling patient: Coding Diagnoses Neurogenic claudication due to lumbar spinal stenosis M48.062 Fever R50.9 Hypertension I10 CKD (chronic kidney disease) stage 3, GFR 30-59 ml/min N18.30 COPD (chronic obstructive pulmonary disease) J44.9
--- NOTE | 2022-09-25 09:34 | Discharge Summary ---
Date of Service September 25, 2022 Admission HPI Per Admitting Provider This is a 67-year-old female with worsening back and bilateral leg pain after an extensive course of nonoperative care is here for surgical invention. Principal Diagnosis Lumbar spinal stenosis with neurogenic claudication Discharge Data Allergies Allergy/AdvReac Type Severity Reaction Status Date / Time cat pelt standardized Allergy Severe catgut Verified 09/22/22 08:55 allergenic ex sutures- "got wound infection" formaldehyde Allergy Severe dyspnea Verified 09/22/22 08:55 Iodinated Contrast Media Allergy Severe IV DYES- Verified 09/22/22 08:55 dyspnea, throat swelling iodine Allergy Severe GI Verified 09/22/22 08:55 symptoms, SOB, throat swelling povidone-iodine Allergy Severe dyspnea, Verified 09/22/22 08:55 throat swelling, itchy prochlorperazine Allergy Severe transient Verified 09/22/22 08:55 paralysis sulfamethoxazole Allergy Severe Difficulty Verified 09/22/22 08:55 Breathing adhesive Allergy Intermediate acrylates/all Verified 09/22/22 08:55 tapes- skin peels off azithromycin Allergy Intermediate Hives Verified 09/22/22 08:55 chlorhexidine Allergy Intermediate hives Verified 09/22/22 08:55 gabapentin Allergy Intermediate swollen Verified 09/22/22 08:55 tongue/face Gold Salts Allergy Intermediate skin Verified 09/22/22 08:55 peeling, itchy immune globulin,gamma (IgG) Allergy Intermediate IGA & IGG Verified 09/22/22 08:55 human infusion- severe back/head pain naproxen Allergy Intermediate swollen Verified 09/22/22 08:55 tongue/face vancomycin Allergy Intermediate throat Verified 09/22/22 08:55 swelling, rash venlafaxine Allergy Intermediate tachycardia Verified 09/22/22 08:55 bacitracin Allergy Mild Rash Verified 09/22/22 08:55 belladonna alkaloids Allergy Mild bilstering Verified 09/22/22 08:55 clindamycin Allergy Mild Rash Verified 09/22/22 08:55 cobalt Allergy Mild blistering Verified 09/22/22 08:55 gold sodium thiomalate Allergy Mild blistering Verified 09/22/22 08:55 latex Allergy Mild itchy Verified 09/22/22 08:55 neomycin Allergy Mild itchy Verified 09/22/22 08:55 nickel Allergy Mild skin Verified 09/22/22 08:55 peeling nylon Allergy Mild itchy, Verified 09/22/22 08:55 "hot" carisoprodol Allergy Unknown Unknown Verified 09/22/22 08:55 chloramphenicol Allergy Unknown Unknown Verified 09/22/22 08:55 cisapride Allergy Unknown Unknown Verified 09/22/22 08:55 diclofenac Allergy Unknown Unknown Verified 09/22/22 08:55 egg Allergy Unknown Avoids- Verified 09/22/22 08:55 told in the past to avoid ergotamine Allergy Unknown Unknown Verified 09/22/22 08:55 etodolac Allergy Unknown Unknown Verified 09/22/22 08:55 imipenem Allergy Unknown Unknown Verified 09/22/22 08:55 nefazodone Allergy Unknown Unknown Verified 09/22/22 08:55 nepafenac Allergy Unknown Unknown Verified 09/22/22 08:55 ofloxacin Allergy Unknown Unknown Verified 09/22/22 08:55 oxaprozin Allergy Unknown Unknown Verified 09/22/22 08:55 oxytetracycline Allergy Unknown Unknown Verified 09/22/22 08:55 paroxetine Allergy Unknown Unknown Verified 09/22/22 08:55 phenobarbital Allergy Unknown Unknown Verified 09/22/22 08:55 polymyxin B Allergy Unknown Unknown Verified 09/22/22 08:55 trazodone Allergy Unknown Unknown Verified 09/22/22 08:55 trimethoprim Allergy Unknown Unknown Verified 09/22/22 08:55 trovafloxacin Allergy Unknown Unknown Verified 09/22/22 08:55 glycine [From Gammaked] Allergy rash, n/v Verified 09/22/22 08:55 immune globulin,alpha (IgA) Allergy rash, n/v Verified 09/22/22 08:55 average 46 mcg/mL [From Gammaked] doxycycline AdvReac Intermediate severe Verified 09/22/22 08:55 diarrhea lavender (Lavandula AdvReac Intermediate migraine Verified 09/22/22 08:55 angustifolia) mirtazapine AdvReac Intermediate delirium Verified 09/22/22 08:55 pneumococcal vaccine AdvReac Intermediate diarrhea Verified 09/22/22 08:55 Influenza Virus Vaccines AdvReac Mild Unknown Verified 09/22/22 08:55 Consultations 09/22/22 14:23 Consult Hospitalist Routine Procedures Performed Operation Date: 09/22/22 10:05 Actual Procedures p L3-L4 Decompression, L3-S1 Fusion, L4-S1 Hardware Removal, Spinal Cord Monitoring(Not Applicable) - Willian Carrera DO Ordered Studies 09/22/22 10:05 FL lumbar spine 2-3V Routine Hospital Course (1) Neurogenic claudication due to lumbar spinal stenosis: Plan Patient underwent lumbar decompression fusion tolerated so was taken to orthopedic for postoperative. Postop day 1 she was up and ambulating. Postop day #2 on postop day 3 pain was well controlled IRVIN drain decreased appropriately. Excellent strength testing. Simply discharged home. Discharge orders instructions found in chart for further review. Total Time Total Time Spent Total Time Spent (In Minutes): 20 minutes Discharge Plan Discharge Items Patient Disposition: Home - Self-Care Reason For Visit: Intervertebral Disc Disorders with Radiculopathy Discharge Diagnosis: Lumbar spinal stenosis with neurogenic claudication Activity: As commented below Non-emergency contact: Primary Care Provider Call non-emergency contact if: you have any medication questions Follow-up/Referrals: Ksenia Soto [Primary Care Provider] - Diet: Regular Addtl Attending Provider Instructions: ACTIVITY RECOMMENDATIONS: SELF CARE INSTRUCTIONS AFTER THORACIC/LUMBAR FUSIONS 1. You may walk to your tolerance. It is good exercise for your legs and back. Expect some back and intermittent leg aches and pains. 2. You may perform "counter-top" level activities (make a sandwich, edward with a project, etc.). 3. No bending or lifting of more than 10 pounds or back twisting of any nature (roll like a log when turning in bed). 4. You may ride in a car for 20-30 minutes at a time. No driving until after your first visit with your doctor. 5. Frequent changes of position and restricting sitting to 30 minutes at a time will help limit the amount of back spasms and stiffness you may experience. 6. You may discontinue the use of ambulatory aids (cane, crutches, etc.) once your strength and confidence allow. 7. You may interactive marketing strategist the shower and let water strike your incision when you arrive home at least once daily. Do not take a tub bath, sit in a hot tub or go into a swimming pool until after your first recheck in the office. SPECIAL CARE INSTRUCTIONS: VERY IMPORTANT TO READ AND REVIEW A. Your surgical incision has been closed with a cosmetic suture under the skin that will dissolve in about 6 weeks. In 14 days, you can use a pair of clean scissors and cut the suture that is left outside of the skin at the ends of your incision. 1. The small skin tapes can be removed 7 days after surgery if they have not fallen off by that point. 2. You may keep the wound open to air as much as possible to promote healing after post-op day number 5 unless told otherwise by your doctor. 3. If you think the wound looks like it is becoming infected (redness or worsening drainage) and/or you are experiencing fever, chill or worsening back pain and muscle spasms, contact the office so that we may evaluate you as soon as possible. B. Complications are uncommon, but please contact us if you have any signs or symptoms of: 1. wound infection (fever higher than 102.5 degrees F, redness, separation of wound, drainage, or increasing pain from the incision) 2. blood clots in legs (pain, swelling, redness and warmth in legs) 3. urinary tract infection (fever higher than 102.5 degrees F, burning upon urination or increased frequency of urination) 4. nerve problems (inability to walk on your toes or heels, numbness, loss of bowel or bladder control) 5. any other symptoms that concern you C. Please call the office at if you have any concerns or questions about your operation or recovery. D. No smoking! Smoking drastically decreases the chance of a solid fusion. E. Do not take any anti-inflammatory medications (Indocin, Advil, Motrin, Aspirin, Naprosyn, etc.) as these may inhibit the chance of a solid fusion. Tylenol is okay to take for pain. MANAGING PAIN AFTER SPINAL SURGERY 1. Narcotic medication is intended for short-term use and will be provided for surgical pain. Surgical pain usually lasts for a period of 4-6 weeks. Narcotic medication includes Percocet, Vicodin, Darvocet, Tylenol #3 or Lortab. 2. Longer-term pain is more appropriately treated with non-narcotic medication such as Tylenol ES. 3. Muscle spasm is not appropriately treated with narcotics. Muscle relaxers such as Soma, Flexeril or Skelaxin can be used along with Tylenol ES. 4. Remember that we all live with some "aches and pains". This is not unusual or uncommon after an injury or as we get older. a. Back pain is expected and may include muscle spasms for 4 to 6 weeks after surgery. The pain should gradually improve. If the pain worsens for no apparent reason, please contact the office. b. Intermittent leg pain may also be experienced and should not be concerned about unless it worsens for no apparent reason. If so, please contact the office. 5. We will provide appropriate medication within the normal guidelines of their prescribed use. We will also be very cautious and aware of potential abuse and extended duration of patients' medication needs. a. Pain medications are for your comfort and to assist with sleep and rest so that the tissue can heal. They are not provided in order to return to normal activity and should not be used through the day. To do so or worsening pain at night can result from ongoing tissue damage and development of tolerance to the prescribed medicine. 6. Please allow 2-3 days to process refills. Prescriptions will not be mailed but must be picked up at the office. FOLLOW UP VISIT: Keep your scheduled follow-up appointment. Any questions, please call the office at . Pending Studies at Discharge: No Stand-Alone Forms: [facility], Smoking Cessation Medications and DC Order Prescriptions: New hydromorphone [Dilaudid] 4 mg tablet 4 mg PO Q6H PRN (Reason: pain) Qty: 30 0RF Continued nitroglycerin [Nitrostat] 0.4 mg tablet, sublingual 0.4 mg sublingual Q5M PRN (Reason: chest pain) Qty: 30 0RF Rx Instructions: Take up to 2 doses for chest pain similar to your OK. If no relief, call doctor. lisinopril [Zestril] 5 mg tablet 5 mg PO QAM Qty: 90 1RF metoprolol succinate 50 mg tablet extended release 24 hr 50 mg PO QAM Qty: 90 1RF spironolactone 25 mg tablet 25 mg PO QAM Qty: 90 1RF clopidogrel 75 mg tablet 75 mg PO DAILY Qty: 90 3RF Repatha SureClick 140 mg/mL pen injector 140 mg subcut ONCE Qty: 2 6RF Rx Instructions: Administer every 2 weeks atorvastatin 80 mg tablet 80 mg PO HS Qty: 90 3RF mirtazapine [Remeron] 15 mg tablet 30 mg PO QPM immune globulin (human) (IgG) 10 gram recon soln 30 g IV UD Rx Instructions: every 4 weeks escitalopram oxalate 10 mg tablet 30 mg PO QPM ondansetron HCl 8 mg tablet 4 mg PO Q6H PRN (Reason: Nausea) metoclopramide HCl 5 mg tablet 5 mg PO QID esomeprazole magnesium 40 mg capsule,delayed release(DR/EC) 40 mg PO QAM montelukast 10 mg tablet 10 mg PO QAM epinephrine [EpiPen] 0.3 mg/0.3 mL Auto-Injector 0.3 mg IM Q3H PRN (Reason: Anaphylaxis) hydromorphone 4 mg tablet 4 mg PO BID PRN (Reason: Pain) fluticasone propionate 50 mcg/actuation spray,suspension 2 spray INTRANASAL BID levothyroxine [Synthroid] 75 mcg Tablet 75 mcg PO QAM Caltrate 600 plus D 600 mg (1,500 mg)-800 unit Tablet,Chewable 1 tab PO QDL aspirin 81 mg tablet,delayed release (DR/EC) 81 mg PO HS amoxicillin 500 mg Capsule 2,000 mg PO UD PRN (Reason: dental pretreat) Combivent Respimat 20-100 mcg/actuation Mist 1 puff INHALATION Q6H PRN (Reason: Wheezing) vitamin E 400 unit Capsule 400 unit PO QAM Probiotic 3 billion cell Capsule 3,000 mmu cells PO QAM celecoxib [Celebrex] 100 mg Capsule 100 mg PO BID Discharge Orders: Discharge Order (Routine); Ordered 09/25/22 Ordered By: Willian Carrera Admission Data Admit Date/Time: 09/22/22 12:42 Attending Provider: Willian Carrera Admit Provider: Willian Carrera Primary Care Provider: Ksenia Soto Other Providers: Patrice Puckett Thomas E.
== END 2022-09-25 11:51 | disposition home or self-care (01) | DRG 454 ==
LOC: ASU 08:26 → 3E 12:42

== ENCOUNTER 2024-06-16 08:24 | Inpatient (IN) ==
--- NOTE | 2024-05-21 12:27 | PAT Medication Instructions ---
Medication Instructions Date of Service May 21, 2024 Home Medications Medication Instructions Recorded nitroglycerin 0.4 mg sublingual 0.4 mg sublingual Q5M PRN chest 02/14/22 tablet (Nitrostat) pain #30 tabs lisinopril 5 mg tablet (Zestril) 5 mg PO QAM #90 tabs 06/29/23 atorvastatin 80 mg tablet 80 mg PO HS #90 tabs 08/30/23 evolocumab 140 mg/mL subcutaneous 140 mg subcut ONCE #2 mL 11/22/23 pen injector (Repatha SureClick) metoprolol succinate 25 mg 25 mg PO QAM #90 tabs 12/19/23 tablet,extended release 24 hr spironolactone 25 mg tablet 25 mg PO QAM #90 tabs 03/18/24 epinephrine 0.3 mg/0.3 mL injection, auto-injector (EpiPen) 0.3 mg IM Q3H PRN Anaphylaxis esomeprazole magnesium 40 mg capsule,delayed release 40 mg PO QAM metoclopramide HCl 5 mg tablet 10 mg PO QID amoxicillin 500 mg capsule 2,000 mg PO UD PRN dental pretrea lactobacillus combination no.4 3 billion cell capsule (Probiotic) 3,000 mmu cells PO QAM vitamin E 268 mg (400 unit) capsule 400 unit PO QAM calcium 600 mg (as carbonate)-vit D3 20 mcg (800 unit) chewable tablet (Caltrate plus D) 1 tab PO QDL 1 levothyroxine 75 mcg tablet (Synthroid) 75 mcg PO QAM immune globulin (human) (IgG) 10 gram intravenous solution 30 g IV UD ondansetron HCl 8 mg tablet 4 mg PO Q6H PRN Nausea nitroglycerin 0.4 mg sublingual tablet (Nitrostat) 0.4 mg sublingual Q5M PRN chest pain celecoxib 100 mg capsule (Celebrex) 100 mg PO QAM lisinopril 5 mg tablet (Zestril) 5 mg PO QAM atorvastatin 80 mg tablet 80 mg PO HS evolocumab 140 mg/mL subcutaneous pen injector (Repatha SureClick) 140 mg subcut ONCE escitalopram oxalate 10 mg tablet 20 mg PO QPM hydromorphone 4 mg tablet 4 mg PO BID PRN Nausea metoprolol succinate 25 mg tablet,extended release 24 hr 25 mg PO QAM oxycodone 10 mg tablet 10 mg PO Q6H PRN Pain spironolactone 25 mg tablet 25 mg PO QAM gabapentin 300 mg capsule 300 mg PO TID baclofen 20 mg tablet 20 mg PO TID PRN Pain clopidogrel 75 mg tablet 75 mg PO QAM oxybutynin chloride 15 mg tablet,extended release 24 hr 15 mg PO HS sumatriptan succinate 100 mg tablet (Imitrex) 100 mg PO UD PRN Migraine Headache Continue as directed epinephrine 0.3 mg/0.3 mL injection, auto-injector (EpiPen) 0.3 mg IM Q3H PRN Anaphylaxis (if needed) amoxicillin 500 mg capsule 2,000 mg PO UD PRN dental pretreat (if needed) nitroglycerin 0.4 mg sublingual tablet (Nitrostat) 0.4 mg sublingual Q5M PRN chest pain (if needed) ASK your surgeon for instructions celecoxib 100 mg capsule (Celebrex) 100 mg PO QAM ASK your prescriber and surgeon immune globulin (human) (IgG) 10 gram intravenous solution 30 g IV UD clopidogrel 75 mg tablet 75 mg PO QAM evolocumab 140 mg/mL subcutaneous pen injector (Repatha SureClick) 140 mg subcut ONCE STOP taking 2 weeks before surgery vitamin E 268 mg (400 unit) capsule 400 unit PO QAM DO NOT take the morning of surgery lactobacillus combination no.4 3 billion cell capsule (Probiotic) 3,000 mmu cells PO QAM calcium 600 mg (as carbonate)-vit D3 20 mcg (800 unit) chewable tablet (Caltrate plus D) 1 tab PO QDL lisinopril 5 mg tablet (Zestril) 5 mg PO QAM spironolactone 25 mg tablet 25 mg PO QAM Take morning of surgery With a small sip of water, OTHERWISE NOTHING TO EAT OR DRINK AFTER MIDNIGHT: esomeprazole magnesium 40 mg capsule,delayed release 40 mg PO QAM metoclopramide HCl 5 mg tablet 10 mg PO QID levothyroxine 75 mcg tablet (Synthroid) 75 mcg PO QAM ondansetron HCl 8 mg tablet 4 mg PO Q6H PRN Nausea (if needed) hydromorphone 4 mg tablet 4 mg PO BID PRN Nausea (if needed) metoprolol succinate 25 mg tablet,extended release 24 hr 25 mg PO QAM oxycodone 10 mg tablet 10 mg PO Q6H PRN Pain (if needed) gabapentin 300 mg capsule 300 mg PO TID baclofen 20 mg tablet 20 mg PO TID PRN Pain (if needed) sumatriptan succinate 100 mg tablet (Imitrex) 100 mg PO UD PRN Migraine Headache (if needed) Take evening before surgery metoclopramide HCl 5 mg tablet 10 mg PO QID ondansetron HCl 8 mg tablet 4 mg PO Q6H PRN Nausea (if needed) atorvastatin 80 mg tablet 80 mg PO HS escitalopram oxalate 10 mg tablet 20 mg PO QPM hydromorphone 4 mg tablet 4 mg PO BID PRN Nausea (if needed) oxycodone 10 mg tablet 10 mg PO Q6H PRN Pain (if needed) gabapentin 300 mg capsule 300 mg PO TID baclofen 20 mg tablet 20 mg PO TID PRN Pain (if needed) oxybutynin chloride 15 mg tablet,extended release 24 hr 15 mg PO HS sumatriptan succinate 100 mg tablet (Imitrex) 100 mg PO UD PRN Migraine Headache (if needed) Other Notes If you have any questions please call us at [phone] or [phone] or [phone] or [phone]
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
[2024-06-16] MEDS: LR 60ML/HR IV SCH (06:56)
[~2024-06-16 08:24] MED LIST changes: -ACETAMINOPHEN 500 MG TAB PO SCH; +DEXAMETHASONE SOD INJ 4 MG/ML VIAL ONE; +GLYCOPYRROLATE 0.2 MG/ML VIAL ONE; +HYDROmorphone INJ 2 MG/ML SYR/VIAL ONE; +KETAMINE HCL 10MG/ML SYR ONE; +LIDOCAINE 2% 2 ML VIAL/AMP(20MG/ML) INFIL ONE; -LR 15ML/HR IV SCH; +MIDAZOLAM HCL 1 MG/ML 2ML VIAL ONE; +ONDANSETRON INJ 2 MG/ML 2 ML VIAL ONE; +PROPOFOL IV EMULSION 10 MG/ML 20 ML VIAL IV ONE; +ROCURONIUM BROMIDE 10 MG/ML 5 ML VIAL IV ONE; +[UNRECOGNIZED DRUG - REMARK] SCH; -ceFAZolin 2000MG 2,000 MG/15 ML SYR IV SCH
--- NOTE | 2024-06-16 09:18 | History & Physical Bridge Note ---
Date of Service June 16, 2024 History & Physical Bridge Note I have examined the patient, reviewed the History & Physical and in the interval since the performance of the History & Physical I have noted the following changes of clinical significance: no changes noted
--- NOTE | 2024-06-16 09:19 | History & Physical Report ---
Date of Service June 16, 2024 Assessment & Plan (1) Lumbosacral spondylosis with radiculopathy: Plan: L2-L3 decompression exploration L3-S1 fusion L2-S1 History of Present Illness Chief Complaint: Back and leg pain Primary Care Provider: Ksenia Soto MD This is a 69-year-old female who presents for chronic persistent back and leg pain after failing course of nonoperative care is here for surgical intervention. Allergies Allergy/AdvReac Type Severity Reaction Status Date / Time cat pelt standardized Allergy Severe catgut Verified 06/16/24 08:57 allergenic ex sutures- "got wound infection" formaldehyde Allergy Severe dyspnea Verified 06/16/24 08:57 Iodinated Contrast Media Allergy Severe IV DYES- Verified 06/16/24 08:57 dyspnea, throat swelling iodine Allergy Severe Anaphylaxis Verified 06/16/24 08:57 povidone-iodine Allergy Severe Anaphylaxis Verified 06/16/24 08:57 prochlorperazine Allergy Severe transient Verified 06/16/24 08:57 paralysis adhesive Allergy Intermediate acrylates/all Verified 06/16/24 08:57 tapes- skin peels off chlorhexidine Allergy Intermediate hives Verified 06/16/24 08:57 gabapentin Allergy Intermediate swollen Verified 06/16/24 08:57 tongue/face Gold Salts Allergy Intermediate skin Verified 06/16/24 08:57 peeling, itchy immune globulin,gamma (IgG) Allergy Intermediate IGA & IGG Verified 06/16/24 08:57 human infusion- severe back/head pain naproxen Allergy Intermediate swollen Verified 06/16/24 08:57 tongue/face vancomycin Allergy Intermediate throat Verified 06/16/24 08:57 swelling, rash venlafaxine Allergy Intermediate tachycardia Verified 06/16/24 08:57 bacitracin Allergy Mild Rash Verified 06/16/24 08:57 belladonna alkaloids Allergy Mild bilstering Verified 06/16/24 08:57 clindamycin Allergy Mild Rash Verified 06/16/24 08:57 cobalt Allergy Mild blistering Verified 06/16/24 08:57 glycine [From Gammaked] Allergy Mild rash, n/v Verified 06/16/24 08:57 gold sodium thiomalate Allergy Mild blistering Verified 06/16/24 08:57 immune globulin,alpha (IgA) Allergy Mild rash, n/v Verified 06/16/24 08:57 average 46 mcg/mL [From Gammaked] latex Allergy Mild itchy Verified 06/16/24 08:57 neomycin Allergy Mild itchy Verified 06/16/24 08:57 nickel Allergy Mild skin Verified 06/16/24 08:57 peeling nylon Allergy Mild itchy, Verified 06/16/24 08:57 "hot" carisoprodol Allergy Unknown Unknown Verified 06/16/24 08:57 chloramphenicol Allergy Unknown Unknown Verified 06/16/24 08:57 cisapride Allergy Unknown Unknown Verified 06/16/24 08:57 diclofenac Allergy Unknown Unknown Verified 06/16/24 08:57 egg Allergy Unknown Avoids- Verified 06/16/24 08:57 told in the past to avoid ergotamine Allergy Unknown Unknown Verified 06/16/24 08:57 etodolac Allergy Unknown Unknown Verified 06/16/24 08:57 imipenem Allergy Unknown Unknown Verified 06/16/24 08:57 nefazodone Allergy Unknown Unknown Verified 06/16/24 08:57 nepafenac Allergy Unknown Unknown Verified 06/16/24 08:57 ofloxacin Allergy Unknown Unknown Verified 06/16/24 08:57 oxaprozin Allergy Unknown Unknown Verified 06/16/24 08:57 oxytetracycline Allergy Unknown Unknown Verified 06/16/24 08:57 paroxetine Allergy Unknown Unknown Verified 06/16/24 08:57 phenobarbital Allergy Unknown Unknown Verified 06/16/24 08:57 polymyxin B Allergy Unknown Unknown Verified 06/16/24 08:57 trazodone Allergy Unknown Unknown Verified 06/16/24 08:57 trovafloxacin Allergy Unknown Unknown Verified 06/16/24 08:57 doxycycline AdvReac Intermediate severe Verified 06/16/24 08:57 diarrhea lavender (Lavandula AdvReac Intermediate migraine Verified 06/16/24 08:57 angustifolia) mirtazapine AdvReac Intermediate delirium Verified 06/16/24 08:57 pneumococcal vaccine AdvReac Intermediate diarrhea Verified 06/16/24 08:57 Influenza Virus Vaccines AdvReac Unknown Unknown Verified 06/16/24 08:57 Home Medications Medication Instructions Recorded Confirmed Type epinephrine 0.3 mg/0.3 mL 0.3 mg IM Q3H PRN Anaphylaxis 01/02/20 06/16/24 History injection, auto-injector (EpiPen) esomeprazole magnesium 40 mg 40 mg PO QAM 01/02/20 06/16/24 History capsule,delayed release metoclopramide HCl 5 mg tablet 10 mg PO QID 01/02/20 06/16/24 History amoxicillin 500 mg capsule 2,000 mg PO UD PRN dental pretreat 11/02/20 06/16/24 History lactobacillus combination no.4 3 3,000 mmu cells PO QAM 11/02/20 06/16/24 History billion cell capsule (Probiotic) vitamin E 268 mg (400 unit) capsule 400 unit PO QAM 11/02/20 06/16/24 History calcium 600 mg (as carbonate)-vit 1 tab PO QDL 05/13/21 06/16/24 History D3 20 mcg (800 unit) chewable tablet (Caltrate plus D) levothyroxine 75 mcg tablet 75 mcg PO QAM 05/13/21 06/16/24 History (Synthroid) immune globulin (human) (IgG) 10 30 g IV UD 12/13/21 06/16/24 History gram intravenous solution ondansetron HCl 8 mg tablet 4 mg PO Q6H PRN Nausea 12/13/21 06/16/24 History nitroglycerin 0.4 mg sublingual 0.4 mg sublingual Q5M PRN chest 02/14/22 06/16/24 Rx tablet (Nitrostat) pain #30 tabs celecoxib 100 mg capsule (Celebrex) 100 mg PO QAM 08/30/22 06/16/24 History lisinopril 5 mg tablet (Zestril) 5 mg PO QAM #90 tabs 06/29/23 06/16/24 Rx atorvastatin 80 mg tablet 80 mg PO HS #90 tabs 08/30/23 06/16/24 Rx evolocumab 140 mg/mL subcutaneous 140 mg subcut ONCE #2 mL 11/22/23 06/16/24 Rx pen injector (Repatha Karenick) escitalopram oxalate 10 mg tablet 20 mg PO QPM 12/19/23 06/16/24 History hydromorphone 4 mg tablet 8 mg PO TID PRN Pain 12/19/23 06/16/24 History metoprolol succinate 25 mg 25 mg PO QAM #90 tabs 12/19/23 06/16/24 Rx tablet,extended release 24 hr oxycodone 10 mg tablet 10 mg PO Q6H PRN Pain 12/19/23 06/16/24 History spironolactone 25 mg tablet 25 mg PO QAM #90 tabs 03/18/24 06/16/24 Rx gabapentin 300 mg capsule 300 mg PO TID 04/22/24 06/16/24 History baclofen 20 mg tablet 20 mg PO TID PRN Pain 05/20/24 06/16/24 History clopidogrel 75 mg tablet 75 mg PO QAM 05/20/24 06/16/24 History oxybutynin chloride 15 mg 15 mg PO DAILY 05/20/24 06/16/24 History tablet,extended release 24 hr sumatriptan succinate 100 mg 100 mg PO UD PRN Migraine Headache 05/20/2406/16 History tablet (Imitrex) aspirin 81 mg capsule 81 mg PO DAILY 06/16/24 06/16/24 History Past Med/Surg History Problem List (Updated 06/16/24 @ 09:19 by Willian Carrera DO) Lumbosacral spondylosis with radiculopathy Cardiomyopathy, ischemic EF 45-50% [facility] Stented coronary artery Hypertrophy of both inferior nasal turbinates Anxiety Encounter for pre-operative examination Coronary artery disease Hypothyroidism COPD (chronic obstructive pulmonary disease) Depression CKD (chronic kidney disease) stage 3, GFR 30-59 ml/min Hypertension Dyslipidemia Hammertoe of left foot Hallux valgus (acquired), left foot Lumbar stenosis with neurogenic claudication (Chronic) Cervical stenosis of spinal canal (Chronic) Generalized pain (Chronic) IgA deficiency (Chronic) Fibromyalgia (Chronic) Anemia chronic, hx iron infusions Compression fracture of T12 vertebra (Chronic) Compression fracture of L5 lumbar vertebra (Chronic) Medical History Difficult intubation Cardiomyopathy, ischemic Migraine Connective tissue disorder Prurigo Ilioinguinal neuralgia Osteoarthritis Hypothyroidism Anxiety CKD (chronic kidney disease) stage 3, GFR 30-59 ml/min COPD (chronic obstructive pulmonary disease) History of blood transfusion (~2002) Personal history of methicillin resistant Staphylococcus aureus (~2012) Temporomandibular joint disorder History of anaphylaxis (~1979) Cervical spondylosis without myelopathy STEMI (ST elevation myocardial infarction) (~2020) GERD (gastroesophageal reflux disease) MVP (mitral valve prolapse) Deviated nasal septum Raynaud disease Adrenal insufficiency DDD (degenerative disc disease) Gastroparesis Traumatic brain injury (~1984) Interstitial cystitis Asthma Hyperlipidemia IBS (irritable bowel syndrome) Fibromyalgia Surgical History History of lumbar fusion (09/22/22) Port-A-Cath in place (07/25/22) History of removal of Port-a-Cath (07/25/22) History of cardiac cath History of heart artery stent History of colonoscopy History of hernia repair History of difficult intubation Hx of spinal fusion History of YAG laser iridotomy of left eye Hx of spinal fusion History of bilateral cataract extraction Hx of repair of right rotator cuff Hx of arthroscopy of left knee History of arthroscopy of left shoulder Hx of repair of left rotator cuff Hx of shoulder surgery History of vascular access device Hx of left inguinal hernia repair Hx of abdominal surgery Hx of arthroscopy of right knee Hx of tonsillectomy History of arthroplasty of left knee History of trigger finger History of colostomy reversal Hx of colostomy (~2002) Hx of heart surgery (~2001) History of bunionectomy of left great toe History of ankle surgery History of foot surgery Hx of laparoscopy Hx of appendectomy Hx of hysterectomy History of reverse total replacement of left shoulder joint Family History Mother Hearing loss Stroke Heart disease Other No family history of adverse response to anesthesia No family history of bleeding disorder No known health problems Social History Smoking Status: Never smoker Second Hand Exposure: No; Do You Dip or Chew Tobacco: No; Hx Alcohol Use: No Hx Substance Use: No Preferred Language: [place] Communication Ability: Effective Visual Impairment: No Limitations Hearing Ability: Normal Blow Pit Helper Required: No Beliefs That Will Affect Care: None marital status: Current Living Situation: Alone current occupational status: disabled current occupation: Retired Feels Safe at Home: Yes Safety Concerns: Feels Safe At This Time Assistive Devices: Glasses Assistive Devices Comment: partial upper [place] Physical Exam Physical Exam: Patient is alert and oriented heart regular rhythm Lungs clear
--- OUTSIDE RECORDS SUMMARY | 2024-06-16 09:21 | External Medical Summary | Continuity of Care Document ---
Author Name Unknown Organization [address] Address [address] [place] [address] [place], [place] [id number] Care Team Providers Care Engineering Supplies Sales Name Role Phone Christie Soto Primary Care Physician [phone] [id number] Date(s): 06/02/24 - 06/02/[address] [place] [id number] [facility], [address] [place] [address] [phone] Encounter Diagnosis Body mass index [BMI] 24.0-24.9, adult(Discharge Diagnosis) - 06/02/24 Preop examination(Discharge Diagnosis) - 06/02/24 Discharge Disposition: Home or Self Care Attending Physician: MD Soto Ravishankar E Referring Physician: MD Soto Ravishankar E Allergies, Adverse Reactions, Alerts Substance Criticality Severity Reaction Reaction Severity Status neomycin Active Desyrel Active Zithromax Active Betadine Active Bellergal-S Active Trovan Active Floxin Active Primaxin Active Voltaren Active Soma Active Septra Active Serzone Active Daypro Active Pneumovax 23 unknown Active Lodine Active Cleocin T Active Compazine Active Terramycin Active Propulsid Active Paxil Active Adhesive bandage Act clarita Influenza Virus Vaccine unknown Active Nickel Active sulfites Active IVP dye Active Nevanac Active Formaldehyde Active Assessment and Plan Extracted from: Title:Pre-Op Eval Author:MD Soto Ravishankar E Date:06/02/24 1.Preop examination - RCRI score of 0. - Reasonable to proceed with surgery - History of oxycodone/hydromorphone chronically which will complicate perioperative pain management, she is aware and fearful of this- itwouldbereasonable to increase perioperatively up to 4mg BID in the preoperative period (~2wks) and then resume chronic dosing thereafter. f/u PRN. Time: 40mins 5 - pre-visit chart review 30 - visit, inclusive of history, exam, and discussion of assessment/plan 5 - post-visit documentation/orders/coordination of care Immunizations Given and Recorded Vaccine Date Status Refusal Reason pneumococcal 20-valent conjugate vaccine 09/17/23 Given SARS-CoV-2 mRNA-1273 (6y+ bivalent) 04/09/22 Recor ded pneumococcal 13-valent vaccine 05/03/21 Given SARS-CoV-2 (COVID-19) mRNA-1273 vaccine 02/23/21 R ecorded SARS-CoV-2 (COVID-19) mRNA-1273 vaccine 02/08/21 R ecorded SARS-CoV-2 (COVID-19) mRNA-1273 vaccine 12/18/20 R ecorded SARS-CoV-2 (COVID-19) mRNA-1273 vaccine 11/28/20 R ecorded zoster vaccine, inactivated 11/03/19 Given zoster vaccine, inactivated 07/11/19 Recorded pneumococcal 23-valent vaccine 03/09/14 Recorded tetanus/diphtheria/pertuss, acel (Tdap) 08/12/12 R ecorded Medications atorvastatin 80 mg oral tablet Start: 11/24/20 1:52:00 PM EDT Start Date: 11/24/20 Status: Ordered Azithromycin 5 Day Dose Pack 250 mg oral tablet Start: 01/04/24 1:59:00 PM EDT, See Instructions, Disp# 1 packet, Refills: 0, as directed on packagelabeling, Pharmacy: [facility]/pharmacy #[id number] Start Date: 01/04/24 Status: Ordered BACLOFEN 10 MG TABLET Start: 11/20/23 4:09:00 PM EDT, BACLOFEN 10 MG TABLET, 1 tab, PO, tid, Disp# 270 tab, Refills: 3, Pharmacy [facility] STORE [id number] Start Date: 11/20/23 Status: Ordered biotin Start: 05/08/14 10:22:00 AM EST, 40 mg =, PO, Daily Start Date: 05/08/14 Status: Ordered Caltrate 600 Plus oral tablet Start: 09/17/23 8:50:00 AM EDT, 1 tab, PO, bid Start Date: 09/17/23 Status: Ordered CeleBREX 200 mg oral capsule Start: 10/07/21 2:08:00 PM EDT, 1 cap, PO, Daily, PRN: as needed for pain Start Date: 10/07/21 Status: Ordered clotrimazole 1% topical cream Start: 10/14/21 11:11:00 AM EDT, 1 appl, topical, bid, Disp# 30 g, Refills: 1, Pharmacy: [id number] Start Date: 10/14/21 Stop Date: 10/28/21 Status: Ordered escitalopram 20 mg oral tablet Start: 04/10/24 3:07:00 PM EDT, 1 tab, PO, Daily, Disp# 90 tab, Refills: 3, [id number] Start Date: 04/10/24 Stop Date: 04/05/25 Status: Ordered esomeprazole 40 mg oral delayed release capsule Start: 01/07/24 7:57:00 AM EDT, 1 cap, PO, Daily, Disp# 90 cap, Refills: 3, Pharmacy: [facility] [id number] Start Date: 01/07/24 Status: Ordered gabapentin 300 mg oral capsule Start: 06/02/24 10:27:00 AM EST, 1 cap, PO, tid Start Date: 06/02/24 Status: Ordered Gamma Guard Start: 09/13/21 3:02:00 PM EDT, Gamma Guard Start Date: 09/13/21 Status: Ordered HYDROmorphone 2 mg oral tablet Start: 05/16/24 8:00:00 AM EST, 2 tab, PO, bid, Disp# 120 tab, Refills: 0, Note to Pharmacy: replacement for 4mg out of stock, PRN: as needed for pain, [id number] Start Date: 05/16/24 Stop Date: 06/15/24 Status: Ordered lidocaine topical 5% patch Start: 03/31/24 10:48:00 AM EDT, 1 patch, topical, Daily, Disp# 14 patch, Refills: 0, [id number] Start Date: 03/31/24 Stop Date: 04/14/24 Status: Ordered lisinopril 5 mg oral tablet Start: 11/24/20 1:52:00 PM EDT, 1 tab, PO, Daily Start Date: 11/24/20 Status: Ordered metoclopramide 5 mg oral tablet Start: 01/07/24 7:57:00 AM EDT, 1-2 TABLET, PO, qid, Disp# 400 tab, Refills: 3, PRN: NEEDED FOR NAUSEA, Pharmacy: [facility] [id number] Start Date: 01/07/24 Status: Ordered Metoprolol Succinate ER 50 mg oral tablet, extended release Start: 01/27/22 7:54:00 AM EDT, 1 tab, PO, Daily Start Date: 01/27/22 Status: Ordered montelukast 10 mg oral tablet Start: 09/10/23 8:03:00 AM EDT, 1 tab, PO, qPM, Disp# 90 tab, Refills: 3, Pharmacy: [facility] [id number] Start Date: 09/10/23 Status: Ordered nitroglycerin 0.4 mg sublingual tablet Start: 11/24/20 1:54:00 PM EDT, 1 tab, SL, q5min, Disp# 25 tab, PRN: as needed for chest pain Start Date: 11/24/20 Status: Ordered ondansetron 4 mg oral tablet Start: 09/13/21 3:19:00 PM EDT, 1 tab, PO, bid, Disp# 60 tab, Refills: 1, PRN: as needed for nausea/vomiting, Pharmacy: [id number] Start Date: 09/13/21 Status: Ordered oxyBUTYnin 15 mg/24 hr oral tablet, extended release Start: 01/07/24 7:57:00 AM EDT, 1 tab, PO, Daily, Disp# 90 tab, Refills: 3, PRN: NEEDED FOR URINARY DISCOMFORT, Pharmacy: [id number] Start Date: 01/07/24 Status: Ordered oxyCODONE 10 mg oral tablet Start: 06/04/24 8:33:00 AM EST, 10 mg =, PO, q6h, Disp# 120 tab, Refills: 0, PRN: Pain, Pharmacy: [facility]/pharmacy #[id number] Start Date: 06/04/24 Status: Ordered Plavix 75 mg oral tablet Start: 01/27/22 7:53:00 AM EDT, 1 tab, PO, ONCE Start Date: 01/27/22 Status: Ordered Repatha SureClick 140 mg/mL subcutaneous solution Start: 01/27/22 7:53:00 AM EDT, 140 mg =, subQ, [id number] Start Date: 01/27/22 Status: Ordered silver sulfADIAZINE 1% topical cream Start: 08/27/23 9:26:00 AM EST, See Instructions, Disp# 50 g, Refills: 1, APPLY TO AFFECTED AREA TWICE A DAY FOR 14 DAYS, Pharmacy: [facility] [id number] Start Date: 08/27/23 Status: Ordered spironolactone 25 mg oral tablet Start: 01/04/21 9:50:00 AM EDT, 1 tab, PO, Daily Start Date: 01/04/21 Status: Ordered SUMAtriptan 100 mg oral tablet Start: 05/26/24 1:51:00 PM EST, See Instructions, Disp# 9 tab, Refills: 3, TAKE 1 TABLET BY MOUTH ONCE NEEDED FOR MIGRANE HEADACHE, MAY REPEAT DOSE IN 2 HOURS IF NEEDED, Pharmacy: [facility] [id number] Start Date: 05/26/24 Status: Ordered Synthroid 75 mcg (0.075 mg) oral tablet Start: 09/10/23 8:03:00 AM EDT, 1 tab, PO, Daily, Disp# 90 tab, Refills: 3, Brand Medically Necessary, Pharmacy: [facility] Start Date: 09/10/23 Status: Ordered Tessalon 200 mg oral capsule Start: 05/14/24 7:48:00 AM EST, 1 cap, PO, tid, Disp# 40 cap, Refills: 0, do not crush or chew, prncough, Pharmacy: [facility]/pharmacy #[id number] Start Date: 05/14/24 Status: Ordered Mental Status 06/02/24 Barriers to Learning one year None evide nt Mandatory Health Literacy Documentation Yes Health Literacy Communication Barriers N ever Primary Language Romansh Problem List Condition Confirmation Course Effective Dates Status Health Status Informant Adrenal insufficiency Confirmed Active Anxiety Confirmed Active Arthritis of left knee Confirmed Active Asthma Confirmed Active Oral thrush Confirmed Active Chronic pain Confirmed Active Depression Confirmed Active Port-A-Cath in place Confirmed Active Diarrhea Confirmed Active Sleep disturbance Confirmed Active 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 Active Fatigue Confirmed Active Fibromyalgia Confirmed Active Coated tongue Confirmed Active GERD (gastroesophageal reflux disease) Confirmed Active History of measles Confirmed Active History of mumps Confirmed Active 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 Active Hypogammaglobulinemia Confirmed Active Hypothyroid Confirmed Active Increased nausea and vomiting Confirmed Active Elevated WBC count Confirmed Active Elevated liver enzymes Confirmed Active Finger pain, left Confirmed Active Abdominal adhesions Confirmed Active Hospital discharge follow-up Confirmed Active 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 Sore mouth Confirmed Active Back strain Confirmed Active Thrush Confirmed Active Need for vaccination Confirmed Active Viral illness Confirmed Active Diagnosis Diagnosis Type Effective Dates Health Status Clinical Service Informant Body mass index [BMI] 24.0-24.9, adult Discharge Diagnosis 06/02/24 Non-Specified Preop examination Discharge Diagnosis 06/02/24 Non-Specified Procedures Procedure Date Related Diagnosis Body Site Status Shave biopsy 1 09/12/23 Completed Spinal fusion 2 09/22/22 Completed Insertion of implantable gloria ous access port 07/25/22 Completed Removal of implantable venou s access port, , followed by insertion of new access port 07/25/22 Completed Chest X-ray 3 11/11/20 Completed Venous doppler ultrasonography 4 11/11/20 Completed Cardiac catheter 11/05/20 Complete d Injection 5 02/10/20 Completed Venous doppler ultrasonography LE LT 6 01/02/20 Completed Other 7 04/28/19 Completed X-ray of right foot 8 04/13/19 Com pleted Eye examination 9 06/13/18 Complet ed Eye examination 10 03/01/17 Comple zenaida Revision of repair of rotator cuff 11 08/23/16 Completed Fusion of spine 12 05/12/16 Comple zenaida Cataract surgery 13 08/07/13 Compl eted Total hysterectomy 2013 Com pleted Repair of meniscus 15 07/25/11 Com pleted Implantable venous access port 08/24/07 Completed Manual repair of hernia 08/23/05 C ompleted Repair of knee joint 16 07/26/03 C ompleted Release of trigger thumb 17 06/25/03 Completed Orbitotomy with bone flap or window, lateral approach (eg, Kroenlein); for exploration, with or without biopsy 18 04/25/02 Completed Repair of rotator cuff of shoulder 19 09/09/00 Completed Carpal tunnel release 20 06/25/88 Completed Tarsal tunnel release 06/25/88 Com pleted Ankle Completed Appendectomy Completed Arthroscopy 21 Completed BSO - Bilateral salpingo-oophorectomy Completed Bunionectomy 22 Completed Colonoscopy Completed Colostomy Completed Excision of Lomax's neuroma 23 Completed Foot Completed Heart Completed Hysterectomy 24 Completed Inguinal hernia Completed Knee Completed Repair of ankle 25 Comple zenaida Shoulder Completed Spinal fusion Completed Stented coronary artery C ompleted Tonsillectomy Completed YAG laser iridotomy 26 Co mpleted 1right ventral forearm 2Multiple spinal fusions and hardware replacement in Lumbar and Sacral Spine. 3Impression: No acute cardiopulmonary findings. 4Impression: 1. No evidence of deep venous thrombus within the left lower extremity. 2. Small left popliteal cyst. 5L knee injection 6Impression: No evidence of left lower extremity DVT. 7Right Eye: No disc edema. CDR 0.3. No disc pallor. No clinical NFL defects. No posterior vitreous detachment. Noraml caliber. No subretinal hemorrhage, fluid or exudate. Attached 360 degrees. No holes or tears. Left Eye: No disc edema. CDR 0.3. No disc pallor. No clinical NFL defects. Posterior Vitreous Detachment. No vitreous hemorrhage. Normal caliber. No subretinal Hemorrhage, fluid or exudate. No new holes or tears. Treated retinal tears (9:00 x 2 , 11:00) 8Nondisplaced fractures within the fourth and fifth toes as described above. 9No disc edema, no clinical NFL defects. Posterior Viterous detachment . Improving Viterous Hemorrhage Normal Caliber No subretinal hemorrhage, fluid or exudate Treated retinal tears (9:00x2, 11:00). No new holes or tears. 1020/30 in both eyes/ c/o sob/fatigue advised f/u with pcp 11Left shoulder arthroscopic reision rotator cuff repair 66W9-N8 decompression with instrumented fusion. 13left and right eye 17:48 EST - Spicher, HUMAN RESOURCE ASSISTANT, Vu cervix removed 15left knee Dr. Watkins 16caritlage repar, ,Dr. Watkins 17left 18drain pericardial sac, Dr. Neff at [facility] 19left shoulder with clavicle shave Dr. Watkins UOC 20both wrists 21left and right knee 22left great toe 23both feet 24cervix removed 25left 26left eye Vital Signs Most recent to oldest [Reference Range]: 1 Height 167.5 cm (06/02/24 10:28 AM) Patient Weight 69.6 kg (06/02/24 10:28 AM) Body Mass Index 24.81 kg/m2 (06/02/24 10:28 AM) Temperature [36.5-37.9 DegC] 36.5 DegC (06/02/24 10:28 AM) Heart Rate 53 bpm (06/02/24 10:28 AM) Respiratory Rate 16 br/min (06/02/24 10:28 AM) Blood Pressure 110/44mmHg (06/02/24 10:28 AM) Cuff Pulse Pressure 66 mmHg (06/02/24 10:28 AM) Social History Social History Type Response Smoking Status Never smoked cigaret erik Sex Female Sex Representation Female (finding) FCM Outpt Note * MD Charles, Christie E: PERFORM Event Display: FCM Outpt Note Authored Date: [id number] Chief Complaint back surgery L2-L3, L4 and L5. on June 16 History of Present Illness Lilliana is a 69yoF here today for pre-operative evaluation for back surgery planned 06/[address] Carrera at [facility]. She is planning to L2-3-4-5 levels addressed with decompression, exploration, and fusion of L2-S1 under general anesthesia. She has no notable surgical or anesthesia bleeding complications of note. She endorses 4MET tolerance in the form of 1 flight of stairs without stopping, precluding need forfurthercardiac clearance. Pre-OP testing reviewed including CXR (normal), PT/INR (normal), CMP (unremarkable), CBC (normal), UA (normal), and EKG (notable only for sinus bradycardia). She is otherwise generally in good health with all chronic conditions stable/managed at this time. Review of Systems 04/07pt ROS reviewed/negative except as noted in HPI. Physical Exam Vitals & Measurements T:36.5C HR:53(Monitored) RR:16 BP:110/44 SpO2:98% HT:167.5cm WT:69.6kg WT:69.600kg(Dosing) BMI:24.81 PHQ2 Data(Data Documented on:06/02/2024 10:28) Emotional health assessment NEGATIVE GENERAL APPEARANCE: The patient is alert, oriented and in no acute distress. VITALS: As above. HEENT: Head is normocephalic/atraumatic. PERRL, EOM-I. Oropharynx clear without lesions. NECK: Supple without lymphadenopathy. Thyroid wnl. CARDIOVASCULAR: Regular rate and rhythm, no m/r/g. +2 radialpulses. LUNGS: Clear to auscultation bilaterally. No wheezes/rhales/rhonchi. ABDOMEN: Soft, nontender, nondistended with normal bowel sounds. No rebound/guarding. EXTREMITIES: No cyanosis, clubbing or edema. NEUROLOGICAL: Grossly non-focal exam. SKIN: Warm and dry without any rash Assessment/Plan 1.Preop examination - RCRI score of 0. - Reasonable to proceed with surgery - History of oxycodone/hydromorphone chronically which will complicate perioperative pain management, she is aware and fearful of this- itwouldbereasonable to increase perioperatively up to 4mg BID in the preoperative period (~2wks) and then resume chronic dosing thereafter. f/u PRN. 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 Depression Diarrhea Elevated liver enzymes Elevated WBC count Fatigue Fibromyalgia Finger pain, left GERD (gastroesophageal reflux disease) History of measles History of mumps Hospital discharge follow-up Hypogammaglobulinemia Hypothyroid IgG deficiency Increased nausea and vomiting Need for vaccination Oral thrush Port-A-Cath in place Prurigo Sleep disturbance Sore mouth Status post reverse total arthroplasty of left shoulder Thrush Viral illness Resolved Acute URI Acute UTI Anemia Arthritis 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 Dysuria History of chicken pox Hypokalemia Left knee pain Muscle strain Right shoulder pain Vaginal holden Vaginal itching Viral gastroenteritis Weight disorder Procedure/Surgical History Shave biopsy| Service Date: 09/12/2023Spinal fusion| Service Date: 09/22/2022Removal of implantable venous access port, , followed by insertion of new access port| Service Date: 07/25/2022Insertion of implantable venous access port| Service Date: 07/25/2022Venous doppler ultrasonography| Service Date: 11/11/2020hest X-ray| Service Date: 11/11/2020ardiac catheter| Service Date: 11/05/2020Injection| Service Date: 02/10/2020Venous doppler ultrasonography LE LT| ServiceDate: 01/02/2020Other| Service Date: 04/28/2019X-ray of right foot| Service Date: 04/13/2019Eye examination| Service Date: 06/13/2018Eye examination| Service Date: 03/01/2017Revision of repair of rotator cuff| Service Date: 08/23/2016Fusion of spine| Service Date: 05/12/2016Cataract surgery| Service Date: 08/07/2013Total hysterectomy| Service Date: 2013Repair of meniscus| Service Date: 07/25/2011Implantable venous access port| Service Date: 08/24/2007Manual repair of hernia| Service Date: 08/23/2005Repair of knee joint| Service Date: 07/26/2003Release oftrigger thumb| Service Date: 06/25/2003Orbitotomy with bone flap or window, lateral approach (eg, Kroenlein); for exploration, with or without biopsy| Service Date: 04/25/2002Repair of rotator cuff of shoulder| Service Date: 09/09/2000Carpal tunnel release| Service Date: 06/25/1988Tarsal tunnel release| Service Date: 06/25/1988Repair of ankleExcision of Lomax's neuromaHystere ctomyTonsillectomyShoulderColostomyAnkleKneeBSO - Bilateral salpingo-oophorectomyAppendectomyHeartSpinal fusionArthroscopyYAG laser iridotomyFootBunionectomyInguinal herniaStented coronary arteryColonoscopy Medications atorvastatin(atorvastatin 80 mg oral tablet) azithromycin(Azithromycin 5 Day Dose Pack 250 mg oral tablet), See Instructions benzonatate(Tessalon 200 mg oral capsule), 200 mg= 1 cap, PO, tid biotin, 40 mg, PO, Daily celecoxib(CeleBREX 200 mg oral capsule), 200 mg= 1 cap, PO, Daily, PRN clopidogrel(Plavix 75 mg oral tablet), 75 mg= 1 tab, PO, ONCE clotrimazole topical(clotrimazole 1% topical cream), 1 appl, topical, bid, 1 refills escitalopram(escitalopram 20 mg oral tablet), 20 mg= 1 tab, PO, Daily, 3 refills esomeprazole(esomeprazole 40 mg oral delayed release capsule), 1 cap, PO, Daily evolocumab(Repatha SureClick 140 mg/mL subcutaneous solution), 140 mg, subQ, [id number] gabapentin(gabapentin 300 mg oral capsule), 300 mg= 1 cap, PO, tid HYDROmorphone(HYDROmorphone 2 mg oral tablet), 4 mg= 2 tab, PO, bid, PRN levothyroxine(Synthroid 75 mcg (0.075 mg) oral tablet), 1 tab, PO, Daily lidocaine topical(lidocaine topical 5% patch), 1 patch, topical, Daily lisinopril(lisinopril 5 mg oral tablet), 5 mg= 1 tab, PO, Daily metoclopramide(metoclopramide 5 mg oral tablet), 1-2 TABLET, PO, qid, PRN metoprolol(Metoprolol Succinate ER 50 mg oral tablet, extended release), 50 mg= 1 tab, PO, Daily montelukast(montelukast 10 mg oral tablet), 1 tab, PO, qPM multivitamin with minerals(Caltrate 600 Plus oral tablet), 1 tab, PO, bid nitroglycerin(nitroglycerin 0.4 mg sublingual tablet), 0.4 mg= 1 tab, SL, q5min, PRN ondansetron(ondansetron 4 mg oral tablet), 4 mg= 1 tab, PO, bid, PRN, 1 refills oxyBUTYnin(oxyBUTYnin 15 mg/24 hr oral tablet, extended release), 1 tab, PO, Daily, PRN oxyCODONE(oxyCODONE 10 mg oral tablet), 10 mg, PO, q6h, PRN silver sulfADIAZINE topical(silver sulfADIAZINE 1% topical cream), See Instructions spironolactone(spironolactone 25 mg oral tablet), 25 mg= 1 tab, PO, Daily SUMAtriptan(SUMAtriptan 100 mg oral tablet), See Instructions unknown medication(Gamma Guard) unlisted medication(BACLOFEN 10 MG TABLET), 1 tab, PO, tid Allergies Adhesive bandage Bellergal-S Betadine Cleocin T Compazine Daypro Desyrel Floxin Formaldehyde IVP dye Influenza Virus Vaccineunknown Lodine Nevanac Nickel Paxil Pneumovax 23unknown Primaxin Propulsid Septra Serzone Soma Terramycin Trovan Voltaren Zithromax neomycin sulfites Social History Smoking Status Never smoked cigarettes Alcohol - Denies Alcohol Use 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 Heart disease: Mother. Hyperlipidemia: Mother. Hypertension: Mother. TIA: Mother. Health Status Family Member(s) Immunizations Vaccine Date Status pneumococcal 20-valent conjugate vaccine 09/17/2023 Given SARS-CoV-2 mRNA-1273 (6y+ bivalent) 04/09/2022 Recorded pneumococcal 13-valent vaccine 05/03/2021 Given SARS-CoV-2 (COVID-19) mRNA-1273 vaccine 02/23/2021 Recorded SARS-CoV-2 (COVID-19) mRNA-1273 vaccine 02/08/2021 Recorded SARS-CoV-2 (COVID-19) mRNA-1273 vaccine 12/18/2020 Recorded SARS-CoV-2 (COVID-19) mRNA-1273 vaccine 11/28/2020 Recorded zoster vaccine, inactivated 11/03/2019 Given zoster vaccine, inactivated 07/11/2019 Recorded pneumococcal 23-valent vaccine 03/09/2014 Recorded tetanus/diphtheria/pertuss, acel (Tdap) 08/12/2012 Recorded Recommendations Health Maintenance Pending(in the next year) OverDue Breast Cancer Screening due09/22/23and every 731day Due Adult COVID-19 Vaccination due06/02/24Unknown Frequency Adult Social Determinants of Health Screening due06/02/24Unknown Frequency Adult Tdap/Td Vaccine due06/02/24Unknown Frequency Colorectal Cancer Screening due06/02/24and every 10year Hepatitis C Screening due06/02/24One-time only Medicare Annual Wellness Visit due06/02/24and every 1year Osteoporosis Screening due06/02/24One-time only Satisfied(in the past 1 year) Satisfied Body Mass Index on06/02/24.Satisfied by RATNA Carranza Angela PHQ-9 After Positive PHQ-2 on06/27/23.Satisfied by TARIQ Brown Paula Electronic Signature on File CC: Willian Carrera, DO [address] [facility] [address] [facility] [id number] * Electronically Reviewed/Signed by: Christie Soto MD Author Signature Dt/Tm:06/02/2024 10:56 AM Department of Family Medicine [facility] Patient Care team information Care Team Personnel Name: CrispinDO Theresa M Position: Physician - Family Med Member Role: Lifetime Relationship Address: [address] [place] [address] [place] Name: ALISTAIR Medel Lynn Position: Physician Basketball Commentator Exempt - Vasc Surg Member Role: Lifetime Relationship Address: [address] [place] [address] [address] [place] [address] [place] Name: MD Charles, Christie Terrell Position: Physician Member Role: Primary Care Provider Address: [address] [place] [address] [place] Name: Cris Latham Position: HIS Supervisor_P Member Role: HIS Lifetime Care Team Related Persons Name: JOAN COSBY"
--- OUTSIDE RECORDS SUMMARY | 2024-06-16 09:21 | External Medical Summary | Continuity of Care Document ---
Author Name Unknown Organization [address] Address [address] [place] [address] [place], [place] [id number] Care Team Providers Care Mammal Keeper Name Role Phone Christie Soto Primary Care Physician [phone] Encounter [facility] [id number] Date(s): 06/02/24 - 06/02/[address] [place] [id number] [facility], [address] [place] [address] [phone] Encounter Diagnosis Body mass index [BMI] 24.0-24.9, [...] Refills: 0, as directed on packagelabeling, Pharmacy: [facility]/pharmacy #[id number] Start Date: 01/04/24 Status: Ordered BACLOFEN 10 MG TABLET Start: 11/20/23 4:09:00 PM EDT, BACLOFEN 10 MG TABLET, 1 tab, PO, tid, Disp# 270 tab, Refills: 3, Pharmacy [id number] Start Date: 11/20/23 Status: Ordered biotin Start: [...] bid, Disp# 30 g, Refills: 1, Pharmacy: [facility] Start Date: 10/14/21 Stop Date: 10/28/21 Status: Ordered escitalopram 20 mg oral tablet Start: 04/10/24 3:07:00 PM EDT, 1 tab, PO, Daily, Disp# 90 tab, Refills: 3, [id number] Start Date: 04/10/24 Stop Date: 04/05/25 Status: Ordered esomeprazole 40 mg oral delayed release capsule Start: 01/07/24 7:57:00 AM EDT, 1 cap, PO, Daily, Disp# 90 cap, Refills: 3, Pharmacy: [facility] [id number] Start Date: 01/07/24 Status: Ordered gabapentin 300 [...] stock, PRN: as needed for pain, [id number] Start Date: 05/16/24 Stop Date: 06/15/24 Status: Ordered lidocaine topical 5% patch Start: 03/31/24 10:48:00 AM EDT, 1 patch, topical, Daily, Disp# 14 patch, Refills: 0, [id number] Start Date: 03/31/24 Stop Date: 04/14/24 Status: Ordered lisinopril 5 mg oral tablet Start: 11/24/20 1:52:00 PM EDT, 1 tab, PO, Daily Start Date: 11/24/20 Status: Ordered metoclopramide 5 mg oral tablet Start: 01/07/24 7:57:00 AM EDT, 1-2 TABLET, PO, qid, Disp# 400 tab, Refills: 3, PRN: NEEDED FOR NAUSEA, Pharmacy: [id number] Start Date: 01/07/24 Status: Ordered Metoprolol Succinate ER 50 mg oral tablet, extended release Start: 01/27/22 7:54:00 AM EDT, 1 tab, PO, Daily Start Date: 01/27/22 Status: Ordered montelukast 10 mg oral tablet Start: 09/10/23 8:03:00 AM EDT, 1 tab, PO, qPM, Disp# 90 tab, Refills: 3, Pharmacy: [facility] [id number] Start Date: 09/10/23 Status: Ordered nitroglycerin 0.4 mg sublingual tablet Start: 11/24/20 1:54:00 PM EDT, 1 tab, SL, q5min, Disp# 25 tab, PRN: as needed for chest pain Start Date: 11/24/20 Status: Ordered ondansetron 4 mg oral tablet Start: 09/13/21 3:19:00 PM EDT, 1 tab, PO, bid, Disp# 60 tab, Refills: 1, PRN: as needed for nausea/vomiting, Pharmacy: [id number] Start Date: 09/13/21 Status: Ordered oxyBUTYnin 15 mg/24 hr oral tablet, extended release Start: 01/07/24 7:57:00 AM EDT, 1 tab, PO, Daily, Disp# 90 tab, Refills: 3, PRN: NEEDED FOR URINARY DISCOMFORT, Pharmacy: [id number] Start Date: 01/07/24 Status: Ordered oxyCODONE 10 mg oral tablet Start: 06/04/24 8:33:00 AM EST, 10 mg =, PO, q6h, Disp# 120 tab, Refills: 0, PRN: Pain, Pharmacy: [facility]/pharmacy #[id number] Start Date: 06/04/24 Status: Ordered Plavix 75 mg oral tablet Start: 01/27/22 7:53:00 AM EDT, 1 tab, PO, ONCE Start Date: 01/27/22 Status: Ordered Repatha SureClick 140 mg/mL subcutaneous solution Start: 01/27/22 7:53:00 AM EDT, 140 mg =, subQ, q6eitch Start Date: 01/27/22 Status: Ordered silver sulfADIAZINE 1% topical cream Start: 08/27/23 9:26:00 AM EST, See Instructions, Disp# 50 g, Refills: 1, APPLY TO AFFECTED AREA TWICE A DAY FOR 14 DAYS, Pharmacy: [facility] [id number] Start Date: 08/27/23 Status: Ordered spironolactone 25 mg oral tablet Start: 01/04/21 9:50:00 AM EDT, 1 tab, PO, Daily Start Date: 01/04/21 Status: Ordered SUMAtriptan 100 mg oral tablet Start: 05/26/24 1:51:00 PM EST, See Instructions, Disp# 9 tab, Refills: 3, TAKE 1 TABLET BY MOUTH ONCE NEEDED FOR MIGRANE HEADACHE, MAY REPEAT DOSE IN 2 HOURS IF NEEDED, Pharmacy: [facility] [id number] Start Date: 05/26/24 Status: Ordered Synthroid 75 mcg (0.075 mg) oral tablet Start: 09/10/23 8:03:00 AM EDT, 1 tab, PO, Daily, Disp# 90 tab, Refills: 3, Brand Medically Necessary, Pharmacy: [facility] Start Date: 09/10/23 Status: Ordered Tessalon 200 mg oral capsule Start: 05/14/24 7:48:00 AM EST, 1 cap, PO, tid, Disp# 40 cap, Refills: 0, do not crush or chew, prncough, Pharmacy: [facility]/pharmacy #[id number] Start Date: 05/14/24 Status: Ordered Mental Status 06/02/24 Barriers to Learning one year None evide nt Mandatory Health Literacy Documentation Yes Health Literacy Communication Barriers N ever Primary Language Irish Problem List Condition Confirmation Course Effective Dates [...] 11Left shoulder arthroscopic reision rotator cuff repair 61N9-G1 decompression with instrumented fusion. 13left and right eye 17:48 EST - Spicher, PRE CERTIFICATION SPECIALIST, Vu cervix removed 15left knee Dr. Watkins 16caritlage repar, ,Dr. Watkins 17left 18drain pericardial sac, Dr. Neff at [facility] 19left shoulder with clavicle shave Dr. Watkins [...] Event Display: FCM Outpt Note Authored Date: [id number] Chief Complaint back surgery L2-L3, L4 and L5. on June 16 History of Present Illness Lilliana is a 69yoF here today for pre-operative evaluation for back surgery planned 06/[address] [place] [facility] is planning to L2-3-4-5 levels addressed [...] 140 mg/mL subcutaneous solution), 140 mg, subQ, [id number] gabapentin(gabapentin 300 mg oral capsule), 300 mg= [...] on File CC: Willian Carrera, DO [address] [facility] [address] [facility] [id number] * Electronically Reviewed/Signed by: Christie Soto MD Author Signature Dt/Tm:06/02/2024 10:56 AM Department of Family Medicine [facility] Patient Care team information Care Team Personnel Name: CrispinDO Theresa M Position: Physician - Family Med Member Role: Lifetime Relationship Address: [address] [place] [address] [place] Name: ALISTAIR Medel Lynn Position: Physician Bottle Assembler Exempt - Vasc Surg Member Role: Lifetime Relationship Address: [address] [place] [address] [address] [place] [address] [place] Name: MD Charles, Christie Terrell Position: Physician Member Role: Primary Care Provider Address: [address] [place] [address] [place] Name: Cris Latham Position: HIS Supervisor_P Member Role: HIS Lifetime Care Team Related Persons Name: JOAN COSBY"
[2024-06-16] MEDS ORDERED: ATROPINE SULFATE 0.1 MG/ML 10ML SYR IV PRN (09:24)
[2024-06-16] MEDS ORDERED: ePHEDrine sulfate 50 MG/ML AMP IV PRN (09:24)
[2024-06-16] MEDS ORDERED: ONDANSETRON INJ 2 MG/ML 2 ML VIAL IV PRN ×2 (09:24→13:32)
[2024-06-16] MEDS: ACETAMINOPHEN 500 MG TAB PO SCH (09:32)
[2024-06-16] MEDS: ceFAZolin 2000MG 2,000 MG/15 ML SYR IV SCH ×2 (09:55→17:48)
[2024-06-16] MEDS ORDERED: ePHEDrine sulfate 50 MG/5 ML SYR ONE (10:06)
[2024-06-16] MEDS ORDERED: SUGAMMADEX SODIUM 200 MG/2 ML VIAL IV ONE (10:20)
[2024-06-16] MEDS ORDERED: ROCURONIUM BROMIDE 10 MG/ML 5 ML VIAL IV ONE (10:42)
[2024-06-16] MEDS: BUPIVACAINE/EPINEPHRINE 0.25% 1:200,000 30 ML VIAL ONE (10:50)
[2024-06-16] MEDS: ceFAZolin 330 MG/ML 1 GM VIAL ONE (10:50)
[2024-06-16] MEDS: FLOSEAL HEMOSTATIC MATRIX 10ML TOP ONE (11:42)
[2024-06-16] MEDS: HYDROmorphone INJ 2 MG/ML SYR/VIAL IV PRN (12:13)
--- NOTE | 2024-06-16 12:14 | Operative Report ---
Post Operative Report Pre & Post Diagnosis Operation Date: 06/16/24 10:05 Pre-Op Diagnosis: Lumbosacral Spondylosis with Radiculopathy L2-3 Post-Op Diagnosis: Lumbosacral Spondylosis with Radiculopathy L2-3 I identified the patient and participated in the time-out.: Yes Procedure Operation Date: 06/16/24 10:05 Actual Procedures #1 removal of posterior instrumentation L3-S1. #2 exploration of L3-S1. #3 lumbar decompression with bilateral facetectomies and foraminotomies L2-L3. #4 posterior spinal fusion L2-L3. #5 placement posterior instrumentation L2-S1. #6 interbody fusion L2-L3. #7 placement Spyro 12 x 26 mm L2-L3. #8 placement locally harvested morselized autograft posterior gutters. #9 placement infuse collagen sponge, with Koros in the posterior lateral gutters and os design and interbody space. #10 application of versa wrap over the exposed dura. Surgeon Willian Carrera, DO [employer] Assistant None Estimated Blood Loss 300 Findings Consistent with Post-Op Diagnosis Specimens None Indications This is a 61-year-old female well-known to me the presents publish diagnosis of failed course of nonoperative care is here for surgical invention. Description of Procedure Patient was met with identified informed consent obtained. Patient was then taken to the operative suite underwent intubation placed in a prone position on the Bill table atop the Luisito frame. All bony prominences well-padded eyes inspected to ensure no external precipice upon the. This point the lumbar spine was prepped and draped no sterile fashion. Sharp dissection with the assistance of Bovie cautery performed down to and exposing the lamina transverse processes of L2 and instrumentation at L3-L4 and S1 levels bilaterally. And then proceeded move the hardware bilaterally explored the fusion mass noting it to be mature and intact. Informed complete laminectomy L2 including bilateral medial facetectomies and foraminotomies addressing severe lateral recess and foraminal stenosis. Pedicle screws were then placed at L2-L3-L4 and S1 levels bilaterally. The process augustine placed. By way of a transforaminal approach on the left a complete discectomy of L2-L3 was performed endplates guided to subcortical bleeding bone and a 12 x 26 mm Spira cage filled with os design tapped in position. The rods were then locked in final position bilaterally. The transverse processes of L2-L3 burred to subcortical the bone. Infuse collagen sponge, with Koros and local autograft placed in the posterior gutters. 15 round IRVIN drain inserted. Versa wrap placed over the exposed dura. The incision was then closed with 1 Vicryl fascia 2-0 Vicryl subcutaneously and 4 Monocryl for final skin closure. Steri-Strips sterile dressing placed. Patient waken taken to PACU stable condition. Please note spinal cord monitoring was utilized at the procedure no changes noted. Im ordering 20 grams of Triple [place] Collagen Powder ([employer] [id number]) to treat an incision wound that was caused by a spine procedure. The incision is approximately 2 cm(W) x 4 cm(L) into the joint (D) in size and is a full thickness wound. Triple [place] collagen comes in 1 gram packets so 20 packets were ordered. Given the size of the wound, with light to moderate exudate I chose to order a 20 day supply. The patient will be provided instructions for proper application of the collagen wound kit. The patient will be asked to apply the collagen powder daily and then cover it with sterile dressings dispensed. Collagen was selected as I expect the collagen to attract monocytes and fibroblasts, act as a sacrificial substrate for MMPs, and ultimately proved a matrix for tissue and vessel growth. The collagen will act as a primary dressing in this scenario. It is medically necessary for proper healing of these wounds to improve bioavailability and contact with each wound surface, this is also to help prevent infection of wounds and promote healing ultimately leading to a better healing outcome and limit the risk of infection. I attest to the content of the Intraoperative Record and any orders documented therein. Any exceptions are noted below.
[2024-06-16] MEDS: HYDROmorphone INJ 1 MG/ML SYRINGE IV STA ×3 (12:30→12:55)
[2024-06-16] MEDS: HYDROmorphone INJ 1 MG/ML SYRINGE ONE ×2 (12:57)
[2024-06-16] MEDS ORDERED: METOCLOPRAMIDE HCL INJ 5 MG/ML 2 ML VIAL IV PRN (13:32)
[2024-06-16] MEDS ORDERED: SOD PHOSPHATE/SOD BIPHOSPHATE ENEMA 132 ML BTL PR PRN (13:32)
[2024-06-16] MEDS ORDERED: diphenhydrAMINE Capsule 25 MG CAP PO PRN (13:32)
[2024-06-16] MEDS ORDERED: FAMOTIDINE 20 MG TAB PO PRN (13:32)
[2024-06-16] MEDS ORDERED: PROMETHAZINE 12.5 MG/50.5 ML BAG IV PRN (13:32)
[2024-06-16] MEDS ORDERED: SUMAtriptan succinate 100 MG TAB PO PRN (13:32)
[2024-06-16] MEDS ORDERED: bisacodyL 10 MG SUPP PR PRN (13:32)
[2024-06-16] MEDS ORDERED: MAGNESIUM HYDROXIDE SUSP 30 ML UDC PO PRN (13:32)
[2024-06-16] MEDS ORDERED: NALOXONE HCL 0.4 MG/1 ML VIAL/CARP IV PRN (13:32)
[2024-06-16] MEDS ORDERED: DO NOT ADMINISTER PNEUMOCOCCAL VACCINE PRN (13:32)
[2024-06-16] MEDS ORDERED: ACETAMINOPHEN 1,000 MG/100 ML VIAL IV PRN (13:32)
[2024-06-16] MEDS ORDERED: DO NOT ADMINISTER FLU VACCINE PRN (13:32)
[2024-06-16] MEDS ORDERED: ALUMINUM/MAGNESIUM SUSP 30 ML UDC PO PRN (13:32)
[2024-06-16] MEDS ORDERED: LORazepam 2 MG/1 ML VIAL IV PRN (13:32)
[2024-06-16] MEDS ORDERED: LORazepam 0.5 MG TAB PO PRN (13:32)
[2024-06-16] MEDS ORDERED: NITROGLYCERIN SL 0.4 MG/TAB TAB SL PRN (13:32)
[2024-06-16] MEDS ORDERED: ONDANSETRON 4 MG OD TAB PO PRN (13:32)
--- NOTE | 2024-06-16 14:04 | Anesthesiology Progress Note ---
Date of Service June 16, 2024 Anesthesia Post Procedure Vital Signs Vital Signs: Temp Pulse Pulse Resp BP Pulse Ox O2 Del Method 06/16/24 13:33 36.8 C 104 H 18 120/56 L 94 Room Air 06/16/24 13:20 96 H 16 126/72 95 Nasal Cannula 06/16/24 13:10 90 18 128/71 96 Nasal Cannula 06/16/24 13:00 36.6 C 95 H 18 137/97 96 Nasal Cannula 06/16/24 12:50 91 H 16 112/82 96 Nasal Cannula 06/16/24 12:40 85 20 122/68 99 Oxymask 06/16/24 12:30 90 16 114/77 100 Oxymask 06/16/24 12:20 79 18 99/81 L 100 Oxymask 06/16/24 12:10 36.3 C L 83 10 L 154/74 H 100 Oxymask 06/16/24 09:02 36.8 C 50 L 18 160/69 H 95 Room Air O2 Flow Rate 06/16/24 13:33 06/16/24 13:20 3 06/16/24 13:10 3 06/16/24 13:00 3 06/16/24 12:50 3 06/16/24 12:40 4 06/16/24 12:30 4 06/16/24 12:20 6 06/16/24 12:10 6 06/16/24 09:02 Pain Intensity Back: Pain Intensity: 8 Transfer of Care Handoff Completed per policy Notes Mental Status: alert / awake / arousable Patient Amnestic to Procedure: Yes Nausea / Vomiting: adequately controlled Pain: see Notes below Airway Patency, RR, SpO2: stable & adequate BP & HR: stable & adequate Hydration State: stable & adequate Anesthetic Complications: no major complications apparent Notes: elevated pain score despite appearing clinically improved
[2024-06-16] MEDS: LR 15ML/HR IV SCH (14:35)
[2024-06-16] MEDS: oxyCODONE/ACETAMINOPHEN 10-325 TAB PO PRN (14:55)
[2024-06-16] MEDS: METOCLOPRAMIDE HCL 10 MG TABLET PO ONE (14:57)
[2024-06-16] MEDS: GABAPENTIN 300 MG CAP PO SCH (16:02)
--- NOTE | 2024-06-16 16:04 | Fluoroscopy Report ---
FL lumbar spine 2-3V CLINICAL HISTORY: L2-S1 DECOMPRESSION TECHNIQUE: 2 views were obtained with the C-arm in the OR with the above procedure. Total fluoroscopy time was 14.4 seconds. Radiation dose was 8.25 mGy. Comparison: Comparison is made to MRI lumbar spine 04/05/2024 FINDINGS/IMPRESSION: Intraoperative images were obtained of L2-S1 decompression. Please correlate with intraoperative fluoroscopy and operative report. ACT 112: Negative or not required by law. Electronically signed by: Abisai Rush M.D. 06/16/2024 4:02 PM
--- NOTE | 2024-06-16 16:07 | Hospitalist Consultation ---
Date of Consultation June 16, 2024 Assessment & Plan (1) Lumbosacral spondylosis with radiculopathy: Elective redo lumbar surgery completed today with fusion/instrumentation/bone grafting at the L3-S1 level. Management per primary team. (2) Cardiomyopathy, ischemic: History of coronary artery disease and stenting. Currently stable. Continue current medical management. Sublingual nitroglycerin as needed (3) Hypothyroidism: Stable. Continue current thyroid replacement (4) COPD (chronic obstructive pulmonary disease): Stable. Continue incentive spirometry as a preventative measure (5) CKD (chronic kidney disease) stage 3, GFR 30-59 ml/min: Monitor intake and output. Serial lab (6) Hypertension: Stable. Continue current medical management Plan Hopeful discharge within the next 2-3 days per primary team History of Present Illness Reason for Consultation: Postoperative medical management Requesting Physician: Dr. James Carrera Attending Physician: Willian Carrera DO History of Present Illness 69-year-old female with chronic lumbar spine issues. She had previous lumbar surgery and today underwent redo surgery with fusion, instrumentation, bone grafting at the L3-S1 level. No intraoperative complications. She is seen postoperatively. She is alert and oriented. All medications were reviewed. Overall she is medically stable currently Allergies Allergy/AdvReac Type Severity Reaction Status Date / Time cat pelt standardized Allergy Severe catgut Verified 06/16/24 08:57 allergenic ex sutures- "got wound infection" formaldehyde Allergy Severe dyspnea Verified 06/16/24 08:57 Iodinated Contrast Media Allergy Severe IV DYES- Verified 06/16/24 08:57 dyspnea, throat swelling iodine Allergy Severe Anaphylaxis Verified 06/16/24 08:57 povidone-iodine Allergy Severe Anaphylaxis Verified 06/16/24 08:57 prochlorperazine Allergy Severe transient Verified 06/16/24 08:57 paralysis adhesive Allergy Intermediate acrylates/all Verified 06/16/24 08:57 tapes- skin peels off chlorhexidine Allergy Intermediate hives Verified 06/16/24 08:57 gabapentin Allergy Intermediate swollen Verified 06/16/24 08:57 tongue/face Gold Salts Allergy Intermediate skin Verified 06/16/24 08:57 peeling, itchy immune globulin,gamma (IgG) Allergy Intermediate IGA & IGG Verified 06/16/24 08:57 human infusion- severe back/head pain naproxen Allergy Intermediate swollen Verified 06/16/24 08:57 tongue/face vancomycin Allergy Intermediate throat Verified 06/16/24 08:57 swelling, rash venlafaxine Allergy Intermediate tachycardia Verified 06/16/24 08:57 bacitracin Allergy Mild Rash Verified 06/16/24 08:57 belladonna alkaloids Allergy Mild bilstering Verified 06/16/24 08:57 clindamycin Allergy Mild Rash Verified 06/16/24 08:57 cobalt Allergy Mild blistering Verified 06/16/24 08:57 glycine [From Gammaked] Allergy Mild rash, n/v Verified 06/16/24 08:57 gold sodium thiomalate Allergy Mild blistering Verified 06/16/24 08:57 immune globulin,alpha (IgA) Allergy Mild rash, n/v Verified 06/16/24 08:57 average 46 mcg/mL [From Gammaked] latex Allergy Mild itchy Verified 06/16/24 08:57 neomycin Allergy Mild itchy Verified 06/16/24 08:57 nickel Allergy Mild skin Verified 06/16/24 08:57 peeling nylon Allergy Mild itchy, Verified 06/16/24 08:57 "hot" carisoprodol Allergy Unknown Unknown Verified 06/16/24 08:57 chloramphenicol Allergy Unknown Unknown Verified 06/16/24 08:57 cisapride Allergy Unknown Unknown Verified 06/16/24 08:57 diclofenac Allergy Unknown Unknown Verified 06/16/24 08:57 egg Allergy Unknown Avoids- Verified 06/16/24 08:57 told in the past to avoid ergotamine Allergy Unknown Unknown Verified 06/16/24 08:57 etodolac Allergy Unknown Unknown Verified 06/16/24 08:57 imipenem Allergy Unknown Unknown Verified 06/16/24 08:57 nefazodone Allergy Unknown Unknown Verified 06/16/24 08:57 nepafenac Allergy Unknown Unknown Verified 06/16/24 08:57 ofloxacin Allergy Unknown Unknown Verified 06/16/24 08:57 oxaprozin Allergy Unknown Unknown Verified 06/16/24 08:57 oxytetracycline Allergy Unknown Unknown Verified 06/16/24 08:57 paroxetine Allergy Unknown Unknown Verified 06/16/24 08:57 phenobarbital Allergy Unknown Unknown Verified 06/16/24 08:57 polymyxin B Allergy Unknown Unknown Verified 06/16/24 08:57 trazodone Allergy Unknown Unknown Verified 06/16/24 08:57 trovafloxacin Allergy Unknown Unknown Verified 06/16/24 08:57 doxycycline AdvReac Intermediate severe Verified 06/16/24 08:57 diarrhea lavender (Lavandula AdvReac Intermediate migraine Verified 06/16/24 08:57 angustifolia) mirtazapine AdvReac Intermediate delirium Verified 06/16/24 08:57 pneumococcal vaccine AdvReac Intermediate diarrhea Verified 06/16/24 08:57 Influenza Virus Vaccines AdvReac Unknown Unknown Verified 06/16/24 08:57 Home Medications Medication Instructions Recorded Confirmed Type epinephrine 0.3 mg/0.3 mL 0.3 mg IM Q3H PRN Anaphylaxis 01/02/20 06/16/24 History injection, auto-injector (EpiPen) esomeprazole magnesium 40 mg 40 mg PO QAM 01/02/20 06/16/24 History capsule,delayed release metoclopramide HCl 5 mg tablet 10 mg PO QID 01/02/20 06/16/24 History amoxicillin 500 mg capsule 2,000 mg PO UD PRN dental pretreat 11/02/20 06/16/24 History lactobacillus combination no.4 3 3,000 mmu cells PO QAM 11/02/20 06/16/24 History billion cell capsule (Probiotic) vitamin E 268 mg (400 unit) capsule 400 unit PO QAM 11/02/20 06/16/24 History calcium 600 mg (as carbonate)-vit 1 tab PO QDL 05/13/21 06/16/24 History D3 20 mcg (800 unit) chewable tablet (Caltrate plus D) levothyroxine 75 mcg tablet 75 mcg PO QAM 05/13/21 06/16/24 History (Synthroid) immune globulin (human) (IgG) 10 30 g IV UD 12/13/21 06/16/24 History gram intravenous solution ondansetron HCl 8 mg tablet 4 mg PO Q6H PRN Nausea 12/13/21 06/16/24 History nitroglycerin 0.4 mg sublingual 0.4 mg sublingual Q5M PRN chest 02/14/22 06/16/24 Rx tablet (Nitrostat) pain #30 tabs celecoxib 100 mg capsule (Celebrex) 100 mg PO QAM 08/30/22 06/16/24 History lisinopril 5 mg tablet (Zestril) 5 mg PO QAM #90 tabs 06/29/23 06/16/24 Rx atorvastatin 80 mg tablet 80 mg PO HS #90 tabs 08/30/23 06/16/24 Rx evolocumab 140 mg/mL subcutaneous 140 mg subcut ONCE #2 mL 11/22/23 06/16/24 Rx pen injector (Iker Sheriff) escitalopram oxalate 10 mg tablet 20 mg PO QPM 12/19/23 06/16/24 History hydromorphone 4 mg tablet 8 mg PO TID PRN Pain 12/19/23 06/16/24 History metoprolol succinate 25 mg 25 mg PO QAM #90 tabs 12/19/23 06/16/24 Rx tablet,extended release 24 hr oxycodone 10 mg tablet 10 mg PO Q6H PRN Pain 12/19/23 06/16/24 History spironolactone 25 mg tablet 25 mg PO QAM #90 tabs 03/18/24 06/16/24 Rx gabapentin 300 mg capsule 300 mg PO TID 04/22/24 06/16/24 History baclofen 20 mg tablet 20 mg PO TID PRN Pain 05/20/24 06/16/24 History clopidogrel 75 mg tablet 75 mg PO QAM 05/20/24 06/16/24 History oxybutynin chloride 15 mg 15 mg PO DAILY 05/20/24 06/16/24 History tablet,extended release 24 hr sumatriptan succinate 100 mg 100 mg PO UD PRN Migraine Headache 05/20/24 06/16/24 History tablet (Imitrex) aspirin 81 mg capsule 81 mg PO DAILY 06/16/24 06/16/24 History Patient History Medical History Difficult intubation Cardiomyopathy, ischemic Migraine Connective tissue disorder Prurigo Ilioinguinal neuralgia Osteoarthritis Hypothyroidism Anxiety CKD (chronic kidney disease) stage 3, GFR 30-59 ml/min COPD (chronic obstructive pulmonary disease) History of blood transfusion (~2002) Personal history of methicillin resistant Staphylococcus aureus (~2012) Temporomandibular joint disorder History of anaphylaxis (~1979) Cervical spondylosis without myelopathy STEMI (ST elevation myocardial infarction) (~2020) GERD (gastroesophageal reflux disease) MVP (mitral valve prolapse) Deviated nasal septum Raynaud disease Adrenal insufficiency DDD (degenerative disc disease) Gastroparesis Traumatic brain injury (~1984) Interstitial cystitis Asthma Hyperlipidemia IBS (irritable bowel syndrome) Fibromyalgia Surgical History History of lumbar fusion (09/22/22) Port-A-Cath in place (07/25/22) History of removal of Port-a-Cath (07/25/22) History of cardiac cath History of heart artery stent History of colonoscopy History of hernia repair History of difficult intubation Hx of spinal fusion History of YAG laser iridotomy of left eye Hx of spinal fusion History of bilateral cataract extraction Hx of repair of right rotator cuff Hx of arthroscopy of left knee History of arthroscopy of left shoulder Hx of repair of left rotator cuff Hx of shoulder surgery History of vascular access device Hx of left inguinal hernia repair Hx of abdominal surgery Hx of arthroscopy of right knee Hx of tonsillectomy History of arthroplasty of left knee History of trigger finger History of colostomy reversal Hx of colostomy (~2002) Hx of heart surgery (~2001) History of bunionectomy of left great toe History of ankle surgery History of foot surgery Hx of laparoscopy Hx of appendectomy Hx of hysterectomy History of reverse total replacement of left shoulder joint Family History Mother Hearing loss Stroke Heart disease Other No family history of adverse response to anesthesia No family history of bleeding disorder No known health problems Social History Smoking Status: Never smoker Second Hand Exposure: No; Do You Dip or Chew Tobacco: No; Hx Alcohol Use: No Hx Substance Use: No Preferred Language: Cymro Communication Ability: Effective Visual Impairment: No Limitations Hearing Ability: Normal Medical Technologist Clinical Required: No Beliefs That Will Affect Care: None marital status: Current Living Situation: Alone current occupational status: disabled current occupation: Retired Feels Safe at Home: Yes Safety Concerns: Feels Safe At This Time Assistive Devices: Glasses Assistive Devices Comment: partial upper calderon Review of Systems Review of Systems: Constitutionalno fever or chills ENTno blurred vision, no double vision, no epistaxis, no sore throat Respiratoryno cough, no wheezing, no shortness of breath Cardiacno palpitations, no chest pain, no syncope Polo nausea, vomiting, diarrhea, melena, hematochezia GUno urinary retention, no urinary incontinence, no dysuria, no hematuria Musculoskeletalpostoperative lumbar discomfort as expected. Skinno bruising, no rashes, no pruritus Neurono isolated weakness, no paresthesia Psychno depression, no anxiety Physical Exam Physical Exam: General-alert and oriented x3, no fever, no chills. The patient is lying in the supine position. She was not rolled over to examine her lumbar operative site HEENT-head atraumatic and normocephalic, pupils equal and reactive to light, extraocular muscles intact Neck-no lymphadenopathy or thyromegaly, trachea midline Chest-clear to auscultation. No rales, wheezing or rhonchi Cardiac-regular rate and rhythm, normal S1 and S2 Abdomen-normal bowel sounds, no hepatosplenomegaly Extremities-no cyanosis, clubbing, or edema Neuro-cranial nerves II through XII intact, motor and sensory function within normal limits, strength symmetrical, no focal deficits Psych-normal affect, normal mood Results & Data Results & Data Vital Signs (Past 12 Hours) Vital Signs Temp Pulse Pulse Resp BP Pulse Ox O2 Del Method 06/16/24 15:42 36.7 C 91 H 16 111/67 96 Nasal Cannula 06/16/24 14:28 36.6 C 106 H 16 117/67 94 Nasal Cannula 06/16/24 14:08 36.4 C L 112 H 16 102/63 96 Nasal Cannula 06/16/24 13:33 36.8 C 104 H 18 120/56 L 94 Room Air 06/16/24 13:20 96 H 16 126/72 95 Nasal Cannula 06/16/24 13:10 90 18 128/71 96 Nasal Cannula 06/16/24 13:00 36.6 C 95 H 18 137/97 96 Nasal Cannula 06/16/24 12:50 91 H 16 112/82 96 Nasal Cannula 06/16/24 12:40 85 20 122/68 99 Oxymask 06/16/24 12:30 90 16 114/77 100 Oxymask 06/16/24 12:20 79 18 99/81 L 100 Oxymask 06/16/24 12:10 36.3 C L 83 10 L 154/74 H 100 Oxymask 06/16/24 09:02 36.8 C 50 L 18 160/69 H 95 Room Air O2 Flow Rate 06/16/24 15:42 2 06/16/24 14:28 2 06/16/24 14:08 2 06/16/24 13:33 06/16/24 13:20 3 06/16/24 13:10 3 06/16/24 13:00 3 06/16/24 12:50 3 06/16/24 12:40 4 06/16/24 12:30 4 06/16/24 12:20 6 06/16/24 12:10 6 06/16/24 09:02 PG Care Time/CCT Total # of Minutes Spent Total Time Spent with Patient: Total time spent is greater than 50% in coordination of care (as documented) at patient's floor/unit and/or counseling patient: Coding Level of Care Code 99828 IN/OBS CONSULT LVL 3,45M Diagnoses Lumbosacral spondylosis with radiculopathy M47.27 Cardiomyopathy, ischemic I25.5 Hypothyroidism E03.9 COPD (chronic obstructive pulmonary disease) J44.9 CKD (chronic kidney disease) stage 3, GFR 30-59 ml/min N18.30 Primary hypertension I10 Hypertension type: primary hypertension (6) Hypertension Hypertension type: primary hypertension Qualified Code(s): I10 - Essential (primary) hypertension
[2024-06-16] MEDS: METOCLOPRAMIDE HCL 10 MG TABLET PO SCH (17:02)
[2024-06-16] MEDS: HYDROmorphone INJ 1 MG/ML SYRINGE IV PRN (17:06)
[2024-06-16] MEDS: ESCITALOPRAM OXALATE 20 MG TAB PO SCH (21:28)
[2024-06-16] MEDS: hydrOXYzine HCl 25 MG TAB PO PRN (21:29)
[2024-06-16] MEDS: ACETAMINOPHEN 500 MG TAB PO PRN (21:30)
[2024-06-16] MEDS: DOCUSATE SODIUM/SENNA 50/8.6MG TAB PO SCH (23:29)
[2024-06-16] MEDS: ATORVASTATIN 40 MG TAB PO SCH (23:30)
[2024-06-17] MEDS: LEVOTHYROXINE SODIUM 75 MCG TABLET PO SCH (05:48)
[2024-06-17] MEDS: POLYETHYLENE (MIRALAX) 17 GM PACK PO SCH (05:51)
[2024-06-17] MEDS ORDERED: LEVOTHYROXINE SODIUM 75 MCG TABLET PO SCH (06:30)
[2024-06-17 06:41] LABS: Basophils # (auto) 0.01 K/uL (0.00-0.20); Basophils % (auto) 0.1 %; Hematocrit (blood only) 25.2 % (37.0-47.0); Hemoglobin 8.4 g/dl (12.0-16.0); Immature Granulocytes # (auto) 0.05 K/uL (0.01-0.20); Immature Granulocytes % (auto) 0.6 %; Lymphocytes # (auto) 1.16 K/uL (1.20-3.40); Lymphocytes % (auto) 12.8 %; Mean Corpuscular Hemoglobin 27.7 pg (25.0-34.0); Mean Corpuscular Hgb Conc 33.3 g/dL (32.0-36.0); Mean Corpuscular Volume 83.2 fL (80.0-100.0); Mean Platelet Volume 11.4 fL (9.4-12.4); Monocytes # (auto) 1.12 K/uL (0.11-0.59); Monocytes % (auto) 12.4 %; Neutrophils # (auto) 6.72 K/uL (1.40-6.50); Neutrophils % (auto) 74.1 %; Platelet Count 148 K/uL (130-400); RDW Coefficient of Variation 13.1 % (11.5-14.5); RDW Standard Deviation 39.7 fL (36.4-46.3); Red Blood Count 3.03 M/uL (4.20-5.40); White Blood Count 9.06 K/ul (4.8-10.8)
[2024-06-17 07:03] LABS: Creatinine Clr Calc Pharmacy 49.7 ml/min; Potassium 4.3 mmol/L (3.5-5.1)
--- NOTE | 2024-06-17 08:47 | Orthopedic Progress Note ---
Date of Service June 17, 2024 Assessment & Plan (1) Lumbosacral spondylosis with radiculopathy: Plan: At this point we will initiate physical therapy monitor her IRVIN output. Discontinue her Sun today. Hopefully discharge home in the next few days. Admission and Anticipated Discharge Date Admission Date: June 16, 2024 Subjective Back pain controlled leg symptoms markedly improved. Patient was up and ambulating last night. Physical Exam Physical Exam: Patient is currently bed. She is comfortable. Distracted testing. Results & Data Vital Signs (Past 12 Hours) Vital Signs Temp Pulse Resp BP Pulse Ox O2 Del Method 06/17/24 08:04 36.8 C 69 16 123/67 96 Room Air 06/17/24 03:00 37.3 C 62 16 104/63 96 Room Air 06/16/24 23:00 37.1 C 68 16 115/66 93 Room Air
[2024-06-17] MEDS: dexAMETHasone 6 MG in SYRINGE 0 ML IV SCH (09:08)
[2024-06-17] MEDS: ADVANCED PROBIOTIC 625 MG CAPSULE PO SCH (09:13)
[2024-06-17] MEDS: PANTOprazole 40 MG TAB PO SCH (09:14)
[2024-06-17] MEDS: OXYBUTYNIN CHLORIDE XL 5 MG TABCR PO SCH (09:14)
[2024-06-17] MEDS: TOCOPHERYL, DL-ALPHA 400 UNITS 180 MG CAP PO SCH (09:15)
[2024-06-17] MEDS: SPIRONOLACTONE 25 MG TAB PO SCH (09:15)
[2024-06-17] MEDS: METOPROLOL SUCC 25MG EXT REL TAB PO SCH (09:15)
[2024-06-17] MEDS: lisinopril 5 MG TAB PO SCH (09:16)
[2024-06-17] MEDS: ASPIRIN 81 MG ECTAB PO SCH (09:48)
[2024-06-17] MEDS: HYDROmorphone INJ 0.5 MG/0.5 ML SYR IV PRN (10:32)
[2024-06-17] MEDS: DOCUSATE SODIUM 100 MG CAP PO SCH (13:58)
[2024-06-17] MEDS: FERROUS SULFATE 325 MG TAB PO SCH (13:59)
--- NOTE | 2024-06-17 14:31 | Hospitalist Progress Note ---
Date of Service June 17, 2024 Assessment & Plan (1) Lumbosacral spondylosis with radiculopathy: Plan: Elective redo lumbar surgery completed today with fusion/instrumentation/bone grafting at the L3-S1 level. Management per primary team. Postoperative day #1 (2) Acute blood loss anemia: Plan: Hemoglobin has dropped to 8.4. Will follow. Oral iron supplementation started. Serial labs (3) Cardiomyopathy, ischemic: Plan: History of coronary artery disease and stenting. Currently stable. Continue current medical management. Sublingual nitroglycerin as needed (4) Hypothyroidism: Plan: Stable. Continue current thyroid replacement (5) COPD (chronic obstructive pulmonary disease): Plan: Stable. Continue incentive spirometry as a preventative measure (6) CKD (chronic kidney disease) stage 3, GFR 30-59 ml/min: Plan: Monitor intake and output. Serial lab (7) Hypertension: Plan: Stable. Continue current medical management Plan Hopeful discharge within the next 1-2 days per primary team Admission and Anticipated Discharge Date Admission Date: June 16, 2024 Subjective Alert and oriented. No new problems. Pain medications simplified to just oxycodone orally as needed. Hemoglobin has dropped to 8.4 secondary to the surgery. Oral iron replacement has been started along with Colace to offset anticipated constipation from the iron supplement. Blood pressure is on the low side and lisinopril is on hold. Review of Systems 2 Review of Systems: Constitutionalno fever or chills ENTno blurred vision, no double vision, no epistaxis, no sore throat Respiratoryno cough, no wheezing, no shortness of breath Cardiacno palpitations, no chest pain, no syncope Polo nausea, vomiting, diarrhea, melena, hematochezia GUno urinary retention, no urinary incontinence, no dysuria, no hematuria Musculoskeletalpostoperative lumbar discomfort as expected. Skinno bruising, no rashes, no pruritus Neurono isolated weakness, no paresthesia Psychno depression, no anxiety Physical Exam 2 Physical Exam: General-alert and oriented x3, no fever, no chills. The patient is lying in the supine position. She was not rolled over to examine her lumbar operative site HEENT-head atraumatic and normocephalic, pupils equal and reactive to light, extraocular muscles intact Neck-no lymphadenopathy or thyromegaly, trachea midline Chest-clear to auscultation. No rales, wheezing or rhonchi Cardiac-regular rate and rhythm, normal S1 and S2 Abdomen-normal bowel sounds, no hepatosplenomegaly Extremities-no cyanosis, clubbing, or edema Neuro-cranial nerves II through XII intact, motor and sensory function within normal limits, strength symmetrical, no focal deficits Psych-normal affect, normal mood Results & Data Results & Data Vital Signs (Past 12 Hours) Vital Signs Temp Pulse Resp BP Pulse Ox O2 Del Method 06/17/24 09:03 68 118/57 L 06/17/24 08:04 36.8 C 69 16 123/67 96 Room Air 06/17/24 07:40 Room Air 06/17/24 03:00 37.3 C 62 16 104/63 96 Room Air Laboratory Results 06/17/24 06:16 06/17/24 06:16 PG Care Time/CCT Total # of Minutes Spent Total Time Spent with Patient: Total time spent is greater than 50% in coordination of care (as documented) at patient's floor/unit and/or counseling patient: Coding Level of Care Code 86384 SUB INP/OBS CARE 3/50MIN Diagnoses Lumbosacral spondylosis with radiculopathy M47.27 Acute blood loss anemia D62 Cardiomyopathy, ischemic I25.5 Hypothyroidism E03.9 COPD (chronic obstructive pulmonary disease) J44.9 CKD (chronic kidney disease) stage 3, GFR 30-59 ml/min N18.30 Primary hypertension I10 Hypertension type: primary hypertension (7) Hypertension Hypertension type: primary hypertension Qualified Code(s): I10 - Essential (primary) hypertension
[2024-06-17] MEDS: oxyCODONE HCL IR 5 MG TAB (IMMEDIATE RELEASE) PO PRN (15:08)
[2024-06-18] MEDS: HYDROmorphone INJ 0.5 MG/0.5 ML SYR IV STA (04:01)
[2024-06-18 10:00] LABS: BUN Creatinine Ratio 12.9 (10-20); Calcium 9.3 mg/dl (8.6-10.3)
[2024-06-18 10:13] LABS: Basophils # (auto) 0.01 K/uL (0.00-0.20); Basophils % (auto) 0.1 %; Hematocrit (blood only) 25.6 % (37.0-47.0); Hemoglobin 8.5 g/dl (12.0-16.0); Immature Granulocytes # (auto) 0.04 K/uL (0.01-0.20); Immature Granulocytes % (auto) 0.5 %; Lymphocytes # (auto) 0.76 K/uL (1.20-3.40); Lymphocytes % (auto) 9.2 %; Mean Corpuscular Hemoglobin 27.4 pg (25.0-34.0); Mean Corpuscular Hgb Conc 33.2 g/dL (32.0-36.0); Mean Corpuscular Volume 82.6 fL (80.0-100.0); Mean Platelet Volume 11.8 fL (9.4-12.4); Monocytes # (auto) 0.85 K/uL (0.11-0.59); Monocytes % (auto) 10.3 %; Neutrophils # (auto) 6.56 K/uL (1.40-6.50); Neutrophils % (auto) 79.9 %; Platelet Count 132 K/uL (130-400); RDW Coefficient of Variation 13.2 % (11.5-14.5); White Blood Count 8.22 K/ul (4.8-10.8)
--- NOTE | 2024-06-18 10:55 | Orthopedic Progress Note ---
Date of Service June 18, 2024 Assessment & Plan (1) Lumbosacral spondylosis with radiculopathy: Plan: At this point continue physical therapy monitor her IRVIN output anticipate discharge home tomorrow. Admission and Anticipated Discharge Date Admission Date: June 16, 2024 Subjective Patient complaining of back pain. Leg symptoms improved. She is tolerating ambulation and stairs. Physical Exam Physical Exam: On exam she is able to get out of bed and stand and ambulate without difficulty. Good strength testing. Dressing and drain in place. Results & Data Vital Signs (Past 12 Hours) Vital Signs Temp Pulse Resp BP Pulse Ox O2 Del Method 06/18/24 08:04 86 104/70 06/18/24 07:00 36.8 C 74 20 123/76 98 Room Air 06/18/24 06:08 37.0 C 67 16 115/62 95 Room Air
--- NOTE | 2024-06-18 11:04 | Hospitalist Progress Note ---
Date of Service June 18, 2024 Assessment & Plan (1) Lumbosacral spondylosis with radiculopathy: Plan: Elective redo lumbar surgery completed on June 16 with fusion/instrumentation/bone grafting at the L3-S1 level. Management per primary team. Postoperative day #2 (2) Acute blood loss anemia: Plan: Hemoglobin has now stabilized at 8.5. Will follow. Oral iron supplementation has already been started. Serial labs (3) Cardiomyopathy, ischemic: Plan: History of coronary artery disease and stenting. Currently stable. Continue current medical management. Sublingual nitroglycerin as needed (4) Hypothyroidism: Plan: Stable. Continue current thyroid replacement (5) COPD (chronic obstructive pulmonary disease): Plan: Stable. Continue incentive spirometry as a preventative measure (6) CKD (chronic kidney disease) stage 3, GFR 30-59 ml/min: Plan: Monitor intake and output. Serial lab (7) Hypertension: Plan: Stable. Continue current medical management Plan Eventual discharge per primary service. Admission and Anticipated Discharge Date Admission Date: June 16, 2024 Subjective Alert and oriented. Vital signs stable. Hemoglobin stable at 8.5. She is now on an oral iron supplement. Blood pressure remains low normal at 104/70. Lisinopril remains on hold for now. Review of Systems 2 Review of Systems: Constitutionalno fever or chills ENTno blurred vision, no double vision, no epistaxis, no sore throat Respiratoryno cough, no wheezing, no shortness of breath Cardiacno palpitations, no chest pain, no syncope Polo nausea, vomiting, diarrhea, melena, hematochezia GUno urinary retention, no urinary incontinence, no dysuria, no hematuria Musculoskeletalpostoperative lumbar discomfort as expected. Skinno bruising, no rashes, no pruritus Neurono isolated weakness, no paresthesia Psychno depression, no anxiety Physical Exam 2 Physical Exam: General-alert and oriented x3, no fever, no chills. The patient is lying in the supine position. She was not rolled over to examine her lumbar operative site HEENT-head atraumatic and normocephalic, pupils equal and reactive to light, extraocular muscles intact Neck-no lymphadenopathy or thyromegaly, trachea midline Chest-clear to auscultation. No rales, wheezing or rhonchi Cardiac-regular rate and rhythm, normal S1 and S2 Abdomen-normal bowel sounds, no hepatosplenomegaly Extremities-no cyanosis, clubbing, or edema Neuro-cranial nerves II through XII intact, motor and sensory function within normal limits, strength symmetrical, no focal deficits Psych-normal affect, normal mood Results & Data Results & Data Vital Signs (Past 12 Hours) Vital Signs Temp Pulse Resp BP Pulse Ox O2 Del Method 06/18/24 08:04 86 104/70 06/18/24 07:00 36.8 C 74 20 123/76 98 Room Air 06/18/24 06:08 37.0 C 67 16 115/62 95 Room Air Laboratory Results 06/18/24 09:35 06/18/24 09:35 PG Care Time/CCT Total # of Minutes Spent Total Time Spent with Patient: Total time spent is greater than 50% in coordination of care (as documented) at patient's floor/unit and/or counseling patient: Coding Level of Care Code 86146 SUB INP/OBS CARE 2/35MIN Diagnoses Lumbosacral spondylosis with radiculopathy M47.27 Acute blood loss anemia D62 Cardiomyopathy, ischemic I25.5 Hypothyroidism E03.9 COPD (chronic obstructive pulmonary disease) J44.9 CKD (chronic kidney disease) stage 3, GFR 30-59 ml/min N18.30 Primary hypertension I10 Hypertension type: primary hypertension (7) Hypertension Hypertension type: primary hypertension Qualified Code(s): I10 - Essential (primary) hypertension
[2024-06-18] MEDS: HYDROmorphone INJ 0.5 MG/0.5 ML SYR IV PRN (11:34)
[2024-06-18 15:19] VITALS: RESP 16
[2024-06-18] MEDS: BACLOFEN 20 MG TAB PO PRN (20:05)
[2024-06-18 23:33] VITALS: TEMP 98.6
[2024-06-19 07:59] VITALS: BP 133/75; PULSE 77; O2SAT 95
--- NOTE | 2024-06-19 09:53 | Discharge Summary ---
Date of Service June 19, 2024 Admission HPI Per Admitting Provider This is a 69-year-old female who presents for chronic persistent back and leg pain after failing course of nonoperative care is here for surgical intervention. Principal Diagnosis Lumbar spondylosis with radiculopathy Discharge Data Allergies Allergy/AdvReac Type Severity Reaction Status Date / Time cat pelt standardized Allergy Severe catgut Verified 06/16/24 08:57 allergenic ex sutures- "got wound infection" formaldehyde Allergy Severe dyspnea Verified 06/16/24 08:57 Iodinated Contrast Media Allergy Severe IV DYES- Verified 06/16/24 08:57 dyspnea, throat swelling iodine Allergy Severe Anaphylaxis Verified 06/16/24 08:57 povidone-iodine Allergy Severe Anaphylaxis Verified 06/16/24 08:57 prochlorperazine Allergy Severe transient Verified 06/16/24 08:57 paralysis adhesive Allergy Intermediate acrylates/all Verified 06/16/24 08:57 tapes- skin peels off chlorhexidine Allergy Intermediate hives Verified 06/16/24 08:57 gabapentin Allergy Intermediate swollen Verified 06/16/24 08:57 tongue/face Gold Salts Allergy Intermediate skin Verified 06/16/24 08:57 peeling, itchy immune globulin,gamma (IgG) Allergy Intermediate IGA & IGG Verified 06/16/24 08:57 human infusion- severe back/head pain naproxen Allergy Intermediate swollen Verified 06/16/24 08:57 tongue/face vancomycin Allergy Intermediate throat Verified 06/16/24 08:57 swelling, rash venlafaxine Allergy Intermediate tachycardia Verified 06/16/24 08:57 bacitracin Allergy Mild Rash Verified 06/16/24 08:57 belladonna alkaloids Allergy Mild bilstering Verified 06/16/24 08:57 clindamycin Allergy Mild Rash Verified 06/16/24 08:57 cobalt Allergy Mild blistering Verified 06/16/24 08:57 glycine [From Gammaked] Allergy Mild rash, n/v Verified 06/16/24 08:57 gold sodium thiomalate Allergy Mild blistering Verified 06/16/24 08:57 immune globulin,alpha (IgA) Allergy Mild rash, n/v Verified 06/16/24 08:57 average 46 mcg/mL [From Gammaked] latex Allergy Mild itchy Verified 06/16/24 08:57 neomycin Allergy Mild itchy Verified 06/16/24 08:57 nickel Allergy Mild skin Verified 06/16/24 08:57 peeling nylon Allergy Mild itchy, Verified 06/16/24 08:57 "hot" carisoprodol Allergy Unknown Unknown Verified 06/16/24 08:57 chloramphenicol Allergy Unknown Unknown Verified 06/16/24 08:57 cisapride Allergy Unknown Unknown Verified 06/16/24 08:57 diclofenac Allergy Unknown Unknown Verified 06/16/24 08:57 egg Allergy Unknown Avoids- Verified 06/16/24 08:57 told in the past to avoid ergotamine Allergy Unknown Unknown Verified 06/16/24 08:57 etodolac Allergy Unknown Unknown Verified 06/16/24 08:57 imipenem Allergy Unknown Unknown Verified 06/16/24 08:57 nefazodone Allergy Unknown Unknown Verified 06/16/24 08:57 nepafenac Allergy Unknown Unknown Verified 06/16/24 08:57 ofloxacin Allergy Unknown Unknown Verified 06/16/24 08:57 oxaprozin Allergy Unknown Unknown Verified 06/16/24 08:57 oxytetracycline Allergy Unknown Unknown Verified 06/16/24 08:57 paroxetine Allergy Unknown Unknown Verified 06/16/24 08:57 phenobarbital Allergy Unknown Unknown Verified 06/16/24 08:57 polymyxin B Allergy Unknown Unknown Verified 06/16/24 08:57 trazodone Allergy Unknown Unknown Verified 06/16/24 08:57 trovafloxacin Allergy Unknown Unknown Verified 06/16/24 08:57 doxycycline AdvReac Intermediate severe Verified 06/16/24 08:57 diarrhea lavender (Lavandula AdvReac Intermediate migraine Verified 06/16/24 08:57 angustifolia) mirtazapine AdvReac Intermediate delirium Verified 06/16/24 08:57 pneumococcal vaccine AdvReac Intermediate diarrhea Verified 06/16/24 08:57 Influenza Virus Vaccines AdvReac Unknown Unknown Verified 06/16/24 08:57 Consultations 06/16/24 13:32 Consult Hospitalist Routine Procedures Performed Operation Date: 06/16/24 10:05 Actual Procedures p L2-L3 Decompression, L3-S1 Exploration, L2-S1 Fusion, with Application of Bone Morphogenetic Protein, OssDsign and MagnetOS bone grafts and VersaWrap, Interbody Fusion, Spinal Cord Monitoring(Not Applicable) - Willian Carrera DO s L3-S1 Hardware Removal,(Not Applicable) - Willian Carrera DO Ordered Studies 06/16/24 10:05 CT lumbar spine 2-3V Routine Hospital Course (1) Lumbosacral spondylosis with radiculopathy: Patient underwent lumbar decompression fusion tolerated this well second orthopedic for postoperative. Postop patient progressed appropriate. Leg symptoms improved. Tolerating physical therapy. IRVIN drain decreasing. Pain well-controlled. Subsidy discharged home. Discharge orders instructions from the chart for further review. Total Time Total Time Spent Total Time Spent (In Minutes): 20 minutes Discharge Plan Discharge Items Patient Disposition: Home - Self-Care Reason For Visit: Lumbar Disc Disease with Radiculopathy Discharge Diagnosis: Lumbar spondylosis with radiculopathy Activity: As commented below Non-emergency contact: Primary Care Provider Call non-emergency contact if: you have any medication questions Follow-up/Referrals: Ksenia Soto MD [Primary Care Provider] - Diet: Regular Addtl Attending Provider Instructions: ACTIVITY RECOMMENDATIONS: SELF CARE INSTRUCTIONS AFTER THORACIC/LUMBAR FUSIONS 1. You may walk to your tolerance. It is good exercise for your legs and back. Expect some back and intermittent leg aches and pains. 2. You may perform "counter-top" level activities (make a sandwich, edward with a project, etc.). 3. No bending or lifting of more than 10 pounds or back twisting of any nature (roll like a log when turning in bed). 4. You may ride in a car for 20-30 minutes at a time. No driving until after your first visit with your doctor. 5. Frequent changes of position and restricting sitting to 30 minutes at a time will help limit the amount of back spasms and stiffness you may experience. 6. You may discontinue the use of ambulatory aids (cane, crutches, etc.) once your strength and confidence allow. 7. You may admitting representative the shower and let water strike your incision when you arrive home at least once daily. Do not take a tub bath, sit in a hot tub or go into a swimming pool until after your first recheck in the office. 8. You may resume previous diet. SPECIAL CARE INSTRUCTIONS: VERY IMPORTANT TO READ AND REVIEW A. Your surgical incision has been closed with a cosmetic suture under the skin that will dissolve in about 6 weeks. In 14 days, you can use a pair of clean scissors and cut the suture that is left outside of the skin at the ends of your incision. 1. The small skin tapes can be removed 7 days after surgery if they have not fallen off by that point. 2. You may keep the wound open to air as much as possible to promote healing after post-op day number 5 unless told otherwise by your doctor. 3. If you think the wound looks like it is becoming infected (redness or worsening drainage) and/or you are experiencing fever, chill or worsening back pain and muscle spasms, contact the office so that we may evaluate you as soon as possible. B. Complications are uncommon, but please contact us if you have any signs or symptoms of: 1. wound infection (fever higher than 102.5 degrees F, redness, separation of wound, drainage, or increasing pain from the incision) 2. blood clots in legs (pain, swelling, redness and warmth in legs) 3. urinary tract infection (fever higher than 102.5 degrees F, burning upon urination or increased frequency of urination) 4. nerve problems (inability to walk on your toes or heels, numbness, loss of bowel or bladder control) 5. any other symptoms that concern you C. Please call the office at if you have any concerns or questions about your operation or recovery. D. No smoking! Smoking drastically decreases the chance of a solid fusion. E. Do not take any anti-inflammatory medications (Indocin, Advil, Motrin, Aspirin, Naprosyn, etc.) as these may inhibit the chance of a solid fusion. Tylenol is okay to take for pain. MANAGING PAIN AFTER SPINAL SURGERY 1. Narcotic medication is intended for short-term use and will be provided for surgical pain. Surgical pain usually lasts for a period of 4-6 weeks. Narcotic medication includes Percocet, Vicodin, Darvocet, Tylenol #3 or Lortab. 2. Longer-term pain is more appropriately treated with non-narcotic medication such as Tylenol ES. 3. Muscle spasm is not appropriately treated with narcotics. Muscle relaxers such as Soma, Flexeril or Skelaxin can be used along with Tylenol ES. 4. Remember that we all live with some "aches and pains". This is not unusual or uncommon after an injury or as we get older. a. Back pain is expected and may include muscle spasms for 4 to 6 weeks after surgery. The pain should gradually improve. If the pain worsens for no apparent reason, please contact the office. b. Intermittent leg pain may also be experienced and should not be concerned about unless it worsens for no apparent reason. If so, please contact the office. 5. We will provide appropriate medication within the normal guidelines of their prescribed use. We will also be very cautious and aware of potential abuse and extended duration of patients' medication needs. a. Pain medications are for your comfort and to assist with sleep and rest so that the tissue can heal. They are not provided in order to return to normal activity and should not be used through the day. To do so or worsening pain at night can result from ongoing tissue damage and development of tolerance to the prescribed medicine. 6. Please allow 2-3 days to process refills. Prescriptions will not be mailed but must be picked up at the office. FOLLOW UP VISIT: Keep your scheduled follow-up appointment. Any questions, please call the office at . Pending Studies at Discharge: No Stand-Alone Forms: [facility] [employer] Transportation, Smoking Cessation Medications and DC Order Prescriptions: New oxycodone-acetaminophen [Percocet] 10-325 mg tablet 1 tab PO Q6 PRN (Reason: pain) Qty: 30 0RF ferrous sulfate 325 mg (65 mg iron) Tablet,Delayed Release (Dr/Ec) 325 mg PO BIDM Qty: 60 3RF Continued nitroglycerin [Nitrostat] 0.4 mg tablet, sublingual 0.4 mg sublingual Q5M PRN (Reason: chest pain) Qty: 30 0RF Rx Instructions: Take up to 2 doses for chest pain similar to your [place]. If no relief, call doctor. lisinopril [Zestril] 5 mg tablet 5 mg PO QAM Qty: 90 3RF atorvastatin 80 mg tablet 80 mg PO HS Qty: 90 3RF Repatha SureClick 140 mg/mL pen injector 140 mg subcut ONCE Qty: 2 6RF Rx Instructions: Administer every 2 weeks spironolactone 25 mg tablet 25 mg PO QAM Qty: 90 3RF oxycodone 10 mg tablet 10 mg PO Q6H PRN (Reason: Pain) hydromorphone 4 mg tablet 8 mg PO TID PRN (Reason: Pain) metoprolol succinate 25 mg tablet extended release 24 hr 25 mg PO QAM Qty: 90 3RF immune globulin (human) (IgG) 10 gram recon soln 30 g IV UD Rx Instructions: every 4 weeks escitalopram oxalate 10 mg tablet 20 mg PO QPM ondansetron HCl 8 mg tablet 4 mg PO Q6H PRN (Reason: Nausea) gabapentin 300 mg capsule 300 mg PO TID metoclopramide HCl 5 mg tablet 10 mg PO QID esomeprazole magnesium 40 mg capsule,delayed release(DR/EC) 40 mg PO QAM epinephrine [EpiPen] 0.3 mg/0.3 mL Auto-Injector 0.3 mg IM Q3H PRN (Reason: Anaphylaxis) levothyroxine [Synthroid] 75 mcg Tablet 75 mcg PO QAM Caltrate 600 plus D 600 mg (1,500 mg)-800 unit Tablet,Chewable 1 tab PO QDL amoxicillin 500 mg Capsule 2,000 mg PO UD PRN (Reason: dental pretreat) vitamin E 400 unit Capsule 400 unit PO QAM Probiotic 3 billion cell Capsule 3,000 mmu cells PO QAM celecoxib [Celebrex] 100 mg Capsule 100 mg PO QAM oxybutynin chloride 15 mg Tablet Extended Release 24hr 15 mg PO DAILY sumatriptan succinate [Imitrex] 100 mg Tablet 100 mg PO UD PRN (Reason: Migraine Headache) Rx Instructions: take 1 tab at onset of headache; if no relief, may repeat 1 tab after at least 2 hrs; max = 2 tabs/24 hrs baclofen 20 mg Tablet 20 mg PO TID PRN (Reason: Pain) aspirin 81 mg Capsule 81 mg PO DAILY Held clopidogrel 75 mg tablet 75 mg PO QAM Hold Instructions: Resume on 06/21/24. Discharge Orders: Discharge Order (Routine); Ordered 06/19/24 Ordered By: Willian Carrera Admission Data Admit Date/Time: 06/16/24 12:18 Attending Provider: Willian Carrera Admit Provider: Willian Carrera Primary Care Provider: Ksenia Soto Other Providers: Vasyl Bravo
--- NOTE | 2024-06-19 10:40 | Hospitalist Progress Note ---
Date of Service June 19, 2024 Assessment & Plan (1) Lumbosacral spondylosis with radiculopathy: Plan: Elective redo lumbar surgery completed on June 16 with fusion/instrumentation/bone grafting at the L3-S1 level. Management per primary team. Postoperative day #3 (2) Acute blood loss anemia: Plan: Hemoglobin has now stabilized. Oral iron supplementation should continue at discharge for 1 month. Serial labs (3) Cardiomyopathy, ischemic: Plan: History of coronary artery disease and stenting. Currently stable. Continue current medical management. Sublingual nitroglycerin as needed (4) Hypothyroidism: Plan: Stable. Continue current thyroid replacement (5) COPD (chronic obstructive pulmonary disease): Plan: Stable. Continue incentive spirometry as a preventative measure (6) CKD (chronic kidney disease) stage 3, GFR 30-59 ml/min: Plan: Monitor intake and output. Serial lab (7) Hypertension: Plan: Stable. Continue current medical management Plan Eventual discharge per primary service. Hopefully today, June 19 Admission and Anticipated Discharge Date Admission Date: June 16, 2024 Subjective Alert and oriented. Stable from a medical standpoint. Hopefully the lumbar drain can be removed today and she will be discharged to home by the primary service. Lisinopril can be restarted at discharge. Postoperative day #3 after redo lumbar spine surgery Review of Systems 2 Review of Systems: Constitutionalno fever or chills ENTno blurred vision, no double vision, no epistaxis, no sore throat Respiratoryno cough, no wheezing, no shortness of breath Cardiacno palpitations, no chest pain, no syncope Polo nausea, vomiting, diarrhea, melena, hematochezia GUno urinary retention, no urinary incontinence, no dysuria, no hematuria Musculoskeletalpostoperative lumbar discomfort as expected. Skinno bruising, no rashes, no pruritus Neurono isolated weakness, no paresthesia Psychno depression, no anxiety Physical Exam 2 Physical Exam: General-alert and oriented x3, no fever, no chills. The patient is lying in the supine position. She was not rolled over to examine her lumbar operative site HEENT-head atraumatic and normocephalic, pupils equal and reactive to light, extraocular muscles intact Neck-no lymphadenopathy or thyromegaly, trachea midline Chest-clear to auscultation. No rales, wheezing or rhonchi Cardiac-regular rate and rhythm, normal S1 and S2 Abdomen-normal bowel sounds, no hepatosplenomegaly Extremities-no cyanosis, clubbing, or edema Neuro-cranial nerves II through XII intact, motor and sensory function within normal limits, strength symmetrical, no focal deficits Psych-normal affect, normal mood Results & Data Results & Data Vital Signs (Past 12 Hours) Vital Signs Temp Pulse Resp BP Pulse Ox O2 Del Method 06/19/24 07:57 77 133/75 95 Room Air 06/18/24 23:31 37.0 C 62 16 120/70 98 Room Air Laboratory Results 06/18/24 09:35 06/18/24 09:35 PG Care Time/CCT Total # of Minutes Spent Total Time Spent with Patient: Total time spent is greater than 50% in coordination of care (as documented) at patient's floor/unit and/or counseling patient: Coding Level of Care Code 58643 SUB INP/OBS CARE 2MIN Diagnoses Lumbosacral spondylosis with radiculopathy M47.27 Acute blood loss anemia D62 Cardiomyopathy, ischemic I25.5 Hypothyroidism E03.9 COPD (chronic obstructive pulmonary disease) J44.9 CKD (chronic kidney disease) stage 3, GFR 30-59 ml/min N18.30 Primary hypertension I10 Hypertension type: primary hypertension (7) Hypertension Hypertension type: primary hypertension Qualified Code(s): I10 - Essential (primary) hypertension
== END 2024-06-19 12:56 | disposition home or self-care (01) | DRG 402 ==
LOC: ASU 08:24 → 3E 12:18
DX: Z79.890 Hormone replacement therapy; Z98.1 Arthrodesis status; G43.909 Migraine, unspecified, not intractable, without status migrainosus; I12.9 Hypertensive chronic kidney disease with stage 1 through stage 4 chronic kidney disease, or unspecified chronic kidney disease; Z88.6 Allergy status to analgesic agent; N18.30 Chronic kidney disease, stage 3 unspecified; J44.9 Chronic obstructive pulmonary disease, unspecified; I25.10 Atherosclerotic heart disease of native coronary artery without angina pectoris; E03.9 Hypothyroidism, unspecified; Z79.02 Long term (current) use of antithrombotics/antiplatelets; M47.27 Other spondylosis with radiculopathy, lumbosacral region; D62 Acute posthemorrhagic anemia; Z88.1 Allergy status to other antibiotic agents; I34.1 Nonrheumatic mitral (valve) prolapse; Z91.041 Radiographic dye allergy status; I25.5 Ischemic cardiomyopathy; Z79.82 Long term (current) use of aspirin

== ENCOUNTER 2025-05-06 05:26 | Inpatient (IN) ==
--- NOTE | 2025-04-10 15:52 | PAT Medication Instructions ---
Medication Instructions Date of Service April 10, 2025 Home Medications Medication Instructions Recorded nitroglycerin 0.4 mg sublingual 0.4 mg sublingual Q5M PRN chest 02/14/22 tablet (Nitrostat) pain #30 tabs lisinopril 5 mg tablet (Zestril) 5 mg PO QAM #90 tabs 06/29/23 ferrous sulfate 325 mg (65 mg 325 mg PO BIDM #60 tabs 06/19/24 iron) tablet,delayed release metoprolol succinate 25 mg 25 mg PO QAM #90 tabs 12/11/24 tablet,extended release 24 hr evolocumab 140 mg/mL subcutaneous 140 mg subcut ONCE #6 mL 02/12/25 pen injector (Iker Sheriff) spironolactone 25 mg tablet 25 mg PO QAM #90 tabs 03/10/25 epinephrine 0.3 mg/0.3 mL injection, auto-injector (EpiPen) 0.3 mg IM Q3H PRN esomeprazole magnesium 40 mg capsule,delayed release 40 mg PO QAM metoclopramide HCl 5 mg tablet 10 mg PO QID amoxicillin 500 mg capsule 2,000 mg PO UD PRN lactobacillus combination no.4 3 billion cell capsule (Probiotic) 3,000 mmu cells PO QAM vitamin E 268 mg (400 unit) capsule 400 unit PO QAM calcium 600 mg (as carbonate)-vit D3 20 mcg (800 unit) chewable tablet (Caltrate plus D) 1 tab PO QDL levothyroxine 75 mcg tablet (Synthroid) 75 mcg PO QAM immune globulin (human) (IgG) 10 gram intravenous solution 30 g IV UD ondansetron HCl 8 mg tablet 4 mg PO Q6H PRN nitroglycerin 0.4 mg sublingual tablet (Nitrostat) 0.4 mg sublingual Q5M PRN celecoxib 100 mg capsule (Celebrex) 100 mg PO QAM lisinopril 5 mg tablet (Zestril) 5 mg PO QAM oxycodone 10 mg tablet 10 mg PO Q6H PRN gabapentin 300 mg capsule 600 mg PO TID baclofen 20 mg tablet 20 mg PO TID PRN clopidogrel 75 mg tablet 75 mg PO QAM oxybutynin chloride 15 mg tablet,extended release 24 hr 15 mg PO QAM sumatriptan succinate 100 mg tablet (Imitrex) 100 mg PO UD PRN aspirin 81 mg capsule 81 mg PO DAILY ferrous sulfate 325 mg (65 mg iron) tablet,delayed release 325 mg PO BID metoprolol succinate 25 mg tablet,extended release 24 hr 25 mg PO QAM evolocumab 140 mg/mL subcutaneous pen injector (Repatha SureClick) 140 mg subcut ONCE spironolactone 25 mg tablet 25 mg PO QAM atorvastatin 80 mg tablet (Lipitor) 80 mg PO HS duloxetine 20 mg capsule,delayed release 40 mg PO HS fentanyl 50 mcg/hr transdermal patch 1 patch transdermal Q72 lidocaine 5 % topical patch 3 patch topical DAILY Continue as directed epinephrine 0.3 mg/0.3 mL injection, auto-injector (EpiPen) 0.3 mg IM Q3H PRN(if needed) amoxicillin 500 mg capsule 2,000 mg PO UD PRN(if needed) nitroglycerin 0.4 mg sublingual tablet (Nitrostat) 0.4 mg sublingual Q5M PRN(if needed) sumatriptan succinate 100 mg tablet (Imitrex) 100 mg PO UD PRN(if needed) ASK your surgeon for instructions celecoxib 100 mg capsule (Celebrex) 100 mg PO QAM ASK your prescriber and surgeon immune globulin (human) (IgG) 10 gram intravenous solution 30 g IV UD clopidogrel 75 mg tablet 75 mg PO QAM(in order for spinal or epidural anesthesia, clopidogrel/Plavix needs stopped 7 days before surgery. Please check if okay with doctor that prescribes this to you) aspirin 81 mg capsule 81 mg PO DAILY evolocumab 140 mg/mL subcutaneous pen injector (Repatha SureClick) 140 mg subcut ONCE fentanyl 50 mcg/hr transdermal patch 1 patch transdermal Q72H lidocaine 5 % topical patch 3 patch topical DAILY STOP taking 2 weeks before surgery (or as soon as possible if surgery is within 2 weeks) vitamin E 268 mg (400 unit) capsule 400 unit PO QAM DO NOT take the morning of surgery lactobacillus combination no.4 3 billion cell capsule (Probiotic) 3,000 mmu cells PO QAM calcium 600 mg (as carbonate)-vit D3 20 mcg (800 unit) chewable tablet (Caltrate plus D) 1 tab PO QDL lisinopril 5 mg tablet (Zestril) 5 mg PO QAM oxybutynin chloride 15 mg tablet,extended release 24 hr 15 mg PO QAM ferrous sulfate 325 mg (65 mg iron) tablet,delayed release 325 mg PO BID spironolactone 25 mg tablet 25 mg PO QAM Take morning of surgery With a small sip of water, OTHERWISE NOTHING TO EAT OR DRINK AFTER MIDNIGHT: esomeprazole magnesium 40 mg capsule,delayed release 40 mg PO QAM metoclopramide HCl 5 mg tablet 10 mg PO QID levothyroxine 75 mcg tablet (Synthroid) 75 mcg PO QAM ondansetron HCl 8 mg tablet 4 mg PO Q6H PRN(if needed) oxycodone 10 mg tablet 10 mg PO Q6H PRN(if needed) gabapentin 300 mg capsule 600 mg PO TID baclofen 20 mg tablet 20 mg PO TID PRN(if needed) metoprolol succinate 25 mg tablet,extended release 24 hr 25 mg PO QAM Take evening before surgery metoclopramide HCl 5 mg tablet 10 mg PO QID ondansetron HCl 8 mg tablet 4 mg PO Q6H PRN(if needed) oxycodone 10 mg tablet 10 mg PO Q6H PRN(if needed) gabapentin 300 mg capsule 600 mg PO TID baclofen 20 mg tablet 20 mg PO TID PRN(if needed) ferrous sulfate 325 mg (65 mg iron) tablet,delayed release 325 mg PO BID atorvastatin 80 mg tablet (Lipitor) 80 mg PO HS duloxetine 20 mg capsule,delayed release 40 mg PO HS Other Notes If you have any questions please call us at [phone] or [phone] or [phone] or [phone]
--- NOTE | 2025-04-10 15:53 | PAT Medication Instructions ---
Medication Instructions Date of Service April 10, 2025 Home Medications Medication Instructions Recorded nitroglycerin 0.4 mg sublingual 0.4 mg sublingual Q5M PRN chest 02/14/22 tablet (Nitrostat) pain #30 tabs lisinopril 5 mg tablet (Zestril) 5 mg PO QAM #90 tabs 06/29/23 ferrous sulfate 325 mg (65 mg 325 mg PO BIDM #60 tabs 06/19/24 iron) tablet,delayed release metoprolol succinate 25 mg 25 mg PO QAM #90 tabs 12/11/24 tablet,extended release 24 hr evolocumab 140 mg/mL subcutaneous 140 mg subcut ONCE #6 mL 02/12/25 pen injector (Iker Sheriff) spironolactone 25 mg tablet 25 mg PO QAM #90 tabs 03/10/25 epinephrine 0.3 mg/0.3 mL injection, auto-injector (EpiPen) 0.3 mg IM Q3H PRN Anaphylaxis esomeprazole magnesium 40 mg capsule,delayed release 40 mg PO QAM metoclopramide HCl 5 mg tablet 10 mg PO QID amoxicillin 500 mg capsule 2,000 mg PO UD PRN dental pretreat lactobacillus combination no.4 3 billion cell capsule (Probiotic) 3,000 mmu cells PO QAM vitamin E 268 mg (400 unit) capsule 400 unit PO QAM calcium 600 mg (as carbonate)-vit D3 20 mcg (800 unit) chewable tablet (Caltrate plus D) 1 tab PO QDL levothyroxine 75 mcg tablet (Synthroid) 75 mcg PO QAM immune globulin (human) (IgG) 10 gram intravenous solution 30 g IV UD ondansetron HCl 8 mg tablet 4 mg PO Q6H PRN Nausea nitroglycerin 0.4 mg sublingual tablet (Nitrostat) 0.4 mg sublingual Q5M PRN chest pain celecoxib 100 mg capsule (Celebrex) 100 mg PO QAM lisinopril 5 mg tablet (Zestril) 5 mg PO QAM oxycodone 10 mg tablet 10 mg PO Q6H PRN Pain gabapentin 300 mg capsule 600 mg PO TID baclofen 20 mg tablet 20 mg PO TID PRN Pain clopidogrel 75 mg tablet 75 mg PO QAM oxybutynin chloride 15 mg tablet,extended release 24 hr 15 mg PO QAM sumatriptan succinate 100 mg tablet (Imitrex) 100 mg PO UD PRN Migraine Headache aspirin 81 mg capsule 81 mg PO DAILY ferrous sulfate 325 mg (65 mg iron) tablet,delayed release 325 mg PO BIDM metoprolol succinate 25 mg tablet,extended release 24 hr 25 mg PO QAM evolocumab 140 mg/mL subcutaneous pen injector (Repatha SureClick) 140 mg subcut ONCE spironolactone 25 mg tablet 25 mg PO QAM atorvastatin 80 mg tablet (Lipitor) 80 mg PO HS duloxetine 20 mg capsule,delayed release 40 mg PO HS fentanyl 50 mcg/hr transdermal patch 1 patch transdermal Q72H lidocaine 5 % topical patch 3 patch topical DAILY Continue as directed epinephrine 0.3 mg/0.3 mL injection, auto-injector (EpiPen) 0.3 mg IM Q3H PRN Anaphylaxis (if needed) amoxicillin 500 mg capsule 2,000 mg PO UD PRN dental pretreat (if needed) nitroglycerin 0.4 mg sublingual tablet (Nitrostat) 0.4 mg sublingual Q5M PRN chest pain (if needed) fentanyl 50 mcg/hr transdermal patch 1 patch transdermal Q72H (Avoid placement near surgery site prior to surgery) lidocaine 5 % topical patch 3 patch topical DAILY (Avoid placement near surgery site prior to surgery) ASK your surgeon for instructions celecoxib 100 mg capsule (Celebrex) 100 mg PO QAM ASK your prescriber and surgeon clopidogrel/Plavix 75 mg tablet 75 mg PO QAM (From anesthesia perspective, Clopidogrel/Plavix is requested to be stopped 7 days before surgery. Please check if okay with doctor that prescribes this to you) aspirin 81 mg capsule 81 mg PO DAILY immune globulin (human) (IgG) 10 gram intravenous solution 30 g IV UD evolocumab 140 mg/mL subcutaneous pen injector (Repatha SureClick) 140 mg subcut ONCE STOP taking 2 weeks before surgery (or as soon as possible if surgery is within 2 weeks) vitamin E 268 mg (400 unit) capsule 400 unit PO QAM DO NOT take the morning of surgery metoclopramide HCl 5 mg tablet 10 mg PO QID lactobacillus combination no.4 3 billion cell capsule (Probiotic) 3,000 mmu cells PO QAM calcium 600 mg (as carbonate)-vit D3 20 mcg (800 unit) chewable tablet (Caltrate plus D) 1 tab PO QDL lisinopril 5 mg tablet (Zestril) 5 mg PO QAM oxybutynin chloride 15 mg tablet,extended release 24 hr 15 mg PO QAM ferrous sulfate 325 mg (65 mg iron) tablet,delayed release 325 mg PO BIDM spironolactone 25 mg tablet 25 mg PO QAM Take morning of surgery With a small sip of water, OTHERWISE NOTHING TO EAT OR DRINK AFTER MIDNIGHT: esomeprazole magnesium 40 mg capsule,delayed release 40 mg PO QAM levothyroxine 75 mcg tablet (Synthroid) 75 mcg PO QAM ondansetron HCl 8 mg tablet 4 mg PO Q6H PRN Nausea (if needed) oxycodone 10 mg tablet 10 mg PO Q6H PRN Pain (if needed) gabapentin 300 mg capsule 600 mg PO TID baclofen 20 mg tablet 20 mg PO TID PRN Pain (if needed) sumatriptan succinate 100 mg tablet (Imitrex) 100 mg PO UD PRN Migraine Headache (if needed) metoprolol succinate 25 mg tablet,extended release 24 hr 25 mg PO QAM Take evening before surgery metoclopramide HCl 5 mg tablet 10 mg PO QID ondansetron HCl 8 mg tablet 4 mg PO Q6H PRN Nausea (if needed) oxycodone 10 mg tablet 10 mg PO Q6H PRN Pain (if needed) gabapentin 300 mg capsule 600 mg PO TID baclofen 20 mg tablet 20 mg PO TID PRN Pain (if needed) sumatriptan succinate 100 mg tablet (Imitrex) 100 mg PO UD PRN Migraine Headache (if needed) ferrous sulfate 325 mg (65 mg iron) tablet,delayed release 325 mg PO BIDM atorvastatin 80 mg tablet (Lipitor) 80 mg PO HS duloxetine 20 mg capsule,delayed release 40 mg PO HS Other Notes If you have any questions please call us at [phone] or [phone] or [phone] or [phone]
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
[2025-05-06] MEDS: CeleBREX 200 MG CAP PO SCH (06:22)
[2025-05-06] MEDS: LR 60ML/HR IV SCH (06:22)
[2025-05-06] MEDS: LR 500ML BOLUS, THEN 15ML/HR IV SCH (06:23)
[2025-05-06] MEDS: ACETAMINOPHEN 500 MG TAB PO SCH ×2 (06:24→15:06)
[2025-05-06] MEDS: METOCLOPRAMIDE HCL 10 MG TABLET PO SCH ×2 (06:25→15:07)
[2025-05-06] MEDS: FAMOTIDINE 20 MG TAB PO SCH (06:25)
[2025-05-06] MEDS: GABAPENTIN 300 MG CAP PO SCH ×2 (06:25→15:07)
[2025-05-06] MEDS ORDERED: BUPIVACAINE 0.5 % 5 MG/1 ML PF 10ML VIAL ONE (06:34)
[2025-05-06] MEDS ORDERED: BUPIVACAINE 0.25% PF 30 ML VIAL ONE (06:34)
[2025-05-06] MEDS ORDERED: ONDANSETRON INJ 2 MG/ML 2 ML VIAL ONE (06:43)
[2025-05-06] MEDS ORDERED: MIDAZOLAM HCL 1 MG/ML 2ML VIAL ONE (06:43)
[2025-05-06] MEDS ORDERED: LIDOCAINE 2% 2 ML VIAL/AMP(20MG/ML) INFIL ONE (06:45)
[2025-05-06] MEDS ORDERED: PROPOFOL IV EMULSION 10 MG/ML 20 ML VIAL IV ONE (06:45)
--- NOTE | 2025-05-06 07:04 | History & Physical Bridge Note ---
Date of Service May 06, 2025 History & Physical Bridge Note I have examined the patient, reviewed the History & Physical and in the interval since the performance of the History & Physical I have noted the following changes of clinical significance: no changes noted
[2025-05-06] MEDS: dexAMETHasone**PF** 10 MG/ML VIAL IV SCH (07:08)
[2025-05-06] MEDS: TRANEXAMIC ACID 1,000 MG **IV Pre-op IV SCH (07:11)
[2025-05-06] MEDS ORDERED: ATROPINE SULFATE 0.1 MG/ML 10ML SYR IV PRN (07:21)
[2025-05-06] MEDS ORDERED: KETAMINE HCL 10MG/ML SYR ONE (07:37)
[2025-05-06] MEDS ORDERED: DEXAMETHASONE SOD INJ 4 MG/ML VIAL ONE ×2 (07:39)
[2025-05-06] MEDS ORDERED: ePHEDrine sulfate 50 MG/5 ML SYR ONE (07:39)
[2025-05-06] MEDS ORDERED: HYDROmorphone INJ 2 MG/ML SYR/VIAL ONE (08:14)
[2025-05-06] MEDS: ceFAZolin 330 MG/ML 1 GM VIAL ONE (08:14)
[2025-05-06] MEDS: ROPIV 0.5% 246mg, Ketorolac 30mg, EPINEPHrine 0.5mg in NSS INFIL SCH (08:14)
--- NOTE | 2025-05-06 10:01 | Operative Report ---
Post Operative Report Pre & Post Diagnosis Operation Date: 05/06/25 07:15 Pre-Op Diagnosis: Left Knee Degenerative Joint Disease, osteoarthritis Post-Op Diagnosis: Left Knee Degenerative Joint Disease, osteoarthritis I identified the patient and participated in the time-out.: Yes Procedure Operation Date: 05/06/25 07:15 Actual Procedures p Left Total Knee Arthroplasty(Left) - Jose Reyes MD Surgeon Jose Reyes MD Title One Teacher Scottie OCASIO Estimated Blood Loss 5 Findings Consistent with Post-Op Diagnosis Specimens Bone cuts Drains 2 Hemovac Anesthesia Type General Regional Complications none Disposition Disposition: Recovery Room Indications 70-year-old female with chronic osteoarthritis in her left knee has received multiple injections over the years now is [id number] medial compartment and no relief with conservative management. Patient has a varus knee edxj-jo-iror on flexion weightbearing views with mild bone loss. Description of Procedure Patient was taken to the operating room placed supine on the operating table and anesthetized under spinal MAC regional block anesthesia. Exam under anesthesia demonstrated about a 5 degree flexion contracture with further flexion of 140 degrees. A pneumatic tourniquet was placed about the thigh of the left lower extremity. The left lower extremity was prepped and draped in usual sterile fashion. The leg was elevated exsanguinated with an Esmarch bandage and the pneumatic tourniquet was raised to 300 mm mercury. An anterior incision was made across the left knee. The skin was incised longitudinally subcutaneous flaps were elevated and an incision was made through the medial retinaculum extending up into the mid third of the quadriceps tendon and extended down to the medial tibial tubercle. Intra-articular findings demonstrated primarily medial compartment osteoarthritis with grade 4 medial compartment osteoarthritis. Patient had degeneration of the ACL. The knee was exposed by excising the infrapatellar fat pad, excising the meniscal remnants and anterior cruciate ligament. Any inflamed synovial tissue was resected. The fat pad over the anterior femur was resected for placement of the component in that area. The lateral synovial bands were release. The femur was exposed. The custom femoral cutting block was pinned in position. The distal femoral cutting block was applied. The distal femoral cut was made with the oscillating saw. The size 9, 4-in-1 cutting block was placed. The anterior and posterior chamfer cuts were made. The knee was extended and a subperiosteal peel lateral release was performed around the patella. The patella width was measured and width was reproduced using freehand cut technique. The 32 millimeter symmetrical patella was used. 3 drill holes are made for the pegs. Excess lateral facet was beveled off to prevent any impingement. The tibia was exposed. A custom tibial cutting block was positioned and drill holes were made for the cutting guide. Cutting guide was placed and the proximal cut was made with the oscillating saw. All osteophytes were resected. The lamina asphalt roller operator was used to assess ligamentous balance and the ligaments were balanced in extension and flexion. Medial posterior medial and some pie crusting of MCL releases were required. The tibia was reexposed and measured for a size E left tibial component. This was externally rotated in line with the tibial tubercle and the fixation pins were drilled. The proximal tibia was fashioned with the drill and punch. The size 9 CR femoral trial was inserted. The trial MC inserts were used. The 10 mm insert gave balanced ligaments through full range of motion. The patella tracked centrally. the trials were removed. The orthomix anesthetic cocktail was injected per protocol. The knee was then copiously irrigated with pulsatile lavage saline solution with Ancef and. The final components were cemented with Refobacin bone cement. The final components were Manuel persona size 9 standard tivanium CR femoral component, E left tibial component, 10 left MC tibial polyethylene and a 32 mm all polyethylene symmetrical patella. After the cement cured with the knee in full extension the knee was irrigated out with pulsatile lavage saline solution with Ancef. The knee joint was copiously irrigated with pulsatile lavage saline solution . 2 drains were brought out laterally and connected to a Hemovac. The quadriceps tendon and medial retinaculum were closed with interrupted #2 FiberWire around the medial retinaculum and distal quad tendon and an additional suture at the apex of the quad split proximally and an additional suture at the level of the tibial polyethylene. Starting proximally a 0 strata fix running locking suture closure was performed from the apex of the quad split proximally down to the level of the inferior pole the patella. Below that level interrupted #1 Vicryl sutures were utilized. The knee was taken through a full range of motion which was 0 through 135 degrees and the repair was secure. The subcutaneous tissues were closed with 2-0 Vicryl sutures and skin was closed with Prineo Dermabond glue system.A standard sterile dressing was applied and the patient tolerated the procedure well. Scottie OCASIO my physician radiology physician assistant participated as recreational assistant and was an integral part in all aspects of the procedure, he assisted in soft tissue retraction, instrument management ,leg positioning, the closure and will participate in the postoperative care of the patient. Im ordering collagen sheets as a primary dressing and bordered super absorbent for secondary dressings for the wound resulting from this surgery. Collagen is being utilized to encourage the growth of blood vessels and granulation tissue. The collagen will also speed up the wound healing process, increase skin tensile strength at the surgery site and lessen the chance of a wound dehiscence, help prevent infection, and reduce the appearance of scarring. The silicone secondary dressings will protect the wound and help keep it clean and minimize that chances for infection. I believe that this treatment protocol is medically necessary to help facilitate the best outcome possible for my patient. I attest to the content of the Intraoperative Record and any orders documented therein. Any exceptions are noted below.
[2025-05-06] MEDS: ONDANSETRON INJ 2 MG/ML 2 ML VIAL IV PRN ×2 (10:45→19:39)
[2025-05-06] MEDS: HYDROmorphone INJ 2 MG/ML SYR/VIAL IV PRN (11:10)
--- NOTE | 2025-05-06 11:19 | XRay Report ---
XR knee LT 1 or 2V routine HISTORY: 70 years-old Female Surgical Post Op left knee arthroplasty COMPARISON: August 02, 2018 TECHNIQUE: 2 views of the left knee FINDINGS: Total joint arthroplasty with patellar resurfacing. No acute fracture, dislocation or unexpected opaq ue foreign body. A surgical drainage catheter is in place along with expected postoperative soft tiss ue swelling with deep tissue air. IMPRESSION: Satisfactory alignment of the total joint arthroplasty. ACT 112: Negative or not required by law. The above report was generated using voice recognition software. It may contain grammatical, syntax o r spelling errors. Electronically signed by: Elieser Valera M.D. 05/06/2025 11:17 AM
--- NOTE | 2025-05-06 12:14 | Anesthesiology Progress Note ---
Date of Service May 06, 2025 Anesthesia Post Procedure Vital Signs Vital Signs: Temp Pulse Pulse Resp BP Pulse Ox O2 Del Method 05/06/25 12:00 36.8 C 72 20 139/62 96 Nasal Cannula 05/06/25 11:50 71 18 133/59 L 95 Nasal Cannula 05/06/25 11:40 74 16 126/54 L 97 Nasal Cannula 05/06/25 11:30 70 16 118/64 95 Nasal Cannula 05/06/25 11:20 76 18 136/62 96 Nasal Cannula 05/06/25 11:10 77 14 131/67 95 Nasal Cannula 05/06/25 11:00 76 18 131/52 L 90 Room Air 05/06/25 10:50 75 14 136/63 92 Room Air 05/06/25 10:40 77 20 138/56 L 97 Oxymask 05/06/25 10:30 75 12 139/60 96 Oxymask 05/06/25 10:20 76 14 139/65 96 Oxymask 05/06/25 10:11 36.9 C 78 14 149/64 H 96 Oxymask 05/06/25 05:50 37 C 65 18 175/80 H 94 Room Air O2 Flow Rate 05/06/25 12:00 2 05/06/25 11:50 2 05/06/25 11:40 2 05/06/25 11:30 2 05/06/25 11:20 2 05/06/25 11:10 2 05/06/25 11:00 05/06/25 10:50 05/06/25 10:40 5 05/06/25 10:30 10 05/06/25 10:20 10 05/06/25 10:11 10 05/06/25 05:50 Pain Intensity Back: Pain Intensity: 10 Left Knee: Pain Intensity: 4 Transfer of Care Handoff Completed per policy Notes Mental Status: alert / awake / arousable Patient Amnestic to Procedure: Yes Nausea / Vomiting: adequately controlled Pain: adequately controlled Airway Patency, RR, SpO2: stable & adequate BP & HR: stable & adequate Hydration State: stable & adequate Anesthetic Complications: no major complications apparent
[2025-05-06] MEDS ORDERED: NITROGLYCERIN SL 0.4 MG/TAB TAB SL PRN (13:23)
[2025-05-06] MEDS ORDERED: METOCLOPRAMIDE HCL INJ 5 MG/ML 2 ML VIAL IV PRN (13:23)
[2025-05-06] MEDS ORDERED: MAGNESIUM HYDROXIDE SUSP 30 ML UDC PO PRN (13:23)
[2025-05-06] MEDS ORDERED: diphenhydrAMINE Capsule 25 MG CAP PO PRN (13:23)
[2025-05-06] MEDS ORDERED: ALUMINUM/MAGNESIUM SUSP 30 ML UDC PO PRN (13:23)
[2025-05-06] MEDS ORDERED: NALOXONE HCL 0.4 MG/1 ML VIAL/CARP IV PRN (13:23)
[2025-05-06] MEDS: ORTHO JOINT ANESTHETIC ONE (13:46)
[2025-05-06] MEDS ORDERED: EPINEPHrine INJ 1 MG/ML AMP IM PRN (14:04)
[2025-05-06] MEDS: SODIUM CHLORIDE 0.9% 1,000 ML IV SCH (15:06)
[2025-05-06] MEDS: HYDROmorphone INJ 0.5 MG/0.5 ML SYR IV PRN (15:09)
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
[2025-05-06] MEDS: TRANEXAMIC ACID / 0.7% NACL 1,000 MG/100 ML BAG IV SCH (17:36)
[2025-05-06] MEDS: ATORVASTATIN 40 MG TAB PO SCH (20:07)
[2025-05-06] MEDS: DOCUSATE SODIUM 100 MG CAP PO SCH (20:07)
[2025-05-06] MEDS: SENNA 8.6 MG TAB PO SCH (20:08)
[2025-05-06] MEDS ORDERED: KETOROLAC TROMETHAMINE 15 MG/ML VIAL IV PRN (21:00)
[2025-05-06] MEDS: REMOVE LIDODERM PATCH SCH (21:26)
[2025-05-07] MEDS: HEPARIN 100 UNIT/ML 5ML FLUSH FLUSH PRN (06:10)
[2025-05-07] MEDS: LEVOTHYROXINE SODIUM 75 MCG TABLET PO SCH (06:27)
[2025-05-07] MEDS ORDERED: LEVOTHYROXINE SODIUM 75 MCG TABLET PO SCH (06:30)
[2025-05-07] MEDS ORDERED: dexAMETHasone 10 MG in SYRINGE 0 ML IV SCH (08:00)
[2025-05-07 08:07] LABS: Hematocrit (blood only) 31.6 % (37.0-47.0); Hemoglobin 10.7 g/dL (12.0-16.0); Mean Corpuscular Hemoglobin 28.2 pg (25.0-34.0); Mean Corpuscular Volume 83.4 fL (80.0-100.0); Platelet Count 184 K/uL (130-400); RDW Standard Deviation 41.6 fL (36.4-46.3); Red Blood Count 3.79 M/uL (4.20-5.40); White Blood Count 9.55 K/ul (4.8-10.8)
[2025-05-07] MEDS: ASPIRIN 81 MG ECTAB PO SCH (08:15)
[2025-05-07] MEDS: CLOPIDOGREL BISULFATE 75 MG TAB PO SCH (08:15)
[2025-05-07] MEDS: TOCOPHERYL, DL-ALPHA 400 UNITS 180 MG CAP PO SCH (08:16)
[2025-05-07] MEDS: LIDOCAINE 5% 1 PATCH TD SCH (08:17)
[2025-05-07] MEDS: METOPROLOL SUCC 25MG EXT REL TAB PO SCH (08:17)
--- NOTE | 2025-05-07 08:17 | Orthopedic Progress Note ---
Date of Service May 07, 2025 Assessment & Plan (1) Osteoarthritis of left knee: Plan: More than desirable amount of drainage at this time postop. Will have to leave drain in. Patient's pain management slightly suboptimal so we will be best to admit her and continue with physical therapy in hospital and continue drain another day and discharge tomorrow. Will have pain management adjust fentanyl patch dosing. End-stage knee compartment osteoarthritis left knee. Plans to proceed with left total knee replacement. Admission and Anticipated Discharge Date Admission Date: May 06, 2025 Subjective Patient slept with her knee bent on her side and had more pain since then and pain is currently more than she feels is manageable. Review of Systems Review of Systems: No chest pain shortness of breath or any medical issues Physical Exam Musculoskeletal: Dressing dry and intact Hemovac still draining. Independent straight leg raise intact extensor mechanism. Distal circulation sensorimotor exam normal. Results & Data Vital Signs (Past 12 Hours) Vital Signs Temp Pulse Resp BP Pulse Ox O2 Del Method 05/07/25 07:28 36.8 C 69 18 153/65 H 93 Room Air 05/07/25 03:13 37.0 C 79 18 133/69 94 Room Air 05/06/25 23:47 Room Air 05/06/25 23:00 36.4 C L 78 158/72 H 93 Room Air Laboratory Results Pending Diagnostic Findings X-rays demonstrate satisfactory alignment of left total knee replacement (1) Osteoarthritis of left knee Osteoarthritis type: primary Qualified Code(s): M17.12 - Unilateral primary osteoarthritis, left knee
[2025-05-07] MEDS: MULTIVITAMIN TAB PO SCH (08:18)
[2025-05-07] MEDS: OXYBUTYNIN CHLORIDE XL 5 MG TABCR PO SCH (08:18)
[2025-05-07] MEDS: SPIRONOLACTONE 25 MG TAB PO SCH (08:19)
[2025-05-07] MEDS: BACLOFEN 20 MG TAB PO PRN (08:20)
[2025-05-07 08:33] LABS: Anion Gap 6.0 (3-11); Blood Urea Nitrogen 10.0 mg/dl (6-23); Calcium 9.3 mg/dl (8.6-10.3); Carbon Dioxide 26.0 mmol/L (21-32); Chloride 104.0 mmol/L (98-107); Creatinine Clr Calc Pharmacy 54.0 ml/min; Glucose 112.0 mg/dl (70-99(Fasting)); Potassium 4.1 mmol/L (3.5-5.1); Sodium 136.0 mmol/L (136-145)
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
[2025-05-07] MEDS: ONDANSETRON 4 MG OD TAB PO PRN (09:01)
[2025-05-07] MEDS: dexAMETHasone 10 MG in SYRINGE 0 ML IV SCH (09:02)
[2025-05-07] MEDS: ADVANCED PROBIOTIC 625 MG CAPSULE PO SCH (10:03)
[2025-05-07] MEDS: CHOLECALCIFEROL 10 MCG (400 UNITS) TAB PO SCH (11:23)
[2025-05-07] MEDS: CALCIUM 600MG + VIT D 400 IU TAB PO SCH (11:23)
--- NOTE | 2025-05-07 12:41 | Hospitalist Progress Note ---
"Date of Service May 07, 2025 Assessment & Plan (1) Osteoarthritis of left knee: (2) CAD (coronary artery disease): (3) Hypertension: Plan Antonia is a 70-year-old female with a past medical history of hypertension, CKD 3, COPD, hypothyroid, coronary artery disease, chronic pain syndrome, fibromyalgia and dyslipidemia. Hospital Medicine consulted for medical management. #Left Knee Degenerative Joint Disease - s/p Left Total Knee Arthoplasty 05/06 w yumi Reyes Pain control / DVT proh / abx / dispo per primary team Pain Management consulted as well EBL 5 - hgb 10.7, decreased from 12.3 last month - acute blood loss anemia vs diluational #CAD | HLD | HTN Continue Statin and Plavix Continue metoprolol and spironolactone Okay to resume lisinopril Aspirin has been increased to be BID for DVT proh #Chronic Pain | Fibromyalgia Home regimen: prn baclofen, Cymbalta, Fentanyl patch, Gabapentin lidocaine patches - patient reports she wears 3 5% patches at all times #hypothyroid - continue synthroid Thank you for allowing us to participate in the care of this patient, please reach out with any questions or concerns. Hospital Medicine will sign off. Admission and Anticipated Discharge Date Admission Date: May 07, 2025 Supervising Physician Co-Signing Physician Notes I did not see or examine the patient. I verified all carson points and agree with Akila Paul PA-C with the following exceptions and/or additions: None Subjective doing okay - pain is manageable multiple bowel movements over night Physical Exam Physical Exam: General: NAD, VS as above Resp: normal respiratory effort, lungs clear to auscultation anteriorly CV: RRR, no murmur, Abd: normal bowel sounds, non tender, soft Extremities: able to wiggle toes bilaterally Neuro: A&O x3, Results & Data Results & Data Vital Signs (Past 12 Hours) Vital Signs Temp Pulse Resp BP Pulse Ox O2 Del Method 05/07/25 11:05 98.2 F 66 18 153/68 H 94 Room Air 05/07/25 07:28 98.2 F 69 18 153/65 H 93 Room Air 05/07/25 03:13 98.6 F 79 18 133/69 94 Room Air Laboratory Results cbc and chemistry reviewed PG Care Time/CCT Total # of Minutes Spent Total Time Spent with Patient: Total time spent is greater than 50% in coordination of care (as documented) at patient's floor/unit and/or counseling patient: Coding Level of Care Code 50391 SUB INP/OBS CARE MIN Diagnoses Primary osteoarthritis of left knee M17.12 Osteoarthritis type: primary CAD (coronary artery disease) I25.10 Hypertension I10 (1) Osteoarthritis of left knee Osteoarthritis type: primary Qualified Code(s): M17.12 - Unilateral primary osteoarthritis, left knee"
[2025-05-07 23:10] VITALS: RESP 16
[2025-05-08 08:29] VITALS: BP 130/73; TEMP 98.6; O2SAT 95
[2025-05-08 08:30] VITALS: PULSE 77
--- NOTE | 2025-05-08 10:09 | Orthopedic Progress Note ---
Date of Service May 08, 2025 Assessment & Plan (1) Osteoarthritis of left knee: Plan: Postop day 1 left total knee replacement. Chronic pain issues. Pain management adjusted her fentanyl patch and oxy codon dosing. She will have to stay on with a recommended upon discharge. Dressings were changed Hemovac discontinued and Moises wrap's placed. She can have Moises wrap from the foot to the thigh to control swelling in the leg because she says she is allergic to the SEVERINO hose. She will start outpatient physical therapy on Sunday. She will do the home exercises as instructed over the weekend. She will follow-up in 2 weeks for wound check. Place her on the recommended medications per the pain management consult for 2 weeks until seen in follow-up. Will readjust after that point in time. Patient can be discharged after physical therapy. End-stage knee compartment osteoarthritis left knee. Plans to proceed with left total knee replacement. Admission and Anticipated Discharge Date Admission Date: May 07, 2025 Subjective Having pain in her left knee. Thought perhaps she had the ice on for too long of a period of time. Despite having her medications adjusted she feels she has more pain than desired. Review of Systems Review of Systems: Noncontributory Physical Exam Musculoskeletal: Incision closure intact without complication. Prineo glue system. Some soft tissue edema no ecchymosis. Distal circulation sensorimotor exam intact. No calf pain. Results & Data Vital Signs (Past 12 Hours) Vital Signs Temp Pulse Pulse Resp BP Pulse Ox O2 Del Method 05/08/25 08:18 37.0 C 80 16 130/73 95 Room Air 05/08/25 08:09 Room Air 05/08/25 08:00 37.6 C H 77 13 146/72 H 94 Room Air 05/07/25 23:09 36.2 C L 84 16 154/79 H 96 Room Air Diagnostic Findings Satisfactory aligned left total knee replacement (1) Osteoarthritis of left knee Osteoarthritis type: primary Qualified Code(s): M17.12 - Unilateral primary osteoarthritis, left knee
== END 2025-05-08 13:23 | disposition home or self-care (01) | DRG 470 ==
LOC: ASU 05:26 → 3N 05:26
DX: I12.9 Hypertensive chronic kidney disease with stage 1 through stage 4 chronic kidney disease, or unspecified chronic kidney disease; Z95.5 Presence of coronary angioplasty implant and graft; E03.9 Hypothyroidism, unspecified; Z91.041 Radiographic dye allergy status; G89.4 Chronic pain syndrome; I10 Essential (primary) hypertension; I25.5 Ischemic cardiomyopathy; N18.30 Chronic kidney disease, stage 3 unspecified; I25.10 Atherosclerotic heart disease of native coronary artery without angina pectoris; Z98.1 Arthrodesis status; Z88.8 Allergy status to other drugs, medicaments and biological substances; G89.18 Other acute postprocedural pain; J44.9 Chronic obstructive pulmonary disease, unspecified; D62 Acute posthemorrhagic anemia; Z79.02 Long term (current) use of antithrombotics/antiplatelets; M17.12 Unilateral primary osteoarthritis, left knee; Z79.891 Long term (current) use of opiate analgesic; I25.2 Old myocardial infarction; M79.7 Fibromyalgia; Z91.040 Latex allergy status; Z79.890 Hormone replacement therapy; Z88.1 Allergy status to other antibiotic agents